=== PATIENT | female | born 1950 | race Caucasian/White ===

== ENCOUNTER 2025-07-12 22:14 | Emergency (ER) | payer MEDICARE, OTHER, SELFPAY ==
[2025-07-12] VITALS (14 sets, daily range): BP systolic 109–124; BP diastolic 51–69; PULSE 70–78; RESP 11–26; TEMP 37; O2SAT 89–98
[2025-07-12 22:57] LABS: Hematocrit 31.1 % (37.0-47.0); Hemoglobin 9.5 g/dL (12.0-15.0); Immature Granulocyte Percent A 0.7 % (0-0.5); Lymphocytes Absolute Auto 0.87 K/mm3 (0.9-3.2); Mean Corpuscular HGB Conc 30.5 g/dl (32-36); Mean Corpuscular Hemoglobin 30.4 pg (26-34); Mean Corpuscular Volume 99.4 fl (80-100); Nucleated Red Blood Cells Absolute Auto 0.000 K/mm3 (0.0-0.012); Nucleated Red Blood Cells Perc 0.0 % (0.0-0.2); Platelet Count Result 235 k/mm3 (150-375); Red Blood Count 3.13 M/mm3 (4.2-5.4); White Blood Count 4.5 K/mm3 (4.5-10.0)
[2025-07-12 23:09] LABS: Alanine Aminotransferase 13 U/L (6-35); Albumin Level 2.9 g/dL (3.5-5.1); Alkaline Phosphatase 117 U/L (38-126); Anion Gap 3 mmol/L (4-12); Aspartate Amino Transferase 22 U/L (14-36); Bilirubin,Total 0.3 mg/dL (0.2-1.3); Blood Urea Nitrogen 12 mg/dL (7-17); Calcium 7.7 mg/dL (8.4-10.2); Carbon Dioxide 34 mmol/L (22-30); Chloride 101 mmol/L (98-107); Estimated CRCL calculation 73 ml/min; Estimated Glomerular Filt Rate > 60; Glucose 105 mg/dL (65-110); Potassium 4.1 mmol/L (3.4-5.0); Sodium 138 mmol/L (137-145); Total Protein 5.3 g/dL (6.3-8.2)
[2025-07-12 23:10] LABS: INR 1.1; Prothrombin Time 14.0 Seconds (11.1-14.7)
[2025-07-12 23:11] LABS: Partial Thromboplastin Time 35.1 Seconds (22.3-36.8)
--- NOTE | 2025-07-12 23:25 | ED.RECABL ---
HPI - Recheck/Abnormal Lab/Rx General Chief Complaint: Recheck/Abnormal Lab/Rx Stated Complaint: Abnormal labs Time Seen by Provider: 07/12/25 22:31 History of Present Illness HPI narrative: Patient is a 75-year-old female who presents to the ER with concerns of low calcium. She reports she has a history low calcium and has an oral calcium regimen at home. Patient reports that regimen has been changed and she has been living in the [facility] and she believes this is what causing her current low calcium. She reports she felt lightheaded at lunch, but laid down afterwards and felt better. Patient recently had back surgery on June 13, 2025. She reports her follow-up appointment is scheduled for July 26, 2025. 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 She denies any recent fevers, increased pain at her incision site, new onset numbness/tingling in her extremities or muscle cramps. Related Data Allergies Allergy/AdvReac Type Severity Reaction Status Date / Time adhesive tape Allergy Mild Rash Verified 07/12/25 22:29 belladonna alkaloids Allergy Mild Unknown Verified 07/12/25 22:29 cefprozil Allergy Mild Unknown Verified 07/12/25 22:29 clindamycin Allergy Mild Unknown Verified 07/12/25 22:29 clobetasol Allergy Mild Unknown Verified 07/12/25 22:29 diltiazem Allergy Mild Unknown Verified 07/12/25 22:29 doxycycline Allergy Mild Unknown Verified 07/12/25 22:29 ergotamine (From Bellergal-S) Allergy Mild Rash Verified 07/12/25 22:29 erythromycin base Allergy Mild Unknown Verified 07/12/25 22:29 fosfomycin Allergy Mild Unknown Verified 07/12/25 22:29 hydralazine Allergy Mild Unknown Verified 07/12/25 22:29 levofloxacin Allergy Mild Unknown Verified 07/12/25 22:29 nitrofurantoin Allergy Mild Unknown Verified 07/12/25 22:29 phenobarbital (From Allergy Mild Rash Verified 07/12/25 22:29 Bellergal-S) ceftriaxone (From Rocephin) Allergy Unknown Verified 07/12/25 22:29 Sulfa (Sulfonamide Allergy Unknown Verified 07/12/25 22:29 Antibiotics) ticagrelor Allergy Unknown Verified 07/12/25 22:29 Review of Systems Review of Systems: All systems reviewed & are unremarkable except as noted in HPI and below Exam Narrative: GENERAL: Well appearing, obese, non-toxic, in no acute distress. HEAD: Normocephalic, atraumatic. NECK: Supple. No adenopathy, no masses. RESPIRATORY: Airway patent, respirations nonlabored. Clear to auscultation bilaterally, no rales, rhonchi, wheezing. 3L NC CARDIOVASCULAR: Regular rate, + murmur. Peripheral pulses 2+ and equal bilaterally. ABDOMINAL: Soft, nontender, nondistended, no hepatosplenomegaly. Normoactive BS. MUSCULOSKELETAL: Moves all extremities. Strength/ROM intact without gross deformities. SKIN: Warm, dry, normal color. No rashes. NEURO: A&O X3. Speech clear. Cranial nerves II-XII intact. No ataxic movements. PSYCHIATRIC: Appropriate mood and affect. Normal interaction. Course Vital Signs Vital signs: Vital Signs Temperature 37.0 C 07/12/25 22:08 Pulse Rate 78 07/12/25 22:08 Respiratory Rate 12 07/12/25 22:08 Blood Pressure 116/69 07/12/25 22:08 Pulse Oximetry 90 07/12/25 22:08 Oxygen Delivery Room Air 07/12/25 22:08 Temperature 37.0 C 07/12/25 22:08 Pulse Rate 72 07/13/25 00:02 Respiratory Rate 12 07/13/25 00:02 Blood Pressure 129/55 L 07/13/25 00:02 Pulse Oximetry 98 07/13/25 00:02 Oxygen Delivery Room Air 07/12/25 22:08 MDM - Recheck/Abnormal Lab/Rx MDM Narrative Medical decision making narrative: Patient is a 75-year-old female who presents to the ER with concerns of low calcium. She reports she has a history low calcium and has an oral calcium regimen at home. Patient reports that regimen has been changed and she has been living in the [facility] and she believes this is what causing her current low calcium. She reports she felt lightheaded at lunch, but laid down afterwards and felt better. Patient recently had back surgery on June 13, 2025. She reports her follow-up appointment is scheduled for July 26, 2025. 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 She denies any recent fevers, increased pain at her incision site, new onset numbness/tingling in her extremities or muscle cramps. Labs Ordered: CBC, CMP, lactic acid, magnesium, ionized calcium Imaging Ordered: none necessary Medications Ordered: calcium gluconate IV Results: patient's CBC indicates a hemoglobin of 9.5, RBCs of 3.13, hematocrit of 31.1%. Her coags indicated no acute abnormality. Patient's chemistry indicates a carbon dioxide of 34, anion gap of 3, creatinine 0.61. Her lactic acid is 0.6. Patient's calcium is 7.7, total protein 35.3, albumin 2.9. Diagnosis: Hypocalcemia Patient Education/Shared MDM: Results of lab work shared with patient. She continues to deny symptoms associated with hypocalcemia. Patient strongly advised to follow-up with her PCP and surgeon as soon as possible. She will not be discharged home with any new prescriptions. Strict return precautions provided. Patient verbalized understanding and is in agreement with plan. Vital signs stable at time of discharge. All questions answered. 0100- Pt is requesting her regular regime of pain medication. Per her medical chart, she receives Percocet 15mg at the [facility], along with her Cyclobenzaprine. Differential Diagnosis Differential diagnosis: Likely other ( hypocalcemia, hypomagnesium, postoperative infection, hypokalemia) Lab Data Attestation: I reviewed the patient's lab results. 07/12/25 22:50 07/12/25 22:50 Labs: Lab Results 07/12/25 07/13/25 Range/Units 22:50 00:04 WBC 4.5 (4.5-10.0) K/mm3 RBC 3.13 L (4.2-5.4) M/mm3 Hgb 9.5 L (12.0-15.0) g/dL Hct 31.1 L (37.0-47.0) % MCV 99.4 (80-100) fl MCH 30.4 (26-34) pg MCHC 30.5 L (32-36) g/dl RDW 17.0 H (11.5-14.5) % Plt Count 235 (150-375) k/mm3 MPV 9.6 (7.4-10.4) fl Immature Gran % (Auto) 0.7 H (0-0.5) % Neut % (Auto) 62.5 (45.5-73.1) % Lymph % (Auto) 19.4 (18.3-44.2) % Sutter % (Auto) 11.4 H (2.6-8.5) % Eos % (Auto) 5.1 H (0-4.4) % Baso % (Auto) 0.9 (0.2-1.2) % Lymph # (Auto) 0.87 L (0.9-3.2) K/mm3 Sutter # (Auto) 0.5 (0.1-0.6) K/mm3 Eos # (Auto) 0.2 (0-0.3) K/mm3 Baso # (Auto) 0.0 (0.0-0.1) K/mm3 Abs Immat Gran (auto) 0.03 (0.00-0.031) K/mm3 Absolute Neuts (auto) 2.8 (1.3-6.7) K/mm3 Absolute Nucleated RBC 0.000 (0.0-0.012) K/mm3 Nucleated RBC % 0.0 (0.0-0.2) % PT 14.0 (11.1-14.7) Seconds INR 1.1 APTT 35.1 (22.3-36.8) Seconds Sodium 138 (137-145) mmol/L Potassium 4.1 (3.4-5.0) mmol/L Chloride 101 (98-107) mmol/L Carbon Dioxide 34 H (22-30) mmol/L Anion Gap 3 L (4-12) mmol/L BUN 12 (7-17) mg/dL Creatinine 0.61 L (0.7-1.0) mg/dL Estim Creat Clear Calc 73 ml/min Estimated GFR > 60 (59 - ) Glucose 105 (65-110) mg/dL Lactic Acid 0.6 L (0.7-2.0) mmol/L Calcium 7.7 L (8.4-10.2) mg/dL Ionized Calcium Pending Magnesium 2.1 (1.6-2.3) mg/dL Total Bilirubin 0.3 (0.2-1.3) mg/dL AST 22 (14-36) U/L ALT 13 (6-35) U/L Alkaline Phosphatase 117 (38-126) U/L Total Protein 5.3 L (6.3-8.2) g/dL Albumin 2.9 L (3.5-5.1) g/dL Discharge Plan Discharge Clinical Impression: Hypocalcemia Patient Disposition: NH Detention/Asst Living Condition: Stable Instructions: Antibiotic Form Additional Instructions: Please return to the ER with any worsening symptoms. Follow-up with primary care provider as soon as possible. please follow-up with your surgeon as planned. Take all medications as prescribed, including regularly scheduled medications. Continue to take your oral Calcium supplements. Patient Language: Urdu Follow-up/Referrals: Kalpesh,Alvina Spangler NP [Primary Care Provider, [facility]] Stand Alone Forms: Assisted Discharge Time of Disposition: 00:12
[2025-07-12 23:37] LABS: Magnesium 2.1 mg/dL (1.6-2.3)
[2025-07-13] VITALS (9 sets, daily range): BP systolic 118–129; BP diastolic 55–62; PULSE 71–74; RESP 10–13; O2SAT 95–98
[2025-07-13] MEDS: CALCIUM GLUCONATE 1,000 MG/10 ML VIAL 1000 MG IV PUSH (00:07)
[2025-07-13] MEDS: oxyCODONE/ACETAMINOPHEN (*CRX) 5-325 MG TABLET 1 TABLET PO (00:58)
[2025-07-13] MEDS: oxyCODONE/ACETAMINOPHEN (*CRX) 10-325 MG TABLET 1 TAB PO (00:58)
[2025-07-13] MEDS: CYCLOBENZAPRINE HCL 5 MG TABLET PO (00:58)
[2025-07-14 16:08] LABS: Calcium, Ionized 4.3 mg/dL (4.5-5.6)
== END 2025-07-13 01:24 ==
PROVIDERS: Emergency Provider Registered Nurse; PCP Nurse Practitioner
DX: E83.51 Hypocalcemia (principal); E89.0 Postprocedural hypothyroidism; Z86.73 Personal history of transient ischemic attack (TIA), and cerebral infarction without residual deficits; Z90.49 Acquired absence of other specified parts of digestive tract
CPT/HCPCS: 36415; 80053; 82330; 83605; 83735; 85025; 85610; 85730; 96374; 99284; A9270; J0612

== ENCOUNTER 2025-07-16 10:17 | Inpatient (IN) | payer MEDICARE, SELFPAY ==
[2025-07-16] VITALS (38 sets, daily range): BP systolic 121–167; BP diastolic 55–87; PULSE 72–96; RESP 11–22; TEMP 36.4–36.8; O2SAT 91–100; BMI 40.6
--- NOTE | ~2025-07-16 | CT_ITS ---
EXAMINATION: CTA chest PE abdomen pel, 07/16/2025 13:50 LENS SHAPER GRINDER HISTORY: Shortness of breath, elevated D-dimer COMPARISON: No comparisons available. TECHNIQUE: CTA scan with 3D Reconstructions of the chest, CT of the abdomen and pelvis was performed with contrast Isovue 300, 92cc injected IV. One or more of the following dose reduction techniques were used: automated exposure control, adjustment of the mA and/or kV according to patient size, use of iterative reconstruction technique. Unless otherwise stated, incidental findings do not require dedicated follow up imaging FINDINGS: CT chest: No significant coronary calcification is present ([id number]) LUNGS: No tracheomalacia. No bronchiectasis. Moderate pulmonary venous congestion. Minimal emphysematous changes. No significant pulmonary fibrotic changes or honeycombing. Contrast bolus is adequate, there is no pulmonary embolism identified. Trace simple appearing pleural effusions. HEART AND PERICARDIUM: Within normal limits. AORTA: Normal caliber aorta. MEDIASTINUM: Unremarkable. THYROID: The thyroid is unremarkable. CT abdomen: LIVER: Mild hepatic steatosis. The portal vein is patent. There is no intrahepatic biliary duct dilatation. SPLEEN: Unremarkable, no splenomegaly. KIDNEYS: Right Kidney: Right kidney there are simple appearing renal cysts the largest mid pole 2 x 2 cm, moderate hydronephrosis without hydroureter, no renal calculi identified. Left Kidney: The left kidney is not identified with ill-defined density noted in the left renal bed. ADRENAL GLANDS: Subcentimeter bilateral adrenal nodules. PANCREAS: GALLBLADDER/BILIARY: Gallbladder not identified. STOMACH AND ESOPHAGUS: The stomach is decompressed. BOWEL/MESENTERY: The rectum is dilated measuring 8 cm with pericolonic stranding consistent with proctitis with moderate fecal content throughout the large bowel. Mild diverticulosis. No acute diverticulitis. Appendix not identified. Mesentery normal. No thickened or dilated loops of small bowel. Nonspecific minimal presacral fluid noted. RETROPERITONEUM: Unremarkable AORTA/VASCULATURE: Normal caliber aorta. FREE FLUID OR FREE AIR: Minimal free fluid.. CT pelvis: SOLID ORGANS/REPRODUCTIVE: Unremarkable. BLADDER: Bladder decompressed, Mahmood catheter in the bladder. LYMPHADENOPATHY: No lymphadenopathy. OSSEOUS STRUCTURES: Postsurgical changes noted in the pelvis and the lumbar spine. No sclerotic or lytic lesions appreciated. There are no acute rib fractures identified. OVERLYING SOFT TISSUES: Left pacemaker. Stranding within the soft tissues overlying the chest may represent underlying cellulitis. IMPRESSION: 1. Negative for pulmonary embolism. Mild CHF. 2. Probable fecal impaction with proctitis 3. 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 4. Postsurgical changes in the spine, there is concern for discitis or osteomyelitis contrast-enhanced MRI is recommended Reviewed, dictated and finalized at location P. SHAPER GRINDER IMPRESSION: 1. Negative for pulmonary embolism. Mild CHF. 2. Probable fecal impaction with proctitis 3. 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 4. Postsurgical changes in the spine, there is concern for discitis or osteomye litis contrast-enhanced MRI is recommended
--- NOTE | ~2025-07-16 | XR_ITS ---
Examination: XR chest 1V portable Clinical History: cp AND PREVIOUS PICC LINE Comparison: None Technique: Portable AP Findings: Right neck central line with catheter tip mid SVC. Left pacemaker. Heart size normal. Lungs clear. Except mild scattered atelectasis and/or scarring. No acute bony abnormality. Dominguez rods. IMPRESSION: 1. No acute cardiopulmonary findings given portable technique. Reviewed, dictated and finalized at location R. ATTACHER
--- NOTE | 2025-07-16 10:22 | ECG_ITS ---
Test Date: 2025-07-16 10:26:22 Measurements Intervals [place] Rate: 90 P: 58 OR: 112 QRS: -42 QRSD: 113 T: 100 QT: 355 QTc: 435 Interpretive Statements SINUS RHYTHM WITH SHORT OR INTERVAL MARKED LEFT AXIS DEVIATION [QRS AXIS < -30] MODERATE INTRAVENTRICULAR CONDUCTION DELAY [110+ ms QRS DURATION] NONSPECIFIC ST & T-WAVE ABNORMALITY No previous ECG available for comparison Electronically Signed On 07-16-2025 13:21:35 FORESTRY BIOLOGY SPECIALIST by Bob Clemente M.D.
--- NOTE | 2025-07-16 10:38 | ED_ITS ---
HPI - Chest Pain General Chief Complaint: Chest Pain Stated Complaint: cp Time Seen by Provider: 07/16/25 10:24 Source: patient and EMS Mode of arrival: EMS History of Present Illness HPI narrative: 75 years old white female [facility] with left chest intermittent aching pain noticed this morning 1 hour prior to arrival to the emergency room 03/23, on arrival to the ED for out of 10. Patient denies any fever, chills, nausea, vomiting. Patient complaining of constipation for a while. Patient is status post spine surgery at [facility] June 13 few days later started on antibiotic because of spine infection does not know the name of it, did not receive her morning antibiotic today because of shift change. The patient used to be on aspirin which recommended to not to take it for 6 weeks after the surgery. History of coronary stent, CVA, diabetes Related Data Allergies Allergy/AdvReac Type Severity Reaction Status Date / Time adhesive tape Allergy Mild Rash Verified 07/16/25 18:43 belladonna alkaloids Allergy Mild Unknown Verified 07/16/25 18:43 cefprozil Allergy Mild Unknown Verified 07/16/25 18:43 clindamycin Allergy Mild Unknown Verified 07/16/25 18:43 clobetasol Allergy Mild Unknown Verified 07/16/25 18:43 diltiazem Allergy Mild Unknown Verified 07/16/25 18:43 doxycycline Allergy Mild Unknown Verified 07/16/25 18:43 ergotamine (From Bellergal-S) Allergy Mild Rash Verified 07/16/25 18:43 erythromycin base Allergy Mild Unknown Verified 07/16/25 18:43 fosfomycin Allergy Mild Unknown Verified 07/16/25 18:43 hydralazine Allergy Mild Unknown Verified 07/16/25 18:43 levofloxacin Allergy Mild Unknown Verified 07/16/25 18:43 nitrofurantoin Allergy Mild Unknown Verified 07/16/25 18:43 phenobarbital (From Allergy Mild Rash Verified 07/16/25 18:43 Bellergal-S) Sulfa (Sulfonamide Allergy Unknown Verified 07/16/25 18:43 Antibiotics) ticagrelor Allergy Unknown Verified 07/16/25 18:43 Review of Systems 2 Review of Systems: All systems reviewed & are unremarkable except as noted in HPI and below PMFSH Social History Social History Smoking packs per day: 1 Smoking cigarettes per day: 20.0 Years smoked: 14 Smoking pack-years: 14.00 Smoking status: Former smoker Tobacco type: cigarettes Alcohol intake: never Substance use: never Lack of Transportation: YES Lack of Food: Never True Current Housing: I Have Housing Concerned About Future Housing: YES Difficulty Paying Gas/Electric Bills: YES Difficulty Paying for Meds: No Currently Unemployed: No Education: Associate Degree Difficulty w/ Childcare or Family Care: No Spiritual care concerns: No Exam 2 Narrative: General appearance: Well-developed, well-nourished Skin: Normal color Head: Normocephalic, nontraumatic Eyes: Clear conjunctiva ENT: Oropharynx normal, ears normal, nose normal Neck: Supple, nontender Chest and respiratory: Airway patent, no respiratory distress, no accessory muscle use mild diffuse tenderness left chest and left upper back, no bruises, no swelling or rash Heart: Regular rate/rhythm Abdomen: Soft, diffuse abdominal tenderness, no organomegaly, quiet bowel sounds Vascular: Normal peripheral pulses, normal capillary refill. Musculoskeletal: Normal range of motion, nontender back Neurologic: Alert and oriented ?3, [employer] is normal as tested, no gross motor deficit Course Consultations Consultation #1: DR TUCKER/THE NEUROSURGEON ON-CALL AT [facility] AFTER LOOKING AT THE CT SCAN OF THE CHEST AND ABDOMEN TODAY, COMPARED TO THE LAST CT SCAN WAS DONE AT HIS FACILITY 2 WEEKS AGO. HE BELIEVES THAT THE FINDINGS EXACTLY THE SAME BEFORE AND NOTHING ACUTE OR DIFFERENT ABOUT IT. HIS TELLING ME THAT PATIENT CURRENTLY TREATED WITH ROCEPHIN 2 G IV DAILY FOR CHRONIC OSTEOMYELITIS. AND CHEST PAIN AT THIS TIME HAS NOTHING TO DO WITH SURGERY. IS TELLING ME THAT PATIENT IS SCHEDULED TO SEE HER INFECTIOUS DISEASE PHYSICIAN ON THE OF THIS MONTH ALSO SCHEDULED TO SEE HER SPINE SURGEON ON THE OF THIS MONTH. Date: 07/16/25 Time: 16:06 Vital Signs Vital signs: Vital Signs Temperature 36.8 C 07/16/25 10:22 Pulse Rate 93 07/16/25 10:22 Respiratory Rate 14 07/16/25 10:22 Blood Pressure 130/69 07/16/25 10:22 Pulse Oximetry 94 07/16/25 10:22 Oxygen Delivery Room Air 07/16/25 10:22 Temperature 36.8 C 07/16/25 10:22 Pulse Rate 82 07/16/25 15:00 Respiratory Rate 12 07/16/25 15:00 Blood Pressure 167/70 H 07/16/25 15:00 Pulse Oximetry 95 07/16/25 15:00 Oxygen Delivery Room Air 07/16/25 10:29 MDM - Chest Pain MDM Narrative Medical decision making narrative: PATIENT CAME TO THE ED WITH LEFT CHEST PAIN AND CONSTIPATION VITAL SIGNS ARE STABLE PHYSICAL EXAMINATION SHOWING MILD TENDERNESS LEFT CHEST AND LEFT UPPER BACK DIFFERENTIAL DIAGNOSIS INCLUDE CORONARY ARTERY DISEASE, PNEUMONIA, PNEUMOTHORAX, PLEURISY, PULMONARY EMBOLISM, SECONDARY TO RECENT SPINE SURGERY BLOOD WORKUP TODAY INCLUDES CBC, CMP, TROPONIN SHOWED HEMOGLOBIN OF 10.0, D- DIMER 2.94 OTHERWISE WITHIN NORMAL LIMIT CHEST X-RAY SHOWED NO ACUTE ABNORMALITY CT CHEST ABDOMEN AND PELVIS TO RULE OUT PE SHOWED NO PE, CONCERN FOR OSTEOMYELITIS, DISKITIS WHICH WAS PROVEN TO BE CHRONIC FINDINGS ACCORDING TO THE NEUROSURGEON AT [facility]. ADMIT TO HOSPITALIST DIAGNOSIS CHEST PAIN, CONSTIPATION Differential Diagnosis Differential diagnosis: Likely other ( ABOVE) Medical Records Data Attestation: I reviewed the patient's medical records. Lab Data Attestation: I reviewed the patient's lab results. 07/16/25 11:49 07/16/25 11:49 Labs: Lab Results 07/16/25 07/16/25 Range/Units 11:49 14:31 WBC 8.1 (4.5-10.0) K/mm3 RBC 3.33 L (4.2-5.4) M/mm3 Hgb 10.0 L (12.0-15.0) g/dL Hct 33.1 L (37.0-47.0) % MCV 99.4 (80-100) fl MCH 30.0 (26-34) pg MCHC 30.2 L (32-36) g/dl RDW 16.6 H (11.5-14.5) % Plt Count 234 (150-375) k/mm3 MPV 9.6 (7.4-10.4) fl Immature Gran % (Auto) 0.4 (0-0.5) % Neut % (Auto) 80.9 H (45.5-73.1) % Lymph % (Auto) 8.9 L (18.3-44.2) % [place]nn % (Auto) 7.5 (2.6-8.5) % Eos % (Auto) 1.9 (0-4.4) % Baso % (Auto) 0.4 (0.2-1.2) % Lymph # (Auto) 0.72 L (0.9-3.2) K/mm3 [place]nn # (Auto) 0.6 (0.1-0.6) K/mm3 Eos # (Auto) 0.2 (0-0.3) K/mm3 Baso # (Auto) 0.0 (0.0-0.1) K/mm3 Abs Immat Gran (auto) 0.03 (0.00-0.031) K/mm3 Absolute Neuts (auto) 6.6 (1.3-6.7) K/mm3 Absolute Nucleated RBC 0.000 (0.0-0.012) K/mm3 Nucleated RBC % 0.0 (0.0-0.2) % PT 14.4 (11.1-14.7) Seconds INR 1.1 APTT 30.5 (22.3-36.8) Seconds D-Dimer 2.94 H (<0.48) ug/mL Sodium 137 (137-145) mmol/L Potassium 4.0 (3.4-5.0) mmol/L Chloride 102 (98-107) mmol/L Carbon Dioxide 33 H (22-30) mmol/L Anion Gap 2 L (4-12) mmol/L BUN 12 (7-17) mg/dL Creatinine 0.43 L (0.7-1.0) mg/dL Estim Creat Clear Calc 96 ml/min Estimated GFR > 60 (59 - ) Glucose 122 H (65-110) mg/dL Calcium 8.1 L (8.4-10.2) mg/dL Total Bilirubin 0.3 (0.2-1.3) mg/dL AST 25 (14-36) U/L ALT 15 (6-35) U/L Alkaline Phosphatase 114 (38-126) U/L Troponin I < 0.012 < 0.012 (0.000-0.034) ng/mL Total Protein 5.6 L (6.3-8.2) g/dL Albumin 3.1 L (3.5-5.1) g/dL Lipase 28 (23-300) U/L ABG Data ABG results: 07/16/25 12:31 VBG pH 7.449 H* VBG pCO2 42.9 VBG pO2 43.1 VBG HCO3 29.1 O2 Delivery Device Room air O2 Liters/Min 0.0 FiO2 37 Imaging Data Radiologist's impression: Impressions Chest X-Ray 07/16/25 11:34 IMPRESSION: 1. No acute cardiopulmonary findings given portable technique. Chest/Abdomen/Pelvis CTA 07/16/25 14:12 IMPRESSION: 1. Negative for pulmonary embolism. Mild CHF. 2. Probable fecal impaction with proctitis 3. 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 4. Postsurgical changes in the spine, there is concern for discitis or osteomyelitis contrast-enhanced MRI is recommended ECG Data EKG #1: Attestation: I personally reviewed and interpreted this ECG as follows: ECG completion date: 07/16/25 Interpretation: NORMAL SINUS RHYTHM WITH SHORT [place] INTERVAL AT 90 BEATS PER MINUTE, LEFT AXIS DEVIATION, MODERATE INTERVENTRICULAR CONDUCTION DELAY, NONSPECIFIC ST T-WAVE ABNORMALITY NO PREVIOUS EKG AVAILABLE FOR COMPARISON Critical Care Time Critical Care Time Critical Care Time: Yes Total Critical Care Time: 30 Discharge Plan Discharge Clinical Impression: Chest pain, Constipation Patient Disposition: Still a Patient Condition: Stable Additional Instructions: ADMIT TO HOSPITALIST Patient Language: Congolese Follow-up/Referrals: Kalpesh,Alvina Spangler NP [Primary Care Provider, [facility]]
[2025-07-16] MEDS: ASPIRIN 81 MG CHEWABLE TABLET 324 MG PO (10:44)
--- NOTE | 2025-07-16 10:50 | PC.NURSE ---
Pt states she only wants her PICC used for labwork
--- NOTE | 2025-07-16 11:16 | PCRCNOTE ---
patient refused abg
[2025-07-16 11:55] LABS: Hematocrit 33.1 % (37.0-47.0); Hemoglobin 10.0 g/dL (12.0-15.0); Immature Granulocyte Percent A 0.4 % (0-0.5); Lymphocytes Absolute Auto 0.72 K/mm3 (0.9-3.2); Mean Corpuscular HGB Conc 30.2 g/dl (32-36); Mean Corpuscular Hemoglobin 30.0 pg (26-34); Mean Corpuscular Volume 99.4 fl (80-100); Nucleated Red Blood Cells Absolute Auto 0.000 K/mm3 (0.0-0.012); Nucleated Red Blood Cells Perc 0.0 % (0.0-0.2); Platelet Count Result 234 k/mm3 (150-375); Red Blood Count 3.33 M/mm3 (4.2-5.4); White Blood Count 8.1 K/mm3 (4.5-10.0)
[2025-07-16 12:04] LABS: Alanine Aminotransferase 15 U/L (6-35); Albumin Level 3.1 g/dL (3.5-5.1); Alkaline Phosphatase 114 U/L (38-126); Anion Gap 2 mmol/L (4-12); Aspartate Amino Transferase 25 U/L (14-36); Bilirubin,Total 0.3 mg/dL (0.2-1.3); Blood Urea Nitrogen 12 mg/dL (7-17); Calcium 8.1 mg/dL (8.4-10.2); Carbon Dioxide 33 mmol/L (22-30); Chloride 102 mmol/L (98-107); Estimated CRCL calculation 96 ml/min; Estimated Glomerular Filt Rate > 60; Glucose 122 mg/dL (65-110); Lipase 28 U/L (23-300); Potassium 4.0 mmol/L (3.4-5.0); Sodium 137 mmol/L (137-145); Total Protein 5.6 g/dL (6.3-8.2)
[2025-07-16 12:09] LABS: INR 1.1; Partial Thromboplastin Time 30.5 Seconds (22.3-36.8); Prothrombin Time 14.4 Seconds (11.1-14.7)
[2025-07-16 12:18] LABS: Troponin I < 0.012 ng/mL (0.000-0.034)
[2025-07-16 13:05] LABS: PCO2 VBG 42.9 mmHg (42.0-48.0); PO2 VBG 43.1 mmHg (35.0-45.0); pH VBG 7.449 (7.300-7.400)
[2025-07-16 13:06] LABS: HCO3 VBG 29.1 mEq/l (24.0-30.0)
[2025-07-16 13:08] LABS: Fractional Inspired Oxygen 37 %
[2025-07-16 13:09] LABS: Liters per Minute 0.0 LPM
--- NOTE | 2025-07-16 14:30 | ECG_ITS ---
Test Date: 2025-07-16 14:33:31 Measurements Intervals [place] Rate: 76 P: 58 WV: 138 QRS: -40 QRSD: 114 T: 73 QT: 391 QTc: 440 Interpretive Statements SINUS RHYTHM LEFT AXIS DEVIATION [QRS AXIS < -30] PATTERN CONSISTENT WITH PULMONARY DISEASE MODERATE INTRAVENTRICULAR CONDUCTION DELAY [110+ ms QRS DURATION] NONSPECIFIC ST & T-WAVE ABNORMALITY Compared to ECG 07/16/2025 10:26:22 Short [place] interval no longer present T-wave abnormality still present Electronically Signed On 07-16-2025 14:35:15 FLOOR LAYER HELPER by Lee Ann Maurer M.D.
[2025-07-16 15:01] LABS: Troponin I < 0.012 ng/mL (0.000-0.034)
[2025-07-16] MEDS: cefTRIAXone 2 GM in SODIUM CHLORIDE 0.9% IV 100 ML 200 ML IVPB (15:17)
--- NOTE | 2025-07-16 17:31 | PM.IMHP ---
H&P: HPI History of Present Illness Date/Time: 07/16/25 17:31 Chief Complaint: Chest pain Narrative: 75-year-old female with a past medical history of IA, partially paralyzed diaphragm, Ochtgp-Xvsqbl-Dqshuhfzfn syndrome, osteomyelitis spine, prolapsed rectum, prolapse uterus, prolapsed rectum presents to the ED from [facility] on 07/16/2025 with complaints of chest pain. She describes the chest pain is intermittent aching that she noticed this morning about 1 hour prior to arrival to the emergency department. She rates the pain on arrival as 4/10. Patient denies fevers, chills, nausea, vomiting. Patient further complaining of constipation for a while. Patient had spine surgery at [facility] on June 13 and was started on long-term antibiotics (2 g Rocephin) a few days later due to osteomyelitis of the spine. Patient takes Plavix and aspirin but was recommended to hold it for 6 weeks postop. Patient has 2 KEELEY drains remaining from her surgery. Patient also has an indwelling Mahmood due to a prolapsed bladder which she is following urology for. Patient denies fevers, chills, nausea, vomiting. Chest pain had resolved by the time patient has ED. Initial vital signs 130/69, HR 93, 14 respirations, afebrile and 94% on room air Labs significant for chronic anemia, D-dimer 2.94, carbon dioxide 33, anion gap 2, creatinine 0.43, glucose 1-2, calcium 8.1. Troponins flat VBG 7.449 pH Chest x-ray with no acute cardiopulmonary findings Chest abdomen pelvis CTA negative for PE. 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 ED physician did speak with neurosurgeon on-call at [facility]. Neurosurgeon believes the findings are the same as CT scan 2 weeks before at [facility]. Neurosurgeon further informed him that patient is scheduled to see her infectious disease physician on the and her spine surgeon on the . Review of Systems Review of Systems: All systems reviewed & are unremarkable except as noted in HPI and below PMFSH Social History Social History Smoking packs per day: 1 Smoking cigarettes per day: 20.0 Years smoked: 14 Smoking pack-years: 14.00 Smoking status: Former smoker Tobacco type: cigarettes Alcohol intake: never Substance use: never Lack of Transportation: YES Lack of Food: Never True Current Housing: I Have Housing Concerned About Future Housing: YES Difficulty Paying Gas/Electric Bills: YES Difficulty Paying for Meds: No Currently Unemployed: No Education: Associate Degree Difficulty w/ Childcare or Family Care: No Spiritual care concerns: No Meds Home Medications and Allergies Home Medications ?Medication ?Instructions ?Recorded ?Confirmed ?Type acetaminophen 500 mg capsule 500 mg PO Q4-6H PRN chronic pain 07/16/25 07/16/25 History amlodipine 5 mg tablet 5 mg PO DAILY 07/16/25 07/16/25 History aspirin 81 mg capsule 81 mg PO DAILY 07/16/25 07/16/25 History calcitriol 0.25 mcg capsule 0.75 mcg PO DAILY 07/16/25 07/16/25 History calcium 600 mg (as See Rx Instructions PO DAILY 07/16/25 07/16/25 History carbonate)-vitamin D3 10 mcg (400 unit) tablet (Calcium with Vitamin D) clopidogrel 75 mg tablet 75 mg PO DAILY 07/16/25 07/16/25 History enoxaparin 40 mg/0.4 mL 40 mg subcut DAILY 07/16/25 07/16/25 History subcutaneous syringe escitalopram oxalate 10 mg tablet 10 mg PO DAILY 07/16/25 07/16/25 History gabapentin 300 mg capsule 300 mg PO TID 07/16/25 07/16/25 History heparin (porcine) 10,000 unit/mL 10,000 unit subcut Q12H 07/16/25 07/16/25 History injection solution lactulose 10 gram/15 mL oral 10 g PO DAILY PRN constipation 07/16/25 07/16/25 History solution levothyroxine 137 mcg capsule 137 mcg PO DAILY 07/16/25 07/16/25 History lidocaine 5 % topical patch 2 patch topical DAILY PRN pain 07/16/25 07/16/25 History methocarbamol 750 mg tablet 1,000 mg PO QID 07/16/25 07/16/25 History naloxegol 25 mg tablet (Movantik) 25 mg PO DAILY PRN constipation 07/16/25 07/16/25 History omeprazole 20 mg capsule,delayed 20 mg PO DAILY 07/16/25 07/16/25 History release ondansetron 4 mg disintegrating 4 mg PO PRN PRN nausea and vomiting 07/16/25 07/16/25 History tablet oxycodone-acetaminophen 10 mg-325 1 tablet PO PRN PRN pain 07/16/25 07/16/25 History mg tablet oxycodone-acetaminophen 5 mg-325 1 tablet PO PRN PRN pain 07/16/25 07/16/25 History mg tablet rosuvastatin 10 mg tablet 10 mg PO EVERY OTHER DAY 07/16/25 07/16/25 History senna-docusate sodium tablet 2 tablet PO BID 07/16/25 07/16/25 History simethicone 80 mg chewable tablet 80 mg PO DAILY PRN heartburn 07/16/25 07/16/25 History (Gas Relief (simethicone)) Allergies Allergy/AdvReac Type Severity Reaction Status Date / Time adhesive tape Allergy Mild Rash Verified 07/16/25 18:43 belladonna alkaloids Allergy Mild Unknown Verified 07/16/25 18:43 cefprozil Allergy Mild Unknown Verified 07/16/25 18:43 clindamycin Allergy Mild Unknown Verified 07/16/25 18:43 clobetasol Allergy Mild Unknown Verified 07/16/25 18:43 diltiazem Allergy Mild Unknown Verified 07/16/25 18:43 doxycycline Allergy Mild Unknown Verified 07/16/25 18:43 ergotamine (From Bellergal-S) Allergy Mild Rash Verified 07/16/25 18:43 erythromycin base Allergy Mild Unknown Verified 07/16/25 18:43 fosfomycin Allergy Mild Unknown Verified 07/16/25 18:43 hydralazine Allergy Mild Unknown Verified 07/16/25 18:43 levofloxacin Allergy Mild Unknown Verified 07/16/25 18:43 nitrofurantoin Allergy Mild Unknown Verified 07/16/25 18:43 phenobarbital (From Allergy Mild Rash Verified 07/16/25 18:43 Bellergal-S) Sulfa (Sulfonamide Allergy Unknown Verified 07/16/25 18:43 Antibiotics) ticagrelor Allergy Unknown Verified 07/16/25 18:43 Vital Signs Vital Signs - 24 hr 07/16/25 10:22 07/16/25 10:29 07/16/25 10:31 Temperature 98.2 F Pulse Rate 93 93 Respiratory Rate 14 Blood Pressure 130/69 Pulse Oximetry 94 94 Oxygen Delivery Room Air Room Air 07/16/25 10:47 07/16/25 11:00 07/16/25 11:01 Temperature Pulse Rate 90 82 86 Respiratory Rate 14 14 16 Blood Pressure 124/61 Pulse Oximetry 95 95 95 Oxygen Delivery 07/16/25 11:02 07/16/25 11:15 07/16/25 11:30 Temperature Pulse Rate 89 86 79 Respiratory Rate 13 11 L 15 Blood Pressure Pulse Oximetry 94 96 94 Oxygen Delivery 07/16/25 11:45 07/16/25 11:46 07/16/25 12:00 Temperature Pulse Rate 75 78 76 Respiratory Rate 14 15 15 Blood Pressure 121/87 Pulse Oximetry 95 95 94 Oxygen Delivery 07/16/25 12:15 07/16/25 12:30 07/16/25 12:31 Temperature Pulse Rate 72 76 75 Respiratory Rate 12 14 14 Blood Pressure 142/60 H Pulse Oximetry 94 95 94 Oxygen Delivery 07/16/25 12:45 07/16/25 13:00 07/16/25 13:15 Temperature Pulse Rate 79 75 78 Respiratory Rate 18 17 14 Blood Pressure Pulse Oximetry 94 95 93 Oxygen Delivery 07/16/25 13:16 07/16/25 13:30 07/16/25 14:03 Temperature Pulse Rate 79 74 80 Respiratory Rate 12 12 16 Blood Pressure 129/62 Pulse Oximetry 92 91 94 Oxygen Delivery 07/16/25 14:15 07/16/25 14:30 07/16/25 14:31 Temperature Pulse Rate 79 80 77 Respiratory Rate 16 16 14 Blood Pressure 159/78 H Pulse Oximetry 94 95 95 Oxygen Delivery 07/16/25 14:45 07/16/25 15:00 07/16/25 15:36 Temperature Pulse Rate 85 82 85 Respiratory Rate 14 12 13 Blood Pressure 167/70 H Pulse Oximetry 100 95 94 Oxygen Delivery 07/16/25 15:45 07/16/25 16:00 07/16/25 16:01 Temperature Pulse Rate 83 82 82 Respiratory Rate 15 14 13 Blood Pressure 142/72 H Pulse Oximetry 94 92 94 Oxygen Delivery 07/16/25 16:15 07/16/25 16:30 07/16/25 16:45 Temperature Pulse Rate 81 87 96 Respiratory Rate 13 11 L 19 Blood Pressure Pulse Oximetry 94 97 98 Oxygen Delivery 07/16/25 16:46 07/16/25 16:47 07/16/25 17:00 Temperature Pulse Rate 90 91 93 Respiratory Rate 22 H 11 L 12 Blood Pressure 159/76 H 159/76 H Pulse Oximetry 98 96 98 Oxygen Delivery Exam Narrative: GENERAL: non-toxic appearing, in no acute distress. HEAD: Normocephalic, atraumatic. EYES: PERRLA. Conjunctivae clear. NOSE: Normal no drainage. THROAT: Pharynx clear, no exudate. NECK: Trachea midline. No adenopathy, no masses. RESPIRATORY: Airway patent, respirations nonlabored. CTA. Mild tenderness to left chest and left upper back. No obvious injuries or rash. CARDIOVASCULAR: Regular rate and rhythm. Murmur heard BREASTS: Defer GASTROINTESTINAL: Abdomen is soft and nontender. No organomegaly. Bowel sounds hypoactive in all quadrants. GENITOURINARY: Defer MUSCULOSKELETAL: Moves all extremities. No gross deformities. No calf tenderness. SKIN: Warm, dry, normal color. NEURO: A&O X4. Speech clear PSYCHIATRIC: Anxious H&P: Results Labs Labs: Short CBC 07/16/25 Range/Units 11:49 WBC 8.1 (4.5-10.0) K/mm3 Hgb 10.0 L (12.0-15.0) g/dL Hct 33.1 L (37.0-47.0) % Plt Count 234 (150-375) k/mm3 BMP 07/16/25 11:49 Sodium 137 Potassium 4.0 Chloride 102 Carbon Dioxide 33 H BUN 12 Creatinine 0.43 L Glucose 122 H Calcium 8.1 L Cardiac Enzymes 07/16/25 07/16/25 Range/Units 11:49 14:31 Troponin I < 0.012 < 0.012 (0.000-0.034) ng/mL Liver Function 07/16/25 Range/Units 11:49 Total Bilirubin 0.3 (0.2-1.3) mg/dL AST 25 (14-36) U/L ALT 15 (6-35) U/L Alkaline Phosphatase 114 (38-126) U/L Albumin 3.1 L (3.5-5.1) g/dL Assessment and Plan Assessment and plan (1) Chest pain: Code(s): R07.9 - Chest pain, unspecified Status: Acute Assessment and Plan: Describes the chest pain is intermittent aching that she noticed this morning about 1 hour prior to arrival to the emergency department. She rates the pain on arrival as 4/10. No shortness of breath pain. Troponins negative. Initial EKG sinus rhythm with short IN interval, left axis deviation, moderate intraventricular conduction delay. D-dimer elevated but CTA chest abdomen pelvis negative for PE. Unlikely this chest pain is cardiac related. - EKG, repeat sinus rhythm, left axis deviation, pattern consistent with pulmonary disease. - CXR: No acute cardiopulmonary finding - Troponin: Negative x3 - ASA - lipid panel ordered - echo ordered - telemetry monitoring (2) Constipation: Code(s): K59.00 - Constipation, unspecified Status: Acute Assessment and Plan: The patient states this has been going on for ?some time.? Staff at the facility have been trying multiple different medications to assist patient. She was recently disimpacted. CT scan probable fecal impaction with proctitis. Likely multifactorial from narcotic use, decreased mobility, rectal prolapse -tap water enema -MiraLax daily -docusate 2 tabs p.o. b.i.d. -GI consult for further recs and possible intervention (3) Chronic osteomyelitis: Code(s): M86.60 - Other chronic osteomyelitis, unspecified site Status: Chronic Assessment and Plan: Spine surgery at [facility] on June 13 and was started on long-term antibiotics (2 g Rocephin) a few days later due to osteomyelitis of the spine. Chest and pelvis CTA postsurgical changes in the spine with concern for diskitis or osteomyelitis. The ED physician called the on-call neurosurgeon at [facility]. Neurosurgeon believes the findings are the same as CT scan 2 weeks before at [facility]. Neurosurgeon further informed him that patient is scheduled to see her infectious disease physician on the and her spine surgeon on the . -continue IV Rocephin (4) Prolapsed bladder: Status: Chronic Assessment and Plan: Following urology outpatient. -continue chronic Mahmood (5) CAD (coronary artery disease): Qualifiers: Coronary Disease-Associated Artery/Lesion type: ambler artery [place] vs. transplanted heart: ambler heart Associated angina: without angina Qualified Code(s): I25.10 - Atherosclerotic heart disease of ambler coronary artery without angina pectoris Code(s): I25.10 - Atherosclerotic heart disease of ambler coronary artery without angina pectoris Status: Acute Assessment and Plan: Patient had 2 MIs in 2022. s/p coronary stent placement. -continue Plavix and aspirin when cleared from neurosurgeon Plan Diet: Heart healthy GI prophylaxis: Pantoprazole DVT prophylaxis: Lovenox lines/drains: PIV, KEELEY drain x2, Mahmood Fluids: NA Code status: Full Quality VTE Prophylaxis VTE prophylaxis: pharmacologic ordered Hospitalist [facility] Advance Care Plan I have confirmed that the patient's Advanced Care Plan is present, code status is documented, or surrogate decision maker is listed in patient medical record.: Yes Medication Reconciliation I have utilized all available resources to obtain, update and review the patients current medications (includes all prescriptions, OTC, herbals, cannabis, and nutritional supplements).: Yes
--- NOTE | 2025-07-16 18:12 | ADMGEN ---
This patient, Ama Ring, was admitted to IMU Room 214-01. Patient/family oriented to hospital policies and general routines including ID bracelet, bed and alarms, visiting hours, pain management, procedures, bathroom and other care routines, personal items, smoking policy, room service/diet, and visiting hours. Information on how to activate the Rapid Response Team has been discussed. Patient/Family are encouraged to report perceived risks to care and to ask questions if they do not understand what they are told or what they should do.
[2025-07-16] MEDS: oxyCODONE/ACETAMINOPHEN (*CRX) 10-325 MG TABLET 1 TAB PO (22:14)
[2025-07-16] MEDS: ONDANSETRON INJ 4 MG/2 ML VIAL IV PUSH (22:24)
--- NOTE | 2025-07-16 22:50 | PC.NURSE ---
This patient, Ama Ring, was received from [[id number]] on 07/16/25 at 2120. Patient/family oriented to unit policies and routines
[2025-07-17] VITALS (8 sets, daily range): BP systolic 118–141; BP diastolic 61–69; PULSE 75–89; RESP 16; TEMP 36.4–36.8; O2SAT 95
--- NOTE | 2025-07-17 | ECHO_ITS ---
Patient Info Name: Ama Ring Age: 75 years : 1950 Gender: Female Ht: 60 in Wt: 208 lbs BSA: 2.05 m2 HR: 88 bpm BP: 141 / 69 mmHg Heart Rhythm: Sinus Rhythm Technical Quality: Good Exam Date: 07/17/2025 11:33 AM Patient Status: I Admit Date: 07/17/2025 Exam Type: CA echo doppler color flow Complete two-dimensional, color flow and Doppler transthoracic echocardiogram is performed. Staff Referring Physician: Piter Arnold MD Ultrasonic Hand Solderer: Leticia Esqueda Attending Provider: Hardeep Rivero Summary 1. Complete two-dimensional, color flow and Doppler transthoracic echocardiogram is performed. 2. Left ventricular systolic function is normal, estimated at 55-60. 3. The left ventricular diastolic function is grade I diastolic dysfunction. 4. Linear artifact in right ventricle suggestive of catheter(s), pacemaker lead(s), or ICD lead(s). 5. There is moderate to severe aortic valve stenosis with a peak velocity of 355 cm/s, mean gradient of 30 mmHg, and aortic valve area of 1.0 cm2. 6. There is moderate aortic valve calcification. 7. There is mild mitral valve regurgitation. 8. There is mild tricuspid valve regurgitation. 9. No pulmonary hypertension, estimated pulmonary arterial systolic pressure is 32 mmHg. 10. There is mild pulmonic regurgitation. Left Ventricle Left ventricular chamber dimension is normal. Left ventricular systolic function is normal, estimated at 55-60. There is no increased left ventricular wall thickness. Left ventricular septal wall motion is normal. The left ventricular diastolic function is grade I diastolic dysfunction. Right Ventricle Right ventricular chamber dimension is normal. Right ventricular systolic function is normal. Linear artifact in right ventricle suggestive of catheter(s), pacemaker lead(s), or ICD lead(s). Left Atria Left atrial chamber dimension is normal. Right Atria Right atrial chamber dimension is normal. Aortic Valve The aortic valve is trileaflet. There is no aortic valve sclerosis. There is moderate to severe aortic valve stenosis with a peak velocity of 355 cm/s, mean gradient of 30 mmHg, and aortic valve area of 1.0 cm2. There is no aortic valve regurgitation. There is moderate aortic valve calcification. Pulmonic Valve The pulmonic valve is normal. There is no pulmonic valve stenosis. There is mild pulmonic regurgitation. Mitral Valve The mitral valve has normal leaflets. There is no mitral valve stenosis. There is mild mitral valve regurgitation. There is mild mitral valve calcification. Tricuspid Valve The tricuspid valve leaflets are normal. There is no significant tricuspid valve stenosis. There is mild tricuspid valve regurgitation. No pulmonary hypertension, estimated pulmonary arterial systolic pressure is 32 mmHg. Pericardium/Pleural The pericardium appears normal. There is no pericardial effusion. Inferior Vena Cava Not well visualized inferior vena cava. Aorta The aortic root size at the sinus of Valsalva is normal. The prox ascending aorta size is normal. Left Ventricular Outflow Tract Name Value Normal LVOT 2D LVOT Diameter 2.0 cm LVOT Doppler LVOT Peak Velocity 111 cm/s LVOT Peak Gradient 5 mmHg LVOT Mean Gradient 2 mmHg LVOT VTI 23 cm LVOT VTI/AV VTI Ratio 0.3 LVOT Stroke Volume 71 ml LVOT CO 5.4 l/min LVOT CI 2.7 l/min/m2 Pulmonic Valve Name Value Normal RVOT Doppler RVOT Peak Velocity 95 cm/s RVOT Peak Gradient 4 mmHg PV Doppler PV Peak Velocity 262 cm/s PV Peak Gradient 27 mmHg Mitral Valve Name Value Normal MV Diastolic Function MV E Peak Velocity 97 cm/s MV A Peak Velocity 135 cm/s MV E/A 0.7 MV Decel Time (PW) 255 ms MV Annular TDI MV E/e' (Septal) 15.0 MV E/e' (Lateral) 13.2 MV E/e' (Average) 14.1 Tricuspid Valve Name Value Normal TV Regurgitation Doppler TR Peak Velocity 237 cm/s TR Peak Gradient 19 mmHg Estimated PAP/RSVP RA Pressure 10 mmHg <=5 PA Systolic Pressure 32 mmHg <36 RV Systolic Pressure 32 mmHg <36 TV Annular TDI TV Lateral Kiana s' Velocity 12.8 cm/s >=9.5 Aorta Name Value Normal Ascending Aorta Ao Root Diameter (MM) 2.9 cm Ao Root Diam Index (MM) 1.4 cm/m2 Aortic Valve Name Value Normal AV Doppler AV Peak Velocity 355 cm/s AV Peak Gradient 50 mmHg AV Mean Gradient 30 mmHg AV VTI 69 cm AV Area (Cont Eq VTI) 1.0 cm2 >=3.0 AV Area (Cont Eq Mario) 1.0 cm2 AV DI (Mario) 0.31 AV Regurgitation 2D LVOT Area 3.1 cm2 Ventricles Name Value Normal LV Dimensions 2D/MM IVS Diastolic Thickness (2D) 1.0 cm 0.6-1.0 LVID Diastole (2D) 4.5 cm 3.8-5.2 LVIW Diastolic Thickness (2D) 1.0 cm 0.6-0.9 LVID Systole (2D) 3.2 cm 2.2-3.5 LVOT Diameter 2.0 cm LV Mass (2D Cubed) 149.42 g 67.00-162.00 LV Mass Index (2D Cubed) 73 g/m2 43-95 Relative Wall Thickness (2D) 0.45 <=0.42 LV Fractional Shortening/Ejection Fraction 2D/MM LV Fractional Shortening (2D) 29 % 27-45 LV EF (2D Teichholz) 56 % LV Diastolic Volume (4C MOD) 52 ml LV EF (4C MOD) 42 % LV Diastolic Volume (2C MOD) 50 ml LV EF (2C MOD) 36 % LV Diastolic Volume (BP MOD) 55 ml 46-106 LV Diastolic Volume Index (BP MOD) 27 ml/m2 29-61 LV Systolic Volume (BP MOD) 32 ml 14-42 LV Systolic Volume Index (BP MOD) 16 ml/m2 8-24 LV EF (BP MOD) 41 % 54-74 LV Diastolic Length (4C) 8.2 cm LV Systolic Length (4C) 5.9 cm LV Stroke Volume (4C MOD) 22 ml Atria Name Value Normal LA Dimensions LA Dimension (MM) 5.3 cm 2.7-3.8 LA Volume (4C A-L) 105 ml LA Volume (BP A-L) 106 ml RA Dimensions RA Area (4C) 17.7 cm2 <=18.0 Report Signatures
[2025-07-17 01:27] LABS: Troponin I < 0.012 ng/mL (0.000-0.034)
[2025-07-17] MEDS: oxyCODONE/ACETAMINOPHEN (*CRX) 10-325 MG TABLET 1 TAB PO ×3 (02:52→17:02)
[2025-07-17] MEDS: LEVOTHYROXINE SODIUM 112 MCG TABLET PO (05:55)
[2025-07-17] MEDS: LEVOTHYROXINE SODIUM 25 MCG TABLET PO (05:55)
[2025-07-17 06:36] LABS: Cholesterol 129 mg/dL (0-200); HDL Direct 54 mg/dL; Triglycerides 97 mg/dL (<150)
[2025-07-17 06:44] LABS: NT Pro B Type Natriuretic Pept 659 pg/mL (19.9-100)
--- NOTE | 2025-07-17 08:01 | P.CONGI_ITS ---
Assessment and Plan Assessment and plan (1) Constipation: Qualifiers: Constipation type: other constipation type Qualified Code(s): K59.09 - Other constipation Code(s): K59.00 - Constipation, unspecified Status: Acute (2) Proctitis: Code(s): K62.89 - Other specified diseases of anus and rectum Status: Acute (3) Rectal prolapse: Code(s): K62.3 - Rectal prolapse Status: Acute (4) GERD (gastroesophageal reflux disease): Qualifiers: Esophagitis presence: esophagitis presence not specified Qualified Code(s): K21.9 - Gastro-esophageal reflux disease without esophagitis Code(s): K21.9 - Gastro-esophageal reflux disease without esophagitis Status: Acute (5) Nausea: Code(s): R11.0 - Nausea Status: Acute (6) Appetite loss: Code(s): R63.0 - Anorexia Status: Acute Plan 1. Chronic constipation/proctitis/rectal prolapse: CTA showed possible fecal impaction with proctitis. Patient came into ER yesterday from [facility] with complaints of chest pain. Decreased rectal tone on exam. Mild rectal prolapse on initial exam. Patient also admitted to uterine prolapse Manual disimpaction performed to but I was only able to remove a small amount of brown, soft but formed stool. Patient was having discomfort with procedure. No hematochezia or melena noted. Since admission patient received one tap water enema with minimal response. Admits to chronic constipation, rectal prolapse and uterine prolapse. She has tried lactulose, Linzess (unknown dose), stool softeners, enema, suppositories, senna and Movantik without consistent relief, patient states that she is still requiring manual disimpaction on her current bowel regimen. She felt that Movantik worked well at first but she was only taking it as monotherapy. DDX: obstipation vs pelvic floor dysfunction versus medication induced versus motility disorder vs multifactorial. * proctitis noted on imaging, likely stercoral colitis secondary to fecal impaction * Soap suds enema to further soften retained stool then Mineral oil enema 6 hours after soap suds enema * Miralax 17 grams Q 2-3 hours until patient is emptied out * Continue Movantik * Patient will need to continue an aggressive bowel regimen once cleaned out to address constipation caused my multiple causes including rectal prolapse, associated pelvic floor dysfunction, opioid use and decreased physical activity since recent spine surgery. Movantik, stool softener daily and Miralax 1-2 times daily to keep stools very loose and easier for patient to pass without straining * Will adjust above regimen with increased dosing frequency if patient does not respond until cleaned out 2. GERD/nausea/decreased appetite: Per patient last EGD > 10 years ago. Prior to admission the patient was on omeprazole 20 mg daily and was still having breakthrough reflux. Patient states that previous lab testing showed she can not take a higher PPI dose but she is currently on pantoprazole 40 mg daily and is tolerating this dose. Admits to intermittent nausea without vomiting, nausea improves but does not resolve with PRN Zofran. Admits to decreased appetite since surgery but denies any unexplained weight loss. * continue PPI * continue supportive care with antiemetics and pain management * T/C outpatient EGD if symptoms persist Thank you very much for allowing me to share in the care of this very nice patient. This report may have been done utilizing a voice recognition system. Attempts have been made to correct errors. However, there may be uncorrected grammatical, spelling, and recognition errors present. GI Consult Note Consult date/time: 07/17/25 08:01 Reason for consult: Constipation and proctitis HPI: Ama Ring is a 75 year old female with PMSH of rectal and uterine prolapse, Hx of [place], partially paralyzed diaphragm, CCX, thyroidectomy, stroke and [place] syndrome. She presented to the ER yesterday from [facility] with complaints of chest pain. GI has been consulted for constipation and proctitis. Patient has follow up with [facility] infectious disease on the and spine surgeon on the . Patient states that she was seen at [facility] ER last week for her constipation and was treated but states that she did not feel as if she completely emptied her bowels during that visit. Hx of chronic constipation for many years etiology likely multifactorial given that she is on daily high dose pain medications and has known rectal and uterine prolapse. She has previously tried Linzess of unknown dose, Movantik, lactulose, stool softeners, suppositories and enemas without consistent improvement and would still require frequent manual disimpactions. She states that she felt the Movatik was helping at first but she was taking it as a monotherapy. She admits to generalized abdominal discomfort and bloating secondary to constipation. She states that she had a small incomplete BM yesterday. Patient received a tap water enema this admission with no response. Admits to breakthrough reflux on omeprazole 20 mg daily but was previously told she can not take a higher dose. Admits to decreased appetite and early satiety but states she was able to eat something this morning without difficulty. Patient has frequent nausea without vomiting which has improved but not resolved with PRN Zofran. denies odynophagia, dysphagia, regurgitation, weight loss, diarrhea, hematochezia or melena. Patient was previously on Plavix and aspirin 325 mg daily which has been on hold since her surgery but she is scheduled to restart them next week (which is her 6 week post op). Former smoker but currently denies any alcohol, tobacco or marijuana use. Family Hx negative for known GI cancers or IBD. ENDOSCOPY HISTORY: EGD: > 10 years ago COLONOSCOPY: Per patient last colonoscopy around 7 years ago done while living in [place] was normal LABS AND STOOL STUDIES: Labs 07/17/2025: Sodium 136, potassium 3.9, BUN 9, creatinine 0.43, GFR >60, calcium 7.8 Total bilirubin 0.3, AST 21, ALT 13, Alkaline Phos 118, albumin 3.3 BNP 659 Labs 07/16/2025: Sodium 137, potassium 4.0, BUN 12, creatinine 0.43, GFR >60, calcium 8.1 WBC 8, Hgb 1, Hct 33, MCV 99, platelets 234, INR 1.1 Total bilirubin 0.3, AST 25, ALT 15, Alkaline Phos 114, albumin 3.1 Lipase 28 Troponins negative x 3 IMAGING: CTA chest/abd/pelvis w/contrast : LIVER: Mild hepatic steatosis. The portal vein is patent. There is no intrahepatic biliary duct dilatation. SPLEEN: Unremarkable, no splenomegaly. PANCREAS: GALLBLADDER/BILIARY: Gallbladder not identified. STOMACH AND ESOPHAGUS: The stomach is decompressed. BOWEL/MESENTERY: The rectum is dilated measuring 8 cm with pericolonic stranding consistent with proctitis with moderate fecal content throughout the large bowel. Mild diverticulosis. No acute diverticulitis. Appendix not identified. Mesentery normal. No thickened or dilated loops of small bowel. Nonspecific minimal presacral fluid noted. IMPRESSION: 1. Negative for pulmonary embolism. Mild CHF. 2. Probable fecal impaction with proctitis 3. 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 4. Postsurgical changes in the spine, there is concern for discitis or osteomyelitis contrast-enhanced MRI is recommended Review of Systems 2 Constitutional: Constitutional: Reports as per HPI ENT: Reports as per HPI Cardiovascular: Cardiovascular: Reports as per HPI, Denies chest pain, Denies palpitations and Denies dyspnea Respiratory: Respiratory: Denies cough and Denies dyspnea Gastrointestinal: Gastrointestinal: Reports as per HPI Musculoskeletal: Musculoskeletal: Reports as per HPI and Reports back pain (from recent surgery ) Integumentary/Breasts: Skin/Breast: Reports as per HPI Neurologic: Reports confusion Comments: patient admits to difficulty choosing the right words at times due to prior stroke Psychiatric: Psychiatric: Reports as per HPI Endocrine: Endocrine: Reports no additional endocrine complaints Hematologic/Lymphatic: Hematologic/Lymphatic: Reports no additional hematologic/lymphatic complaints [facility] Social History Social History Smoking packs per day: 1 Smoking cigarettes per day: 20.0 Years smoked: 14 Smoking pack-years: 14.00 Smoking status: Former smoker Tobacco type: cigarettes Alcohol intake: never Substance use: never Lack of Transportation: YES Lack of Food: Never True Current Housing: I Have Housing Concerned About Future Housing: YES Difficulty Paying Gas/Electric Bills: YES Difficulty Paying for Meds: No Currently Unemployed: No Education: Associate Degree Difficulty w/ Childcare or Family Care: No Spiritual care concerns: No Meds Home Medications and Allergies Home Medications ?Medication ?Instructions ?Recorded ?Confirmed ?Type acetaminophen 500 mg capsule 500 mg PO Q4-6H PRN chron ic pain 07/16/25 07/16/25 History amlodipine 5 mg tablet 5 mg PO DAILY 07/16/2507/16 History aspirin 81 mg capsule 81 mg PO DAILY 07/16/2511/08 History calcitriol 0.25 mcg capsule 0.75 mcg PO DAILY 07/16/25 07/16/25 History calcium 600 mg (as See Rx Instructions PO DAILY 07/16/25 07/16/25 History carbonate)-vitamin D3 10 mcg (400 unit) tablet (Calcium with Vitamin D) clopidogrel 75 mg tablet 75 mg PO DAILY 07/16/2511/08 History enoxaparin 40 mg/0.4 mL 40 mg subcut DAILY 07/16/25 07/16/25 History subcutaneous syringe escitalopram oxalate 10 mg tablet 10 mg PO DAILY 07/1607/16/25 History gabapentin 300 mg capsule 300 mg PO TID 07/16/2507/16 History heparin (porcine) 10,000 unit/mL 10,000 unit subcut Q1 2H 07/16/25 07/16/25 History injection solution lactulose 10 gram/15 mL oral 10 g PO DAILY PRN constip ation 07/16/25 07/16/25 History solution levothyroxine 137 mcg capsule 137 mcg PO DAILY 5 07/16/25 History lidocaine 5 % topical patch 2 patch topical DAILY PRN pain 07/16/25 07/16/25 History methocarbamol 750 mg tablet 1,000 mg PO QID 07/16/25 1 09/15/24 History naloxegol 25 mg tablet (Movantik) 25 mg PO DAILY PRN c onstipation 07/16/25 07/16/25 History omeprazole 20 mg capsule,delayed 20 mg PO DAILY 07/16/25 History release ondansetron 4 mg disintegrating 4 mg PO PRN PRN nausea and vomiting 07/16/25 07/16/25 History tablet oxycodone-acetaminophen 10 mg-325 1 tablet PO PRN PRN pain 07/16/25 07/16/25 History mg tablet oxycodone-acetaminophen 5 mg-325 1 tablet PO PRN PRN p ain 07/16/25 07/16/25 History mg tablet rosuvastatin 10 mg tablet 10 mg PO EVERY OTHER DAY 11/0807/16/25 History senna-docusate sodium tablet 2 tablet PO BID 07/16/25 07/16/25 History simethicone 80 mg chewable tablet 80 mg PO DAILY PRN h eartburn 07/16/25 07/16/25 History (Gas Relief (simethicone)) Allergies Allergy/AdvReac Type Severity Reaction Status Date / Time adhesive tape Allergy Mild Rash Verified 07/16/25 18:43 belladonna alkaloids Allergy Mild Unknown Verified 07/16/25 18:43 cefprozil Allergy Mild Unknown Verified 07/16/25 18:43 clindamycin Allergy Mild Unknown Verified 07/16/25 18:43 clobetasol Allergy Mild Unknown Verified 07/16/25 18:43 diltiazem Allergy Mild Unknown Verified 07/16/25 18:43 doxycycline Allergy Mild Unknown Verified 07/16/25 18:43 ergotamine (From Bellergal-S) Allergy Mild Rash Verified 07/16/25 18:43 erythromycin base Allergy Mild Unknown Verified 07/16/25 18:43 fosfomycin Allergy Mild Unknown Verified 07/16/25 18:43 hydralazine Allergy Mild Unknown Verified 07/16/25 18:43 levofloxacin Allergy Mild Unknown Verified 07/16/25 18:43 nitrofurantoin Allergy Mild Unknown Verified 07/16/25 18:43 phenobarbital (From Allergy Mild Rash Verified 07/16/25 18:43 Bellergal-S) Sulfa (Sulfonamide Allergy Unknown Verified 07/16/25 18:43 Antibiotics) ticagrelor Allergy Unknown Verified 07/16/25 18:43 Vital Signs Vital Signs - 24 hr 07/16/25 10:22 07/16/25 10:29 07/16/25 10:31 Temperature 98.2 F Pulse Rate 93 93 Respiratory Rate 14 Blood Pressure 130/69 Pulse Oximetry 94 94 Oxygen Delivery Room Air Room Air 07/16/25 10:47 07/16/25 11:00 07/16/25 11:01 Temperature Pulse Rate 90 82 86 Respiratory Rate 14 14 16 Blood Pressure 124/61 Pulse Oximetry 95 95 95 Oxygen Delivery 07/16/25 11:02 07/16/25 11:15 07/16/25 11:30 Temperature Pulse Rate 89 86 79 Respiratory Rate 13 11 L 15 Blood Pressure Pulse Oximetry 94 96 94 Oxygen Delivery 07/16/25 11:45 07/16/25 11:46 07/16/25 12:00 Temperature Pulse Rate 75 78 76 Respiratory Rate 14 15 15 Blood Pressure 121/87 Pulse Oximetry 95 95 94 Oxygen Delivery 07/16/25 12:15 07/16/25 12:30 07/16/25 12:31 Temperature Pulse Rate 72 76 75 Respiratory Rate 12 14 14 Blood Pressure 142/60 H Pulse Oximetry 94 95 94 Oxygen Delivery 07/16/25 12:45 07/16/25 13:00 07/16/25 13:15 Temperature Pulse Rate 79 75 78 Respiratory Rate 18 17 14 Blood Pressure Pulse Oximetry 94 95 93 Oxygen Delivery 07/16/25 13:16 07/16/25 13:30 07/16/25 14:03 Temperature Pulse Rate 79 74 80 Respiratory Rate 12 12 16 Blood Pressure 129/62 Pulse Oximetry 92 91 94 Oxygen Delivery 07/16/25 14:15 07/16/25 14:30 07/16/25 14:31 Temperature Pulse Rate 79 80 77 Respiratory Rate 16 16 14 Blood Pressure 159/78 H Pulse Oximetry 94 95 95 Oxygen Delivery 07/16/25 14:45 07/16/25 15:00 07/16/25 15:36 Temperature Pulse Rate 85 82 85 Respiratory Rate 14 12 13 Blood Pressure 167/70 H Pulse Oximetry 100 95 94 Oxygen Delivery 07/16/25 15:45 07/16/25 16:00 07/16/25 16:01 Temperature Pulse Rate 83 82 82 Respiratory Rate 15 14 13 Blood Pressure 142/72 H Pulse Oximetry 94 92 94 Oxygen Delivery 07/16/25 16:15 07/16/25 16:30 07/16/25 16:45 Temperature Pulse Rate 81 87 96 Respiratory Rate 13 11 L 19 Blood Pressure Pulse Oximetry 94 97 98 Oxygen Delivery 07/16/25 16:46 07/16/25 16:47 07/16/25 17:00 Temperature Pulse Rate 90 91 93 Respiratory Rate 22 H 11 L 12 Blood Pressure 159/76 H 159/76 H Pulse Oximetry 98 96 98 Oxygen Delivery 07/16/25 17:58 07/16/25 18:31 07/16/25 20:24 Temperature 97.8 F 97.6 F Pulse Rate 85 92 Respiratory Rate 20 21 H Blood Pressure 145/72 H 132/55 L Pulse Oximetry 98 95 Oxygen Delivery Room Air 07/17/25 00:00 07/17/25 04:00 07/17/25 04:30 Temperature 98.2 F Pulse Rate 83 79 88 Respiratory Rate 16 Blood Pressure 141/69 H Pulse Oximetry 95 Oxygen Delivery Exam 2 Const: General: cooperative, healthy appearing, comfortable, no acute distress and well developed Orientation/consciousness: oriented to person, oriented to place, oriented to time and patient oriented x3 HENMT: Head: normal to inspection, normocephalic and atraumatic Mouth: Yes Normal oral and palatal mucosa present and Yes moist mucous membranes Eyes: General: appearance normal, both eyes and all related structures C onjunctivae: conjunctivae normal Sclera: sclerae normal Pupils: Equal, round and reactive pupils present Neck: Neck: normal visual inspection Chest: Chest palpation & inspection: normal inspection of the chest Resp: Effort & Inspection: normal respiratory effort and able to speak in complete sentences Auscultation: clear to auscultation bilaterally Cardio: Jugular venous distension: no JVD Rate: regular rate Rhythm: r egular rhythm Heart sounds: S1 normal heart sound present and S2 normal heart sound present GI: Inspection: distended GI Palp: Yes Soft to palpation, No Tenderness to palpation present (GI), No Guarding due to palpation present (GI) and Yes No hepatosplenomegaly present Auscultation: normal bowel sounds Rectal Exam: sphincter tone not normal, Rectal prolapse and fecal impaction (soft stool removed to depth possible with digital removal.) Skin: General skin exam: normal color and no rashes or lesions noted Neuro: General: oriented to person, oriented to place, oriented to time and patient oriented x3 Cranial nerves: Yes Equal, round and reactive pupils present Speech: normal speech Extrem: General: normal to inspection and no clubbing, cyanosis or edema Psych: Appearance: grossly normal and well kempt Affect: normal affect Results Labs 07/17/25 10:33 07/17/25 05:58 Labs: Short CBC 07/16/25 Range/Units 11:49 WBC 8.1 (4.5-10.0) K/mm3 Hgb 10.0 L (12.0-15.0) g/dL Hct 33.1 L (37.0-47.0) % Plt Count 234 (150-375) k/mm3 BMP 07/16/25 11:49 Sodium 137 Potassium 4.0 Chloride 102 Carbon Dioxide 33 H BUN 12 Creatinine 0.43 L Glucose 122 H Calcium 8.1 L Cardiac Enzymes 07/16/25 07/16/25 07/16/25 Range/Units 11:49 14:31 23:10 Troponin I < 0.012 < 0.012 < 0.012 (0.000-0.034) ng/mL Liver Function 07/16/25 Range/Units 11:49 Total Bilirubin 0.3 (0.2-1.3) mg/dL AST 25 (14-36) U/L ALT 15 (6-35) U/L Alkaline Phosphatase 114 (38-126) U/L Albumin 3.1 L (3.5-5.1) g/dL
[2025-07-17 08:16] LABS: Alanine Aminotransferase 13 U/L (6-35); Albumin Level 3.3 g/dL (3.5-5.1); Alkaline Phosphatase 118 U/L (38-126); Anion Gap 3 mmol/L (4-12); Aspartate Amino Transferase 21 U/L (14-36); Bilirubin,Total 0.3 mg/dL (0.2-1.3); Blood Urea Nitrogen 9 mg/dL (7-17); Calcium 7.8 mg/dL (8.4-10.2); Carbon Dioxide 30 mmol/L (22-30); Chloride 103 mmol/L (98-107); Estimated CRCL calculation 93 ml/min; Estimated Glomerular Filt Rate > 60; Glucose 98 mg/dL (65-110); Potassium 3.9 mmol/L (3.4-5.0); Sodium 136 mmol/L (137-145); Total Protein 6.2 g/dL (6.3-8.2)
--- NOTE | 2025-07-17 08:37 | PM.IMPN ---
Progress Note: A&P Assessment and Plan (1) Chest pain: Code(s): R07.9 - Chest pain, unspecified Status: Acute Assessment and Plan: Describes the chest pain is intermittent aching that she noticed this morning about 1 hour prior to arrival to the emergency department. She rates the pain on arrival as 4/10. No shortness of breath pain. Troponin negative. Initial EKG sinus rhythm with short OR interval, left axis deviation, moderate intraventricular conduction delay. D-dimer elevated but CTA chest abdomen pelvis negative for PE. Unlikely this chest pain is cardiac related. EKG, repeat sinus rhythm, left axis deviation, pattern consistent with pulmonary disease. CXR and CTA: No acute cardiopulmonary finding and negative for PE Obtain an Echocardiogram Continue rosuvastatin 10 mg daily, obtain lipid panel Continue aspirin Tele monitor Monitor vital signs, I&Os, chest pain, shortness of breath and patient is a fall risk Monitor PTT, serial troponins, Serum electrolytes, and cbc Keep serum potassium >4 and keep magnesium >2 No longer endorsing chest pain or palpitations. (2) Constipation: Qualifiers: Constipation type: other constipation type Qualified Code(s): K59.09 - Other constipation Code(s): K59.00 - Constipation, unspecified Status: Acute Assessment and Plan: The patient states that this is chronic. Followed by GI and has recently been disimpacted. Constipation likely multifactorial from rectal prolapse, narcotic use, and decreased mobility Chest abdomen pelvis cta: fecal impaction with proctitis proctitis likely related to inflammation 2/2 impaction S/p water enema Continue MiraLax, senokot, and movantik GI consult for further recs and possible intervention attempted manual disimpaction on 07/17 by GI soap suds enema to further soften retained stool then Mineral oil enema 6 hours after soap suds enema (3) Chronic osteomyelitis: Code(s): M86.60 - Other chronic osteomyelitis, unspecified site Status: Chronic Assessment and Plan: Patient had spine surgery at [facility] on June 13 and was started on long-term antibiotics (2 g Rocephin) a few days later due to osteomyelitis of the spine. Patient takes Plavix and aspirin but was recommended to hold it for 6 weeks postop. Patient has 2 KEELEY drains remaining from her surgery. 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 (5) Atrial fibrillation: Code(s): I48.91 - Unspecified atrial fibrillation Status: Acute Assessment and Plan: Chronic, s/p pacemaker and ablation Followed by Cardiology Dr. Brannon (6) CAD (coronary artery disease): Code(s): I25.10 - Atherosclerotic heart disease of [place] coronary artery without angina pectoris Status: Acute Assessment and Plan: s/p stent placement Continue asa and plavix Time Spent With Patient Time with patient: 25 - 35 minutes Subjective Date/time seen: 07/17/25 08:37 Interval history: 75-year-old female with a past medical history of AL, partially paralyzed diaphragm, Sjltov-Lacucr-Ctxtjjtvio syndrome, osteomyelitis spine, afib s/p ppm and ablation, cad s/p stent, prolapsed rectum, prolapse uterus presents to the hospital from [facility] on 07/16/2025 with complaints of chest pain. Patient is pleasant lying comfortably in bed. She denies any chest pain or palpitations. She continues to endorse abdominal pain that is generalized. She denies any nausea/vomiting and is tolerating a diet well. Continues to pass flatus. Review of Systems Review of Systems: All systems reviewed & are unremarkable except as noted in HPI and below Exam Narrative: AF HR 89 RR 16 SpO2 95 BP 118/61 General: female in no acute respiratory distress who is nontoxic appearing, lying semi recumbent in bed. HEENT: Normocephalic. Atraumatic. Extraocular movement intact. Sclera clear and anicteric. No facial asymmetry. Right IJ. Chest: Lungs are clear to auscultation bilaterally. CV: Heart was regular rate and rhythm. Murmur. Abd: Abdomen was soft. Generalized tenderness without guarding. Nondistended. Positive bowel sounds. Ext: No clubbing, cyanosis, or edema. DP pulses bilaterally. Neuro: Patient is alert. Speech is clear. Skin: 2 KEELEY drains. Objective Data Vital Signs Vital Signs: Vital Signs - 24 hr 07/16/25 10:22 07/16/25 10:29 07/16/25 10:31 Temperature 98.2 F Pulse Rate 93 93 Respiratory Rate 14 Blood Pressure 130/69 Pulse Oximetry 94 94 Oxygen Delivery Room Air Room Air 07/16/25 10:47 07/16/25 11:00 07/16/25 11:01 Temperature Pulse Rate 90 82 86 Respiratory Rate 14 14 16 Blood Pressure 124/61 Pulse Oximetry 95 95 95 Oxygen Delivery 07/16/25 11:02 07/16/25 11:15 07/16/25 11:30 Temperature Pulse Rate 89 86 79 Respiratory Rate 13 11 L 15 Blood Pressure Pulse Oximetry 94 96 94 Oxygen Delivery 07/16/25 11:45 07/16/25 11:46 07/16/25 12:00 Temperature Pulse Rate 75 78 76 Respiratory Rate 14 15 15 Blood Pressure 121/87 Pulse Oximetry 95 95 94 Oxygen Delivery 07/16/25 12:15 07/16/25 12:30 07/16/25 12:31 Temperature Pulse Rate 72 76 75 Respiratory Rate 12 14 14 Blood Pressure 142/60 H Pulse Oximetry 94 95 94 Oxygen Delivery 07/16/25 12:45 07/16/25 13:00 07/16/25 13:15 Temperature Pulse Rate 79 75 78 Respiratory Rate 18 17 14 Blood Pressure Pulse Oximetry 94 95 93 Oxygen Delivery 07/16/25 13:16 07/16/25 13:30 07/16/25 14:03 Temperature Pulse Rate 79 74 80 Respiratory Rate 12 12 16 Blood Pressure 129/62 Pulse Oximetry 92 91 94 Oxygen Delivery 07/16/25 14:15 07/16/25 14:30 07/16/25 14:31 Temperature Pulse Rate 79 80 77 Respiratory Rate 16 16 14 Blood Pressure 159/78 H Pulse Oximetry 94 95 95 Oxygen Delivery 07/16/25 14:45 07/16/25 15:00 07/16/25 15:36 Temperature Pulse Rate 85 82 85 Respiratory Rate 14 12 13 Blood Pressure 167/70 H Pulse Oximetry 100 95 94 Oxygen Delivery 07/16/25 15:45 07/16/25 16:00 07/16/25 16:01 Temperature Pulse Rate 83 82 82 Respiratory Rate 15 14 13 Blood Pressure 142/72 H Pulse Oximetry 94 92 94 Oxygen Delivery 07/16/25 16:15 07/16/25 16:30 07/16/25 16:45 Temperature Pulse Rate 81 87 96 Respiratory Rate 13 11 L 19 Blood Pressure Pulse Oximetry 94 97 98 Oxygen Delivery 07/16/25 16:46 07/16/25 16:47 07/16/25 17:00 Temperature Pulse Rate 90 91 93 Respiratory Rate 22 H 11 L 12 Blood Pressure 159/76 H 159/76 H Pulse Oximetry 98 96 98 Oxygen Delivery 07/16/25 17:58 07/16/25 18:31 07/16/25 20:24 Temperature 97.8 F 97.6 F Pulse Rate 85 92 Respiratory Rate 20 21 H Blood Pressure 145/72 H 132/55 L Pulse Oximetry 98 95 Oxygen Delivery Room Air 07/17/25 00:00 07/17/25 04:00 07/17/25 04:30 Temperature 98.2 F Pulse Rate 83 79 88 Respiratory Rate 16 Blood Pressure 141/69 H Pulse Oximetry 95 Oxygen Delivery Intake/Output Intake/Output: Intake & Output 07/14/25 07/15/25 07/16/25 07/17/25 23:59 23:59 22:59 23:59 Intake Total 100 300 Output Total 1800 865 Balance -9378 -477 Meds/Results Medications: Active Medications Generic Name Dose Route Start Last Admin Trade Name Freq PRN Reason Stop Dose Admin Acetaminophen 650 mg 07/16/25 16:19 Acetaminophen 325 Mg Tablet PO Q4H PRN Mild Pain (1-3) or Fever Al Hydrox/Mg Hydrox/Simethicone 30 ml 07/16/25 17:53 Mag Hydrox/Al Hydrox/Simeth 30 Ml Udc PO Q6H PRN Indigestion Amlodipine Besylate 5 mg 07/17/25 09:00 Amlodipine Besylate 5 Mg Tablet PO DAILY [facility] Calcitriol 0.25 mcg 07/17/25 09:00 Calcitriol 0.25 Mcg Capsule PO DAILY [facility] Enoxaparin Sodium 40 mg 07/17/25 09:00 Enoxaparin 40 Mg/0.4 Ml Syringe SUB-Q DAILY [facility] Escitalopram Oxalate 10 mg 07/17/25 09:00 Escitalopram Oxalate 10 Mg Tablet PO DAILY [facility] Gabapentin 300 mg 07/17/25 09:00 Gabapentin 300 Mg Capsule PO BID [facility] Ceftriaxone Sodium 2 gm/ 100 mls @ 200 mls/hr 07/17/25 15:00 Sodium Chloride IVPB Q24H [facility] Levothyroxine Sodium 25 mcg 07/17/25 06:30 07/17/25 05:55 Levothyroxine Sodium 25 Mcg Tablet PO 25 mcg DAILY@0630 MICHELLE Administration Levothyroxine Sodium 112 mcg 07/17/25 06:30 07/17/25 05:55 Levothyroxine Sodium 112 Mcg Tablet PO 112 mcg DAILY@0630 MICHELLE Administration Methocarbamol 1,000 mg 07/16/25 21:00 07/16/25 22:14 Methocarbamol 500 Mg Tablet PO 1,000 mg QID MICHELLE Administration Miscellaneous Information 0 each 07/16/25 00:01 Movantik Nonform Can Pt Bring From Home? XX 08/15/25 00:00 CLARIFY [facility] Morphine Sulfate 4 mg 07/16/25 16:19 Morphine Sulfate (*Crx) 4 Mg/Ml Inj IV PUSH Q2H PRN Pain Rated 7-10 IF NPO Non-Formulary Medication 25 mg 07/17/25 09:00 Naloxegol [Movantik] PO 08/16/25 08:59 DAILY [facility] Ondansetron HCl 4 mg 07/16/25 16:19 07/16/25 22:24 Ondansetron Inj 4 Mg/2 Ml Vial IV PUSH 4 mg Q4H PRN Administration Nausea Oxycodone/Acetaminophen 1 tab 07/16/25 20:46 07/17/25 02:52 Oxycodone/Acetaminophen (*Crx) 10-325 Mg Tablet PO 1 tab Q4H PRN Administration Pain Rated 7-10 Pantoprazole Sodium 40 mg 07/17/25 09:00 Pantoprazole 40 Mg Tablet PO QAM [facility] Perflutren Lipid Microsphere 0 ml 07/17/25 01:07 Perflutren Lipid Microspheres 1.5 Ml Vial Diluted To 10 Ml Total Volume IV PUSH 07/20/25 01:07 ONCE PRN adequate visualization Protocol Polyethylene Glycol 17 gm 07/17/25 09:00 Polyethylene Glycol 3350 17 Gm Powd.Pack PO QAM [facility] Rosuvastatin Calcium 10 mg 07/17/25 09:00 Rosuvastatin 10 Mg Tablet PO DAILY [facility] Senna/Docusate Sodium 2 tab 07/17/25 09:00 Senna/Docusate Sodium Tablet PO BID [facility] Sodium Chloride 10 ml 07/17/25 14:00 Central Line Flush IV PUSH Q8HR [facility] Radiology Results: ITS Impressions Chest X-Ray 07/16/25 11:34 IMPRESSION: 1. No acute cardiopulmonary findings given portable technique. Chest/Abdomen/Pelvis CTA 07/16/25 14:12 IMPRESSION: 1. Negative for pulmonary embolism. Mild CHF. 2. Probable fecal impaction with proctitis 3. 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 4. Postsurgical changes in the spine, there is concern for discitis or osteomyelitis contrast-enhanced MRI is recommended Labs Labs: Laboratory Results - last 24 hr 07/16/25 07/16/25 07/16/25 11:49 12:31 14:31 WBC 8.1 RBC 3.33 L Hgb 10.0 L Hct 33.1 L MCV 99.4 MCH 30.0 MCHC 30.2 L RDW 16.6 H Plt Count 234 MPV 9.6 Immature Gran % (Auto) 0.4 Neut % (Auto) 80.9 H Lymph % (Auto) 8.9 L [place] % (Auto) 7.5 Eos % (Auto) 1.9 Baso % (Auto) 0.4 Lymph # (Auto) 0.72 L [place] # (Auto) 0.6 Eos # (Auto) 0.2 Baso # (Auto) 0.0 Abs Immat Gran (auto) 0.03 Absolute Neuts (auto) 6.6 Absolute Nucleated RBC 0.000 Nucleated RBC % 0.0 PT 14.4 INR 1.1 APTT 30.5 D-Dimer 2.94 H VBG pH 7.449 H* VBG pCO2 42.9 VBG pO2 43.1 VBG HCO3 29.1 O2 Delivery Device Room air O2 Liters/Min 0.0 FiO2 37 Sodium 137 Potassium 4.0 Chloride 102 Carbon Dioxide 33 H Anion Gap 2 L BUN 12 Creatinine 0.43 L Estim Creat Clear Calc 96 Estimated GFR > 60 Glucose 122 H POC Capillary Glucose Calcium 8.1 L Total Bilirubin 0.3 AST 25 ALT 15 Alkaline Phosphatase 114 Troponin I < 0.012 < 0.012 NT-Pro-B Natriuret Pep Total Protein 5.6 L Albumin 3.1 L Triglycerides Cholesterol LDL Cholesterol Direct HDL Direct Lipase 28 07/16/25 07/16/25 07/17/25 22:18 23:10 05:58 WBC RBC Hgb Hct MCV MCH MCHC RDW Plt Count MPV Immature Gran % (Auto) Neut % (Auto) Lymph % (Auto) [place] % (Auto) Eos % (Auto) Baso % (Auto) Lymph # (Auto) [place] # (Auto) Eos # (Auto) Baso # (Auto) Abs Immat Gran (auto) Absolute Neuts (auto) Absolute Nucleated RBC Nucleated RBC % PT INR APTT D-Dimer VBG pH VBG pCO2 VBG pO2 VBG HCO3 O2 Delivery Device O2 Liters/Min FiO2 Sodium 136 L Potassium 3.9 Chloride 103 Carbon Dioxide 30 Anion Gap 3 L BUN 9 Creatinine 0.43 L Estim Creat Clear Calc 93 Estimated GFR > 60 Glucose 98 POC Capillary Glucose 104 Calcium 7.8 L Total Bilirubin 0.3 AST 21 ALT 13 Alkaline Phosphatase 118 Troponin I < 0.012 NT-Pro-B Natriuret Pep 659 H Total Protein 6.2 L Albumin 3.3 L Triglycerides 97 Cholesterol 129 LDL Cholesterol Direct 50 HDL Direct 54 Lipase 07/17/25 07:30 WBC RBC Hgb Hct MCV MCH MCHC RDW Plt Count MPV Immature Gran % (Auto) Neut % (Auto) Lymph % (Auto) [place] % (Auto) Eos % (Auto) Baso % (Auto) Lymph # (Auto) [place] # (Auto) Eos # (Auto) Baso # (Auto) Abs Immat Gran (auto) Absolute Neuts (auto) Absolute Nucleated RBC Nucleated RBC % PT INR APTT D-Dimer VBG pH VBG pCO2 VBG pO2 VBG HCO3 O2 Delivery Device O2 Liters/Min FiO2 Sodium Potassium Chloride Carbon Dioxide Anion Gap BUN Creatinine Estim Creat Clear Calc Estimated GFR Glucose POC Capillary Glucose 102 Calcium Total Bilirubin AST ALT Alkaline Phosphatase Troponin I NT-Pro-B Natriuret Pep Total Protein Albumin Triglycerides Cholesterol LDL Cholesterol Direct HDL Direct Lipase Quality VTE Prophylaxis VTE prophylaxis: pharmacologic ordered
[2025-07-17] MEDS: ONDANSETRON INJ 4 MG/2 ML VIAL IV PUSH (08:39)
[2025-07-17] MEDS: ENOXAPARIN 40 MG/0.4 ML SYRINGE SUB-Q (08:40)
[2025-07-17] MEDS: GABAPENTIN 300 MG CAPSULE PO ×2 (08:40→17:01)
[2025-07-17] MEDS: PANTOPRAZOLE 40 MG TABLET PO (08:40)
[2025-07-17] MEDS: SENNA/DOCUSATE SODIUM TABLET 2 TAB PO ×2 (08:40→17:01)
[2025-07-17] MEDS: ROSUVASTATIN 10 MG TABLET PO (08:40)
[2025-07-17] MEDS: ESCITALOPRAM OXALATE 10 MG TABLET PO (08:40)
[2025-07-17 10:43] LABS: Hematocrit 33.0 % (37.0-47.0); Hemoglobin 10.1 g/dL (12.0-15.0); Immature Granulocyte Percent A 0.5 % (0-0.5); Lymphocytes Absolute Auto 0.79 K/mm3 (0.9-3.2); Mean Corpuscular HGB Conc 30.6 g/dl (32-36); Mean Corpuscular Hemoglobin 30.1 pg (26-34); Mean Corpuscular Volume 98.2 fl (80-100); Nucleated Red Blood Cells Absolute Auto 0.000 K/mm3 (0.0-0.012); Nucleated Red Blood Cells Perc 0.0 % (0.0-0.2); Platelet Count Result 225 k/mm3 (150-375); Red Blood Count 3.36 M/mm3 (4.2-5.4); White Blood Count 7.4 K/mm3 (4.5-10.0)
[2025-07-17] MEDS: CENTRAL LINE FLUSH 10 ML IV PUSH ×2 (13:29→22:52)
[2025-07-17] MEDS: cefTRIAXone 2 GM in SODIUM CHLORIDE 0.9% IV 100 ML 200 ML IVPB (16:54)
[2025-07-17] MEDS: MAG HYDROX/AL HYDROX/SIMETH 30 ML UDC PO (17:01)
[2025-07-18] VITALS (10 sets, daily range): BP systolic 113–143; BP diastolic 58–70; PULSE 74–94; RESP 18–20; TEMP 36.1–36.8; O2SAT 92–98
[2025-07-18] MEDS: oxyCODONE/ACETAMINOPHEN (*CRX) 10-325 MG TABLET 1 TAB PO ×2 (00:59→17:58)
[2025-07-18] MEDS: LEVOTHYROXINE SODIUM 112 MCG TABLET PO (06:14)
[2025-07-18] MEDS: CENTRAL LINE FLUSH 10 ML IV PUSH ×3 (06:14→20:41)
[2025-07-18] MEDS: LEVOTHYROXINE SODIUM 25 MCG TABLET PO (06:14)
[2025-07-18 07:01] LABS: Hematocrit 34.1 % (37.0-47.0); Hemoglobin 10.4 g/dL (12.0-15.0); Immature Granulocyte Percent A 0.5 % (0-0.5); Lymphocytes Absolute Auto 1.12 K/mm3 (0.9-3.2); Mean Corpuscular HGB Conc 30.5 g/dl (32-36); Mean Corpuscular Hemoglobin 30.2 pg (26-34); Mean Corpuscular Volume 99.1 fl (80-100); Nucleated Red Blood Cells Absolute Auto 0.000 K/mm3 (0.0-0.012); Nucleated Red Blood Cells Perc 0.0 % (0.0-0.2); Platelet Count Result 229 k/mm3 (150-375); Red Blood Count 3.44 M/mm3 (4.2-5.4); White Blood Count 5.9 K/mm3 (4.5-10.0)
[2025-07-18 07:16] LABS: Alanine Aminotransferase 12 U/L (6-35); Albumin Level 3.2 g/dL (3.5-5.1); Alkaline Phosphatase 110 U/L (38-126); Anion Gap 2 mmol/L (4-12); Aspartate Amino Transferase 23 U/L (14-36); Bilirubin,Total 0.3 mg/dL (0.2-1.3); Blood Urea Nitrogen 13 mg/dL (7-17); Calcium 8.1 mg/dL (8.4-10.2); Carbon Dioxide 32 mmol/L (22-30); Chloride 102 mmol/L (98-107); Estimated CRCL calculation 86 ml/min; Estimated Glomerular Filt Rate > 60; Glucose 90 mg/dL (65-110); Potassium 4.3 mmol/L (3.4-5.0); Sodium 136 mmol/L (137-145); Total Protein 5.8 g/dL (6.3-8.2)
--- NOTE | 2025-07-18 07:59 | P.PNIM_ITS ---
Progress Note: A&P Assessment and Plan (1) Chest pain: Code(s): R07.9 - Chest pain, unspecified Status: Acute Assessment and Plan: Describes the chest pain is intermittent aching that she noticed this morning a bout 1 hour prior to arrival to the emergency department. She rates the pain on arrival as 4/10. No shortness of breath pain. Troponin negative. Initial EKG sinus rhythm with short OR interval, left axis deviation, moderate intraventricular conduction delay. D-dimer elevated but CTA chest abdomen pelvis negative for PE. Unlikely this chest pain is cardiac related. EKG, repeat sinus rhythm, left axis deviation, pattern consistent with pulmonary disease. 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 (2) Constipation: Qualifiers: Constipation type: other constipation type Qualified Code(s): K59.09 - Other constipation Code(s): K59.00 - Constipation, unspecified Status: Acute Assessment and Plan: The patient states that this is chronic. Followed by GI and has recently been disimpacted. Constipation likely multifactorial from rectal prolapse, narcotic use, recent spinal surgery, and decreased mobility Chest abdomen pelvis cta: fecal impaction with proctitis proctitis likely related to inflammation 2/2 impaction S/p water enema, soap suds, enema and mineral oil enema Continue MiraLax, senokot, and movantik Attempted manual disimpaction on 07/17 by GI GI consult for further recs and possible intervention Continues to endorse abdominal pain with associated nausea but no vomiting. Tolerating diet and passing flatus. Patient now having bowel movements. Will continue to monitor. (3) Chronic osteomyelitis: Code(s): M86.60 - Other chronic osteomyelitis, unspecified site Status: Chronic Assessment and Plan: Patient had spine surgery at [facility] [place] on June 13 and was started on long- term antibiotics (2 g Rocephin) a few days later due to osteomyelitis of the spine. Patient takes Plavix and aspirin but was recommended to hold it for 6 weeks postop. Patient has 2 KEELEY drains remaining from her surgery. 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 Request of records from [facility] sent (4) Prolapsed bladder: Status: Chronic Assessment and Plan: Patient also has an indwelling Mahmood due to a prolapsed bladder which she is following urology for. (5) Atrial fibrillation: Code(s): I48.91 - Unspecified atrial fibrillation Status: Acute Assessment and Plan: Chronic, s/p pacemaker and ablation Followed by Cardiology Dr. Brannon (6) CAD (coronary artery disease): Qualifiers: Associated angina: without angina Coronary Disease-Associated Artery/Lesion type: [place] artery [place] vs. transplanted heart: [place] heart Qualified Code(s): I25.10 - Atherosclerotic heart disease of [place] coronary artery without angina pectoris Code(s): I25.10 - Atherosclerotic heart disease of [place] coronary artery without angina pectoris Status: Acute Assessment and Plan: s/p stent placement Continue asa and plavix Time Spent With Patient Time with patient: 25 - 35 minutes Subjective Date/time seen: 07/18/25 07:59 Interval history: 75-year-old female with a past medical history of SC, partially paralyzed diaphragm, Cxwyfl-Hpfccn-Tulttehqis syndrome, osteomyelitis spine, afib s/p ppm and ablation, cad s/p stent, prolapsed rectum, prolapse uterus presents to the hospital from [facility] on 07/16/2025 with complaints of chest pain. Patient is pleasant lying comfortably in bed. She continues to endorse abdominal pain with associated nausea but no vomiting. Tolerating diet and passing flatus. She becomes tearful during assessment stating she is tired of being in the hospital and has no one to talk to. Discussed having the instructor watch assembly see the patient and she is agreeable. RN called instructor watch assembly who plans to see patient today. She has no other complaints denying chest pain, palpitations, shortness of breath. Review of Systems Review of Systems: All systems reviewed & are unremarkable except as noted in HPI and below Exam Narrative: AF HR 78 RR 18 SpO2 93 BP 143/70 General: female in no acute respiratory distress who is nontoxic appearing, lying semi recumbent in bed. HEENT: Normocephalic. Atraumatic. Extraocular movement intact. Sclera clear and anicteric. No facial asymmetry. Right IJ. Chest: Lungs are clear to auscultation bilaterally. CV: Heart was regular rate and rhythm. Murmur. Abd: Abdomen was soft. Generalized tenderness without guarding. Nondistended. Positive bowel sounds. Ext: No clubbing, cyanosis, or edema. DP pulses bilaterally. Neuro: Patient is alert. Speech is clear. Skin: 2 KEELEY drains, minimal drainage. Well healing incision to the spine with no signs of infection. Objective Data Vital Signs Vital Signs: Vital Signs - 24 hr 07/17/25 08:00 07/17/25 08:00 07/17/25 12:00 Temperature Pulse Rate 89 77 Respiratory Rate Blood Pressure Pulse Oximetry Oxygen Delivery Room Air 07/17/25 14:11 07/17/25 16:00 07/17/25 20:00 Temperature 97.5 F L Pulse Rate 89 88 Respiratory Rate 16 Blood Pressure 118/61 Pulse Oximetry 95 Oxygen Delivery Room Air 07/17/25 20:00 07/18/25 00:00 07/18/25 00:00 Temperature 98.2 F Pulse Rate 75 74 78 Respiratory Rate 18 Blood Pressure 132/58 L Pulse Oximetry 92 Oxygen Delivery 07/18/25 04:00 07/18/25 06:06 Temperature 97.8 F Pulse Rate 82 78 Respiratory Rate 18 Blood Pressure 143/70 H Pulse Oximetry 93 Oxygen Delivery Intake/Output Intake/Output: Intake & Output 07/15/25 07/16/25 07/17/25 07/18/25 23:59 22:59 23:59 23:59 Intake Total 100 1020 Output Total 1800 1975 1100 Balance -3781 -593 -8393 Meds/Results Medications: Active Medications Generic Name Dose Route Start Last Admin Trade Name Freq PRN Reason Stop Dose Admin Acetaminophen 650 mg 07/16/25 16:19 Acetaminophen 325 Mg Tablet PO Q4H PRN Mild Pain (1-3) or Fever Al Hydrox/Mg Hydrox/Simethicone 30 ml 07/16/25 17:53 07/17/25 17:01 Mag Hydrox/Al Hydrox/Simeth 30 Ml Udc PO 30 ml Q6H PRN Administration Indigestion Amlodipine Besylate 5 mg 07/17/25 09:00 07/17/25 08:40 Amlodipine Besylate 5 Mg Tablet PO 5 mg DAILY MICHELLE Administration Calcitriol 0.25 mcg 07/17/25 09:00 07/17/25 08:40 Calcitriol 0.25 Mcg Capsule PO 0.25 mcg DAILY MICHELLE Administration Enoxaparin Sodium 40 mg 07/17/25 09:00 07/17/25 08:40 Enoxaparin 40 Mg/0.4 Ml Syringe SUB-Q 40 mg DAILY MICHELLE Administration Escitalopram Oxalate 10 mg 07/17/25 09:00 07/17/25 08:40 Escitalopram Oxalate 10 Mg Tablet PO 10 mg DAILY MICHELLE Administration Gabapentin 300 mg 07/17/25 09:00 07/17/25 17:01 Gabapentin 300 Mg Capsule PO 300 mg BID MICHELLE Administration Ceftriaxone Sodium 2 gm/ 100 mls @ 200 mls/hr 07/17/25 15:00 07/17/25 16:54 Sodium Chloride IVPB 200 mls/hr Q24H MICHELLE Administration Levothyroxine Sodium 25 mcg 07/17/25 06:30 07/18/25 06:14 Levothyroxine Sodium 25 Mcg Tablet PO 25 mcg DAILY@0630 MICHELLE Administration Levothyroxine Sodium 112 mcg 07/17/25 06:30 07/18/25 06:14 Levothyroxine Sodium 112 Mcg Tablet PO 112 mcg DAILY@0630 MICHELLE Administration Linaclotide 290 mcg 07/18/25 07:40 Linaclotide 145 Mcg Capsule PO DAILY@0630 [facility] Methocarbamol 1,000 mg 07/16/25 21:00 07/17/25 22:16 Methocarbamol 500 Mg Tablet PO 1,000 mg QID MICHELLE Administration Morphine Sulfate 4 mg 07/16/25 16:19 Morphine Sulfate (*Crx) 4 Mg/Ml Inj IV PUSH Q2H PRN Pain Rated 7-10 IF NPO Ondansetron HCl 4 mg 07/16/25 16:19 07/17/25 08:39 Ondansetron Inj 4 Mg/2 Ml Vial IV PUSH 4 mg Q4H PRN Administration Nausea Oxycodone/Acetaminophen 1 tab 07/16/25 20:46 07/18/25 00:59 Oxycodone/Acetaminophen (*Crx) 10-325 Mg Tablet PO 1 tab Q4H PRN Administration Pain Rated 7-10 Pantoprazole Sodium 40 mg 07/17/25 09:00 07/17/25 08:40 Pantoprazole 40 Mg Tablet PO 40 mg QAM MICHELLE Administration Perflutren Lipid Microsphere 0 ml 07/17/25 01:07 Perflutren Lipid Microspheres 1.5 Ml Vial Diluted To 10 Ml Total Volume IV PUSH 07/20/25 01:07 ONCE PRN adequate visualization Protocol Polyethylene Glycol 17 gm 07/18/25 09:00 Polyethylene Glycol 3350 17 Gm Powd.Pack PO Q4HR MICHELLE Rosuvastatin Calcium 10 mg 07/17/25 09:00 07/17/25 08:40 Rosuvastatin 10 Mg Tablet PO 10 mg DAILY MICHELLE Administration Senna/Docusate Sodium 2 tab 07/17/25 09:00 07/17/25 17:01 Senna/Docusate Sodium Tablet PO 2 tab BID MICHELLE Administration Sodium Chloride 10 ml 07/17/25 14:00 07/18/25 06:14 Central Line Flush IV PUSH 10 ml Q8HR MICHELLE Administration Radiology Results: ITS Impressions Chest X-Ray 07/16/25 11:34 IMPRESSION: 1. No acute cardiopulmonary findings given portable technique. Chest/Abdomen/Pelvis CTA 07/16/25 14:12 IMPRESSION: 1. Negative for pulmonary embolism. Mild CHF. 2. Probable fecal impaction with proctitis 3. 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 4. Postsurgical changes in the spine, there is concern for discitis or osteomyelitis contrast-enhanced MRI is recommended Labs Labs: Laboratory Results - last 24 hr 07/17/25 07/17/25 07/18/25 05:58 10:33 06:12 WBC 7.4 5.9 RBC 3.36 L 3.44 L Hgb 10.1 L 10.4 L Hct 33.0 L 34.1 L MCV 98.2 99.1 MCH 30.1 30.2 MCHC 30.6 L 30.5 L RDW 16.7 H 16.7 H Plt Count 225 229 MPV 9.5 9.8 Immature Gran % (Auto) 0.5 0.5 Neut % (Auto) 80.4 H 65.6 Lymph % (Auto) 10.7 L 18.9 [place] % (Auto) 6.0 10.6 H Eos % (Auto) 2.0 3.7 Baso % (Auto) 0.4 0.7 Lymph # (Auto) 0.79 L 1.12 [place] # (Auto) 0.4 0.6 Eos # (Auto) 0.2 0.2 Baso # (Auto) 0.0 0.0 Abs Immat Gran (auto) 0.04 H 0.03 Absolute Neuts (auto) 5.9 3.9 Absolute Nucleated RBC 0.000 0.000 Nucleated RBC % 0.0 0.0 Sodium 136 L 136 L Potassium 3.9 4.3 Chloride 103 102 Carbon Dioxide 30 32 H Anion Gap 3 L 2 L BUN 9 13 Creatinine 0.43 L 0.48 L Estim Creat Clear Calc 93 86 Estimated GFR > 60 > 60 Glucose 98 90 Calcium 7.8 L 8.1 L Total Bilirubin 0.3 0.3 AST 21 23 ALT 13 12 Alkaline Phosphatase 118 110 Total Protein 6.2 L 5.8 L Albumin 3.3 L 3.2 L Quality VTE Prophylaxis VTE prophylaxis: pharmacologic ordered
[2025-07-18] MEDS: LINACLOTIDE 145 MCG CAPSULE 290 MCG PO (08:17)
[2025-07-18] MEDS: ONDANSETRON INJ 4 MG/2 ML VIAL IV PUSH (08:22)
[2025-07-18] MEDS: ROSUVASTATIN 10 MG TABLET PO (09:11)
[2025-07-18] MEDS: SENNA/DOCUSATE SODIUM TABLET 2 TAB PO ×2 (09:11→17:11)
[2025-07-18] MEDS: ESCITALOPRAM OXALATE 10 MG TABLET PO (09:11)
[2025-07-18] MEDS: PANTOPRAZOLE 40 MG TABLET PO (09:11)
[2025-07-18] MEDS: ENOXAPARIN 40 MG/0.4 ML SYRINGE SUB-Q (09:12)
[2025-07-18] MEDS: GABAPENTIN 300 MG CAPSULE PO ×2 (09:12→17:11)
[2025-07-18] MEDS: cefTRIAXone 2 GM in SODIUM CHLORIDE 0.9% IV 100 ML 200 ML IVPB (14:43)
--- NOTE | 2025-07-18 15:18 | P.PNGI_ITS ---
Progress Note: A&P Assessment and Plan (1) Constipation: Qualifiers: Constipation type: other constipation type Qualified Code(s): K59.09 - Other constipation Code(s): K59.00 - Constipation, unspecified Status: Acute Assessment and Plan: The patient continues to experience multifactorial constipation despite aggressive management, including multiple medications, enemas, and increasing MiraLax to every 6 hours. While the rectal vault stool is not hard, the patient lacks the abdominal and pelvic strength necessary to effectively expel it. Today, the patient will initiate physical therapy focusing on mobility. . To further address the issue, the regimen is being intensified: MiraLax frequency will increase to every 4 hours, and Linzess 290 mcg will be added every morning, while enemas continue as needed. We will reassess the patient's bowel response after these changes are implemented. Subjective Date/time seen: 07/18/25 15:18 Interval history: the patient did not achieve bowel movements, however she is markedly depressed, hypoactive and does not feel the desire to defecate. Objective Data Vital Signs Vital Signs: Vital Signs - 24 hr 07/17/25 16:00 07/17/25 20:00 07/17/25 20:00 Temperature Pulse Rate 88 75 Respiratory Rate Blood Pressure Pulse Oximetry Oxygen Delivery Room Air 07/18/25 00:00 07/18/25 00:00 07/18/25 04:00 Temperature 98.2 F Pulse Rate 74 78 82 Respiratory Rate 18 Blood Pressure 132/58 L Pulse Oximetry 92 Oxygen Delivery 07/18/25 06:06 07/18/25 08:22 Temperature 97.8 F Pulse Rate 78 Respiratory Rate 18 Blood Pressure 143/70 H Pulse Oximetry 93 Oxygen Delivery Room Air Intake/Output Intake/Output: Intake & Output 07/15/25 07/16/25 07/17/25 07/18/25 23:59 22:59 23:59 23:59 Intake Total 100 1120 710 Output Total 1800 1975 1100 Balance -1700 -855 -390 Meds/Results Medications: Active Medications Generic Name Dose Route Start Last Admin Trade Name Freq PRN Reason Stop Dose Admin Acetaminophen 650 mg 07/16/25 16:19 Acetaminophen 325 Mg Tablet PO Q4H PRN Mild Pain (1-3) or Fever Al Hydrox/Mg Hydrox/Simethicone 30 ml 07/16/25 17:53 07/17/25 17:01 Mag Hydrox/Al Hydrox/Simeth 30 Ml Udc PO 30 ml Q6H PRN Administration Indigestion Amlodipine Besylate 5 mg 07/17/25 09:00 07/18/25 09:12 Amlodipine Besylate 5 Mg Tablet PO 5 mg DAILY MICHELLE Administration Calcitriol 0.25 mcg 07/17/25 09:00 07/18/25 09:11 Calcitriol 0.25 Mcg Capsule PO 0.25 mcg DAILY MICHELLE Administration Enoxaparin Sodium 40 mg 07/17/25 09:00 07/18/25 09:12 Enoxaparin 40 Mg/0.4 Ml Syringe SUB-Q 40 mg DAILY MICHELLE Administration Escitalopram Oxalate 10 mg 07/17/25 09:00 07/18/25 09:11 Escitalopram Oxalate 10 Mg Tablet PO 10 mg DAILY MICHELLE Administration Gabapentin 300 mg 07/17/25 09:00 07/18/25 09:12 Gabapentin 300 Mg Capsule PO 300 mg BID MICHELLE Administration Ceftriaxone Sodium 2 gm/ 100 mls @ 200 mls/hr 07/17/25 15:00 07/18/25 14:43 Sodium Chloride IVPB 200 mls/hr Q24H MICHELLE Administration Levothyroxine Sodium 25 mcg 07/17/25 06:30 07/18/25 06:14 Levothyroxine Sodium 25 Mcg Tablet PO 25 mcg DAILY@0630 MICHELLE Administration Levothyroxine Sodium 112 mcg 07/17/25 06:30 07/18/25 06:14 Levothyroxine Sodium 112 Mcg Tablet PO 112 mcg DAILY@0630 MICHELLE Administration Linaclotide 290 mcg 07/18/25 07:40 07/18/25 08:17 Linaclotide 145 Mcg Capsule PO 290 mcg DAILY@0630 MICHELLE Administration Methocarbamol 1,000 mg 07/16/25 21:00 07/18/25 12:27 Methocarbamol 500 Mg Tablet PO 1,000 mg QID MICHELLE Administration Morphine Sulfate 4 mg 07/16/25 16:19 Morphine Sulfate (*Crx) 4 Mg/Ml Inj IV PUSH Q2H PRN Pain Rated 7-10 IF NPO Ondansetron HCl 4 mg 07/16/25 16:19 07/18/25 08:22 Ondansetron Inj 4 Mg/2 Ml Vial IV PUSH 4 mg Q4H PRN Administration Nausea Oxycodone/Acetaminophen 1 tab 07/16/25 20:46 07/18/25 00:59 Oxycodone/Acetaminophen (*Crx) 10-325 Mg Tablet PO 1 tab Q4H PRN Administration Pain Rated 7-10 Pantoprazole Sodium 40 mg 07/17/25 09:00 07/18/25 09:11 Pantoprazole 40 Mg Tablet PO 40 mg QAM MICHELLE Administration Perflutren Lipid Microsphere 0 ml 07/17/25 01:07 Perflutren Lipid Microspheres 1.5 Ml Vial Diluted To 10 Ml Total Volume IV PUSH 07/20/25 01:07 ONCE PRN adequate visualization Protocol Polyethylene Glycol 17 gm 07/18/25 09:00 07/18/25 12:27 Polyethylene Glycol 3350 17 Gm Powd.Pack PO 17 gm Q4HR MICHELLE Administration Rosuvastatin Calcium 10 mg 07/17/25 09:00 07/18/25 09:11 Rosuvastatin 10 Mg Tablet PO 10 mg DAILY MICHELLE Administration Senna/Docusate Sodium 2 tab 07/17/25 09:00 07/18/25 09:11 Senna/Docusate Sodium Tablet PO 2 tab BID MICHELLE Administration Sodium Chloride 10 ml 07/17/25 14:00 07/18/25 14:43 Central Line Flush IV PUSH 10 ml Q8HR MICHELLE Administration Radiology Results: ITS Impressions Chest X-Ray 07/16/25 11:34 IMPRESSION: 1. No acute cardiopulmonary findings given portable technique. Chest/Abdomen/Pelvis CTA 07/16/25 14:12 IMPRESSION: 1. Negative for pulmonary embolism. Mild CHF. 2. Probable fecal impaction with proctitis 3. 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 4. Postsurgical changes in the spine, there is concern for discitis or osteomyelitis contrast-enhanced MRI is recommended Labs Labs: Laboratory Results - last 24 hr 07/18/25 06:12 WBC 5.9 RBC 3.44 L Hgb 10.4 L Hct 34.1 L MCV 99.1 MCH 30.2 MCHC 30.5 L RDW 16.7 H Plt Count 229 MPV 9.8 Immature Gran % (Auto) 0.5 Neut % (Auto) 65.6 Lymph % (Auto) 18.9 [place] % (Auto) 10.6 H Eos % (Auto) 3.7 Baso % (Auto) 0.7 Lymph # (Auto) 1.12 [place] # (Auto) 0.6 Eos # (Auto) 0.2 Baso # (Auto) 0.0 Abs Immat Gran (auto) 0.03 Absolute Neuts (auto) 3.9 Absolute Nucleated RBC 0.000 Nucleated RBC % 0.0 Sodium 136 L Potassium 4.3 Chloride 102 Carbon Dioxide 32 H Anion Gap 2 L BUN 13 Creatinine 0.48 L Estim Creat Clear Calc 86 Estimated GFR > 60 Glucose 90 Calcium 8.1 L Total Bilirubin 0.3 AST 23 ALT 12 Alkaline Phosphatase 110 Total Protein 5.8 L Albumin 3.2 L
[2025-07-19] VITALS (9 sets, daily range): BP systolic 113–137; BP diastolic 58–72; PULSE 76–89; RESP 16–20; TEMP 36.1–36.3; O2SAT 97–100
[2025-07-19] MEDS: LEVOTHYROXINE SODIUM 25 MCG TABLET PO (05:44)
[2025-07-19] MEDS: LINACLOTIDE 145 MCG CAPSULE 290 MCG PO (05:44)
[2025-07-19] MEDS: CENTRAL LINE FLUSH 10 ML IV PUSH ×3 (05:44→20:32)
[2025-07-19] MEDS: LEVOTHYROXINE SODIUM 112 MCG TABLET PO (05:44)
[2025-07-19] MEDS: oxyCODONE/ACETAMINOPHEN (*CRX) 10-325 MG TABLET 1 TAB PO ×3 (05:49→20:32)
[2025-07-19 06:06] LABS: Alanine Aminotransferase 12 U/L (6-35); Albumin Level 3.5 g/dL (3.5-5.1); Alkaline Phosphatase 114 U/L (38-126); Anion Gap 3 mmol/L (4-12); Aspartate Amino Transferase 21 U/L (14-36); Bilirubin,Total 0.3 mg/dL (0.2-1.3); Blood Urea Nitrogen 14 mg/dL (7-17); Calcium 8.2 mg/dL (8.4-10.2); Carbon Dioxide 31 mmol/L (22-30); Chloride 105 mmol/L (98-107); Estimated CRCL calculation 85 ml/min; Estimated Glomerular Filt Rate > 60; Glucose 102 mg/dL (65-110); Potassium 4.4 mmol/L (3.4-5.0); Sodium 139 mmol/L (137-145); Total Protein 6.0 g/dL (6.3-8.2)
[2025-07-19] MEDS: ONDANSETRON INJ 4 MG/2 ML VIAL IV PUSH ×2 (06:21→13:15)
[2025-07-19 07:15] LABS: Hematocrit 34.2 % (37.0-47.0); Hemoglobin 10.2 g/dL (12.0-15.0); Mean Corpuscular HGB Conc 29.8 g/dl (32-36); Mean Corpuscular Hemoglobin 29.6 pg (26-34); Mean Corpuscular Volume 99.1 fl (80-100); Platelet Count Result 218 k/mm3 (150-375); Red Blood Count 3.45 M/mm3 (4.2-5.4); White Blood Count 7.3 K/mm3 (4.5-10.0)
[2025-07-19] MEDS: ROSUVASTATIN 10 MG TABLET PO (08:56)
[2025-07-19] MEDS: GABAPENTIN 300 MG CAPSULE PO ×2 (08:57→17:10)
[2025-07-19] MEDS: ENOXAPARIN 40 MG/0.4 ML SYRINGE SUB-Q (08:57)
[2025-07-19] MEDS: PANTOPRAZOLE 40 MG TABLET PO (08:57)
[2025-07-19] MEDS: ESCITALOPRAM OXALATE 10 MG TABLET PO (08:57)
--- NOTE | 2025-07-19 14:50 | PCOTNOTE ---
Pt reports not feeling well and requests for OT to come back tomorrow for evaluation.
[2025-07-19] MEDS: cefTRIAXone 2 GM in SODIUM CHLORIDE 0.9% IV 100 ML 200 ML IVPB (15:44)
--- NOTE | 2025-07-19 16:41 | P.PNGI_ITS ---
Progress Note: A&P Assessment and Plan (1) Constipation: Qualifiers: Constipation type: other constipation type Qualified Code(s): K59.09 - Other constipation Code(s): K59.00 - Constipation, unspecified Status: Acute Assessment and Plan: The patient was able to achieve several bowel movements yesterday, many of them diarrheal. Due to her multiple neurological problems the patient is unable to feel a normal sensation of evacuation, however she needs to be sitting in the commode to 3 times a day. Will continue prescribing Linzess 290 mcg once a day, and decrease the frequency of administration of MiraLax to twice a day. No need for enemas. The patient is not fecally impacted, all she needs is a combination of Linzess qD and MiraLax, maybe once or twice a day once she is back to her final destination home for institution. Subjective Date/time seen: 07/19/25 16:41 Objective Data Vital Signs Vital Signs: Vital Signs - 24 hr 07/18/25 20:00 07/18/25 20:00 07/18/25 20:12 Temperature Pulse Rate 74 85 Respiratory Rate 20 Blood Pressure Pulse Oximetry 98 98 Oxygen Delivery Room Air Room Air 07/18/25 21:18 07/19/25 00:00 07/19/25 04:00 Temperature 97 F L Pulse Rate 74 78 78 Respiratory Rate 20 Blood Pressure 113/68 Pulse Oximetry 98 Oxygen Delivery 07/19/25 06:07 07/19/25 08:05 07/19/25 12:06 Temperature 97.3 F L Pulse Rate 85 76 78 Respiratory Rate 20 Blood Pressure 137/72 Pulse Oximetry 97 Oxygen Delivery 07/19/25 13:04 07/19/25 13:21 07/19/25 16:05 Temperature Pulse Rate 89 Respiratory Rate Blood Pressure Pulse Oximetry Oxygen Delivery Room Air Room Air Intake/Output Intake/Output: Intake & Output 07/16/25 07/17/25 07/18/25 07/19/25 22:59 23:59 23:59 23:59 Intake Total 100 1120 2553 358 Output Total 1800 1975 1773 1400 Balance -2033 -559 810 -3379 Meds/Results Medications: Active Medications Generic Name Dose Route Start Last Admin Trade Name Freq PRN Reason Stop Dose Admin Acetaminophen 650 mg 07/16/25 16:19 Acetaminophen 325 Mg Tablet PO Q4H PRN Mild Pain (1-3) or Fever Al Hydrox/Mg Hydrox/Simethicone 30 ml 07/16/25 17:53 07/17/25 17:01 Mag Hydrox/Al Hydrox/Simeth 30 Ml Udc PO 30 ml Q6H PRN Administration Indigestion Amlodipine Besylate 5 mg 07/17/25 09:00 07/19/25 08:56 Amlodipine Besylate 5 Mg Tablet PO 5 mg DAILY MICHELLE Administration Calcitriol 0.75 mcg 07/20/25 09:00 Calcitriol 0.25 Mcg Capsule PO DAILY [facility] Enoxaparin Sodium 40 mg 07/17/25 09:00 07/19/25 08:57 Enoxaparin 40 Mg/0.4 Ml Syringe SUB-Q 40 mg DAILY MICHELLE Administration Escitalopram Oxalate 10 mg 07/17/25 09:00 07/19/25 08:57 Escitalopram Oxalate 10 Mg Tablet PO 10 mg DAILY MICHELLE Administration Gabapentin 300 mg 07/17/25 09:00 07/19/25 08:57 Gabapentin 300 Mg Capsule PO 300 mg BID MICHELLE Administration Ceftriaxone Sodium 2 gm/ 100 mls @ 200 mls/hr 07/17/25 15:00 07/19/25 15:44 Sodium Chloride IVPB 200 mls/hr Q24H MICHELLE Administration Levothyroxine Sodium 25 mcg 07/17/25 06:30 07/19/25 05:44 Levothyroxine Sodium 25 Mcg Tablet PO 25 mcg DAILY@0630 MICHELLE Administration Levothyroxine Sodium 112 mcg 07/17/25 06:30 07/19/25 05:44 Levothyroxine Sodium 112 Mcg Tablet PO 112 mcg DAILY@0630 MICHELLE Administration Linaclotide 290 mcg 07/18/25 07:40 07/19/25 05:44 Linaclotide 145 Mcg Capsule PO 290 mcg DAILY@0630 MICHELLE Administration Methocarbamol 1,000 mg 07/16/25 21:00 07/19/25 13:15 Methocarbamol 500 Mg Tablet PO 1,000 mg QID MICHELLE Administration Morphine Sulfate 4 mg 07/16/25 16:19 Morphine Sulfate (*Crx) 4 Mg/Ml Inj IV PUSH Q2H PRN Pain Rated 7-10 IF NPO Ondansetron HCl 4 mg 07/16/25 16:19 07/19/25 13:15 Ondansetron Inj 4 Mg/2 Ml Vial IV PUSH 4 mg Q4H PRN Administration Nausea Oxycodone/Acetaminophen 1 tab 07/16/25 20:46 07/19/25 13:14 Oxycodone/Acetaminophen (*Crx) 10-325 Mg Tablet PO 1 tab Q4H PRN Administration Pain Rated 7-10 Pantoprazole Sodium 40 mg 07/17/25 09:00 07/19/25 08:57 Pantoprazole 40 Mg Tablet PO 40 mg QAM MICHELLE Administration Perflutren Lipid Microsphere 0 ml 07/17/25 01:07 Perflutren Lipid Microspheres 1.5 Ml Vial Diluted To 10 Ml Total Volume IV PUSH 07/20/25 01:07 ONCE PRN adequate visualization Protocol Polyethylene Glycol 17 gm 07/19/25 14:00 07/19/25 13:15 Polyethylene Glycol 3350 17 Gm Powd.Pack PO 17 gm Q8HR MICHELLE Administration Rosuvastatin Calcium 10 mg 07/17/25 09:00 07/19/25 08:56 Rosuvastatin 10 Mg Tablet PO 10 mg DAILY MICHELLE Administration Senna/Docusate Sodium 2 tab 07/17/25 09:00 07/19/25 08:56 Senna/Docusate Sodium Tablet PO Not Given BID MICHELLE Sodium Chloride 10 ml 07/17/25 14:00 07/19/25 13:15 Central Line Flush IV PUSH 10 ml Q8HR MICHELLE Administration Radiology Results: ITS Impressions Chest X-Ray 07/16/25 11:34 IMPRESSION: 1. No acute cardiopulmonary findings given portable technique. Chest/Abdomen/Pelvis CTA 07/16/25 14:12 IMPRESSION: 1. Negative for pulmonary embolism. Mild CHF. 2. Probable fecal impaction with proctitis 3. 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 4. Postsurgical changes in the spine, there is concern for discitis or osteomyelitis contrast-enhanced MRI is recommended Labs Labs: Laboratory Results - last 24 hr 07/19/25 07/19/25 05:36 05:37 WBC 7.3 RBC 3.45 L Hgb 10.2 L Hct 34.2 L MCV 99.1 MCH 29.6 MCHC 29.8 L RDW 16.5 H Plt Count 218 MPV 9.6 Sodium 139 Potassium 4.4 Chloride 105 Carbon Dioxide 31 H Anion Gap 3 L BUN 14 Creatinine 0.49 L Estim Creat Clear Calc 85 Estimated GFR > 60 Glucose 102 Calcium 8.2 L Total Bilirubin 0.3 AST 21 ALT 12 Alkaline Phosphatase 114 Total Protein 6.0 L Albumin 3.5
[2025-07-19] MEDS: SENNA/DOCUSATE SODIUM TABLET 2 TAB PO (17:10)
--- NOTE | 2025-07-19 17:48 | PM.IMPN ---
Progress Note: A&P Assessment and Plan (1) Chest pain: Code(s): R07.9 - Chest pain, unspecified Status: Acute Assessment and Plan: Describes the chest pain is intermittent aching that she noticed this morning about 1 hour prior to arrival to the emergency department. She rates the pain on arrival as 4/10. No shortness of breath pain. Troponin negative. Initial EKG sinus rhythm with short OK interval, left axis deviation, moderate intraventricular conduction delay. D-dimer elevated but CTA chest abdomen pelvis negative for PE. Unlikely this chest pain is cardiac related. EKG, repeat sinus rhythm, left axis deviation, pattern consistent with pulmonary disease. 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 (2) Constipation: Qualifiers: Constipation type: other constipation type Qualified Code(s): K59.09 - Other constipation Code(s): K59.00 - Constipation, unspecified Status: Acute Assessment and Plan: The patient states that this is chronic. Followed by GI and has recently been disimpacted. Constipation likely multifactorial from rectal prolapse, narcotic use, recent spinal surgery, and decreased mobility Chest abdomen pelvis cta: fecal impaction with proctitis proctitis likely related to inflammation 2/2 impaction S/p water enema, soap suds, enema and mineral oil enema Continue MiraLax, senokot Attempted manual disimpaction on 07/17 by GI Continue to appreciate GI recommendations (3) Chronic osteomyelitis: Code(s): M86.60 - Other chronic osteomyelitis, unspecified site Status: Chronic Assessment and Plan: Patient had spine surgery at [place] on June 13 and was started on long-term antibiotics (2 g Rocephin) a few days later due to osteomyelitis of the spine. Patient takes Plavix and aspirin but was recommended to hold it for 6 weeks postop. Patient has 2 KEELEY drains remaining from her surgery. CT chest/abdomen/pelvis showed probable right sided UPJ obstruction and postsurgical changes in the spine with concern of discitis or osteomyelitis ED provider spoke with neurosurgeon at [facility] who states these are chronic findings Patient states she has an appointment with the surgeon on 07/26 Continue IV rocephin as previously prescribed Patient states she has an appointment with ID on 07/19 Attempted to call patients facility to obtain an end date if any for the rocephin, voicemail left with RN. Request of records from [facility] (4) Prolapsed bladder: Status: Chronic Assessment and Plan: Patient also has an indwelling Mahmood due to a prolapsed bladder which she is following urology for. (5) Atrial fibrillation: Code(s): I48.91 - Unspecified atrial fibrillation Status: Acute Assessment and Plan: Chronic, s/p pacemaker and ablation Followed by Cardiology Dr. Brannon (6) CAD (coronary artery disease): Qualifiers: Coronary Disease-Associated Artery/Lesion type: [place] artery [place] vs. transplanted heart: [place] heart Associated angina: without angina Qualified Code(s): I25.10 - Atherosclerotic heart disease of [place] coronary artery without angina pectoris Code(s): I25.10 - Atherosclerotic heart disease of [place] coronary artery without angina pectoris Status: Acute Assessment and Plan: s/p stent placement Continue asa and plavix Time Spent With Patient Time with patient: 25 - 35 minutes Subjective Date/time seen: 07/19/25 17:48 Interval history: Patient is having multiple liquid bowel movements. Feels crampy in her abdomen. Review of Systems Review of Systems: All systems reviewed & are unremarkable except as noted in HPI and below (Subjective) Exam Const: General: comfortable and no acute distress Other: A&O x3 HENMT: Mouth: Yes moist mucous membranes Eyes: Pupils: Equal, round and reactive pupils present Resp: Effort & Inspection: normal respiratory effort Auscultation: clear to auscultation bilaterally Cardio: Rate: regular rate Rhythm: regular rhythm Heart sounds: no gallops GI: Inspection: non-distended GI Palp: Yes Soft to palpation, No Tenderness to palpation present (GI) and No Guarding due to palpation present (GI) Auscultation: normal bowel sounds Neuro: Motor exam (neuro): 5/5 motor strength present throughout Extrem: General: no edema Objective Data Vital Signs Vital Signs: Vital Signs - 24 hr 07/18/25 20:00 07/18/25 20:00 07/18/25 20:12 Temperature Pulse Rate 74 85 Respiratory Rate 20 Blood Pressure Pulse Oximetry 98 98 Oxygen Delivery Room Air Room Air 07/18/25 21:18 07/19/25 00:00 07/19/25 04:00 Temperature 97 F L Pulse Rate 74 78 78 Respiratory Rate 20 Blood Pressure 113/68 Pulse Oximetry 98 Oxygen Delivery 07/19/25 06:07 07/19/25 08:05 07/19/25 12:06 Temperature 97.3 F L Pulse Rate 85 76 78 Respiratory Rate 20 Blood Pressure 137/72 Pulse Oximetry 97 Oxygen Delivery 07/19/25 13:04 07/19/25 13:21 07/19/25 16:05 Temperature Pulse Rate 89 Respiratory Rate Blood Pressure Pulse Oximetry Oxygen Delivery Room Air Room Air Intake/Output Intake/Output: Intake & Output 07/16/25 07/17/25 07/18/25 07/19/25 22:59 23:59 23:59 23:59 Intake Total 100 1120 2553 758 Output Total 1800 3006 8960 5605 Balance -1700 -855 780 1619 Meds/Results Medications: Active Medications Generic Name Dose Route Start Last Admin Trade Name Freq PRN Reason Stop Dose Admin Acetaminophen 650 mg 07/16/25 16:19 Acetaminophen 325 Mg Tablet PO Q4H PRN Mild Pain (1-3) or Fever Al Hydrox/Mg Hydrox/Simethicone 30 ml 07/16/25 17:53 07/17/25 17:01 Mag Hydrox/Al Hydrox/Simeth 30 Ml Udc PO 30 ml Q6H PRN Administration Indigestion Amlodipine Besylate 5 mg 07/17/25 09:00 07/19/25 08:56 Amlodipine Besylate 5 Mg Tablet PO 5 mg DAILY MICHELLE Administration Calcitriol 0.75 mcg 07/20/25 09:00 Calcitriol 0.25 Mcg Capsule PO DAILY MICHELLE Enoxaparin Sodium 40 mg 07/17/25 09:00 07/19/25 08:57 Enoxaparin 40 Mg/0.4 Ml Syringe SUB-Q 40 mg DAILY MICHELLE Administration Escitalopram Oxalate 10 mg 07/17/25 09:00 07/19/25 08:57 Escitalopram Oxalate 10 Mg Tablet PO 10 mg DAILY MICHELLE Administration Gabapentin 300 mg 07/17/25 09:00 07/19/25 17:10 Gabapentin 300 Mg Capsule PO 300 mg BID MICHELLE Administration Ceftriaxone Sodium 2 gm/ 100 mls @ 200 mls/hr 07/17/25 15:00 07/19/25 15:44 Sodium Chloride IVPB 200 mls/hr Q24H MICHELLE Administration Levothyroxine Sodium 25 mcg 07/17/25 06:30 07/19/25 05:44 Levothyroxine Sodium 25 Mcg Tablet PO 25 mcg DAILY@0630 MICHELLE Administration Levothyroxine Sodium 112 mcg 07/17/25 06:30 07/19/25 05:44 Levothyroxine Sodium 112 Mcg Tablet PO 112 mcg DAILY@0630 MICHELLE Administration Linaclotide 290 mcg 07/18/25 07:40 07/19/25 05:44 Linaclotide 145 Mcg Capsule PO 290 mcg DAILY@0630 MICHELLE Administration Methocarbamol 1,000 mg 07/16/25 21:00 07/19/25 17:10 Methocarbamol 500 Mg Tablet PO 1,000 mg QID MICHELLE Administration Morphine Sulfate 4 mg 07/16/25 16:19 Morphine Sulfate (*Crx) 4 Mg/Ml Inj IV PUSH Q2H PRN Pain Rated 7-10 IF NPO Ondansetron HCl 4 mg 07/16/25 16:19 07/19/25 13:15 Ondansetron Inj 4 Mg/2 Ml Vial IV PUSH 4 mg Q4H PRN Administration Nausea Oxycodone/Acetaminophen 1 tab 07/16/25 20:46 07/19/25 13:14 Oxycodone/Acetaminophen (*Crx) 10-325 Mg Tablet PO 1 tab Q4H PRN Administration Pain Rated 7-10 Pantoprazole Sodium 40 mg 07/17/25 09:00 07/19/25 08:57 Pantoprazole 40 Mg Tablet PO 40 mg QAM MICHELLE Administration Perflutren Lipid Microsphere 0 ml 07/17/25 01:07 Perflutren Lipid Microspheres 1.5 Ml Vial Diluted To 10 Ml Total Volume IV PUSH 07/20/25 01:07 ONCE PRN adequate visualization Protocol Polyethylene Glycol 17 gm 07/19/25 14:00 07/19/25 13:15 Polyethylene Glycol 3350 17 Gm Powd.Pack PO 17 gm Q8HR MICHELLE Administration Rosuvastatin Calcium 10 mg 07/17/25 09:00 07/19/25 08:56 Rosuvastatin 10 Mg Tablet PO 10 mg DAILY MICHELLE Administration Senna/Docusate Sodium 2 tab 07/17/25 09:00 07/19/25 17:10 Senna/Docusate Sodium Tablet PO 2 tab BID MICHELLE Administration Sodium Chloride 10 ml 07/17/25 14:00 07/19/25 13:15 Central Line Flush IV PUSH 10 ml Q8HR MICHELLE Administration Radiology Results: ITS Impressions Chest X-Ray 07/16/25 11:34 IMPRESSION: 1. No acute cardiopulmonary findings given portable technique. Chest/Abdomen/Pelvis CTA 07/16/25 14:12 IMPRESSION: 1. Negative for pulmonary embolism. Mild CHF. 2. Probable fecal impaction with proctitis 3. 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 4. Postsurgical changes in the spine, there is concern for discitis or osteomyelitis contrast-enhanced MRI is recommended Labs Labs: Laboratory Results - last 24 hr 07/19/25 07/19/25 05:36 05:37 WBC 7.3 RBC 3.45 L Hgb 10.2 L Hct 34.2 L MCV 99.1 MCH 29.6 MCHC 29.8 L RDW 16.5 H Plt Count 218 MPV 9.6 Sodium 139 Potassium 4.4 Chloride 105 Carbon Dioxide 31 H Anion Gap 3 L BUN 14 Creatinine 0.49 L Estim Creat Clear Calc 85 Estimated GFR > 60 Glucose 102 Calcium 8.2 L Total Bilirubin 0.3 AST 21 ALT 12 Alkaline Phosphatase 114 Total Protein 6.0 L Albumin 3.5
[2025-07-20] MEDS: MAG HYDROX/AL HYDROX/SIMETH 30 ML UDC PO (01:51)
[2025-07-20] MEDS: LINACLOTIDE 145 MCG CAPSULE 290 MCG PO (05:31)
[2025-07-20] MEDS: LEVOTHYROXINE SODIUM 112 MCG TABLET PO (05:31)
[2025-07-20] MEDS: LEVOTHYROXINE SODIUM 25 MCG TABLET PO (05:31)
[2025-07-20] MEDS: ONDANSETRON INJ 4 MG/2 ML VIAL IV PUSH (05:36)
[2025-07-20 05:45] LABS: Hematocrit 32.5 % (37.0-47.0); Hemoglobin 9.7 g/dL (12.0-15.0); Mean Corpuscular HGB Conc 29.8 g/dl (32-36); Mean Corpuscular Hemoglobin 29.6 pg (26-34); Mean Corpuscular Volume 99.1 fl (80-100); Platelet Count Result 202 k/mm3 (150-375); Red Blood Count 3.28 M/mm3 (4.2-5.4); White Blood Count 6.7 K/mm3 (4.5-10.0)
[2025-07-20] MEDS: ENOXAPARIN 40 MG/0.4 ML SYRINGE SUB-Q (09:22)
[2025-07-20] MEDS: CENTRAL LINE FLUSH 10 ML IV PUSH ×2 (09:25→14:42)
[2025-07-20] MEDS: PANTOPRAZOLE 40 MG TABLET PO (10:46)
[2025-07-20] MEDS: ASPIRIN 81 MG CHEWABLE TABLET PO (10:46)
[2025-07-20] MEDS: ESCITALOPRAM OXALATE 10 MG TABLET PO (10:46)
[2025-07-20] MEDS: GABAPENTIN 300 MG CAPSULE PO (10:46)
[2025-07-20] MEDS: ROSUVASTATIN 10 MG TABLET PO (10:47)
[2025-07-20] MEDS: oxyCODONE/ACETAMINOPHEN (*CRX) 10-325 MG TABLET 1 TAB PO (13:04)
[2025-07-20 14:00] VITALS: BP 134/77; PULSE 77; RESP 16; TEMP 36.4; O2SAT 96
[2025-07-20] MEDS: cefTRIAXone 2 GM in SODIUM CHLORIDE 0.9% IV 100 ML 200 ML IVPB (14:42)
--- NOTE | 2025-07-25 17:06 | PM.DS ---
DS: Admitting Diagnosis Discharge Date 07/20/25 Admitting Diagnosis Chest pain DS: Discharge Diagnosis Discharge Diagnosis (1) Chest pain: Code(s): R07.9 - Chest pain, unspecified Status: Acute DS: Summary Hospital Course Hospital Course: 75-year-old female with history of MS, partially paralyzed diaphragm,Rybotz-Yrippf-Ouzblmsjou syndrome, osteomyelitis spine, prolapsed rectum, prolapse uterus, prolapsed rectum presents to the ED from [facility] on 07[facility]2025 with complaints of chest pain. Troponin negative, EKG without acute ST changes. CTA chest abdomen pelvis negative for PE. Her pain resolved. Constipation: Gastroenterology was consulted. Constipation likely multifactorial from rectal prolapse, narcotic use, recent spinal surgery, decreased mobility. Receive water enema, soapsuds, mineral oil enema, MiraLax, Senokot, attempted manual disimpaction by GI on 07/17. She did begin to have bowel movements and was feeling better. She was discharged in stable condition on 07/20/2025. Ceftriaxone continued for chronic osteomyelitis of the spine. Had surgery on June 13, 2025 at [place]. She has follow-up with surgeon on 07/26, with ID as well. Time Spent with Patient Time attestation: Total time spent providing and/or coordinating discharge services: Time spent: Greater than 30 minutes Exam Const: General: comfortable and no acute distress Other: A&O x3 HENMT: Mouth: Yes moist mucous membranes Eyes: Pupils: Equal, round and reactive pupils present Resp: Effort & Inspection: normal respiratory effort Auscultation: clear to auscultation bilaterally Cardio: Rate: regular rate Rhythm: regular rhythm Heart sounds: no gallops GI: Inspection: non-distended GI Palp: Yes Soft to palpation, No Tenderness to palpation present (GI) and No Guarding due to palpation present (GI) Auscultation: normal bowel sounds Neuro: Motor exam (neuro): 5/5 motor strength present throughout Extrem: General: no edema Discharge Plan Discharge Attending physician on discharge: Nicolle Abdi Consulting providers: Jeanette Baltazar; Bob Clemente; Melanie Vásquez; Tanner Epstein; Lee Ann Maurer; Yamileth Reyes; Negro Alfaro; Milton Felix Discharging Clinician: Nicolle Abdi Patient Disposition: SNF Activity: may shower Diet: as tolerated Discharge Instructions: Continue ceftriaxone daily with end date as recommended by Tyrese. 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 Patient Instructions: Polyethylene Glycol 3350 (By mouth), Depression (DC), Suicide Prevention (DC) Patient Language: Italian Stand Alone Forms: General Discharge Information Follow-up/Referrals: Kalpesh,Alvina Spangler FISH TRAPPER [Primary Care Provider, [facility]] Referral Note: Follow-up within 7 days. Discharge Medications: New ceftriaxone 2 gram recon soln 2 g IV DAILY alum-mag hydroxide-simeth [Mag-Al Plus] 200-200-20 mg/5 mL Suspension 30 ml PO Q6H PRN (Reason: Indigestion) Qty: 3000 0RF polyethylene glycol 3350 [Miralax] 17 gram Powder In Packet 17 g PO Q8HR PRN (Reason: constipation) Qty: 30 0RF pantoprazole 40 mg Tablet,Delayed Release (Dr/Ec) 40 mg PO QAM Qty: 30 0RF Continued amlodipine 5 mg tablet 5 mg PO DAILY calcitriol 0.25 mcg capsule 0.75 mcg PO DAILY acetaminophen 500 mg capsule 500 mg PO Q4-6H PRN (Reason: chronic pain) escitalopram oxalate 10 mg tablet 10 mg PO DAILY enoxaparin 40 mg/0.4 mL syringe 40 mg subcut DAILY gabapentin 300 mg capsule 300 mg PO TID lactulose 10 gram/15 mL solution 10 g PO DAILY PRN (Reason: constipation) rosuvastatin 10 mg tablet 10 mg PO EVERY OTHER DAY ondansetron 4 mg tablet,disintegrating 4 mg PO PRN PRN (Reason: nausea and vomiting) senna-docusate sodium Tablet 2 tablet PO BID lidocaine 5 % adhesive patch,medicated 2 patch topical DAILY PRN (Reason: pain) Rx Instructions: leave on most painful area for up to 12 hrs levothyroxine 137 mcg capsule 137 mcg PO DAILY methocarbamol 750 mg tablet 1,000 mg PO QID oxycodone 15 mg tablet 15 mg PO Q4H Held aspirin 81 mg capsule 81 mg PO DAILY Hold Instructions: Resume when okay with Tyrese spine surgery clopidogrel 75 mg tablet 75 mg PO DAILY Hold Instructions: Resume when okay with Xiong spine surgery calcium carbonate-vitamin D3 [Calcium with Vitamin D] 600 mg-10 mcg (400 unit) tablet See Rx Instructions PO DAILY Hold Instructions: Review with shelter clinician Rx Instructions: orally daily X 1 tab. orally QHS X 3 tabs heparin (porcine) 10,000 unit/mL solution 10,000 unit subcut Q12H Hold Instructions: Review with shelter clinician and Xiong Discontinued omeprazole 20 mg capsule,delayed release(DR/EC) 20 mg PO DAILY simethicone [Gas Relief (simethicone)] 80 mg tablet,chewable 80 mg PO DAILY PRN (Reason: heartburn) Movantik 25 mg tablet 25 mg PO DAILY PRN (Reason: constipation) Rx Instructions: must be taken on empty stomach; no food 1 hr after or 2-3 hrs before dose Date of admission: 07/17/25 15:40 Primary Care Provider: Kalpesh,Alvina Spangler Admitting Provider: Hardeep Rivero Attending physician on admission: Nicolle Abdi Condition: Stable Hospitalist MIPS Heart Failure (Exclusion) Patient has history of Heart Transplant or Left Ventricular Assistive Device?: No IF YES, STOP HERE Heart Failure (Qualifier) Patient has current or prior documentation of LVEF less than or equal to 40%, or mod/servere depressed LVSF?: No IF NO, STOP HERE
== END 2025-07-20 16:27 | DRG 313 ==
LOC: ANHED 16:13 → ANHIMU 17:06 → ANH3MED 21:36
PROVIDERS: Nurse Practitioner Adult Health; Student in an Organized Health Care Education/Training Program; Admitting Provider Internal Medicine; Emergency Provider Emergency Medicine; PCP Nurse Practitioner; Visit Provider General Practice
DX: R07.9 Chest pain, unspecified (principal); Q60.0 Renal agenesis, unilateral; N13.0 Hydronephrosis with ureteropelvic junction obstruction; M46.25 Osteomyelitis of vertebra, thoracolumbar region; I51.89 Other ill-defined heart diseases; T40.605A Adverse effect of unspecified narcotics, initial encounter; K59.09 Other constipation; K62.3 Rectal prolapse; N81.4 Uterovaginal prolapse, unspecified; K62.89 Other specified diseases of anus and rectum; D64.89 Other specified anemias; I48.91 Unspecified atrial fibrillation; J98.6 Disorders of diaphragm; I25.10 Atherosclerotic heart disease of native coronary artery without angina pectoris; K21.9 Gastro-esophageal reflux disease without esophagitis; F32.A Depression, unspecified; I25.2 Old myocardial infarction; Z95.5 Presence of coronary angioplasty implant and graft; Z79.02 Long term (current) use of antithrombotics/antiplatelets; Z96.0 Presence of urogenital implants; Z95.0 Presence of cardiac pacemaker; Z86.73 Personal history of transient ischemic attack (TIA), and cerebral infarction without residual deficits; Z97.8 Presence of other specified devices; Z79.2 Long term (current) use of antibiotics; Z79.891 Long term (current) use of opiate analgesic; Z79.82 Long term (current) use of aspirin; Z87.891 Personal history of nicotine dependence; Q51.818 Other congenital malformations of uterus; Z98.890 Other specified postprocedural states
CPT/HCPCS: 36415; 71045; 71275; 74177; 80053; 80061; 82803; 82948; 83690; 83880; 84484; 85025; 85027; 85380; 85610; 85730; 93005; 93306; 96365; 96375; 96376; 97110; 97116; 97161; 97166; 97530; 99285; A9270; G0378; G0379; J0696; J1650; J2405; Q9967

== ENCOUNTER 2025-07-27 08:07 | Emergency (ER) | payer MEDICARE, SELFPAY ==
--- OUTSIDE RECORDS SUMMARY | 2025-07-26 10:30 | XMS_ITS | Encounter Summary ---
Author Organization [facility] Healthcare Address [address] [place] [address] Care Team Providers Care Senior Php Web Developer Name Role Phone Drea Rodríguez MD Unavailable [phone] Mely Martinez DPT Unavailable [phone] Park Morel MD Unavailable Alvina Posey NP Primary Care Provider [phone] Shaquille Feliciano DO Unavailable [phone] Encounter Details Date Type Department Care Team (Latest Contact Info) Description 07/26/2025 10:30 AM TOOL CRIB SUPERVISOR - 07/26/2025 11:59 PM [facility] Hospital Encounter [facility] Radiology [address] [place] [address] Cervical disc disorder with myelopathy of mid-cervical region Discharge Disposition: Discharge to home or self care Social History Tobacco Use Types Packs/Day Years Used Date Smoking Tobacco: Former Cigarettes 1 14 1 968 - 1981 Passive Smoke Exposure: Past Smokeless Tobacco: Never Alcohol Use Standard Drinks/Week Comments Not Currently 0 (1 standard drink = 0.6 oz pur e alcohol) Social Connection and Isolation Panel Answer Date Recorded In a typical week, how many times do you talk on the phone with family, friends, or neighbors? More than three times a week 01/03/2025 How often do you get togethe r with friends or relatives? More than three times a week 01/03/2025 How often do you attend chur ch or temple services? Never 01/03/2025 Do you belong to any clubs o r organizations such as advent groups, unions, fraternal or athletic groups, or school groups? No 01/03/2025 How often do you attend meet ings of the clubs or organizations you belong to? Never 01/03/2025 Are you , , di vorced, , never , or living with a partner? 01/03/2025 Overall Financial Resource Strain (CARDIA) Answe r Date Recorded How hard is it for you to pa y for the very basics like food, housing, medical care, and heating? Not hard at all 01/03/2025 PHQ-2 Answer Date Recorded PHQ-2 Total Score 1 06/15/2025 PRAPARE - Transportation Answer Date Re corded In the past 12 months, has l ack of transportation kept you from medical appointments or from getting medications? No 12/14 In the past 12 months, has l ack of transportation kept you from meetings, work, or from getting things needed for daily living? No 01/03/2025 Housing Stability Vital Sign Answer Bala e Recorded In the last 12 months, was t here a time when you were not able to pay the mortgage or rent on time? No 11/30/2023 In the last 12 months, how many places have you lived? 1 11/30/2023 In the last 12 months, was t here a time when you did not have a steady place to sleep or slept in a jail (including now)? No 11/30/2023 PHQ-9 Answer Date Recorded PHQ-9 Total Score 9 06/15/2025 Housing Stability Vital Sign Answer Bala e Recorded In the last 12 months, was t here a time when you were not able to pay the mortgage or rent on time? No 01/03/2025 In the past 12 months, how m any times have you moved where you were living? 1 01/03/2025 At any time in the past [address] [facility], were you homeless or living in a jail (including now)? No 01/03/2025 Social Connection and Isolation Panel Answer Date Recorded In a typical week, how many times do you talk on the phone with family, friends, or neighbors? More than three times a week 06/15/2025 How often do you get togethe r with friends or relatives? More than three times a week 06/15/2025 How often do you attend chur ch or temple services? Never 06/15/2025 Do you belong to any clubs o r organizations such as advent groups, unions, fraternal or athletic groups, or school groups? Yes 06/15/2025 How often do you attend meet ings of the clubs or organizations you belong to? More than 4 times per year 06/15/2025 Are you , , di vorced, , never , or living with a partner? 06/15/2025 AUDIT-C Answer Date Recorded Q1: How often do you have a drink containing alcohol? Never 05/25/2025 Q2: How many drinks containi ng alcohol do you have on a typical day when you are drinking? Patient does not drink Q3: How often do you have si x or more drinks on one occasion? Never 05/25/2025 Overall Financial Resource Strain (CARDIA) Answe r Date Recorded How hard is it for you to pa y for the very basics like food, housing, medical care, and heating? Not hard at all 06/15/2025 Hunger Vital Sign Answer Date Recorded Within the past 12 months, y ou worried that your food would run out before you got the money to buy more. Never true 06/15/20 25 Within the past 12 months, t he food you bought just didn't last and you didn't have money to get more. Never true 06/15/2025 PRAPARE - Transportation Answer Date Re corded In the past 12 months, has l ack of transportation kept you from medical appointments or from getting medications? No 10/2024 In the past 12 months, has l ack of transportation kept you from meetings, work, or from getting things needed for daily living? No 06/15/2025 Housing Stability Vital Sign Answer Bala e Recorded In the last 12 months, was t here a time when you were not able to pay the mortgage or rent on time? No 06/15/2025 In the past 12 months, how m any times have you moved where you were living? 1 06/15/2025 At any time in the past [address] [facility], were you homeless or living in a jail (including now)? No 06/15/2025 [facility] Utilities Answer Date Recorded In the past 12 months has th e [employer], [employer], [employer], or water [employer] threatened to shut off services in your home? No 06/15/2025 Personal Safety Answer Date Recorded Have you ever been in or are you currently in a harmful physical or emotional relationship or is someone making you feel afraid or unsafe? Denies 07/09/2025 Comments No Sex and Gender Information Value Date Recorded Sex Assigned at Not on file Legal Sex Female 8:06 PM TOOL CRIB SUPERVISOR Gender Identity Not on file Sexual Orientation Not on file documented as of this encounter Medications at Time of Discharge acetaminophen 500 mg capsule Take 2 capsules (1,000 mg total) by mouth every 6 (six) hours 06/29/2025 aluminum-magnesiu m hydroxide-simethi cone (MAALOX) suspension 200-200-20 mg/5 mL Take 30 mL by mouth 4 (four) times a day as needed for indigestion or heartburn 300 mL 09/13/2024 amLODIPine (NORVASC) 5 mg tablet Take 1 tablet (5 mg total) by mouth every morning 90 tablet 1 03/14/2025 aspirin 81 mg enteric coated tablet Take 1 tablet (81 mg total) by mouth every morning calcitRIOL (ROCALTROL) 0.25 mcg capsule TAKE 3 CAPSULES (0.75 MCG TOTAL) BY MOUTH EVERY MORNING 270 capsule 1 2025 calcium carbonate-vit D3-min 600 mg calcium- 400 unit tablet Take 600 mg by mouth 2 (two) times a day 1 in am and 3 at hs clopidogreL (PLAVIX) 75 mg tablet Take 1 tablet (75 mg total) by mouth nightly 05/20/2023 enoxaparin (LOVENOX) 40 mg/0.4 mL syringe Inject 0.4 mL (40 mg total) under the skin daily 07/07/2025 escitalopram (LEXAPRO) 10 mg tabletIndications :Moderate episode of recurrent major depressive disorder (HCC) Take 1 tablet (10 mg total) by mouth daily 90 tablet 1 03/01/2025 gabapentin (NEURONTIN) 300 mg capsule Take 1 capsule (300 mg total) by mouth 3 (three) times a day 06/29/2025 5 lactulose solution 10 gram/15mL Take 15 mL (10 g total) by mouth 2 (two) times a day as needed (constipaion) 07/07/2025 levothyroxine (SYNTHROID) 125 mcg tablet Take 1 tablet (125 mcg total) by mouth 6 (six) times a week Omit on Sundays 90 tablet 1 03/14/2025 lidocaine (LIDODERM) 5 % Place 2 patches on the skin daily for 12 hours Remove & discard patch(es) within 12 hours or as directed by 06/29/2025 5 linaCLOtide (LINZESS) 290 mcg capsuleIndication s:functional constipation Take 1 capsule (290 mcg total) by mouth daily before breakfast 06/30/2025 5 methocarbamoL (ROBAXIN) 500 mg tabletIndications :Muscle Spasm Take 2 tablets (1,000 mg total) by mouth 4 (four) times a day 06/29/2025 5 Movantik 25 mg tablet Take 1 tablet (25 mg total) by mouth every morning 03/01/2021 omeprazole (PriLOSEC) 20 mg capsule Take 1 capsule (20 mg total) by mouth daily before breakfast 90 capsule 1 03/01/2025 ondansetron (Zofran) 4 mg tablet Take 1 tablet (4 mg total) by mouth every 6 (six) hours as needed for nausea or vomiting 07/26/2024 oxyCODONE (ROXICODONE) 15 mg immediate release tabletIndications :Pain Take 1 tablet (15 mg total) by mouth every 4 (four) hours 30 tablet 07/07/2025 oxygen Administer 3 L/min into each nostril nightly at 180,000 mL/hr polyethylene glycol (MIRALAX) 17 gram/dose bulk powderIndications :constipation Take 17 g by mouth daily 06/29/2025 5 rosuvastatin (CRESTOR) 10 mg tablet Take 1 tablet (10 mg total) by mouth every other day Every other day at night 10/10/2023 senna (SENOKOT) 8.6 mg tabletIndications :constipation Take 1 tablet by mouth 2 (two) times a day as needed for constipation 06/29/2025 simethicone (MYLICON) 80 mg chewable tablet Take 1 tablet (80 mg total) by mouth 4 (four) times a day as needed for flatulence 30 tablet 09/13/2024 sodium chloride 0.9% flush syringe Administer 10-20 mL into catheter as needed for line care 06/29/2025 5 documented as of this encounter Discharge Disposition Disposition Code Departure Means Destination Discharge to home or self care documented in this encounter Plan of Treatment Not on file documented as of this encounter Procedures Procedure Name Priority Date/Time Associated Diagnosis Comments XR SCOLIOSIS AP LAT Schedule Routine, Read Routine (OP Routine) 07/26/2025 11:48 AM TOOL CRIB SUPERVISOR Cervical disc disorder with myelopathy of mid-cervical region documented in this encounter Results * XR Scoliosis Ap and Lateral (07/26/2025 11:48 AM TOOL CRIB SUPERVISOR) Anatomical Region Laterality Modality Spine N/A Computed Radiogr aphy 07/26/2025 1:11 PM TOOL CRIB SUPERVISOR Impressions 07/26/2025 1:11 PM TOOL CRIB SUPERVISOR 1. Unchanged revision posterior instrumented spinal fusion from T3 through the pelvis, combined anterior from L3-L5 Electronically signed by: Amaury Recinos MD Narrative 07/26/2025 1:11 PM TOOL CRIB SUPERVISOR EXAMINATION: XR SCOLIOSIS AP AND LATERAL HISTORY: s/p fusion COMPARISON: 06/23/2025 FINDINGS: Unchanged revision posterior instrumented fusion from T3 through the pelvis with pedicle subtraction osteotomy at T11 and L4, combined anterior from L3-L5. Hardware is intact. A left-sided pacemaker device is present. A right internal jugular [place] catheter is noted. A peritoneal dialysis catheter is noted. Mildly exaggerated thoracic kyphosis. Procedure Note Amaury Recinos MD - 07/26/2025 EXAMINATION: XR SCOLIOSIS AP AND LATERAL HISTORY: s/p fusion COMPARISON: 06/23/2025 FINDINGS: Unchanged revision posterior instrumented fusion from T3 through the pelvis with pedicle subtraction osteotomy at T11 and L4, combined anterior from L3-L5. Hardware is intact. A left-sided pacemaker device is present. A right internal jugular [place] catheter is noted. A peritoneal dialysis catheter is noted. Mildly exaggerated thoracic kyphosis. IMPRESSION: 1. Unchanged revision posterior instrumented spinal fusion from T3 through the pelvis, combined anterior from L3-L5 Electronically signed by: Amaury Recinos MD José Miranda MD IMG XR PROCEDURES Final Result documented in this encounter Visit Diagnoses Diagnosis Cervical disc disorder with myelopathy of mid-cervical region documented in this encounter Care Teams Senior Php Web Developer Relationship Specialty Start Date End Date Alvina Posey NP [address] [facility] [address] [place] [address] PCP - General Family Medicine 01/25/25 Drea Rodríguez MD [address] [place] [address] [facility] [address] [facility] [address] [place] [address] Referring Physician Neurology 05/06/21 Mely Martinez DPT [address] [place] [address] Physical Therapist Physical Therapy 08/10/23 Park Morel MD [address] [place] [address] Cardiology 11/30/23 Shaquille Feliciano DO [address] [facility] [address] [place] [address] Referring Physician Internal Medicine 02/17/25 documented as of this encounter
--- OUTSIDE RECORDS SUMMARY | 2025-07-26 11:00 | XMS_ITS | Encounter Summary ---
Author Organization 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 Medicine Neurosurgery [address] [facility] [address] [place] [address] José Miranda MD [address] [place] [address] Cervical disc disorder with myelopathy of mid-cervical region (Primary Dx) Social History Tobacco Use Types Packs/Day Years Used Date Smoking Tobacco: Former Cigarettes 1 14 [id number] Passive Smoke Exposure: Past Smokeless Tobacco: Never [...] often do you attend chur ch or taoism services? Never 01/03/2025 Do you belong to any clubs o r organizations such as anabaptism groups, unions, fraternal or athletic groups, or [...] place to sleep or slept in a halfway (including now)? No 11/30/2023 PHQ-9 Answer Date [...] any time in the past 12 m [facility], were you homeless or living in a halfway (including now)? No 01/03/2025 Social Connection and Isolation Panel Answer Date Recorded In a typical week, how many times do you talk on the phone with family, friends, or neighbors? More than three times a week 06/15/2025 How often do you get togethe r with friends or relatives? More than three times a week 06/15/2025 How often do you attend chur ch or taoism services? Never 06/15/2025 Do you belong to any clubs o r organizations such as anabaptism groups, unions, fraternal or athletic groups, or [...] any time in the past 12 m [place], were you homeless or living in a halfway (including now)? No 06/15/2025 [facility] Utilities Answer Date Recorded In the past 12 months has th e electric, gas, oil, or water company threatened to shut off services in your home? No 06/15/2025 Personal Safety Answer Date Recorded Have you ever been in or are you currently in a harmful physical or emotional relationship or is someone making you feel afraid or unsafe? 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 History of Present Illness Ama Ring is a 75 year old female who presents for follow-up after T4 to pelvis fusion surgery. She is six weeks post-operative from a T4 to pelvis fusion with pedicle subtraction osteotomies at L4 and T10. She experiences severe back pain, described as muscle pain, which is persistent and impacts her ability to stand and walk. She reports that she is currently in a long-term facility un dergoing rehabilitation, and is able to walk 170 feet with assistance using a walker and with someone behind her. Post-surgery, she has been hospitalized multiple times. She was admitted to the emergency room three times in one week due to low calcium levels and severe constipation. Her calcium levels dropped because she was not receiving her normal doses of calcium. The constipation was severe enough to require a week- long hospital stay to resolve. She has a chronic pelvic floor issue and currently has a urinary catheter in place; she reports urinating constantly and that the catheter helps. She has not experienced any infections related to thecatheter. She is not currently scheduled to see a urologist but has a urologist in [place]. She also has a PICC line in place for ongoing antibiotic treatment, with an upcoming appointment with infectious disease specialists pending. She had to cancel a previous appointment due to hospitalization. Physical Exam MUSCULOSKELETAL: Severe back pain during standing but able to stand and move all
--- NOTE | ~2025-07-27 | CT_ITS ---
EXAMINATION: CTA chest PE protocol DATE: 07/27/2025 10:56 INDICATION: Rule out PE TECHNIQUE: Computed tomography angiography (CTA) of the chest was performed with 100 mL Omnipaque-350 intravenous contrast timed to evaluate the pulmonary arteries. Coronal maximum intensity projection 3D-reconstructions were created by the technologist. The dose-length product was 891.17 mGy-cm. COMPARISON: July 162024 FINDINGS: No pulmonary emboli seen. The main pulmonary artery is mildly enlarged measuring 3.8 cm. No thoracic aortic aneurysm or dissection. Scattered fibrotic and atelectatic appearing changes but the lungs are otherwise clear and unchanged in appearance compared to the July 16 exam. No effusion consolidation or pneumothorax. Central and large airways are patent. No bulky lymphadenopathy or masses. Heart size normal with no significant pericardial effusion. Bones and upper abdomen appear grossly stable including multilevel fusion hardware throughout the thoracic spine. IMPRESSION: 1. No pulmonary emboli. 2. Several chronic appearing findings with no gross acute interval change compared to July 16 exam. Reviewed, dictated and finalized at location A. HASING AGENT IMPRESSION: 1. No pulmonary emboli. 2. Several chronic appearing findings with no gross acute interval change yesi red to July 16 exam.
--- NOTE | ~2025-07-27 | XR_ITS ---
EXAMINATION: XR chest 1V portable COMPARISON: No comparisons available. HISTORY: CP RADIATES TO BACK W/RECENT SURG W/BEND LIFT RESTRICTIONS FINDINGS: Mild pulmonary venous congestion. No pneumothorax. Minimal cardiomegaly. Mediastinal and hilar contours are within normal limits. Postsurgical changes in the spine. Miscellaneous: Left pacemaker. Right central line in the SVC. Impression: Mild CHF Reviewed, dictated and finalized at location P. MAN Impression: Mild CHF
[2025-07-27 08:06] VITALS: BP 121/69; PULSE 90; RESP 12; O2SAT 85
--- NOTE | 2025-07-27 08:17 | ECG_ITS ---
Test Date: 2025-07-27 08:15:17 Measurements Intervals [place] Rate: 86 P: 44 MS: 139 QRS: -30 QRSD: 117 T: 79 QT: 378 QTc: 454 Interpretive Statements SINUS RHYTHM WITH OCCASIONAL VENTRICULAR PREMATURE COMPLEXES NONSPECIFIC T-WAVE ABNORMALITIES Compared to ECG 07/16/2025 14:33:31 Ventricular premature complex(es) now present Electronically Signed On 07-27-2025 12:30:09 WHEEL PRESS OPERATOR by Zack Frank M.D.
[2025-07-27 08:18] VITALS: O2SAT 98
--- NOTE | 2025-07-27 08:19 | PC.NURSE ---
patient spo2 85% on room air with conversation. place on NC. patient states that she uses 3L NC at home. patient placed on 3L NC and spo2 increased to 98%
[2025-07-27 08:20] VITALS: O2SAT 98
[2025-07-27 08:21] VITALS: BP 120/57; PULSE 102; RESP 18; TEMP 36.6; O2SAT 98
--- NOTE | 2025-07-27 08:49 | PC.NURSE ---
patient has PICC line, and difficult stick. discussed with bioinformatics engineer. waiting xray for okay to use
[2025-07-27 10:04] LABS: Hematocrit 32.0 % (37.0-47.0); Hemoglobin 9.6 g/dL (12.0-15.0); Immature Granulocyte Percent A 0.3 % (0-0.5); Lymphocytes Absolute Auto 0.66 K/mm3 (0.9-3.2); Mean Corpuscular HGB Conc 30.0 g/dl (32-36); Mean Corpuscular Hemoglobin 29.7 pg (26-34); Mean Corpuscular Volume 99.1 fl (80-100); Nucleated Red Blood Cells Absolute Auto 0.000 K/mm3 (0.0-0.012); Nucleated Red Blood Cells Perc 0.0 % (0.0-0.2); Platelet Count Result 202 k/mm3 (150-375); Red Blood Count 3.23 M/mm3 (4.2-5.4); White Blood Count 5.8 K/mm3 (4.5-10.0)
[2025-07-27 10:15] LABS: INR 1.1; Partial Thromboplastin Time 28.9 Seconds (22.3-36.8); Prothrombin Time 13.9 Seconds (11.1-14.7)
[2025-07-27 10:16] LABS: Alanine Aminotransferase 24 U/L (6-35); Albumin Level 3.2 g/dL (3.5-5.1); Alkaline Phosphatase 133 U/L (38-126); Anion Gap 1 mmol/L (4-12); Aspartate Amino Transferase 23 U/L (14-36); Bilirubin,Total 0.3 mg/dL (0.2-1.3); Blood Urea Nitrogen 11 mg/dL (7-17); Calcium 8.0 mg/dL (8.4-10.2); Carbon Dioxide 34 mmol/L (22-30); Chloride 102 mmol/L (98-107); Estimated CRCL calculation 85 ml/min; Estimated Glomerular Filt Rate > 60; Glucose 104 mg/dL (65-110); Lipase 20 U/L (23-300); Potassium 4.1 mmol/L (3.4-5.0); Sodium 137 mmol/L (137-145); Total Protein 5.7 g/dL (6.3-8.2)
[2025-07-27 10:27] LABS: Troponin I < 0.012 ng/mL (0.000-0.034)
--- OUTSIDE RECORDS SUMMARY | 2025-07-27 11:04 | XMS_ITS | Encounter Summary ---
Author Organization [facility] Address [address] [facility] [address] Phone Care Team Providers Care Communication Skills Instructor Name Role Phone Drea Rodríguez MD Unavailable [phone] Mariza Juarez MD Primary Care Provider [phone] Mely Martinez DPT Unavailable [phone] Park Morel MD Unavailable [phone] Rishi Ford MD Primary Care Provider + Mariana Gallo RN Unavailable [phone] Alvina Posey NP Primary Care Provider [phone] Shaquille Feliciano DO Unavailable [phone] Encounter Details Date Type Department Care Team (Late st Contact Info) Description 10/02/2021 Orders Only [facility] Scanning, Provider Social History Tobacco Use Types Packs/Day Years Used Date Smoking Tobacco: Former Smokeless Tobacco: Never Comments Unknown Sex and Gender Information Value Date Recorded Sex Assigned at Not on file Legal Sex Female 8:06 PM CEPHALOMETRIC TECHNICIAN Gender Identity Not on file Sexual Orientation Not on file documented as of this encounter Plan of Treatment Not on file documented as of this encounter Procedures Procedure Name Priority Date/Time Associated Diagnosis Comments SCAN - RADIOLOGY/IMAGING 10/02/2021 documented in this encounter Results * SCAN - RADIOLOGY/IMAGING (10/02/2021) Anatomical Region Laterality Modality Other us Provider Scanning Final Result documented in this encounter Visit Diagnoses Not on filedocumented in this encounter Additional Health Concerns Infection Onset Date Last Indicated Resolved Time COVID: Suspected 05/28/2023 05/28/2023 05/28/2023 11:43 AM CDT COVID: Suspected 05/31/2023 05/31/2023 05/31/2023 7:35 PM CDT MDR gram neg/ESBL Comment:03-14-2024 pt. Had a repeat UA which was clean- removed MDRO flag 07/28/2023 07/28/2023 04/21/2024 3:03 PM C DT MDR gram neg/ESBL Comment:Added from external infection. Source: [facility]. 04/22/2024 06/15/2025 2:39 P M CDT COVID: Suspected 09/05/2024 09/05/2024 09/05/2024 11:56 PM CEPHALOMETRIC TECHNICIAN Norovirus suspected 09/06/2024 09/07/2024 09/08/20 9:05 AM CEPHALOMETRIC TECHNICIAN C. difficile suspected 09/06/2024 09/07/202409/07 3:34 PM CEPHALOMETRIC TECHNICIAN C. difficile 09/07/2024 09/07/2024 12/26/2024 10:1 3 AM CDT Norovirus 09/07/2024 09/07/2024 09/21/2024 3:08 AM CEPHALOMETRIC TECHNICIAN COVID: Suspected 10/19/2024 10/19/2024 10/19/2024 2:19 PM CEPHALOMETRIC TECHNICIAN Influenza, adult 10/19/2024 10/19/2024 10/26/2024 3:07 AM CEPHALOMETRIC TECHNICIAN documented as of this encounter Care Teams Communication Skills Instructor Relationship Specialty Start Date End Date Mariza Juarez MD [address] [facility] [address] [facility] [address] [facility] [address] [address] PCP - General Internal Medicine 05/06/21 06/19/24 Rishi Ford MD [address] [place] [address] PCP - General Internal Medicine 06/20/24 01/24/25 Alvina Posey, CUFF SETTER LOCKSTITCH [address] [place] [address] [address] [place], [place] [id number] PCP - General Family Medicine 01/25/25 Drea Rodríguez MD [address] [facility] [address] [facility] [address] [facility] [address] [address] Referring Physician Neurology 05/06/21 Mely Martinez DPT [address] [facility] [facility] [address] [place], [place] [id number] Physical Therapist Physical Therapy 08/10/23 Park Morel MD [address] [facility] [address] [place] [address] Cardiology 11/30/23 Mariana Gallo, RN [address] [facility] [address] [place] [address] SHOP Outpatient Fireman Helper 01/03/25 01/31/25 Shaquille Feliciano DO [address] [facility] [address] [place] [address] Referring Physician Internal Medicine 02/17/25 documented as of this encounter
--- OUTSIDE RECORDS SUMMARY | 2025-07-27 11:04 | XMS_ITS | Clinical Summary ---
Author Organization [facility] Address [address] [facility] [place] [address] Phone Care Team Providers Care Custody Assistant Name Role Phone Rishi Ford MD Primary Care Provider [phone] Allergies Active Allergy Reactions Criticality Noted Date Comments Cefprozil Other (See Comments) 04/01/2012 Back pain Erythromycin Nausea and Vomiting Low 04/01/2012 Levofloxacin Hives High 04/01/2012 Penicillins Itching Low 04/01/2012 Medications gabapentin (NEURONTIN) 300 mg Oral capsule Take 900 mg by mouth daily at bedtime. Active Levothyroxine 137 mcg Oral Cap Take 125 mcg by mouth. Active calcitRIOL (ROCALTROL) 0.25 mcg Oral capsule Take 0.25 mcg by mouth daily. Active zolpidem (AMBIEN) 10 mg Oral tablet Take 10 mg by mouth nightly as needed. Active omeprazole (PRILOSEC) 40 mg Oral CpDR Take 20 mg by mouth daily. Active bisoprolol-hydr ochlorothiazide (ZIAC) 5-6.25 mg Oral tablet Take 1 Tab by mouth daily. Active fexofenadine (ZEYAD) 180 mg Oral tablet Take 180 mg by mouth daily. Active albuterol (VENTOLIN HFA) 90 mcg/Actuation Inhalation HFAA Take 1 Puff by inhalation one time only. Active aspirin (FRANDY) 81 mg Oral Tab Take by mouth. Active CALCIUM CARBONATE (CALCIUM 500 ORAL) Take by mouth. Activ e 0mega-3 fatty acids-vitamin E (FISH OIL) 1,000 mg Oral Cap Take 1,000 mg by mouth. Active oxyCODONE-aceta minophen (PERCOCET) 5-325 mg Oral tablet Take 1 Tab by mouth every 4 hours as needed. Active azelastine (ASTELIN) 137 mcg Both Nostril SprA Administer 2 Sprays in each nostril daily. 30 mL 11 3 Active naloxegoL (Movantik) 25 mg Tablet Take 25 mg by mouth 1 time daily as needed. Active amLODIPine (NORVASC) 5 mg tablet Take 5 mg by mouth daily. Active Active Problems Problem Noted Date Diagnosed Date Obstructive sleep apnea (adult) (pediatric) 03/16 Extrinsic asthma, unspecified 05/25/2012 Family History Medical History Relation Name Comments Lung Cancer Paternal Grandmother Lung Cancer Paternal Uncle Asthma Sister 1 Asthma Sister 2 Relation Name Status Comments Paternal Grandmother Paternal Uncle Sister 1 Sister 2 Social History Tobacco Use Types Packs/Day Years Used Date Smoking Tobacco: Former Cigarettes 1 12 0 09/14/1967 - 09/14/1979 Smokeless Tobacco: Never Alcohol Use Standard Drinks/Week Comments Not Currently 0 (1 standard drink = 0.6 oz pur e alcohol) Comments No Sex and Gender Information Value Date Recorded Sex Assigned at Not on file Legal Sex Female 5:35 AM DELIVERY MAN Gender Identity Not on file Sexual Orientation Not on file Last Filed Vital Signs Vital Sign Reading Time Taken Comments Blood Pressure 137/66 04/17/2021 2:30 PM CDT Pulse 64 04/17/2021 2:30 PM CDT Temperature 36.6 C (97.9 F) 04/17/2021 11:06 AM CDT Respiratory Rate 18 04/17/2021 2:10 PM CDT Oxygen Saturation 96% 04/17/2021 2:30 PM CDT Inhaled Oxygen Concentration - - Weight 89.4 kg (197 lb) 04/17/2021 11:06 AM CDT Height 160 cm (5' 3) 04/17/2021 11:06 AM CDT Body Mass Index 34.9 04/17/2021 11:06 AM CDT Plan of Treatment Health Maintenance Due Date Last Done Comments PNEUMOCOCCAL VACCINE 50+ YEA RS (1 of 2 - PCV) 1968 ZOSTER VACCINE (1 of 2) 1999 DTAP/TDAP/TD VACCINES (2 - Tdap) 01/03/2022 04/22/20 12 RSV VACCINE (60+ or ) (1 - 1-dose 75+ series) 2024 INFLUENZA VACCINE (#1) 2025 1, 07/10/2019, 06/20/2017, Additional history exists OSTEOPOROSIS SCREENING 02/17/2027 2, 02/17/2022, 07/22/2019 Insurance MEDICARE PART A AND B [facility] Care Teams Custody Assistant Relationship Specialty Start Date End Date Rishi Ford MD [address] [place] [phone] PCP - General 09/04/15
--- OUTSIDE RECORDS SUMMARY | 2025-07-27 11:04 | XMS_ITS | Encounter Summary ---
Author Organization [facility] Address [address] [place] [address] Phone Care Team Providers Care Marketing Outreach Coordinator Name Role Phone Drea Rodríguez MD Unavailable [phone] Mely Martinez DPT Unavailable [phone] Park Morel MD Unavailable [phone] Alvina Posey NICKEL PLANT OPERATOR Primary Care Provider [phone] Shaquille Feliciano DO Unavailable [phone] Encounter Details Date Type Department Care Team (Late st Contact Info) Description 07/05/2025 Telephone [facility] Medicine Infectious Diseases [address] [place] [phone] Niesha Yusuf RMA Social History Tobacco Use Types Packs/Day Years [...] often do you attend chur ch or bahai services? Never 01/03/2025 Do you belong to any clubs o r organizations such as jain groups, unions, fraternal or athletic groups, or [...] place to sleep or slept in a residential (including now)? No 11/30/2023 PHQ-9 Answer Date [...] any time in the [facility], were you homeless or living in a residential (including now)? No 01/03/2025 Social Connection and Isolation Panel Answer Date Recorded In a typical week, how many times do you talk on the phone with family, friends, or neighbors? More than three times a week 06/15/2025 How often do you get togethe r with friends or relatives? More than three times a week 06/15/2025 How often do you attend chur ch or bahai services? Never 06/15/2025 Do you belong to any clubs o r organizations such as jain groups, unions, fraternal or athletic groups, or [...] any time in the past 12 m [facility], were you homeless or living in a residential (including now)? No 06/15/2025 [facility] Utilities Answer Date Recorded In the past 12 months has [employer], gas, oil, or water company threatened to [...] on file Legal Sex Female 8:06 PM CATALYTIC CONVERTER OPERATOR Gender Identity Not on file Sexual Orientation Not on file documented as of this encounter Functional Status documented as of this encounter Miscellaneous Notes * Telephone Encounter - Niesha Yusuf RMA - 07/05/2025 4:16 PM CDT Ama is currently in a rehab facility and she would like to reschedule her appt. Please call [phone] documented in this encounter Plan of Treatment Not on file documented as of this encounter Visit Diagnoses Not on filedocumented in this encounter Care Teams Marketing Outreach Coordinator Relationship Specialty Start Date End Date Alvina Posey NP [address] [place] [address] PCP - General Family Medicine 01/25/25 Drea Rodríguez MD [address] [place] [address] [address] [place] [address] Referring Physician Neurology 05/06/21 Mely Matrinez DPT [address] [place] [address] Physical Therapist Physical Therapy 08/10/23 Park Morel MD [address] [place] [address] [address] [place] [address] Cardiology 11/30/23 Shaquille Feliciano DO [address] [facility] [address] [place] [address] Referring Physician Internal Medicine 02/17/25 documented as of this encounter
--- OUTSIDE RECORDS SUMMARY | 2025-07-27 11:04 | XMS_ITS | Encounter Summary ---
Author Organization [facility] Address [address] [facility] [place] [address] Phone Care Team Providers Care Bobtail Driver Name Role Phone No, Physician Primary Care Provider [phone] Drea Rodríguez MD Unavailable [phone] Mariza Juarez MD Primary Care Provider [phone] Mely Martinez DPT Unavailable [phone] Park Morel MD Unavailable [phone] Rishi Ford MD Primary Care Provider + Mariana Gallo RN Unavailable [phone] Alvina Posey NP Primary Care Provider Shaquille Feliciano DO Unavailable [phone] Encounter Details Date Type Department Care Team (Late st Contact Info) Description 01/25/2018 Orders Only [facility] Provider, MD Diana [address] [place] [id number] Social History Tobacco Use Types Packs/Day Years Used Date Smoking Tobacco: Former Comments Unknown Sex and Gender Information Value Date Recorded Sex Assigned at Not on file Legal Sex Female 8:06 PM KINESEOLOGIST Gender Identity Not on file Sexual Orientation Not on file documented as of this encounter Functional Status documented as of this encounter Plan of Treatment Not on file documented as of this encounter Procedures Procedure Name Priority Date/Time Associated Diagnosis Comments CARDIOLOGY REPORT 01/25/2018 documented in this encounter Results * CARDIOLOGY REPORT (01/25/2018) Anatomical Region Laterality Modality Other Narrative 01/25/2018 Ordered by an unspecified provider. us Historical Provider CV CARDIAC SERVICES [facility] TOVAR Final Result documented in this encounter Visit [...] gram neg/ESBL Comment:Added from external infection. Source: [facility]. 04/22/2024 06/15/2025 2:39 P M CDT COVID: Suspected 09/05/2024 09/05/2024 09/05/2024 11:56 PM KINESEOLOGIST Norovirus suspected 09/06/2024 09/07/2024 09/08/20 9:05 AM KINESEOLOGIST C. difficile suspected 09/06/2024 09/07/202409/07 3:34 PM KINESEOLOGIST C. difficile 09/07/2024 09/07/2024 12/26/2024 10:1 3 AM CDT Norovirus 09/07/2024 09/07/2024 09/21/2024 3:08 AM KINESEOLOGIST COVID: Suspected 10/19/2024 10/19/2024 10/19/2024 2:19 PM KINESEOLOGIST Influenza, adult 10/19/2024 10/19/2024 10/26/2024 3:07 AM KINESEOLOGIST documented as of this encounter Care Teams Bobtail Driver Relationship Specialty Start Date End Date No, Physician PCP - General 01/15/18 02/08/18 Mariza Juarez MD [address] [place] [address] [address] [facility] [address] [facility] [place] [address] PCP - General Internal Medicine 05/06/21 06/19/24 Rishi Ford MD [address] [place] [address] PCP - General Internal Medicine 06/20/24 01/24/25 Alvina Posey, SENIOR CLINICAL STUDY MANAGER [address] [place] [address] PCP - General Family Medicine 01/25/25 Drea Rodríguez MD [address] [place] [address] [address] [facility] [address] [address] Referring Physician Neurology 05/06/21 Mely Martinez DPT [address] [facility] [address] [place] [address] Physical Therapist Physical Therapy 08/10/23 Park Morel MD [address] [place] [address] [address] [place] [address] Cardiology 11/30/23 Mariana Gallo, RN [address] [facility] [address] [place] [address] SHOP Outpatient City Editor 01/03/25 01/31/25 Shaquille Feliciano DO [address] [address] Referring Physician Internal Medicine 02/17/25 documented as of this encounter
--- OUTSIDE RECORDS SUMMARY | 2025-07-27 11:04 | XMS_ITS | Encounter Summary ---
Author Organization [facility] Address [address] [place] [address] Phone Care Team Providers Care Strategic Consultant Name Role Phone Drea Rodríguez MD Unavailable [phone] Mariza Juarez MD Primary Care Provider [phone] Mely Martinez DPT Unavailable [phone] Park Morel MD Unavailable [phone] Rishi Ford MD Primary Care Provider + Mariana Gallo RN Unavailable [phone] Alvina Posey NP Primary Care Provider [phone] Shaquille Feliciano DO Unavailable [phone] Encounter Details Date Type Department Care Team (Late st Contact Info) Description 10/03/2022 Orders Only [facility] Scanning, Provider Social History Tobacco Use Types Packs/Day Years Used Date Smoking Tobacco: Former Smokeless Tobacco: Never Alcohol Use Standard Drinks/Week Comments Not Currently 0 (1 standard drink = 0.6 oz pur e alcohol) AUDIT-C Answer Date Recorded Q1: How often do you have a drink containing alcohol? Never 04/29/2022 Q2: How many drinks containi ng alcohol do you have on a typical day when you are drinking? Patient does not drink Q3: How often do you have si x or more drinks on one occasion? Never 04/29/2022 Comments No Sex and Gender Information Value Date Recorded Sex Assigned at Not on file Legal Sex Female 8:06 PM APNS Gender Identity Not on file Sexual Orientation Not on file documented as of this encounter Plan of Treatment Not on file documented as of this encounter Procedures Procedure Name Priority Date/Time Associated Diagnosis Comments CARDIOLOGY DOCUMENT SCAN 10/03/2022 documented in this encounter Results * CARDIOLOGY DOCUMENT SCAN (10/03/2022) Anatomical Region Laterality Modality Other us Provider Scanning CV CARDIAC SERVICES PROCEDURES Final Result documented in this encounter [...] gram neg/ESBL Comment:Added from external infection. Source: [facility]. 04/22/2024 06/15/2025 2:39 P M CDT COVID: Suspected 09/05/2024 09/05/2024 09/05/2024 11:56 PM APNS Norovirus suspected 09/06/2024 09/07/2024 09/08/20 9:05 AM APNS C. difficile suspected 09/06/2024 09/07/202409/07 3:34 PM APNS C. difficile 09/07/2024 09/07/2024 12/26/2024 10:1 3 AM CDT Norovirus 09/07/2024 09/07/2024 09/21/2024 3:08 AM APNS COVID: Suspected 10/19/2024 10/19/2024 10/19/2024 2:19 PM APNS Influenza, adult 10/19/2024 10/19/2024 10/26/2024 3:07 AM APNS documented as of this encounter Care Teams Strategic Consultant Relationship Specialty Start Date End Date Mariza Juarez MD [address] [place] [address] [address] Norton [facility] [address] [facility] [address] [place] [address] PCP - General Internal Medicine 05/06/21 06/19/24 Rishi Ford MD [address] [place] [address] PCP - General Internal Medicine 06/20/24 01/24/25 Alvina Posey, TERMINAL GAUGER [address] [place] [address] PCP - General Family Medicine 01/25/25 Drea Rodríguez MD [address] [place] [address] [address] [facility] [address] [facility] [address] [place] [address] Referring Physician Neurology 05/06/21 Mely Martinez DPT [address] [place] [address] Physical Therapist Physical Therapy 08/10/23 Park Morel MD [address] [place] [address] [address] [place] [address] Cardiology 11/30/23 Mariana Gallo, RN [address] [facility] [address] [place] [address] SHOP Outpatient Freelance Recruiter 01/03/25 01/31/25 Shaquille Feliciano DO 3 [facility] [address] [place] [address] Referring Physician Internal Medicine 02/17/25 documented as of this encounter
--- OUTSIDE RECORDS SUMMARY | 2025-07-27 11:04 | XMS_ITS | Encounter Summary ---
Author Organization [facility] Healthcare Address [address] [place] [address] Care Team Providers Care Business Area Director Name Role Phone Drea Rodríguez MD Unavailable Mely Martinez DPT Unavailable Park Morel MD Unavailable Alvina Posey NP Primary Care Provider [phone] Shaquille Feliciano DO Unavailable Encounter Details Date Type Department Care Team ([facility] st Contact Info) Description 05/26/2025 Results Follow-Up [facility] Primary Care [address] [address] Alvina Posey, PRESS OPERATOR ASSISTANT [address] [place] [id number] Screening Mammogram Bilateral W Robb Social History Tobacco Use Types Packs/Day Years [...] often do you attend chur ch or denominational services? Never 01/03/2025 Do you belong to any clubs o r organizations such as mu-ism groups, unions, fraternal or athletic groups, or [...] any time in the past 12 m [facility], were you homeless or living in [...] often do you attend chur ch or denominational services? Never 06/15/2025 Do you belong to any clubs o r organizations such as mu-ism groups, unions, fraternal or athletic groups, or [...] any time in the past 12 m [facility], were you homeless or living in a residential (including now)? No 06/15/2025 [facility] Utilities Answer Date Recorded In the past 12 months has e [employer], gas, oil, or water [employer] threatened to shut off services in your home? No 06/15/2025 Personal Safety Answer Date Recorded Have you ever been in or are you currently in a harmful physical or emotional relationship or is someone making you feel afraid or unsafe? 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 Question Answer Date of Assessment Author Have you ever felt the need to Cut down on your drinking? 0 06/12/2025 5:24 PM CRISTINAT Steve Krueger RN Have people ever Annoyed yo u by criticizing your drinking? 0 06/12/2025 5:24 PM CRISTINAT Katia Krueger RN Have you ever felt bad or Guilty about your drinking? 0 06/12/2025 5:24 PM CRISTINAT Jimmy Krueger RN Have you ever had a drink first thing in the morning to steady your nerves or get rid of a hangover? Eye primary care coordinator? 0 06/12/2025 5:24 PM Steve Hazel RN CAGE SCORE: 2 or Greater = Positive 0 06/12/2025 5:24 PM CDT Katia Krueger RN * Difference in Last Two Rodger Scores Answer Date of Assessment Author 1 06/29/2025 8:09 PM CRISTINAT Suzie Dhaliwal RN * Question Answer Date of Assessment Author BP Location Right arm 06/29/2025 11:01 PM CDT Suzie Robbins RN BP Method Automatic 06/29/2025 11:01 PM CDT Suzie Robbins RN * Renner Fall Risk Question Answer Date of Assessment Author History of Falling 0 06/29/2025 8:09 PM CDT Suzie Dhaliwal RN Secondary Diagnosis 15 06/29/2025 8:09 PM CD T Suzie Dhaliwal RN Ambulatory Aids 15 06/29/2025 8:09 PM CDT Suzie Crocker RN Intravenous Therapy/Heparin/Saline Lock 20 06/29/2025 8:09 PM CDT Suzie Dhaliwal RN Gait/Transferring 10 06/29/2025 8:09 PM CDT Suzie Dhaliwal RN Mental Status 0 06/29/2025 8:09 PM CDT Suzie Robbins RN Renner Fall Risk Score (Score >= 45 places fall precaution order) 60 06/29/2025 8:09 PM CDT Deep Dhaliwal RN Prior Fall Event (Autopopulated from EMR) None found 06/29/2025 8:09 PM CDT Tita Dhaliwal RN * Rodger Scale Question Answer Date of Assessment Author Sensory Perceptions 4 06/29/2025 8:09 PM Suzie Rutherford RN Moisture 3 06/29/2025 8:09 PM CDT Suzie Massey RN Activity 3 06/29/2025 8:09 PM CRISTINAT Suzie Massey RN Mobility 2 06/29/2025 8:09 PM CRISTINAT Suzie Massey RN Nutrition 3 06/29/2025 8:09 PM CDT Suzie Massey RN Friction and Shear 2 06/29/2025 8:09 PM CDT Suzie Dhaliwal RN Rodger Scale Score 17 06/29/2025 8:09 PM CDT Suzie Dhaliwal RN * Question Answer Date of Assessment Author Arterial Line MAP (mmHg) 94 06/16/2025 2:00 PM CRISTINAT Marya Morales RN Arterial Line BP 112/83 06/16/2025 3:00 PM CDT Marya Mcdonald RN * Fall Risk Interventions Question Answer Date of Assessment Author All Low Fall Interventions Applied Yes 06/29/2025 8:09 PM CDT Suzie Dhaliwal RN All Low Fall Interventions EXCEPT: Encourage to call for assistance;Needed objects within reach;Call light in reach 06/15/2025 8:00 PM CDT Nash Gomez RN All Moderate Fall Interventions Applied Yes 06/29/2025 8:09 PM CRISTINAT Suzie Dhaliwal RN All Moderate Fall Risk Interventions EXCEPT: Gait belt at bedside;Remain with patient while toileting 06/16/2025 8:00 AM CRISTINAT Marya Morales RN All High Fall Risk Interventions Applied Yes 06/29/2025 8:09 PM CRISTINAT Suzie Dhaliwal RN All High Risk Interventions EXCEPT: Chair alarm 06/16/2025 8:00 AM CRISTINAT Marya Morales RN Additional Interventions Applied Bed/chair alarm 06/25/2025 7:12 PM CDT Anuel Ugalde RN Reason For Exception(s) patient unable t o use 06/15/2025 8:00 PM CDT Nash Gomez RN Reason For Exception(s) stephen; total lift 2024 8:00 AM CRISTINAT Marya Morales RN Reason For Exception(s) chair not in use at this time 06/16/2025 8:00 AM CRISTINAT Marya Morales RN * B.M.A.T. - Bedside Mobility Assessment Tool for Nurses Question Answer Date of Assessment Author Is patient able to participate in the BMAT? Yes 06/29/2025 8:09 PM CRISTINAT Suzie Dhaliwal RN Reason patient is unable to participate in BMAT Bed rest orders 06/16/2025 9:32 PM CDT Luis Enrique Hernandez RN BMAT Level Level 3 - Yellow 06/29/2025 8:09 PM CDT Suzie Dhaliwal, ANA Level 1 Equipment Use total lift with sling and/or repositioning sheet 06/18/2025 5:00 PM CRISTINAT Alli Reyes RN Level 2 Equipment Use total lift for patient unable to weight-bear on at least one leg 06/24/2025 10:01 PM CDT Anuel Ugalde RN Level 3 Equipment Use assistive device such as cane/walker 06/29/2025 8:09 PM CDT Suzie Dhaliwal, ANA * Question Answer Date of Assessment Author 1. Has the patient self-reported, presented with clinical signs of, or have a documented history of any of the following within the past 30 days? No 06/12/2025 5:24 PM CDT Katia Krueger RN * Question Answer Date of Assessment Author Is the patient being treated today because it is known or suspected that they prepared, started, or tried to end their life? No 07/09/2025 9:35 AM CRISTINAT Lee Lewis RN * Question Answer Date of Assessment Author 1. In the past month, have you wished you were or that you could go to sleep and not wake up? No 07/09/2025 9:35 AM Lee Noe RN 2. In the past month, have you actually had any thoughts of killing yourself? No 07/09/2025 9:35 AM Lee Noe, ANA 6. Have you ever done anything, started to do anything, or prepared to do anything to end your life? No 07/09/2025 9:35 AM CRISTINAT Bindu Lewis RN * Suicide Risk Level Answer Date of Assessment Author No risk level 07/09/2025 9:35 AM Randa Noe, ANA * Self-Injurious Risk Level Answer Date of Assessment Author No risk level 06/12/2025 5:24 PM CDT Jeremy Krueger RN * Pressure Injury Prevention Question Answer Date of Assessment Author Pressure Ulcer Prevention Interventions Keep skin clean and dry (Sensory Perception/Moisture);E stablish turning schedule (Sensory Perception/Activity/Mo bility);Use pillows/wedge for positioning (Activity/Mobility);Us e draw sheet when pulling patient up in bed (Friction & Shear) 06/29/2025 8:09 PM CRISTINAT Suzie Dhaliwal RN 2 Nurse Skin Assessment ANA Jain 06/18/20 5:00 PM CRISTINAT Alli Reyes RN Special Mattress Low air loss and alternating pressure relief 06/29/2025 8:09 PM CRISTINAT Suzie Dhaliwal RN * Transdermal Patch Admission Assessment Question Answer Date of Assessment Author Transdermal Patch Assessment on Admission Not Present 06/12/2025 5:24 PM Katia Hazel RN * Fall Risk Assessment Tool - MEDFRAT Question Answer Date of Assessment Author Prior Fall Event (Autopopulated from EMR) None found 07/09/2025 9:40 AM Randa Noe RN Pt needs supervision/assistance with ambulation? (makes patient High risk) No 07/09/2025 9:40 AM Randa Noe RN History of falling in last 3 months, including since admission 3 07/09/2025 9:40 AM Randa Noe RN Confusion or disorientation 0 07/09/2025 9:40 AM Randa Noe RN Intoxicated or sedated 0 9:40 AM Randa Noe RN Impaired gait 1 07/09/2025 9:40 AM Randa Noe RN Mobility assist device used 1 07/09/2025 9:40 AM Randa Noe RN Altered elimination 1 07/09/2025 9 :40 AM Randa Noe RN Fall risk score: (1-2 low risk), (3-4 moderate risk), (5 or more high risk) 6 07/09/2025 9:40 AM CDT Randa Lewis RN Interventions - GENERAL USE as needed patient/family education;call light in reach;bed low/locked 07/09/2025 9:40 AM CDT Randa Lewis, ANA * Question Answer Date of Assessment Author MAP (mmHg) 105 07/09/2025 3:00 PM CDT Randa Mosquera, ANA * Integumentary Question Answer Date of Assessment Author Skin Color Appropriate for ethnicity 06/29/2025 8:09 PM CDT Suzie Dhaliwal RN Skin Condition/Temp Warm;Dry 06/29/2025 8 :09 PM CRISTINAT Suzie Dhaliwal RN Skin Integrity Surgical incision 06/29/2025 8:0 9 PM CRISTINAT Suzie Dhaliwal RN Skin Turgor Non-tenting 06/29/2025 8:09 PM CRISTINAT Suzie Dhaliwal RN Integumentary Additional Assessments Yes-Rodger 06/29/2025 8:09 PM CRISTINAT Suzie Dhaliwal RN Integumentary (WDL) X 06/29/2025 8 :09 PM CRISTINAT Suzie Dhaliwal RN Skin Location back 06/29/2025 8:09 PM CRISTINAT Suzie Dhaliwal RN * Rodger Scale Question Answer Date of Assessment Author Rodger Scale Used Rodger 06/13/2025 7:30 AM CRISTINAT Tara Meraz RN * Question Answer Date of Assessment Author BP Location Right arm 06/29/2025 11:01 PM CRISTINAT Suzie Robbins RN BP Method Automatic 06/29/2025 11:01 PM CRISTINAT Suzie Robbins RN * Question Answer Date of Assessment Author Edema No pitting 06/29/2025 8:09 PM CRISTINAT Suzie Massey RN RUE Edema No pitting 06/29/2025 8:09 PM CDT Suzie Massey RN RLE Edema No pitting 06/29/2025 8:09 PM CDT Suzie Massey RN LUE Edema No pitting 06/29/2025 8:09 PM CRISTINAT Suzie Massey RN LLE Edema No pitting 06/29/2025 8:09 PM CRISTINAT Suzie Massey RN Edema Generalized 06/29/2025 8:09 PM CDT Suzie Massey RN * Question Answer Date of Assessment Author Affect Anxious/Worried;Sad 06/26/2025 8:00 PM CD T Niles Waterman RN Mood Anxious/Worried 06/29/2025 8:29 AM CDT Tomas Curiel RN * Question Answer Date of Assessment Author Percent Meal Eaten (%) 25 06/29/2025 1:35 PM CDT Tomas Head RN Feeding Level of Assistance Needs set up 06/16/2025 4:00 PM CDT Marya Morales RN Appetite Fair 06/16/2025 4:00 PM CDT Marya Linares RN Percent Snack Eaten (%) 100 06/28/2025 5:00 P M CRISTINAT Tomas Head RN Diet Supplement Name/Percent Consumed % 240 06/29/2025 1:35 PM CDT Tomas Head RN * Fall Risk Interventions Question Answer Date of Assessment Author All Low Fall Interventions Applied Yes 06/29/2025 8:09 PM CDT Suzie Dhaliwal RN All Low Fall Interventions EXCEPT: Encourage to call for assistance;Needed objects within reach;Call light in reach 06/15/2025 8:00 PM CDT Nash Gomez RN All Moderate Fall Interventions Applied Yes 06/29/2025 8:09 PM CDT Suzie Dhaliwal RN All Moderate Fall Risk Interventions EXCEPT: Gait belt at bedside;Remain with patient while toileting 06/16/2025 8:00 AM CDT Marya Morales RN All High Fall Risk Interventions Applied Yes 06/29/2025 8:09 PM CDT Suzie Dhaliwal RN All High Risk Interventions EXCEPT: Chair alarm 06/16/2025 8:00 AM CDT Marya Morales RN Additional Interventions Applied Bed/chair alarm 06/25/2025 7:12 PM CDT Anuel Ugalde RN Reason For Exception(s) patient unable t o use 06/15/2025 8:00 PM CDT Nash Gomez RN Reason For Exception(s) stephen; total lift 2024 8:00 AM CDT Marya Morales RN Reason For Exception(s) chair not in use at this time 06/16/2025 8:00 AM CDT Marya Morales RN * ADL Screening Question Answer Date of Assessment Author Patient's Vision Adequate to Safely Complete Daily Activities Yes 06/12/2025 5:24 PM CRISTINAT Katia Krueger RN Patient's Judgement Adequate to Safely Complete Daily Activities Yes 06/12/2025 5:24 PM CDT Madonna Krueger RN Patient's Memory Adequate to Safely Complete Daily Activities Yes 06/12/2025 5:24 PM CRISTINAT Katia Krueger RN Patient Able to Express Needs/Desires Yes 06/12/2025 5:24 PM CRISTINAT Katia Krueger RN Dressing Independent 06/12/2025 5:24 PM CRISTINAT Katia Krueger RN Grooming Independent 06/12/2025 5:24 PM CRISTINAT Katia Krueger RN Feeding Independent 06/12/2025 5:24 PM CRISTINAT Katia Krueger RN Bathing Independent 06/12/2025 5:24 PM CRISTINAT Katia Krueger RN Toileting Independent 06/12/2025 5:24 PM CRISTINAT Katia Krueger RN In/Out Bed Independent 06/12/2025 5:24 PM CRISTINAT Katia Krueger RN Walks in Home Independent 06/12/2025 5:24 PM CRISTINAT Katia Krueger RN Weakness of Legs Both 06/12/2025 5:24 PM CRISTINAT Katia Méndez RN Weakness of Arms/Hands Left 06/12/2025 5:24 PM Katia Hazel RN Hearing - Right Ear Functional 06/12/2025 5:24 PM Katia Magaña RN Hearing - Left Ear Hard of hearing 06/12/2025 5:24 PM Katia Hazel RN Dominant hand? Right 06/12/2025 5:24 PM Katia Narayanan RN Decline in ADLs in last 2 weeks? Yes (Comment) 06/12/2025 5:24 PM Katia Hazel RN * Therapy Consults Question Answer Date of Assessment Author PT Evaluation Needed 1 06/12/2025 5:24 PM C Katia Morris RN OT Evaluation Needed 1 06/12/2025 5:24 PM Katia Horner RN VICE PRESIDENT INDUSTRIAL RELATIONS Evaluation Needed 2 06/12/2025 5:24 PM Katia Hazel RN * Assistive Devices Question Answer Date of Assessment Author Assistive Devices/DME Walker;Manual wheelchair;Oxygen 06/12/2025 5:24 PM Katia Hazel RN * Speech/Swallow Screening Question Answer Date of Assessment Author Currently, does patient have difficulty swallowing; coughing/choking while swallowing, or feels like food is sticking No 06/12/2025 5:24 PM Katia Hazel RN In the past two weeks has the patient had changes in speaking or ability to comprehend conversation No 06/12/2025 5:24 PM Katia Hazel RN Currently, does patient require thickened liquids or dysphagia diet No 06/12/2025 5:24 PM Katia Hazel RN Patient is in need of VICE PRESIDENT INDUSTRIAL RELATIONS Order: No VICE PRESIDENT INDUSTRIAL RELATIONS order needed from this assessment 06/12/2025 5:24 PM Katia Hazel RN * Question Answer Date of Assessment Author Bed In Lowest Position Yes 06/30/2025 6:30 AM Suzie Corea, ANA Bed Wheels Locked Yes 06/30/2025 6:30 AM CDT Suzie Dhaliwal RN * Hygiene Question Answer Date of Assessment Author Hygiene Back rub;Skin cleanser 12:32 PM CDT Marla Head Oral Care Mouth rinsed 06/16/2025 2:30 PM CDT Marya Morales RN Hygiene Level of Assistance Moderate assist 06/26/2025 5:28 AM CDT Suzie Dhaliwal RN Toileting: Assistance with Use of bedpan/urinal setup 06/29/2025 12:32 PM CDT Marla Head Nasal Decolonization Mupirocin (Bactroba n)- each nare 06/12/2025 10:53 PM CDT Prema Burgos RN Toileting: Level of assistance Maximal 06/25/2025 9:45 AM CDT Brandy Sherman RN Reason not bathed/showered Bath not due on this shift 06/24/2025 1:00 PM CDT Paula Murdock Perineal Care Navel to Knees CHG;Stephen Care 06/29/2025 8:09 PM CDT Suzie Dhaliwal RN Linens Draw sheet changed 06/29/2025 12 :11 PM CDT Tomas Head RN Bath Bathed/showered with chlorhexidine (CHG) 06/29/2025 12:32 PM CDT Marla Head documented as of this encounter Mental Status * Question Answer Entry Date Author Level of Consciousness Alert;Awake 9:57 AM CRISTINAT Randa Lewis, ANA Orientation Oriented X4 (person, place, time, situation) 07/09/2025 9:57 AM CDT Randa Lewis, ANA * Question Answer Entry Date Author Neuro (WDL) X 06/30/2025 4:26 AM CRISTINAT Suzie Massey RN Other Neuro Symptoms Fatigue 06/30/2025 4:26 AM Suzie Painting, ANA * Short Blessed Test Question Answer Entry Date Author What year is it now? 0 06/17/2025 10:07 AM CDT Drake Christensen What month is it now? 0 06/17/2025 10:07 AM CDT Drake Christensen Without looking at the clock, tell me what time it is 0 06/17/2025 10:07 AM CDT Drake Christensen Count aloud backwards from 20-1 0 06/17/2025 10:07 AM CDT Drake Christensen Say the months of the year backwards in reverse order 0 06/17/2025 10:07 AM CDT Drake Christensen Repeat the name and address I asked you to remember 2 06/17/2025 10:07 AM CDT Drake Christensen Repeat this name and address after me Dylon Powers [address] [place] [address] 06/17/2025 10:07 AM CDT Drake Christensen Short Blessed Total Score 2 2024 10:07 AM CDT Drake Christensen Short Blessed Comments WFL 10:07 AM CDT Drake Christensen * Question Answer Entry Date Author Feature 3: Altered Level of Consciousness Negative 06/12/2025 8:00 PM CDT Prema Burgos RN Feature 1: Acute Onset or Fluctuating Course Negative 06/12/2025 8:00 PM CDT Prema Burgos RN Feature 2: Inattention Negative 06/12/2025 8:00 PM CRISTINAT Prema Burgos RN Feature 4: Disorganized Thinking Negative 06/12/2025 8:00 PM CDT Prema Burgos RN Overall CAM-ICU Negative 06/12/2025 8:00 PM CDT Prema Schilling RN documented in this encounter Miscellaneous Notes * Result Encounter Note - Alvina Posey NP - 05/26/2025 12:14 PM CDT Your mammogram is normal. Repeat screening in one year. documented in this encounter Plan of Treatment Not on file documented as of this encounter Visit Diagnoses Not on filedocumented in this encounter Additional Health Concerns Infection Onset Date Last Indicated Resolved Time MDR gram neg/ESBL Comment:Added from external infection. Source: [facility]. 04/22/2024 06/15/2025 2:39 P M CDT documented as of this encounter Care Teams Business Area Director Relationship Specialty Start Date End Date Alvina Posey NP [address] [facility] [address] [place] [address] PCP - General Family Medicine 01/25/25 Drea Rodríguez MD [address] [facility] [address] [facility] [address] [place] [address] Referring Physician Neurology 05/06/21 Mely Martinez DPT [address] [facility] [address] [place] [address] Physical Therapist Physical Therapy 08/10/23 Park Morel MD [address] [place] [address] Cardiology 11/30/23 Shaquille Feliciano DO [address] [facility] [address] [place] [address] Referring Physician Internal Medicine 02/17/25 documented as of this encounter
--- OUTSIDE RECORDS SUMMARY | 2025-07-27 11:04 | XMS_ITS | Encounter Summary ---
Author Organization [facility] Address [address] [place] [address] Phone Care Team Providers Care Food Technologist Name Role Phone Drea Rodríguez MD Unavailable [phone] Mariza Juarez MD Primary Care Provider [phone] Mely Martinez DPT Unavailable [phone] Park Morel MD Unavailable [phone] Rishi Ford MD Primary Care Provider + Mariana Gallo RN Unavailable [phone] Alvina Posey NP Primary Care Provider [phone] Shaquille Feliciano DO Unavailable [phone] Encounter Details Date Type Department Care Team (Late st Contact Info) Description 01/01/2022 Orders Only [facility] Scanning, Provider Social History Tobacco Use Types Packs/Day Years Used Date Smoking Tobacco: Former Smokeless Tobacco: Never Comments Unknown Sex and Gender Information Value Date Recorded Sex Assigned at Not on file 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 Source: [facility]. 04/22/2024 06/15/2025 2:39 P M CDT COVID: Suspected 09/05/2024 09/05/2024 09/05/2024 11:56 PM RICE CLEANING MACHINE TENDER Norovirus suspected 09/06/2024 09/07/2024 09/08/20 9:05 AM RICE CLEANING MACHINE TENDER C. difficile suspected 09/06/2024 09/07/202409/07 3:34 PM RICE CLEANING MACHINE TENDER C. difficile 09/07/2024 09/07/2024 12/26/2024 10:1 3 AM CDT Norovirus 09/07/2024 09/07/2024 09/21/2024 3:08 AM RICE CLEANING MACHINE TENDER COVID: Suspected 10/19/2024 10/19/2024 10/19/2024 2:19 PM RICE CLEANING MACHINE TENDER Influenza, adult 10/19/2024 10/19/2024 10/26/2024 3:07 AM RICE CLEANING MACHINE TENDER documented as of this encounter Care Teams Food Technologist Relationship Specialty Start Date End Date Mariza Juarez MD [address] [facility] [facility] [address] [address] OSWALDO Norton [facility] [address] [facility] [address], [place] [address] PCP - General Internal Medicine 05/06/21 06/19/24 Rishi Ford MD [address] [place] [address] PCP - General Internal Medicine 06/20/24 01/24/25 Alvina Posey, MILLED RUBBER TENDER [address] [place] [address] [address] [place], [place] [id number] PCP - General Family Medicine 01/25/25 Drea Rodríguez MD [address] [facility] [address] OSW[place]DO Norton [facility] [address] [facility] [address], [place] [address] Referring Physician Neurology 05/06/21 Mely Martinez DPT [address] [facility] [address] [place], [place] [id number] Physical Therapist Physical Therapy 08/10/23 Park Morel MD [address] [facility] [address] [place] [address] Cardiology 11/30/23 Mariana Gallo, RN [address] [facility] [address] [place] [address] SHOP Outpatient Ux Developer Designer 01/03/25 01/31/25 Shaquille Feliciano DO [address] [facility] [address] [place] [address] Referring Physician Internal Medicine 02/17/25 documented as of this encounter
--- OUTSIDE RECORDS SUMMARY | 2025-07-27 11:04 | XMS_ITS | Encounter Summary ---
Author Organization [facility] Address [address] [place] [address] Phone Care Team Providers Care Assistant Statistician Name Role Phone Drea Rodríguez MD Unavailable [phone] Mariza Juarez MD Primary Care Provider [phone] Mely Martinez DPT Unavailable [phone] Park Morel MD Unavailable [phone] Rishi Ford MD Primary Care Provider + Mariana Gallo RN Unavailable [phone] Alvina Posey NP Primary Care Provider [phone] Shaquille Feliciano DO Unavailable [phone] Encounter Details Date Type Department Care Team (Late st Contact Info) Description 08/07/2023 Orders Only [facility] Scanning, Provider [...] neighbors? More than three times a week 05/29/2023 How often do you get togethe r with friends or relatives? Three times a week 05/29/2023 How often do you attend chur ch or latter day services? Never 05/29/2023 Do you belong to any clubs o r organizations such as yazdanism groups, unions, fraternal or athletic groups, or school groups? No 05/29/2023 How often do you attend meet ings of the clubs or organizations you belong to? Never 05/29/2023 Are you , , di vorced, , never , or living with a partner? 05/29/2023 AUDIT-C Answer Date Recorded Q1: How often do you have a drink containing alcohol? Never 07/22/2023 Q2: How many drinks containi ng alcohol do you have on a typical day when you are drinking? Patient does not drink Q3: How often do you have si x or more drinks on one occasion? Never 07/22/2023 Overall Financial Resource Strain (CARDIA) Answe r Date Recorded How hard is it for you to pa y for the very basics like food, housing, medical care, and heating? Not very hard 05/29/2023 PRAPARE - Transportation Answer Date Re corded In the past 12 months, has l ack of transportation kept you from medical appointments or from getting medications? No 05/15 In the past 12 months, has l ack of transportation kept you from meetings, work, or from getting things needed for daily living? No 05/29/2023 Personal Safety Answer Date Recorded Have you ever been in or are you currently in a harmful physical or emotional relationship or is someone making you feel afraid or unsafe? Denies 05/28/2023 Comments No Sex and Gender Information Value Date Recorded Sex Assigned at Not on file Legal Sex Female 8:06 PM EDUCATIONAL TECHNOLOGY COORDINATOR Gender Identity Not on file Sexual Orientation Not on file documented as of this encounter Plan of Treatment Not on file documented as of this encounter Procedures Procedure Name Priority Date/Time Associated Diagnosis Comments SCAN - RADIOLOGY/IMAGING 08/07/2023 documented in this encounter Results * SCAN - RADIOLOGY/IMAGING (08/07/2023) Anatomical Region Laterality Modality Other us Provider Scanning Final Result documented in this encounter Visit Diagnoses Not on filedocumented in this encounter Additional Health Concerns Infection Onset Date Last Indicated Resolved Time MDR gram neg/ESBL Comment:03-14-2024 pt. Had a repeat UA which was clean- removed MDRO flag 07/28/2023 07/28/2023 04/21/2024 3:03 PM C DT MDR gram neg/ESBL Comment:Added from external infection. Source: [facility]. 04/22/2024 06/15/2025 2:39 P M CDT COVID: Suspected 09/05/2024 09/05/2024 09/05/2024 11:56 PM EDUCATIONAL TECHNOLOGY COORDINATOR Norovirus suspected 09/06/2024 09/07/2024 09/08/20 9:05 AM EDUCATIONAL TECHNOLOGY COORDINATOR C. difficile suspected 09/06/2024 09/07/202409/07 3:34 PM EDUCATIONAL TECHNOLOGY COORDINATOR C. difficile 09/07/2024 09/07/2024 12/26/2024 10:1 3 AM CDT Norovirus 09/07/2024 09/07/2024 09/21/2024 3:08 AM EDUCATIONAL TECHNOLOGY COORDINATOR COVID: Suspected 10/19/2024 10/19/2024 10/19/2024 2:19 PM EDUCATIONAL TECHNOLOGY COORDINATOR Influenza, adult 10/19/2024 10/19/2024 10/26/2024 3:07 AM EDUCATIONAL TECHNOLOGY COORDINATOR documented as of this encounter Care Teams Assistant Statistician Relationship Specialty Start Date End Date Mariza Juarez MD [address] [place] [address] PCP - General Internal Medicine 05/06/21 06/19/24 Rishi Ford MD [address] [place] [id number] PCP - General Internal Medicine 06/20/24 01/24/25 Alvina Posey, SEPTIC TANK SERVICER [address] [facility] [address] [place] [address] PCP - General Family Medicine 01/25/25 Drea Rodríguez MD [address] [facility] [address] [facility] [address] [place] [address] Referring Physician Neurology 05/06/21 Mely Martinez DPT [address] [facility] [address] [place] [address] Physical Therapist Physical Therapy 08/10/23 Park Morel MD [address] [place] [address] Cardiology 11/30/23 Mariana Gallo, RN [address] [facility] [address] [place] [address] SHOP Outpatient Nib Inspector 01/03/25 01/31/25 Shaquille Feliciano DO [address] [facility] [address] [place] [address] Referring Physician Internal Medicine 02/17/25 documented as of this encounter
--- OUTSIDE RECORDS SUMMARY | 2025-07-27 11:04 | XMS_ITS | Encounter Summary ---
Author Organization [facility] Address [address] [place] [address] Phone Care Team Providers Care Crab Steamer Name Role Phone Drea Rodríguez MD Unavailable [phone] Mariza Juarez MD Primary Care Provider [phone] Mely Martinez DPT Unavailable [phone] Park Morel MD Unavailable [phone] Rishi Ford MD Primary Care Provider + Mariana Gallo RN Unavailable [phone] Alvina Posey NP Primary Care Provider [phone] Shaquille Feliciano DO Unavailable [phone] Encounter Details Date Type Department Care Team (Late st Contact Info) Description 10/14/2018 Orders Only [facility] Scanning, Provider Social History Tobacco Use Types Packs/Day Years Used Date Smoking Tobacco: Former Smokeless Tobacco: Never Comments Unknown Sex and Gender Information Value Date Recorded Sex Assigned at Not on file Legal Sex Female 8:06 PM PRODUCT OPERATIONS ASSOCIATE Gender Identity Not on file Sexual Orientation Not on file documented as of this encounter Plan of Treatment Not on file documented as of this encounter Procedures Procedure Name Priority Date/Time Associated Diagnosis Comments GI - RESULT 10/14/2018 documented in this encounter Results * GI - RESULT (10/14/2018) Anatomical Region Laterality Modality Other us Provider [...] gram neg/ESBL Comment:Added from external infection. Source: [facility]. 04/22/2024 06/15/2025 2:39 P M CDT COVID: Suspected 09/05/2024 09/05/2024 09/05/2024 11:56 PM PRODUCT OPERATIONS ASSOCIATE Norovirus suspected 09/06/2024 09/07/2024 09/08/20 9:05 AM PRODUCT OPERATIONS ASSOCIATE C. difficile suspected 09/06/2024 09/07/202409/07 3:34 PM PRODUCT OPERATIONS ASSOCIATE C. difficile 09/07/2024 09/07/2024 12/26/2024 10:1 3 AM CDT Norovirus 09/07/2024 09/07/2024 09/21/2024 3:08 AM PRODUCT OPERATIONS ASSOCIATE COVID: Suspected 10/19/2024 10/19/2024 10/19/2024 2:19 PM PRODUCT OPERATIONS ASSOCIATE Influenza, adult 10/19/2024 10/19/2024 10/26/2024 3:07 AM PRODUCT OPERATIONS ASSOCIATE documented as of this encounter Care Teams Crab Steamer Relationship Specialty Start Date End Date Mariza Juarez MD [address] [facility] [address] [place] [address] PCP - General Internal Medicine 05/06/21 06/19/24 Rishi Ford MD [address] [place] [address] PCP - General Internal Medicine 06/20/24 01/24/25 Alvina Posey, NASCAR DRIVER [address] [place] [address] [address] [place] [address] PCP - General Family Medicine 01/25/25 Drea Rodríguez MD [address] [facility] [address] [facility] [address] [place] [address] Referring Physician Neurology 05/06/21 Mely Martinez DPT [address] [place], [place] [id number] Physical Therapist Physical Therapy 08/10/23 Park Morel MD [address] [place] [address] Cardiology 11/30/23 Mariana Gallo, RN [address] [facility] [address] [place] [address] SHOP Outpatient Academic Support Coordinator 01/03/25 01/31/25 Shaquille Feliciano DO [address] [facility] [address] [place] [address] Referring Physician Internal Medicine 02/17/25 documented as of this encounter
--- OUTSIDE RECORDS SUMMARY | 2025-07-27 11:06 | XMS_ITS | Clinical Summary ---
Author Organization [facility] Address [facility] [place] [address] Care Team Providers Care Supervisor Cell Room Name Role Phone Drea Rodríguez MD Unavailable [phone] Mely Martinez DPT Unavailable [phone] Park Morel MD Unavailable Alvina Posey NP Primary Care Provider [phone] Shaquille Feliciano DO Unavailable [phone] Allergies Active Allergy Reactions Criticality Noted Date Comments Adhesive Other (See comments),Rash Medium Reaction: Belladonna Hives High 07/22/2019 Bellergal-S Rash Medium Cefprozil Other (See comments) Low 07/12/2012 Reaction: Other Severe back pain , more like intestinal pain Reaction: Muscle Spasm, Clindamycin Diarrhea Low 12/17/2022 Clobetasol Unknown Medium 11/06/2014 Open bleeding blisters w/i 3 days. Diltiazem Palpitations Medium 07/01/2018 Doxycycline Diarrhea Low 03/14/2024 Erythromycin Nausea only,Nausea And Vomiting 07/12/2012 Causes headaches Reaction: Nausea, Erythromycin Base Vomiting Low Fosfomycin Diarrhea High 07/30/2023 Severe diarrhea Hydralazine Headache,Other (See comments) Low 01/25/2018 Reaction: Hydrochlorothiazide Other (See comments) Low 02/12/2018 Reaction: Other Other Levofloxacin Hives High 07/12/2012 hives Skin testing negative in allergy clinic on 10/30/23. Patient will need to take anti-histamines with levofloxacin in the future. Nitrofurantoin Nausea & Vomiting,Nausea only Low 04/29/2022 Ceftriaxone Rash Medium 07/22/2023 Skin testing negative in allergy clinic on 10/30/23. Delayed maculopapular exanthem. Can take in future with anti-histamines. Sulfamethoxazole-Trimetho prim Rash Medium 01/25/2018 Ticagrelor Shortness of breath High 03/14/2024 Unclassified Drug Unknown 07/15/2012 Not sure what tape bothers her. Medications Movantik 25 mg tablet Take 1 tablet (25 mg total) by mouth every morning 021 Active calcium carbonate-vit D3-min 600 mg calcium- 400 unit tablet Take 600 mg by mouth 2 (two) times a day 1 in am and 3 at hs Active oxygen Administer 3 L/min into each nostril nightly at 180,000 mL/hr Active clopidogreL (PLAVIX) 75 mg tablet Take 1 tablet (75 mg total) by mouth nightly 023 Active aspirin 81 mg enteric coated tablet Take 1 tablet (81 mg total) by mouth every morning Active rosuvastatin (CRESTOR) 10 mg tablet Take 1 tablet (10 mg total) by mouth every other day Every other day at night 024 Active aluminum-magnes ium hydroxide-simet hicone (MAALOX) suspension 200-200-20 mg/5 mL Take 30 mL by mouth 4 (four) times a day as needed for indigestion or heartburn 300 mL 024 Active simethicone (MYLICON) 80 mg chewable tablet Take 1 tablet (80 mg total) by mouth 4 (four) times a day as needed for flatulence 30 tablet 024 Active ondansetron (Zofran) 4 mg tablet Take 1 tablet (4 mg total) by mouth every 6 (six) hours as needed for nausea or vomiting Active escitalopram (LEXAPRO) 10 mg tabletIndicatio ns:Moderate episode of recurrent major depressive disorder (HCC) Take 1 tablet (10 mg total) by mouth daily 90 tablet 1 Active omeprazole (PriLOSEC) 20 mg capsule Take 1 capsule (20 mg total) by mouth daily before breakfast 90 capsule Active amLODIPine (NORVASC) 5 mg tablet Take 1 tablet (5 mg total) by mouth every morning 90 tablet Active levothyroxine (SYNTHROID) 125 mcg tablet Take 1 tablet (125 mcg total) by mouth 6 (six) times a week Omit on Sundays 90 tablet Active calcitRIOL (ROCALTROL) 0.25 mcg capsule TAKE 3 CAPSULES (0.75 MCG TOTAL) BY MOUTH EVERY MORNING 270 capsule Active methocarbamoL (ROBAXIN) 500 mg tabletIndicatio ns:Muscle Spasm Take 2 tablets (1,000 mg total) by mouth 4 (four) times a day 2024 Active polyethylene glycol (MIRALAX) 17 gram/dose bulk powderIndicatio ns:constipation Take 17 g by mouth daily 2024 Active acetaminophen 500 mg capsule Take 2 capsules (1,000 mg total) by mouth every 6 (six) hours 2024 Active Additional Information Patient taking differently:1,000 mg oralEvery 8 hours scheduled, Reported on 07/07/2025 gabapentin (NEURONTIN) 300 mg capsule Take 1 capsule (300 mg total) by mouth 3 (three) times a day 2024 Active lidocaine (LIDODERM) 5 % Place 2 patches on the skin daily for 12 hours Remove & discard patch(es) within 12 hours or as directed by 2024 Active linaCLOtide (LINZESS) 290 mcg capsuleIndicati ons:functional constipation Take 1 capsule (290 mcg total) by mouth daily before breakfast 2024 Active senna (SENOKOT) 8.6 mg tabletIndicatio ns:constipation Take 1 tablet by mouth 2 (two) times a day as needed for constipation 2024 Active Additional Information Patient not taking.Reported on 07/07/2025 sodium chloride 0.9% flush syringe Administer 10-20 mL into catheter as needed for line care 2024 Active lactulose solution 10 gram/15mL Take 15 mL (10 g total) by mouth 2 (two) times a day as needed (constipaion) Active enoxaparin (LOVENOX) 40 mg/0.4 mL syringe Inject 0.4 mL (40 mg total) under the skin daily Active oxyCODONE (ROXICODONE) 15 mg immediate release tabletIndicatio ns:Pain Take 1 tablet (15 mg total) by mouth every 4 (four) hours 30 tablet Active docusate sodium (COLACE) 100 mg capsuleIndicati ons:constipatio n,Stool Softener Take 1 capsule (100 mg total) by mouth 2 (two) times a day 2024 Discontinued(S top Taking at Discharge) polyethylene glycol (MIRALAX) 17 gram packetIndicatio ns:constipation Take 1 packet (17 g total) by mouth daily as needed for constipation 2024 Discontinued(S top Taking at Discharge) oxyCODONE-aceta minophen (PERCOCET) 10-325 mg per tabletIndicatio ns:Pain Take 1 tablet by mouth as needed for pain 2024 Discontinued(S top Taking at Discharge) cyclobenzaprine (FLEXERIL) 5 mg tabletIndicatio ns:Muscle Spasm Take 1 tablet (5 mg total) by mouth 3 (three) times a day as needed for muscle spasms 90 tablet 2 2024 Discontinued(S top Taking at Discharge) methocarbamoL (ROBAXIN) 750 mg tabletIndicatio ns:Muscle Spasm Take 1 tablet (750 mg total) by mouth as needed for muscle spasms 2024 Discontinued(S top Taking at Discharge) mupirocin (BACTROBAN) 2 % ointmentIndicat ions:Methicilli n-Resistant S. Aureus Nasal Colonization Apply to each nostril 2 (two) times a day Apply a pea size amount into each nostril twice a day for 5 days prior to surgery. 22 g 2024 Discontinued(S top Taking at Discharge) riluzole (RILUTEK) 50 mg tabletIndicatio ns:amyotrophic lateral sclerosis Take 1 tablet (50 mg total) by mouth every 12 (twelve) hours for 5 days START 5 DAYS PRIOR TO SURGERY FOR NERVE PRESERVATION 10 tablet 2024 Discontinued(S top Taking at Discharge) oxyCODONE (ROXICODONE) 15 mg immediate release tabletIndicatio ns:Pain Take 1 tablet (15 mg total) by mouth every 3 (three) hours as needed for pain 42 tablet 2024 Discontinued(R eorder) docusate sodium (COLACE) 100 mg capsuleIndicati ons:constipatio n,Stool Softener Take 1 capsule (100 mg total) by mouth 2 (two) times a day as needed for constipation 2024 Discontinued cefTRIAXone (ROCEPHIN) syringeIndicati ons:central nervous system infection Infuse 20 mL (2,000 mg total) IV daily for 5 minutes for 25 days at 240 mL/hr 0 2024 oxyCODONE (ROXICODONE) 15 mg immediate release tabletIndicatio ns:Pain Take 1 tablet (15 mg total) by mouth every 3 (three) hours as needed for pain 90 tablet 2024 Discontinued(R eorder) oxyCODONE (ROXICODONE) 15 mg immediate release tabletIndicatio ns:Pain Take 1 tablet (15 mg total) by mouth every 4 (four) hours 60 tablet 2024 Discontinued(R eorder) Active Problems Problem Noted Date Diagnosed Date Thrombocytopenia 06/17/2025 Assessment & Plan (06/29/2025 12:20 PM CDT): Resolved --Routine CBC's monitored throughout Hospitalization --Transfused 2 units PLT on 06/13 and 2 units PLT again on 06/14, transfused 1 unit of PLT's on 06/15 --PLT goal >100 Urinary retention 06/17/2025 Assessment & Plan (07/07/2025 9:00 AM CDT): Stage 4 prolapse with mahmood in place. Will need fu with Urology when health improved from infection/surgery. Follows with Dr. Pearce. Assessment & Plan (07/06/2025 11:43 AM CDT): Urology reports they will not see her until she has healed more. Will need to schedule as she progresses with rehab course or OP. Assessment & Plan (07/03/2025 7:23 PM CDT): Mahmood in place. Has stage 4 prolapse. Will need fu with Urology. Will keep mahmood in & not attempt voiding trial. Assessment & Plan (06/17/2025 3:48 PM CDT): --hx of solitary kidney s/p left nephrectomy, longstanding pelvic organ prolapse c/b urinary retention, urinary incontinence, and UTIs --Established with Urogynecology for this issue (Dr. Pearce). She was seen by Urology in 12/2024 for void trial, catheter replaced at patient's request. Planned for subsequent --Urogynecology consulted for Mahmood catheter placement 06/12- found to have stage IV prolapse on exam --Patient has longstanding urinary retention, will likely have elevated bladder scans if mahmood is removed-Urology recommend discharge with mahmood catheter in place, follow-up with established provider (Dr. Pearce) for chronic urinary retention and prolapse Infection and inflammatory r eaction due to internal fixation device of spine, initial encounter 06/14/2025 Assessment & Plan (07/08/2025 10:24 AM CDT): She continues receiving ceftriaxone 2 g IV every 24 hours, we will continue her physical and occupational therapy, gabapentin 300 mg p.o. t.i.d., and oxycodone 15 mg every 4 hours Assessment & Plan (07/03/2025 7:19 PM CDT): Continue Ceftriaxone daily until 07/25. ID/NSY fu as planned. Assessment & Plan (06/30/2025 3:09 PM CDT): The nurses will continue to monitor her surgical drains, wound care we will follow. We will continue ceftriaxone 2 g IV daily times 25 days with pharmacology consult. We will continue oxycodone 15 mg every 3 hours prn pain. We will continue gabapentin 300 mg p.o. t.i.d.. Assessment & Plan (06/19/2025 12:40 PM CDT): Ama Brooks is 75 year old woman with PMH of CVA, CAD s/p PCI 2022, atrial fibrillation s/p ablation 2017, moderate aortic stenosis, SSS s/p Medtronic pacemaker, Left paralyzed diaphragm, baseline 3L home O2, OMAR, hypothyroidism, CKD, renal agenesis of Left kidney, pelvic organ prolapse c/b urinary retention, Chiari malformation type I, multiple spinal surgeries who was directly admitted by neurosurgery 06/12/2025 for revision of prior posterior spinal fusion and extension. Admitted 06/12 for pain and symptom management; Mahmood catheter placed for urinary retention.Taken to OR 06/13/2025 for stage 1 T3-pelvis posterior spinal fusion, L4 and T11 pedicle subtraction osteotomy, and complex closure with plastic surgery. All instrumentation from T10 to S1 was removed; however, the iliac bolts were firmly embedded and retained. Intraoperatively noted purulence around the T12 and S1 screws. OR cultures were taken which are positive for Proteus mirabilis. 06/13 wound upper back (T12): no growth 06/13 wound sacral: rare Proteus mirabilis 06/14 blood cx: NGTD Recommending treating Proteus mirabilis spine infection with retained hardware with 2 weeks (06/13/25-06/27/25) of ceftriaxone 2gm IV q12hr to be followed with 4 weeks (06/28/25-07/25/25) of ceftriaxone 2gm IV q24hr. She will then need suppression given retained hardware (could consider Augmentin or Amoxicillin for suppression). Treating initially with ceftriaxone at q12hr dosing give concern for CSF leak intraoperatively. Recommendations: - Discontinue vancomycin and metronidazole (done) - Continue ceftriaxone 2gm IV q12hr for 14 day duration (06/13/25-06/27/25), then change ceftriaxone to q24hr dosing for an additional 4 weeks (EOT 07/25/25). - Okay by ID to place PICC line for oil heaterman IV antibiotics - Monitor CBC w/ diff and CMP's - ID is formally signing off but will continue to monitor patient peripherally while inpatient. Please see sign off note from 06/19/25 for complete recommendations. 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 Please reach out with any questions or concerns. Assessment & Plan (06/27/2025 9:49 AM CDT): --Noted 2 pockets of purulent drainage found in OR 06/13, post op C/F/V --ID consulted, their final recommendations are listed below Infected hardware retained and requiring chronic suppression after antibiotic course (Y/N): Yes- iliac bolts retained Antimicrobial(s) (Please RENALLY ADJUST DOSES if indicated): Ceftriaxone 2 grams IV every 12 hours for 2 week duration (06/13/25-06/27/25), to be followed with Ceftriaxone 2 grams IV every 24 hours for 4 week duration (06/1525-07/25/25). Start date: 06/13/25 Firm Stop (Y/N): No Safety Labs & Frequency: Weekly CBC w/ diff and CMP; ESR/CRP at week 3 and 6 Will follow up with Dr. Silva --empiric cetirizine 10mg nightly given history of rash with ceftriaxone --PICC line unable to be placed, CVC placed by IR on 06/20/25 - Monitor CBC w/ diff and CMP's Assessment & Plan (06/16/2025 4:27 PM CDT): Ama Brooks is 75 year old woman with PMH of CVA, CAD s/p PCI 2022, atrial fibrillation s/p ablation 2017, moderate aortic stenosis, SSS s/p Medtronic pacemaker, Left paralyzed diaphragm, baseline 3L home O2, OMAR, hypothyroidism, CKD, renal agenesis of Left kidney, pelvic organ prolapse c/b urinary retention, Chiari malformation type I, multiple spinal surgeries who was directly admitted by neurosurgery 06/12/2025 for revision of prior posterior spinal fusion and extension. Admitted 06/12 for pain and symptom management; Mahmood catheter placed for urinary retention.Taken to OR 06/13/2025 for stage 1 T3-pelvis posterior spinal fusion, L4 and T11 pedicle subtraction osteotomy, and complex closure with plastic surgery. All instrumentation from T10 to S1 was removed; however, the iliac bolts were firmly embedded and retained. Intraoperatively noted purulence around the T12 and S1 screws. 06/13 wound upper back (T12): no growth 06/13 wound sacral: rare Proteus mirabilis (susceptibilities pending) 06/14 blood cx: pending Recommendations - Continue IV vancomycin 2g Q24 hours - check a trough before the 3rd dose - Discontinue IV cefepime, switch to IV ceftriaxone 2g Q12 hours (MINING ENGINEER dosing due to concern for CSF leak) - consider starting empiric cetirizine 10mg nightly given history of rash with ceftriaxone - Continue empiric PO metronidazole 500mg BID - Further recs pending culture results - plan on 2 weeks of MINING ENGINEER dosing before transition to 4 weeks regular dosing to complete treatment of spinal hardware infection, will need PO suppression afterwards due to retained spinal hardware - Monitor at least twice weekly CMP and CBC with diff while on vancomycin and ceftriaxone Assessment & Plan (06/14/2025 9:33 AM CDT): Ama Brooks is 75 year old woman with PMH of CVA, CAD s/p PCI 2022, atrial fibrillation s/p ablation 2017, moderate aortic stenosis, SSS s/p Medtronic pacemaker, Left paralyzed diaphragm, baseline 3L home O2, OMAR, hypothyroidism, CKD, renal agenesis of Left kidney, pelvic organ prolapse c/b urinary retention, Chiari malformation type I, multiple spinal surgeries who was directly admitted by neurosurgery 06/12/2025 for revision of prior posterior spinal fusion and extension. Admitted 06/12 for pain and symptom management; Mahmood catheter placed for urinary retention.Taken to OR 06/13/2025 for stage 1 T3-pelvis posterior spinal fusion, L4 and T11 pedicle subtraction osteotomy, and complex closure with plastic surgery. Per neurosurgery brief op note, noted CSF leak which was repaired and a small pocket of pus around the T12 screws and S1 screw. 06/13 wound upper back (T12): no PMNS, NGTD 06/13 wound sacral: few PMNs, NGTD 06/14 blood cx: pending Recommendations - Continue IV vancomycin 15mg/kg Q24 hours - check a trough before the 3rd dose - Continue IV cefepime 2g Q12 hours (high dose, dosed for CrCl 30-60) and metronidazole 500mg BID - Clarify with neurosurgery presence of CSF leak mentioned in brief op note and whether the infected screws were removed - Further recs pending culture results - Monitor at least twice weekly CMP and CBC with diff while on vancomycin and cefepime Medicare annual wellness visit, subsequent 03/01 Assessment & Plan (03/01/2025 6:54 PM CDT): CBC, CMP, lipid panel, TSH UTD Mammogram ordered. DEXA last completed: 12/2024 Colonoscopy last completed: 09/2018 Vaccinations: COVID, Shingrix, Prevnar, Pneumovax, Flu, and RSV vaccines UTD. Repeat wellness exam in one year. Postural kyphosis of thoracic region 02/03/2025 Assessment & Plan (06/16/2025 4:27 PM CDT): Ama Brooks is 75 year old woman with PMH of CVA, CAD s/p PCI 2022, atrial fibrillation s/p ablation 2017, moderate aortic stenosis, SSS s/p Medtronic pacemaker, Left paralyzed diaphragm, baseline 3L home O2, OMAR, hypothyroidism, CKD, renal agenesis of Left kidney, pelvic organ prolapse c/b urinary retention, Chiari malformation type I, multiple spinal surgeries who was directly admitted by neurosurgery 06/12/2025 for revision of prior posterior spinal fusion and extension. Admitted 06/12 for pain and symptom management; Mahmood catheter placed for urinary retention.Taken to OR 06/13/2025 for stage 1 T3-pelvis posterior spinal fusion, L4 and T11 pedicle subtraction osteotomy, and complex closure with plastic surgery. All instrumentation from T10 to S1 was removed; however, the iliac bolts were firmly embedded and retained. Intraoperatively noted purulence around the T12 and S1 screws. 06/13 wound upper back (T12): no growth 06/13 wound sacral: rare Proteus mirabilis (susceptibilities pending) 06/14 blood cx: pending Recommendations - Continue IV vancomycin 2g Q24 hours - check a trough before the 3rd dose - Discontinue IV cefepime, switch to IV ceftriaxone 2g Q12 hours (MINING ENGINEER dosing due to concern for CSF leak) - consider starting empiric cetirizine 10mg nightly given history of rash with ceftriaxone - Continue empiric PO metronidazole 500mg BID - Further recs pending culture results - plan on 2 weeks of MINING ENGINEER dosing before transition to 4 weeks regular dosing to complete treatment of spinal hardware infection, will need PO suppression afterwards due to retained spinal hardware - Monitor at least twice weekly CMP and CBC with diff while on vancomycin and ceftriaxone Assessment & Plan (06/14/2025 9:33 AM CDT): Ama Brooks is 75 year old woman with PMH of CVA, CAD s/p PCI 2022, atrial fibrillation s/p ablation 2017, moderate aortic stenosis, SSS s/p Medtronic pacemaker, Left paralyzed diaphragm, baseline 3L home O2, OMAR, hypothyroidism, CKD, renal agenesis of Left kidney, pelvic organ prolapse c/b urinary retention, Chiari malformation type I, multiple spinal surgeries who was directly admitted by neurosurgery 06/12/2025 for revision of prior posterior spinal fusion and extension. Admitted 06/12 for pain and symptom management; Mahmood catheter placed for urinary retention.Taken to OR 06/13/2025 for stage 1 T3-pelvis posterior spinal fusion, L4 and T11 pedicle subtraction osteotomy, and complex closure with plastic surgery. Per neurosurgery brief op note, noted CSF leak which was repaired and a small pocket of pus around the T12 screws and S1 screw. 06/13 wound upper back (T12): no PMNS, NGTD 06/13 wound sacral: few PMNs, NGTD 06/14 blood cx: pending Recommendations - Continue IV vancomycin 15mg/kg Q24 hours - check a trough before the 3rd dose - Continue IV cefepime 2g Q12 hours (high dose, dosed for CrCl 30-60) and metronidazole 500mg BID - Clarify with neurosurgery presence of CSF leak mentioned in brief op note and whether the infected screws were removed - Further recs pending culture results - Monitor at least twice weekly CMP and CBC with diff while on vancomycin and cefepime Assessment & Plan (06/27/2025 10:01 AM CDT): Progressive weakness. Severe kyphosis and spinal deformity with compression fractures at T9, T6, and T4. --s/p stage 1: T3-Pelvis PSF, L4 and T11 PSO on 06/13, patient declined stage 2 --Closed by PRS, covered with Prevena-removed 06/20 by PRS --Drains x4: Bile bag x2 (NSGY), KEELEY x2 (PRS) --Xrays completed on 06/23 -- therapy recommends dispo to inpatient rehabilitation --Follow-up with Dr. Miranda outpatient Morbid (severe) obesity due to excess calories 0 01/23/2025 Pacemaker 12/21/2024 Coronary artery disease invo lving [place] coronary artery of [place] heart without angina pectoris 12/21/2024 Overview (12/21/2024): NSTEMI and stent in 2022 Assessment & Plan (06/30/2025 3:10 PM CDT): History of stenting in 2022. Continue aspirin 81 mg daily, rosuvastatin 10 mg q.o.d. Assessment & Plan (06/26/2025 4:17 PM CDT): --Home regimen of plavix-held pre and post-operatively -- continue home amlodipine Assessment & Plan (03/01/2025 6:48 PM CDT): Chronic, patient following with cardiology. Currently taking Plavix 75 mg, aspirin 81 mg, and Crestor 10 mg daily. Patient underwent stent placement in 2022. Assessment & Plan (01/25/2025 2:53 PM CDT): Chronic, patient following with cardiology. Currently taking Plavix 75 mg, aspirin 81 mg, and Crestor 10 mg daily. Patient underwent stent placement in 2022. Assessment & Plan (12/29/2024 2:49 PM CDT): --stent placed on 2022 --on plavix at home--held at this time pending plan --continue home 81mg Aspirin --BP control --cardiology c/s for pre-op risk assessment --NM MPI 12/28; wnl --TTE 12/29; EF 64%, aortic valve stenosis CVA (cerebrovascular accident) 12/14/2024 Moderate aortic stenosis 12/14/2024 Assessment & Plan (03/01/2025 7:00 PM CDT): Chronic, patient following with cardiology. Pure hypercholesterolemia 06/06/2024 Assessment & Plan (03/01/2025 6:59 PM CDT): Chronic, controlled with rosuvastatin 10 mg daily. Follow up in 6 months. Lab Results Component Value Date CHOL 120 09/06/2024 CHOL 155 05/13/2022 CHOL 156 02/15/2018 Lab Results Component Value Date HDL 64 09/06/2024 HDL 51 05/13/2022 HDL 52 02/15/2018 Lab Results Component Value Date LDLCALC 44 09/06/2024 LDLCALC 86 05/13/2022 LDLCALC 88 02/15/2018 Lab Results Component Value Date TRIG 53 09/06/2024 TRIG 89 05/13/2022 TRIG 80 02/15/2018 Assessment & Plan (09/28/2024 11:23 AM HEEL SORTER): Stable on rosuvastatin Assessment & Plan (06/06/2024 12:19 PM CDT): Stable on rosuvastatin History of CVA (cerebrovascu lar accident) without residual deficits 06/06/2024 Assessment & Plan (09/28/2024 11:23 AM HEEL SORTER): Stable on aspirin, clopidogrel, and rosuvastatin Assessment & Plan (06/06/2024 12:20 PM CDT): Stable on aspirin, clopidogrel, and rosuvastatin Moderate episode of recurrent major depressive d isorder 04/29/2022 Assessment & Plan (06/30/2025 3:14 PM CDT): Continue escitalopram 10 mg daily Assessment & Plan (03/01/2025 6:54 PM CDT): Chronic, controlled with Lexapro 10 mg daily. Follow up in 6 months. Assessment & Plan (09/29/2024 11:40 AM HEEL SORTER): Stable on escitalopram Arnold-Chiari malformation, type I 04/29/2022 Assessment & Plan (09/28/2024 11:23 AM HEEL SORTER): Stable. Assessment & Plan (06/06/2024 12:17 PM CDT): Stable. Diaphragmatic paralysis 04/29/2022 Assessment & Plan (01/25/2025 1:02 PM CDT): Chronic, following with pulmonology. Using oxygen 3 liters per nasal cannula at night. Female cystocele 04/29/2022 Assessment & Plan (03/01/2025 6:48 PM CDT): Chronic, worsening. Patient following with Uro/INCOME AUDITOR. Patient has used a pessary but with unsuccessful placement. Assessment & Plan (01/25/2025 2:54 PM CDT): Chronic, worsening. Patient following with Uro/INCOME AUDITOR. Patient has used a pessary but with unsuccessful placement. Heart murmur 04/29/2022 Assessment & Plan (03/01/2025 6:49 PM CDT): Chronic, stable. Patient following with cardiology. Assessment & Plan (01/25/2025 2:56 PM CDT): Chronic, stable. Patient following with cardiology. Lung nodule 04/29/2022 Spinal cord compression due to degenerative disorder of spinal column 04/29/2022 Assessment & Plan (07/07/2025 9:01 AM CDT): S/p decompression & fusion. Lovenox for DVT prop. PT/OT. Pain controlled with oxycodone, tyl, gabapentin. FU as planned: Plastics 07/13, ID 11/. NSY 07/26. Is on IV abx via R IJ Alayna until 07/25. Drains to be dc 07/08. Assessment & Plan (07/06/2025 11:57 AM CDT): FU as planned: Plastics 07/13, ID 11. NSY 07/26. Is on IV abx via [facility] until 07/25. She is wanting referral to [facility] & would make a great candidate but patient would like not require stay until abx complete & would need to have someone help at home or could reassess for transfer next week if that is not an option. Patient will fu with her friend & I will pass this along to SS. Continue oxycodone 15mg q4h markus for pain with gabapentin 300mg tid, + tyl 1000mg tid. Lovenox for DVT prop. Drains to be dc 07/08. Assessment & Plan (07/03/2025 7:21 PM CDT): S/p decompression & fusion. Lovenox for DVT prop. PT/OT. Pain controlled with oxycodone, tyl, gabapentin. NSY fu as planned. Assessment & Plan (06/30/2025 3:15 PM CDT): While inpatient completed spinal fusion T3-S1. Consult physical and occupational therapy. Her goal is to safely return to the community with functionality. Assessment & Plan (01/25/2025 2:50 PM CDT): Chronic, patient following with neurosurgeon, patient is to undergo spinal surgery later next month. Urinary incontinence 04/29/2022 Assessment & Plan (06/30/2025 3:14 PM CDT): Currently has an indwelling Mahmood catheter. She reports that the catheter was placed by Urology and she wants to wait for Urology to remove it. I have explained the risk of chronic indwelling Mahmood catheter for urinary infection and she endorses understanding. Assessment & Plan (03/01/2025 6:57 PM CDT): Chronic, uncontrolled due to bladder prolapse. Patient following with uro/medical transcriptionist. Patient received Botox in the past, but it caused bladder rentention and oral medications were ineffective. Patient currently wearing depends daily. Assessment & Plan (01/25/2025 2:49 PM CDT): Chronic, patient following with urology. Spoke with Niles Powers CHEMICAL ETCH OPERATOR with [facility] urology during patient;s appointment. Niles recommends patient to keep Mahmood Cath in place, but since the patient is insistent the cath is leaking and painful the Mahmood can be removed in our office. Prior to removal, explained to patient risk of urinary retention returning, informed her our office and her urologist office will not be able to reinsert cath today, she will have to go to the ER for any urinary retention, patient verbalized understanding. Mahmood removed with no complications. Constipation 01/14/2022 Assessment & Plan (07/06/2025 12:08 PM CDT): Patient is having soft BM but having increased abd pain & feels constipated. She reports she has had this problem during her hospitalization. Staff to attempt to get her up on the toliet to see if this helps with BM. Currently taking Movantik 25mg daily, + Linzess 290mcg daily, Miralax daily, Senna Plus 2 tabs at bedtime. Will give enema & add PRN Lactulose. Hold Miralax. Continue to monitor closely. Assessment & Plan (06/29/2025 12:19 PM CDT): Resolved --Aggressive bowel regimen of pericolace, miralax and bisacodyl suppositories 06/16 movantik 25mg daily --Milk of magnesia for constipation given on 06/17 --GI consulted --06/20 still no BM. Passing flatus. Feels full. Nausea x1. Added lactulose x2 doses after unremarkable KUB --06/24 simethicone added --06/26 held miralax due to multiple BMs. Last BM 06/29 Assessment & Plan (03/01/2025 12:44 PM CDT): Chronic, patient following GI. Currently taking Movantik 25 mg daily, Cloace BID, and Senna daily. Lichen sclerosus 01/14/2022 Weakness 01/14/2022 Assessment & Plan (06/30/2025 3:15 PM CDT): I endorse admission to correction care. The patient is at risk of injury, illness and a requirement for a higher level of care without this service. The patient needs assistance from the nurses and care team for all activities of daily living including dressing, hygeine of person and toilet, safe transfer and mobility, dietary needs, medication administration, and grooming. The patient will need physical and occupational therapy to progress to a safer level of care. Assessment & Plan (09/28/2024 11:21 AM HEEL SORTER): Will order home PT and OT. Chronic pain disorder 02/15/2018 Assessment & Plan (01/25/2025 2:51 PM CDT): Patient following with pain management. Currently taking Percocet 5/325 mg TID PRN. Assessment & Plan (02/16/2018 3:50 PM CDT): Non pharm tx Sick sinus syndrome 02/13/2018 Assessment & Plan (12/29/2024 2:48 PM CDT): --history of paroxymal afib with conversion pauses --s/p DC-PPM 02/12/2018, CXR w/o concern for improper lead placement --on plavix at home--held at this time pending plan --continue home 81mg Aspirin --EP c/s for MRI compatibility for PPM Assessment & Plan (09/28/2024 11:22 AM HEEL SORTER): Stable with pacemaker Assessment & Plan (06/06/2024 12:17 PM CDT): Stable with pacemaker Assessment & Plan (02/14/2018 3:04 PM CDT): Approp PPM function tele Partial thickness rotator cuff tear 08/21/2016 Herniated lumbar intervertebral disc 03/29/2014 Assessment & Plan (09/28/2024 11:23 AM HEEL SORTER): Pain is controlled with Percocet. Patient currently has an active prescription for opioid medication. I reviewed patient's use of this medication, risk for Opioid Use Disorder, and potential benefit of other non-opioid pain therapies. Discussed with patient that opiates use can lead to dependency and and abuse. Discussed side effects of nausea, constipation, dizziness, drowsiness, sedation, respiratory depression and . Offered a prescription for Narcan. Assessment & Plan (06/07/2024 1:44 PM CDT): Pain is controlled with Percocet. Patient currently has an active prescription for opioid medication. I reviewed patient's use of this medication, risk for Opioid Use Disorder, and potential benefit of other non-opioid pain therapies. Discussed with patient that opiates use can lead to dependency and and abuse. Discussed side effects of nausea, constipation, dizziness, drowsiness, sedation, respiratory depression and . Offered a prescription for Narcan. Cervicalgia 11/16/2012 Assessment & Plan (03/01/2025 6:59 PM CDT): Chronic, worsening. Patient following with neurosurgery and pain management. Currently taking Percocet 5/325 mg TID PRN, Flexeril 5 mg TID PRN, and Tylenol 650 mg TID PRN. Assessment & Plan (09/28/2024 11:23 AM HEEL SORTER): Stable on Percocet and pregabalin Assessment & Plan (06/06/2024 12:19 PM CDT): Stable on Percocet and pregabalin Gastroesophageal reflux disease 06/28/2012 Assessment & Plan (06/30/2025 3:11 PM CDT): Chronic, currently stable. Continue omeprazole 20 mg daily. Assessment & Plan (03/01/2025 6:49 PM CDT): Chronic, controlled with omeprazole 20 mg daily. Patient following with GI. Assessment & Plan (01/25/2025 2:57 PM CDT): Chronic, controlled with omeprazole 20 mg daily. Patient to follow up next month for wellness exam. Lumbago 04/23/2012 Assessment & Plan (03/01/2025 7:00 PM CDT): Chronic, worsening. Patient following with neurosurgery and pain management. Currently taking Percocet 5/325 mg TID PRN, Flexeril 5 mg TID PRN, and Tylenol 650 mg TID PRN. Hypertension 02/02/2009 Assessment & Plan (06/30/2025 3:09 PM CDT): This is chronic, currently stable. We will continue to monitor serial vital signs for trending. We will continue amlodipine 5 mg daily Assessment & Plan (03/01/2025 6:51 PM CDT): Chronic, controlled. Patient following with cardiology. Patient currently taking amlodipine 5 mg daily. Assessment & Plan (01/25/2025 2:58 PM CDT): Chronic, controlled. Patient following with cardiology. Patient currently taking amlodipine 5 mg daily. Assessment & Plan (12/26/2024 12:58 PM CDT): --continue home norvasc Assessment & Plan (09/28/2024 11:22 AM HEEL SORTER): Stable on amlodipine Assessment & Plan (06/06/2024 12:18 PM CDT): Stable on amlodipine and bisoprolol Assessment & Plan (02/14/2018 3:05 PM CDT): Hypertension is unchanged. Acquired hypothyroidism 02/02/2009 Assessment & Plan (06/30/2025 3:11 PM CDT): Chronic, stable. Continue levothyroxine 125 mcg 6 days per week. Assessment & Plan (03/01/2025 6:47 PM CDT): Chronic, controlled with levothyroxine 125 mcg daily. Patient to follow up in 6 months. Assessment & Plan (01/25/2025 2:59 PM CDT): Chronic, controlled with levothyroxine 125 mcg daily. Patient to follow up in one month for wellness exam. Assessment & Plan (09/28/2024 11:24 AM HEEL SORTER): Stable on levothyroxine Assessment & Plan (06/06/2024 12:18 PM CDT): Stable on levothyroxine Idiopathic hypoparathyroidism 02/02/2009 Assessment & Plan (03/01/2025 6:51 PM CDT): Chronic, stable. Patient currently taking calcitriol 0.75 mcg daily and daily calcium supplement. Assessment & Plan (01/25/2025 2:59 PM CDT): Chronic, stable. Patient currently taking calcitriol 0.75 mcg daily and daily calcium supplement. Assessment & Plan (09/28/2024 11:24 AM HEEL SORTER): Stable on Rocaltrol and calcium Assessment & Plan (06/07/2024 2:04 PM CDT): Stable on Rocaltrol and calcium Fibromyalgia 02/02/2009 Assessment & Plan (03/01/2025 6:49 PM CDT): Chronic, patient following with pain management. Assessment & Plan (01/25/2025 2:55 PM CDT): Chronic, patient following with pain management. Assessment & Plan (09/28/2024 11:23 AM HEEL SORTER): Stable on pregabalin Assessment & Plan (06/06/2024 12:19 PM CDT): Stable on pregabalin Irritable bowel syndrome 02/02/2009 Assessment & Plan (06/30/2025 3:12 PM CDT): After a difficult course of constipation she is now having soft stools. He denies diarrhea or constipation presently. Because of decreased sensation he can not recognize her stooling. He is using depends. She has asked that I contact her GI to invite his input and I have sent a message through secure chat. She was also seen by GI during inpatient care. We will continue as directed linaclotide 290 mcg daily, Movantik 25 mg daily MiraLax 17 g daily, senna 8.6 mg b.i.d. PRN, simethicone 80 mg q.i.d. PRN Resolved Problems Problem Noted Date Diagnosed Date Resolved Date Edema of both lower extremities 06/30/2025 07/07/2025 Assessment & Plan (06/30/2025 3:20 PM CDT): Echo conclusion Dec 29: CONCLUSIONS: 1. Normal left ventricular size based on volume index. Normal LV wall thickness. Normal left ventricular systolic function. The Ejection Fraction (Carvalho's) is measured at 64 %. Grade I diastolic dysfunction (normal LA pressure). The average global longitudinal strain is normal. 2. Right ventricular dilatation. Normal right ventricular systolic function. 3. Moderately dilated left atrium. 4. RA/RV wires seen. 5. Mild mitral valve regurgitation. 6. Moderately thickened aortic valve leaflets. Moderately restricted aortic cusps. Mild aortic valve regurgitation. At least moderate aortic valve stenosis per limited Doppler studies. 7. Mild to mod tricuspid regurgitation. The Estimated RVSP is : 35-40 mmHg. 8. Small pericardial effusion. 9. Normal aortic root size at sinuses of Valsalva. Normal aortic root size when indexed. The ascending aorta is normal in size when indexe Lasix 40mg/day x 3 days ordered. Follow up lab Mond Right leg pain 06/22/2025 07/03/2025 Assessment & Plan (06/29/2025 12:19 PM CDT): Improving --New RLE pain reported on 06/22, --BLE dopplers negative for DVT --Lidocaine patches ordered 06/22 Acute blood loss anemia 06/17/202506/15 Assessment & Plan (07/06/2025 11:42 AM CDT): H&H stable. Monitoring as needed. Assessment & Plan (07/03/2025 7:22 PM CDT): Labs ordered for . Assessment & Plan (06/30/2025 3:14 PM CDT): A follow up CBC is ordered. Assessment & Plan (06/29/2025 12:23 PM CDT): --Routine CBC's monitored throughout Hospitalization 06/13: 13 units PRBC, 10 units FFP, 1 unit Platelets, 3 units Cyro 10/1: 1 unit PRBC, 2 units Platelets 10/2: 3 units PRBC, 2 units Platelets 10/3: 1 unit PRBC, 1 unit Platelets --Hgb goal >8 -- EBL 7500mL on 06/13 + drains in place -- no active signs of acute postoperative bleeding 06/29 Hgb 10.1 Acute post-operative pain 06/13/2025 Assessment & Plan (06/29/2025 12:22 PM CDT): --Home regimen of methocarbamol, percocet --Pt weaned off of IV pain medications --Managed inpatient with oral regimen of scheduled tylenol, Gabapentin, methocarbamol, Lidocaine Patch, and PRN oxycodone Frequent falls 03/23/2025 07/03/2025 Sacroiliac pain 12/26/2024 07/03/2025 Assessment & Plan (12/29/2024 2:49 PM CDT): --admitted 12/26 for SI pain, left spinal kwame fracture noted on imaging (s/pT10-P PSF @ OSH) --no immediate surgical interventions at this time, medical optimization; will need to hold plavix/asa 1 week prior and 2 weeks after surgery --pain management performed left SI joint injection 12/30 --cardiology consult for cardiac risk assessment --DEXA scan completed --MRI vs CT Myelogram Inability to walk 12/20/2024 01/25/2025 SOB (shortness of breath) 12/14/2024 Assessment & Plan (03/01/2025 6:56 PM CDT): Chronic, patient following with pulmonology. Currently using oxygen 3 liters per nasal canula at night. Influenza A 10/19/2024 01/25/2025 Assessment & Plan (10/19/2024 2:19 PM HEEL SORTER): Will start Tamiflu 75 mg twice a day for 5 days C. difficile colitis 09/28/2024 025 Overview (09/28/2024): Ama is a 74-year-old female with hypertension hypothyroidism, fibromyalgia, history of CVA, and hypercholesterolemia who was admitted to the hospital of 09/05/[address] scan of the abdomen and pelvis were negative for any acute abdominal or pelvic process. She had severe atrophy of left kidney, multilevel degeneration and change in the spine with postsurgical changes of the lower thoracic spine. She tested positive for C diff and norovirus. She was started on IV fluids and antiemetics. She was also started on fidaxomicin which she tolerated well. Insurance did not approve this so she was switched to oral vancomycin. She developed multiple side effects with the vancomycin. She was restarted on the oral fidaxomicin. She was discharged on fidaxomicin for 16 additional doses. Assessment & Plan (09/28/2024 11:21 AM HEEL SORTER): Improved after treatment fidaxomicin. Dehydration 09/07/2024 09/28/2024 Acute infectious diarrhea 09/06/2024 Nausea vomiting and diarrhea 09/06/2024 09/28/2024 Acute pain of left knee 06/27/202401/12 Primary insomnia 06/07/2024 06/07/2024 Chest pain 11/30/2023 01/25/2025 Precordial pain 11/28/2023 03/01/2025 Infiltrate noted on imaging study 05/29/2023 09/28/2024 Pneumonia of both lower lobe s due to infectious organism 05/28/2023 09/28/2024 Cervical spinal cord compression 06/29/2022 06/07/2024 Radicular pain of thoracic region 05/15/2022 07/03/2025 Assessment & Plan (03/01/2025 6:59 PM CDT): Chronic, worsening. Patient following with neurosurgery and pain management. Currently taking Percocet 5/325 mg TID PRN, Flexeril 5 mg TID PRN, and Tylenol 650 mg TID PRN. Chronic back pain, unspecifi ed back location, unspecified back pain laterality 05/12/2022 025 Assessment & Plan (03/01/2025 6:58 PM CDT): Chronic, worsening. Patient following with neurosurgery and pain management. Currently taking Percocet 5/325 mg TID PRN, Flexeril 5 mg TID PRN, and Tylenol 650 mg TID PRN. Assessment & Plan (01/25/2025 3:00 PM CDT): Chronic, worsening. Patient following with neurosurgery and pain management. Currently taking Percocet 5/325 mg TID PRN, Flexeril 5 mg TID PRN, and Tylenol 650 mg TID PRN. 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 Multiple allergies. Will try Augmentin 875 mg twice a day for 7 days. Given history of ESBL would send for urine culture. Would start Florastor twice day Recurrent UTI 11/12/2021 09/28/2024 Nasal mass 05/30/2021 03/01/2025 Atrial fibrillation 02/14/2018 06/07/20 Assessment & Plan (02/14/2018 3:06 PM CDT): Apixiban Tikosyn Telemetry Pain in right hip 12/03/2016 03/01/2025 Pain in left shoulder 08/03/20162024 Pain of foot 12/07/2012 03/01/2025 Herniation of intervertebral disc of cervical region 11/16/2012 07/03/2025 Pulmonary hypertension 02/02/200906/07 Encounters Date Type Department Care Team Description 07/26/2025 11:00 AM HEEL SORTER Office Visit [facility] Medicine Neurosurgery [address] [place] [address] Medical Office Building [address] [place] [address] José Miranda MD Cervical disc disorder with myelopathy of mid-cervical region (Primary Dx) 07/26/2025 10:30 AM HEEL SORTER - 07/26/2025 11:59 PM HEEL SORTER Hospital Encounter [facility] [address] [place] [address] [address] [place] [address] Cervical disc disorder with myelopathy of mid-cervical region Discharge Disposition: Discharge to home or self care 07/25/2025 Telephone [facility] [address] [place] [phone] Elia Castillo, [facility] 07/17/2025 Telephone [facility] Medicine Infectious Diseases [address] [place] [phone] Niesha Yusuf RMA 07/13/2025 Telephone [facility] [address] [place] [phone] Alize Heller, [facility] 07/12/2025 [facility] [address] [place] [phone] Crescencio Arteaga Jr., RN 07/12/2025 Telephone [facility] Medicine Infectious Diseases [address] [place] [phone] Khushi Dan CMA 07/10/2025 Orders Only [facility] Neurosurgery [address] [facility] 6th [place] [address] [place] [phone] José Miranda MD Cervical disc disorder with myelopathy of mid-cervical region (Primary Dx) 07/09/2025 9:38 AM CDT - 07/09/2025 3:59 PM CDT Emergency [facility] Emergency Department [address] [place] [address] Constipation, unspecified constipation type (Primary Dx) Discharge Disposition: Discharge to home or self care 07/07/[address] [facility] Medical [facility] Post Acute Care [address] [facility] [address] [place] [address] Natalya Estrella [place] 07/07/2025 Orders Only [facility] Medicine Neurosurgery [address] [facility] Medical Office Building 4 [address] [place] [address] José Miranda MD Cervical disc disorder with myelopathy of mid-cervical region (Primary Dx) 07/07/2025 Telephone [facility] [address] [place] [phone] Elia Castillo [facility] 07/07/2025 NH/SNF Visit [facility] Medical [facility] Post Acute Care [address] [phone] Maeve Dixon NP Spinal cord compression due to degenerative disorder of spinal column (Primary Dx); Infection and inflammatory reaction due to internal fixation device of spine, initial encounter; Weakness; Urinary retention; Female cystocele 07/06/2025 NH/SNF Visit [facility] Medical Group Post Acute Care [address] [phone] Maeve Dixon NP Drug-induced constipation (Primary Dx); Spinal cord compression due to degenerative disorder of spinal column; Acute blood loss anemia; Urinary retention; Female cystocele 07/06/[address] [facility] Medical [address] [phone] Maeve Dixon NP 07/05/2025 NH/SNF Visit [facility] Medical Group Post Acute Care [address] [phone] Winston Morrison MD Infection and inflammatory reaction due to internal fixation device of spine, initial encounter (Primary Dx) 07/05/2025 Telephone [facility] Infectious Diseases [address] [place] [phone] Niesha Yusuf RMA 07/05/2025 Telephone [facility] [address] [place] [address] Timbrook, Elia, RPh 07/05/2025 Orders Only [facility] [address] [place] [address] Timbrook, Elia, RPh Infection and inflammatory reaction due to internal fixation device of spine, initial encounter (Primary Dx) 07/04/[address] [facility] Medical Group Post Acute Care of [address] [address] Winston Morrison MD 07/03/2025 NH/SNF Visit [facility] Medical Group Post Acute Care of [address] [phone] Maeve Dixon NP Infection and inflammatory reaction due to internal fixation device of spine, initial encounter (Primary Dx); Spinal cord compression due to degenerative disorder of spinal column; Weakness; Acute blood loss anemia; Urinary retention; Female cystocele 07/02/[address] [facility] Medical Group Post Acute Care of [address] [phone] Maeve Dixon, MIR 06/30/2025 Telephone [facility] [address] [place] [address] Timbrook, Elia, RPh 06/30/2025 NH/SNF Visit [facility] Medical Group Post Acute Care of [address] [phone] Winston Morrison MD Infection and inflammatory reaction due to internal fixation device of spine, initial encounter (Primary Dx); Primary hypertension; Pacemaker; Coronary artery disease involving ass[place]ibo[place] and [place] coronary artery of ass[place] and [place] heart without angina pectoris; Moderate aortic stenosis; Acquired hypothyroidism; Idiopathic hypoparathyroidism; Gastroesophageal reflux disease, unspecified whether esophagitis present; Irritable bowel syndrome, unspecified type; Urinary incontinence, unspecified type; Acute blood loss anemia; Moderate episode of recurrent major depressive disorder (HCC); Spinal cord compression due to degenerative disorder of spinal column; Weakness; Edema of both lower extremities 06/30/[address] [facility] Medical Group Post Acute [address] [phone] Andra Castillo PA 06/29/2025 Orders Only [facility] Medicine Neurosurgery [address] [facility] 6th [place] [address] [place] [address] José Miranda MD S/P spinal fusion (Primary Dx) 06/22/2025 9:45 AM CDT Ancillary Procedure [facility] Medicine Vascular Lab IP [address] [facility] [address] [place] [address] 06/15/2025 7:30 AM CDT Anesthesia Event [facility] [address] [place] [address] Saumya Miles NP 06/14/2025 Documentation [facility] Medicine Scheduling [address] [place] [address] Elizabeth Avalos IP to OP 06/13/2025 7:30 AM CDT - 06/13/2025 8:05 PM CDT Surgery [facility] 1 [place] [phone] José Miranda MD FUSION SPINAL - POSTERIOR LUMBAR/THORACIC WITH INSTRUMENTATION Stage1: T3-pelvis posterior spinal fusion, L4 and T11 pedicle subtraction osteotomy 06/13/2025 7:30 AM CDT Anesthesia Event [facility] [address] [place] [phone] Inna Russ DO Fizette, Marsha Ann, ANA 06/12/2025 5:03 PM CDT - 06/30/2025 9:24 AM CDT Hospital Encounter [facility] [address] [place] [address] José Miranda MD Postural kyphosis of thoracic region (Primary Dx); Spinal cord compression due to degenerative disorder of spinal column; Infection and inflammatory reaction due to internal fixation device of spine, initial encounter; Acute post-operative pain [G89.18] Discharge Disposition: Discharge to SNF 06/12/2025 9:49 AM CDT - 06/12/2025 11:59 PM CDT Hospital Encounter [facility] [address] [place] [address] Postural kyphosis of thoracic region Discharge Disposition: Discharge to home or self care 06/06/2025 Telephone [facility] [address] [place] [address] Zach Le RN 06/02/2025 11:45 AM CDT Pre-Admission Testing [facility] for Preoperative Assessment and [facility] ([facility]) [address] [place] [id number] Preoperative testing (Primary Dx) 06/01/2025 Orders Only [facility] Medicine Neurosurgery [address] [facility] Office Building [address] [place] [phone] José Miranda MD 05/26/[address] [facility] [address] [place] [address] 3rd [place] [address] Nataliya Lamb MD 05/26/2025 Results Follow-Up [facility] Medical Group Primary Care [address] [place] [address] [address] [place] [place] [address] Alvina Posey NP Screening Mammogram Bilateral W Rob[place] 05/25/2025 11:00 AM CDT Pre-Admission Testing [facility] for Preoperative Assessment [facility] [address] [place] [address] Preoperative testing (Primary Dx); Postural kyphosis of thoracic region; Elevated clotting time; Vitamin D deficiency 05/23/2025 4:00 PM CDT - 05/23/2025 11:59 PM CDT Hospital Encounter [facility] Medical Office Bldg 1 [facility] [address] [facility] [address] [place] [address] Screening mammogram for breast cancer Discharge Disposition: Discharge to home or self care 04/26/2025 1:15 PM CDT Office Visit [facility] Medicine Neurosurgery [address] [facility] Medical Office Building [address] [place] [address] Rangel Carvalho PA Cervical disc disorder with myelopathy of mid-cervical region (Primary Dx) from Last 3 Months Immunizations Immunization Administration Dates Next Due COVID-19 MRNA (MODERNA) .5 M L (50 MCG) VACCINE (12 YEARS AND UP) 06/22/2023 DT 01/04/2012 Influenza, Quadrivalent, Hig h Dose, Preservative Free, Intrr 06/22/2023,06/16/2022,05/13/2021 Influenza, Quadrivalent, Spl it, Intramuscular 06/14/2016 Influenza, Trivalent, Adjuva nted, Intramuscular 06/09/2024 Influenza, Trivalent, High D ose, Split, Preservative Free, Intramuscular 06/20/2017 Influenza, Trivalent, Preser vative Free, Intramuscular 07/10/2019 Influenza, Unspecified 06/07/2024(Deferr ed: Patient decision),08/06/2020 Moderna SARS-CoV-2 Monovalen t Vaccination (12+ YRS) 12/26/2021 Moderna Sars-cov-2 Bivalent Vaccine 50 Mcg/0.5 mL (12+ YRS)-Blue/Duncan 06/16/2022 Pneumococcal Conjugate Pcv20 11/25/2022 RSV Vaccine, Pref, Recombina nt, Subunit, Adjuvanted, PF, IM (Arexvy) 09/23/2023 RSV, Bivalent, Protein Subun it Rsvpref, Diluent (Abrysvo) 09/23/2023 ZOSTER Recombinant 10/09/2023,06/22/2023 Surgical History Surgery Date Site/Laterality Comments CARDIAC PACEMAKER PLACEMENT SPINE SURGERY CATARACT EXTRACTION PANNICULECTOMY TOE SURGERY SINUS SURGERY BREAST BIOPSY Bilateral THYROIDECTOMY, PARTIAL ADENOIDECTOMY APPENDECTOMY DILATION AND CURETTAGE OF UTERUS OVARIAN CYST REMOVAL WISDOM TOOTH EXTRACTION CENTRAL LINE PLACEMENT > 5 YEARS 05/21/2022 N/A DILATION AND CURETTAGE OF UTERUS multiple from [id number] REDUCTION MAMMAPLASTY 09/14/1988 - 09/13/1989 FOOT SURGERY 09/14/2011 - 09/13/2012 Left mortons neuroma CARDIAC PACEMAKER PLACEMENT 02/12/2018 CARDIAC CATHETERIZATION 05/06/2018 CHOLECYSTECTOMY 09/14/1971 - 09/13/1972 OVARIAN CYSTECTOMY 09/14/1969 - 09/13/1970 Right OTHER SURGICAL HISTORY 09/14/1967 - 09/13/1968 uterine prolapse; double uterus, uterus suspension CENTRAL LINE PLACEMENT > 5 YEARS 06/12/2025 N/A CENTRAL LINE PLACEMENT > 5 YEARS 06/20/2025 N/A Medical History Medical History Date Comments Allergic rhinitis Anxiety Heart disease Cataracts, bilateral Hypertension Seizures (HCC) GERD (gastroesophageal reflux disease) Thyroid disease Abnormal ECG Anemia Cervical disc disease Cervical stenosis (uterine cervix) Depression Dermatitis Gastric reflux History of transfusion Hyperthyroidism Hypothyroidism Chronic kidney disease Liver disease Disc disorder of lumbar region Lumbar stenosis Osteoarthritis Sinusitis TIA (transient ischemic attack) Double uterus, hemivagina, and renal agenesis sy ndrome Arrhythmia Asthma Heart murmur Stroke (HCC) Chronic pain disorder HL (hearing loss) Obesity Scoliosis Lung disease Family History Medical History Relation Name Comments Cancer Brother Family history of malignant neoplasm - (Added by TW Conv) Coronary artery disease Father Fami ly history of coronary artery disease - (Added by TW Conv) Hypertension Father Family history of hypertension - (Added by TW Conv) Hypertension Mother Family history of hypertension - (Added by TW Conv) Breast cancer Paternal Grandmother Anesthesia problems Neg Hx Relation Name Status Comments Brother Father Mother Paternal Grandmother Social History Tobacco Use Types Packs/Day Years Used Date Smoking Tobacco: Former Cigarettes 1 14 1 968 - 1981 Passive Smoke Exposure: Past Smokeless Tobacco: Never Tobacco Cessation:Counseling Given: Not Answered Alcohol Use Standard Drinks/Week Comments Not Currently [...] often do you attend chur ch or mosque services? Never 01/03/2025 Do you belong to any clubs o r organizations such as rastafari groups, unions, fraternal or athletic groups, or [...] place to sleep or slept in a longterm (including now)? No 11/30/2023 PHQ-9 Answer Date [...] any time in the past 12 m [facility], were you homeless or living in a longterm (including now)? No 01/03/2025 Social Connection and Isolation Panel Answer Date Recorded In a typical week, how many times do you talk on the phone with family, friends, or neighbors? More than three times a week 06/15/2025 How often do you get togethe r with friends or relatives? More than three times a week 06/15/2025 How often do you attend chur ch or mosque services? Never 06/15/2025 Do you belong to any clubs o r organizations such as rastafari groups, unions, fraternal or athletic groups, or [...] any time in the past 12 m [facility], were you homeless or living in a longterm (including now)? 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 Gender Identity Not on file Sexual Orientation Not on file Obstetrics History Para Term AB IAB SAB Ectopic Multiple Livin g Live Births 0 0 0 0 0 0 0 0 0 0 0 Last Filed Vital Signs Vital Sign Reading Time Taken Comments Blood Pressure 141/90 07/09/2025 3:00 PM CDT Pulse 81 07/09/2025 3:00 PM CDT Temperature 36.8 C (98.3 F) 07/09/2025 9:36 AM CDT Respiratory Rate 18 07/09/2025 2:00 PM CDT Oxygen Saturation 98% 07/09/2025 2:00 PM CDT Inhaled Oxygen Concentration - - Weight 104.9 kg (231 lb 4.2 oz) 07/09/2025 9:36 AM CDT Height 152.4 cm (5') 06/14/2025 3:27 AM CDT Body Mass Index 45.17 06/14/2025 3:27 AM CDT Plan of Treatment Health Maintenance Due Date Last Done Comments Hepatitis C Screening 1950 Hepatitis B Screening 1968 DTaP/Tdap/Td Vaccine (2 - Tdap) 01/03/2022 2 Covid-19 Vaccine (2024-2 6 season) 2025 06/09/2024, 06/22/2023, 06/16/2022, Additional history exists Depression Screening 03/01/2026 03/01/2025, 02/03/2025, 02/03/2025, Additional history exists Well Visit 65+ 03/01/2026 03/01/2025 Fall Risk Assessment 06/29/2026 06/29/2025, 03/01/2025, 09/29/2024, Additional history exists Osteoporosis Screening-Bone Density Scan 12/28/2026 12/28/2024, 02/17/2022, 01/24/2020, Additional history exists Colon Cancer Screening-CT Colonography Discontinued 10/14/2018 Colon Cancer Screening-Colonoscopy Discontinued 10/14/2018 Colon Cancer Screening-DNA Stool Discontinued 10/14/19 19 Colon Cancer Screening-FIT Discontinued 10/14/2018 Colon Cancer Screening-FOBT Discontinued 10/14/2018 Colon Cancer Screening-Sigmoidoscopy Discontinued 10/14/2018 Colorectal Cancer Screening Discontinued Pneumococcal vaccine 65+ Completed 11/25/2022, 09/2016 Zoster Vaccine Completed 10/09/2023, 06/22/2023 Influenza Vaccine Completed 05/22/2025, , 06/22/2023, Additional history exists Breast Cancer Screening-Mammogram Discontinued 025 Medical Devices Implanted Type Area Prototype Technician Device Identifier Shelf Expiration Date Model / Serial / Lot Right Atrial Lead: Medtronic 4076-45-02/12/2018 Implanted: 018 (Quantity not on file) Lead Heart Medtronic Cardiac Rhythm [facility] 4076-45 / / Right Ventricular Lead: Medtronic 4076-52-02/12/2018 Implanted: 018 (Quantity not on file) Lead Heart Medtronic Cardiac Rhythm [facility] 4076-52 / / Medtronic Pacemaker Sarah S Dr Maria [id number]/1/2018 Implanted: 018 (Quantity not on file) Pacemaker Chest Wall Medtronic Cardiac Rhythm [facility] [id number] / / Allosource Graft Bone Filler Cancellous Frzn Neutromedics 1-7lwr31cp Crushed [id number] - [id number] Implanted:Qty: 1 on 06/13/2025 by José Miranda MD at [facility] N/A: Spine Lumbar Allosource 03/01/2030 [id number] / / [id number] Allosource Crushed Fresh Frozen Cancellous 1-4mm Graft 15ml Bone [id number] - [id number] Implanted:Qty: 1 on 06/13/2025 by José Miranda MD at [facility] N/A: Spine Lumbar Allosource 09/28/2029 [id number] / / [id number] Musculoskeletal Transplant Graft Bone Fiber Cortical Kore Fiber 10cc Moldable [id number] - [id number] - [id number] Implanted:Qty: 1 on 06/13/2025 by José Miranda MD at [facility] N/A: Spine Lumbar Musculoskeletal Transplant [id number] 12/15/2027 [id number] / [id number] / [place] Spine Graft Bone Filler Gel Bio Dbm 10cc [id number] - [id number] Implanted:Qty: 1 on 06/13/2025 by José Miranda MD at [facility] N/A: Spine Lumbar [employer] Spine [id number] 09/26/2027 [id number] / / [id number] [place] Spine Graft Bone Filler Gel Bio Dbm 10cc [id number] - [id number] Implanted:Qty: 1 on 06/13/2025 by José Miranda MD at [facility] N/A: Spine Lumbar [place] Spine [id number] 09/26/2027 [id number] / / [id number] New Age [employer] Graft Bone Magnetos 10cc 1-2mm Granules In Moldable Putty 703-038-Us - [id number] Implanted:Qty: 1 on 06/13/2025 by José Miranda MD at [facility] N/A: Spine Lumbar [employer] [id number] 10/15/2029 703-038-U S / / [id number] [employer] Graft Bone Magnetos 10cc 1-2mm Granules In Moldable Putty 703-038-Us - [id number] Implanted:Qty: 1 on 06/13/2025 by José Miranda MD at [facility] N/A: Spine Lumbar [employer] [id number] 10/15/2029 703-038-U S / / [id number] [employer] Graft Bone Filler Prefilled Inj 12cc Putty [id number] - [id number] - [id number] Implanted:Qty: 1 on 06/13/2025 by José Miranda MD at [facility] N/A: Spine Lumbar Medtronic Inc [id number] 01/12/2027 [id number] / [id number] / Medtronic Inc Graft Bone Filler Prefilled Inj 12cc Putty [id number] - [id number] - [id number] Implanted:Qty: 1 on 06/13/2025 by José Miranda MD at [facility] N/A: Spine Lumbar Medtronic Inc [id number] 01/25/2027 [id number] / [id number] / Medtronic Inc Graft Bone Filler Prefilled Inj 12cc Putty D09361 - [id number] - [id number] Implanted:Qty: 1 on 06/13/2025 by José Miranda MD at [facility] N/A: Spine Lumbar Medtronic Inc [id number] 01/12/2027 [id number] / [id number] / Medtronic Inc Graft Bone Filler Prefilled Inj 12cc Putty E73048 - [id number] - [id number] Implanted:Qty: 1 on 06/13/2025 by José Miranda MD at [facility] N/A: Spine Lumbar Medtronic Inc [id number] 01/12/2027 Z50589 / [id number] / Medtronic Inc Kit Graft Bone Sponge Xlg Infuse 8cc Granules [id number] - [id number] Implanted:Qty: 1 on 06/13/2025 by José Miranda MD at [facility] N/A: Spine Lumbar Medtronic Inc [id number] 03/13/2027 [id number] / / [id number] Medtronic Inc Kit Graft Bone Sponge Xlg Infuse 8cc Granules 1303700 - [id number] Implanted:Qty: 1 on 06/13/2025 by José Miranda MD at [facility] N/A: Spine Lumbar Medtronic Inc [id number] 03/13/2027 [id number] / / [id number] K Smaio K Kwame Spinal Thoracolumbar Patient Specific Kheiron 6.0mm Titanium [id number] - [id number] Implanted:Qty: 4 on 06/13/2025 by José Miranda MD at [facility] SMAIO [id number] / / Smaio Screw Spinal Pedicle Post Solid Kheiron 5.5x35mm [id number] - [id number] Implanted:Qty: 4 on 06/13/2025 by José Miranda MD at [facility] N/A: Thoraci c-Sacra l Spine SMAIO [id number] / / Smaio Screw Spinal Pedicle Post Solid Kheiron 5.5x40mm [id number] - [id number] Implanted:Qty: 4 on 06/13/2025 by José Miranda MD at [facility] N/A: Thoraci c-Sacra l Spine SMAIO [id number] / / Smaio Screw Spinal Pedicle Post Solid Kheiron 5.5x45mm [id number] - [id number] Implanted:Qty: 6 on 06/13/2025 by José Miranda MD at [facility] N/A: Thoraci c-Sacra l Spine SMAIO [id number] / / Smaio Screw Spinal Pedicle Post Solid Kheiron 6.5x40mm [id number] - [id number] Implanted:Qty: 2 on 06/13/2025 by José Miranda MD at [facility] N/A: Thoraci c-Sacra l Spine SMAIO [id number] / / Smaio Screw Spinal Pedicle Post Solid Kheiron 6.5x40mm [id number] - [id number] Implanted:Qty: 2 on 06/13/2025 by José Miranda MD at [facility] N/A: Thoraci c-Sacra l Spine SMAIO [id number] / / Smaio Screw Spinal Pedicle Post Solid Kheiron 7.5x40mm [id number] - [id number] Implanted:Qty: 2 on 06/13/2025 by José Miranda MD at [facility] N/A: Thoraci c-Sacra l Spine SMAIO [id number] / / Smaio Screw Spinal Pedicle Post Solid Kheiron 7.5x50mm [id number] - [id number] Implanted:Qty: 2 on 06/13/2025 by José Miranda MD at [facility] N/A: Thoraci c-Sacra l Spine SMAIO [id number] / / Smaio Screw Spinal Pedicle Post Solid Kheiron 7.5x55mm [id number] - [id number] Implanted:Qty: 2 on 06/13/2025 by José Miranda MD at [facility] N/A: Thoraci c-Sacra l Spine SMAIO [id number] / / Smaio Screw Pedicle 8.5 L50mm [id number] - [id number] Implanted:Qty: 2 on 06/13/2025 by José Miranda MD at [facility] N/A: Thoraci c-Sacra l Spine SMAIO [id number] / / Smaio Nut Spinal Kheiron [id number] - [id number] Implanted:Qty: 24 on 06/13/2025 by José Miranda MD at [facility] N/A: Thoraci c-Sacra l Spine SMAIO [id number] / / Smaio Connector Spinal Derotation Offset Open Large Kheiron 7.5x70mm [id number] - [id number] Implanted:Qty: 1 on 06/13/2025 by José Miranda MD at [facility] N/A: Thoraci c-Sacra l Spine SMAIO [id number] / / Smaio Connector Spinal Post Kheiron 6.0mm [id number] - [id number] Implanted:Qty: 23 on 06/13/2025 by José Miranda MD at [facility] N/A: Thoraci c-Sacra l Spine SMAIO [id number] / / Smaio K Kwame Spinal Thoracolumbar Patient Specific Kheiron 6.0mm Titanium [id number] - [id number] Implanted:Qty: 4 on 06/13/2025 by José Miranda MD at [facility] N/A: Thoraci c-Sacra l Spine SMAIO [id number] / / Depuy Synthes Spine Screw Set Spine 1 Inner [id number] - [id number] Implanted:Qty: 2 on 06/13/2025 by José Miranda MD at [facility] N/A: Thoraci c-Sacra l Spine Depuy Synthes Spine [id number] / / Alphatec Spine Inc Crosslink Spinal 30mm Invictus Nonstrl 76099-055 - [id number] Implanted:Qty: 2 on 06/13/2025 by José Miranda MD at [facility] N/A: Thoraci c-Sacra l Spine ALPHATEC SPINE INC 45716-160 / / Alphatec Spine Inc Crosslink Spinal 5-6.50z55jh [place] Nonstrl 90466-46 - [id number] Implanted:Qty: 4 on 06/13/2025 by José Miranda MD at [facility] N/A: Thoraci c-Sacra l Spine ALPHATEC SPINE INC 01672-38 / / Abyrx Graft Bone Filler Hemasorb 3.5gm Putty Omar-351 - [id number] Implanted:Qty: 1 on 06/13/2025 by José Miranda MD at [facility] N/A: Spine Lumbar Abyrx [id number] 05/14/2027 OMAR-351 / / Alphatec Spine Inc Screw Bone 6.5x45mm Invictus Spine Gulshan Cancell Polyaxial 14399-509-535 - [id number] Implanted:Qty: 2 on 06/13/2025 by José Miranda MD at [facility] N/A: Thoraci c-Sacra l Spine ALPHATEC SPINE INC 02716-184 -045 / / Alphatec Spine Inc Screw Bone 7.5x45mm Invictus Spine Gulshan Cancell Polyaxial 25075-942-764 - [id number] Implanted:Qty: 2 on 06/13/2025 by José Miranda MD at [facility] N/A: Thoraci c-Sacra l Spine ALPHATEC SPINE INC 54925-305 -045 / / Alphatec Spine Inc Kwame Spinal 5.5x75mm [place] Chrome Nonstrl 04914-76-329 - [id number] Implanted:Qty: 2 on 06/13/2025 by José Miranda MD at [facility] N/A: Thoraci c-Sacra l Spine ALPHATEC SPINE INC 96584-57- 075 / / Alphatec Spine Inc Kwame Spinal 5.5x50mm Invictus [place] Chrome Nonstrl 55036-40-231 - [id number] Implanted:Qty: 2 on 06/13/2025 by José Miranda MD at [facility] N/A: Thoraci c-Sacra l Spine ALPHATEC SPINE INC 57874-39- 050 / / Implantech Sheeting Silastic Non Reinforced Alliedsil 0.48l4b5lg Silicone - [id number] Implanted:Qty: 1 on 06/13/2025 by José Miranda MD at [facility] N/A: Spine Lumbar Implantech [id number] 11/21/2029-40 / / [id number] Abyrx Graft Bone Filler Hemasorb 3.5gm Putty Omar-351 - [id number] Implanted:Qty: 1 on 06/13/2025 by José Miranda MD at [facility] N/A: Spine Lumbar Abyrx [id number] 05/14/2027 OMAR-351 / / Medtronic Inc Kit Graft Bone Sponge Xlg Infuse 8cc Granules [id number] - [id number] Implanted:Qty: 1 on 06/13/2025 by José Miranda MD at [facility] N/A: Spine Lumbar Medtronic Inc [id number] 03/13/2027 [id number] / / [id number] Allosource Graft Bone Canc 90ml Crushed Chip Frozen [id number] - [id number] - [id number] Implanted:Qty: 1 on 06/13/2025 by José Miranda MD at [facility] N/A: Spine Lumbar Allosource 05/12/2030 [id number] / [id number] / [id number] Allosource Graft Bone Canc 90ml Crushed Chip Frozen [id number] - [id number] Implanted:Qty: 1 on 06/13/2025 by José Miranda MD at [facility] N/A: Spine Lumbar Allosource 04/15/2030 [id number] / / [id number] Procedures Procedure Name Priority Date/Time Associated Diagnosis Comments XR SCOLIOSIS AP LAT Schedule Routine, Read Routine (OP Routine) 07/26/2025 11:48 AM 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 Cervical disc disorder with myelopathy of mid-cervical region CT ABDOMEN PELVIS W CONTRAST ED 07/09/2025 11:00 AM CDT ECG 12-LEAD STAT 07/09/2025 9:50 AM CDT EGFR STAT 07/09/2025 9:50 AM CDT URINALYSIS, MICROSCOPIC ONLY STAT 07/09/2025 9:50 AM CDT DIFFERENTIAL AUTO STAT 07/09/2025 9:50 AM CDT LIPASE STAT 07/09/2025 9:50 AM CDT COMPREHENSIVE METABOLIC PANEL STAT 07/09/2025 9:50 AM CDT CBC WITH AUTO DIFFERENTIAL STAT 07/09/2025 9:50 AM CDT URINE CULTURE STAT 07/09/2025 9:50 AM CDT URINALYSIS AND REFLEX TO MICROSCOPIC AND CULTURE STAT 07/09/2025 9:50 AM CDT EGFR Routine 07/06/2025 6:59 AM CDT COMPREHENSIVE METABOLIC PANEL Routine 07/06/2025 6:59 AM CDT DIFFERENTIAL AUTO Routine 07/06/2025 6:59 AM CDT CBC WITH AUTO DIFFERENTIAL Routine 07/06/2025 6:59 AM CDT POCT GLUCOSE DEVICE Routine 06/29/2025 7:57 PM CDT POCT GLUCOSE DEVICE Routine 06/29/2025 5:45 PM CDT POCT GLUCOSE DEVICE Routine 06/29/2025 1:49 PM CDT POCT GLUCOSE DEVICE Routine 06/29/2025 7:58 AM CDT POCT GLUCOSE DEVICE Routine 06/28/2025 8:22 PM CDT EGFR Routine 06/28/2025 8:11 PM CDT CBC WITHOUT DIFFERENTIAL Routine 025 8:11 PM CDT BASIC METABOLIC PANEL Routine 06/28/2025 8:11 PM CDT PHOSPHORUS Routine 06/28/2025 8:11 PM CDT POCT GLUCOSE DEVICE Routine 06/28/2025 7:37 PM CDT POCT GLUCOSE DEVICE Routine 06/28/2025 6:28 PM CDT POCT GLUCOSE DEVICE Routine 06/28/2025 1:17 PM CDT POCT GLUCOSE DEVICE Routine 06/28/2025 8:21 AM CDT TROPONIN I HIGH-SENSITIVITY 6-HOUR Timed 06/28/2025 1:10 AM CDT TROPONIN I HIGH-SENSITIVITY 4-HOUR Timed 06/27/2025 11:53 PM CDT EGFR Routine 06/27/2025 9:02 PM CDT TROPONIN I HIGH-SENSITIVITY 2-HOUR Timed 06/27/2025 9:02 PM CDT CBC WITHOUT DIFFERENTIAL Routine 025 9:02 PM CDT BASIC METABOLIC PANEL Routine 06/27/2025 9:02 PM CDT PHOSPHORUS Routine 06/27/2025 9:02 PM CDT POCT GLUCOSE DEVICE Routine 06/27/2025 8:22 PM CDT XR CHEST 1 VIEW ED Urgent/IP Urgent 06/27/2025 6:35 PM CDT EGFR STAT 06/27/2025 5:42 PM CDT TROPONIN I HIGH-SENSITIVITY SERIES (BASELINE, 2HR, 4HR, 6HR) STAT 06/27/2025 5:42 PM CDT CBC WITHOUT DIFFERENTIAL STAT 025 5:42 PM CDT BASIC METABOLIC PANEL STAT 06/27/2025 5:42 PM CDT POCT GLUCOSE DEVICE Routine 06/27/2025 5:34 PM CDT POCT GLUCOSE DEVICE Routine 06/27/2025 11:32 AM CDT POCT GLUCOSE DEVICE Routine 06/27/2025 8:23 AM CDT POCT GLUCOSE DEVICE Routine 06/26/2025 8:10 PM CDT EGFR Routine 06/26/2025 8:07 PM CDT CBC WITHOUT DIFFERENTIAL Routine 025 8:07 PM CDT BASIC METABOLIC PANEL Routine 06/26/2025 8:07 PM CDT PHOSPHORUS Routine 06/26/2025 8:07 PM CDT POCT GLUCOSE DEVICE Routine 06/26/2025 6:04 PM CDT POCT GLUCOSE DEVICE Routine 06/26/2025 11:44 AM CDT POCT GLUCOSE DEVICE Routine 06/26/2025 8:26 AM CDT EGFR Timed 06/25/2025 8:07 PM CDT CBC WITHOUT DIFFERENTIAL Routine 025 8:07 PM CDT PHOSPHORUS Routine 06/25/2025 8:07 PM CDT COMPREHENSIVE METABOLIC PANEL Timed 06/25/2025 8:07 PM CDT POCT GLUCOSE DEVICE Routine 06/25/2025 8:03 PM CDT POCT GLUCOSE DEVICE Routine 06/25/2025 5:17 PM CDT POCT GLUCOSE DEVICE Routine 06/25/2025 12:33 PM CDT POCT GLUCOSE DEVICE Routine 06/25/2025 8:19 AM CDT EGFR Routine 06/24/2025 8:40 PM CDT CBC WITHOUT DIFFERENTIAL Routine 025 8:40 PM CDT BASIC METABOLIC PANEL Routine 06/24/2025 8:40 PM CDT PHOSPHORUS Routine 06/24/2025 8:40 PM CDT POCT GLUCOSE DEVICE Routine 06/24/2025 8:24 PM CDT POCT GLUCOSE DEVICE Routine 06/24/2025 5:38 PM CDT POCT GLUCOSE DEVICE Routine 06/24/2025 12:28 PM CDT POCT GLUCOSE DEVICE Routine 06/24/2025 8:22 AM CDT EGFR Routine 06/23/2025 8:50 PM CDT CBC WITHOUT DIFFERENTIAL Routine 025 8:50 PM CDT BASIC METABOLIC PANEL Routine 06/23/2025 8:50 PM CDT PHOSPHORUS Routine 06/23/2025 8:50 PM CDT POCT GLUCOSE DEVICE Routine 06/23/2025 8:43 PM CDT POCT GLUCOSE DEVICE Routine 06/23/2025 5:00 PM CDT XR SCOLIOSIS AP LAT IP Routine 06/23/2025 3:44 PM CDT POCT GLUCOSE DEVICE Routine 06/23/2025 1:13 PM CDT POCT GLUCOSE DEVICE Routine 06/23/2025 8:33 AM CDT EGFR Routine 06/22/2025 11:49 PM CDT CBC WITHOUT DIFFERENTIAL Routine 025 11:49 PM CDT BASIC METABOLIC PANEL Routine 06/22/2025 11:49 PM CDT PHOSPHORUS Routine 06/22/2025 11:49 PM CDT POCT GLUCOSE DEVICE Routine 06/22/2025 8:32 PM CDT POCT GLUCOSE DEVICE Routine 06/22/2025 5:[address] ABDOMEN PELVIS W CONTRAST ED Urgent/IP Urgent 06/22/2025 1:53 PM CDT POCT GLUCOSE DEVICE Routine 06/22/2025 12:08 PM CDT US VEIN DUPLEX LOWER EXTREMITY BILATERAL COMPLETE ED Urgent/IP Urgent 06/22/2025 11:24 AM CDT POCT GLUCOSE DEVICE Routine 06/22/2025 7:33 AM CDT EGFR Routine 06/21/2025 8:29 PM CDT CBC WITHOUT DIFFERENTIAL Routine 025 8:29 PM CDT BASIC METABOLIC PANEL Routine 06/21/2025 8:29 PM CDT PHOSPHORUS Routine 06/21/2025 8:29 PM CDT POCT GLUCOSE DEVICE Routine 06/21/2025 8:18 PM CDT POCT GLUCOSE DEVICE Routine 06/21/2025 4:57 PM CDT POCT GLUCOSE DEVICE Routine 06/21/2025 11:40 AM CDT POCT GLUCOSE DEVICE Routine 06/21/2025 7:55 AM CDT POCT GLUCOSE DEVICE Routine 06/20/2025 9:21 PM CDT EGFR Routine 06/20/2025 9:16 PM CDT CBC WITHOUT DIFFERENTIAL Routine 025 9:16 PM CDT BASIC METABOLIC PANEL Routine 06/20/2025 9:16 PM CDT PHOSPHORUS Routine 06/20/2025 9:16 PM CDT POCT GLUCOSE DEVICE Routine 06/20/2025 6:13 PM CDT XR ABDOMEN AP 1 VIEW IP Routine 06/20/2025 1:13 PM CDT POCT GLUCOSE DEVICE Routine 06/20/2025 12:17 PM CDT CENTRAL LINE PLACEMENT > 5 YEARS IP Routine 06/20/2025 10:27 AM CDT POCT GLUCOSE DEVICE Routine 06/20/2025 7:50 AM CDT EGFR Routine 06/19/2025 9:16 PM CDT CBC WITHOUT DIFFERENTIAL Routine 025 9:16 PM CDT BASIC METABOLIC PANEL Routine 06/19/2025 9:16 PM CDT PHOSPHORUS Routine 06/19/2025 9:16 PM CDT MAGNESIUM Routine 06/19/2025 9:16 PM CDT POCT GLUCOSE DEVICE Routine 06/19/2025 8:18 PM CDT POCT GLUCOSE DEVICE Routine 06/19/2025 5:24 PM CDT POCT GLUCOSE DEVICE Routine 06/19/2025 11:25 AM CDT POCT GLUCOSE DEVICE Routine 06/19/2025 7:30 AM CDT COMPREHENSIVE METABOLIC PANEL Routine 06/19/2025 12:21 AM CDT VANCOMYCIN LEVEL TROUGH Routine 06/19/20 12:21 AM CDT EGFR Routine 06/19/2025 12:21 AM CDT CBC WITHOUT DIFFERENTIAL Routine 025 12:21 AM CDT PHOSPHORUS Routine 06/19/2025 12:21 AM CDT MAGNESIUM Routine 06/19/2025 12:21 AM CDT POCT GLUCOSE DEVICE Routine 06/18/2025 9:22 PM CDT TROPONIN I HIGH-SENSITIVITY 6-HOUR Timed 06/18/2025 6:34 PM CDT POCT GLUCOSE DEVICE Routine 06/18/2025 6:23 PM CDT TROPONIN I HIGH-SENSITIVITY 4-HOUR Timed 06/18/2025 4:31 PM CDT CALCIUM, IONIZED STAT 06/18/2025 2:51 PM CDT TROPONIN I HIGH-SENSITIVITY 2-HOUR Timed 06/18/2025 2:26 PM CDT XR CHEST 1 VIEW ED Urgent/IP Urgent 06/18/2025 1:30 PM CDT POCT GLUCOSE DEVICE Routine 06/18/2025 1:02 PM CDT EGFR STAT 06/18/2025 12:44 PM CDT APTT Timed 06/18/2025 12:44 PM CDT COMPREHENSIVE METABOLIC PANEL STAT 06/18/2025 12:44 PM CDT CBC WITHOUT DIFFERENTIAL Timed 025 12:44 PM CDT LACTATE Routine 06/18/2025 12:44 PM CDT TROPONIN I HIGH-SENSITIVITY SERIES (BASELINE, 2HR, 4HR, 6HR) STAT 06/18/2025 12:34 PM CDT POCT GLUCOSE DEVICE Routine 06/18/2025 9:30 AM CDT CALCIUM, IONIZED Routine 06/18/2025 6:41 AM CDT EGFR Routine 06/18/2025 12:01 AM CDT CBC WITHOUT DIFFERENTIAL Routine 025 12:01 AM CDT BASIC METABOLIC PANEL Routine 06/18/2025 12:01 AM CDT PHOSPHORUS Routine 06/18/2025 12:01 AM CDT MAGNESIUM Routine 06/18/2025 12:01 AM CDT POCT GLUCOSE DEVICE Routine 06/17/2025 10:42 PM CDT POCT GLUCOSE DEVICE Routine 06/17/2025 5:23 PM CDT POCT GLUCOSE DEVICE Routine 06/17/2025 11:41 AM CDT POCT GLUCOSE DEVICE Routine 06/17/2025 8:16 AM CDT EGFR Routine 06/16/2025 11:10 PM CDT CBC WITHOUT DIFFERENTIAL Routine 025 11:10 PM CDT BASIC METABOLIC PANEL Routine 06/16/2025 11:10 PM CDT PHOSPHORUS Routine 06/16/2025 11:10 PM CDT MAGNESIUM Routine 06/16/2025 11:10 PM CDT POCT GLUCOSE DEVICE Routine 06/16/2025 8:25 PM CDT POCT GLUCOSE DEVICE Routine 06/16/2025 5:26 PM CDT POCT GLUCOSE DEVICE Routine 06/16/2025 4:09 PM CDT POCT GLUCOSE DEVICE Routine 06/16/2025 11:14 AM CDT POCT GLUCOSE DEVICE Routine 06/16/2025 9:50 AM CDT POCT GLUCOSE DEVICE Routine 06/16/2025 9:15 AM CDT POCT GLUCOSE DEVICE Routine 06/16/2025 9:01 AM CDT POCT GLUCOSE DEVICE Routine 06/16/2025 8:38 AM CDT POCT GLUCOSE DEVICE Routine 06/16/2025 7:40 AM CDT CBC WITHOUT DIFFERENTIAL STAT 025 2:46 AM CDT TRANSFUSE PLATELETS Timed 06/16/2025 12:34 AM CDT VANCOMYCIN LEVEL TROUGH Timed 06/16/20 25 12:11 AM CDT TRANSFUSE RED BLOOD CELLS Timed 06/16/2025 12:10 AM CDT PREPARE PLATELETS Timed 06/15/2025 11:11 PM CDT HEPATIC FUNCTION PANEL Routine 8:09 PM CDT EGFR Routine 06/15/2025 8:09 PM CDT BASIC METABOLIC PANEL Routine 06/15/2025 8:09 PM CDT CREATINE KINASE (CK), TOTAL Routine 06/15/2025 8:09 PM CDT PHOSPHORUS Routine 06/15/2025 8:09 PM CDT MAGNESIUM Routine 06/15/2025 8:09 PM CDT CBC WITHOUT DIFFERENTIAL Timed 025 8:09 PM CDT POCT GLUCOSE DEVICE Routine 06/15/2025 8:07 PM CDT TRANSFUSE RED BLOOD CELLS Timed 06/15/2025 5:32 PM CDT PREPARE RBC Timed 06/15/2025 4:16 PM CDT POCT GLUCOSE DEVICE Routine 06/15/2025 4:03 PM CDT POCT GLUCOSE DEVICE Routine 06/15/2025 11:25 AM CDT CBC WITHOUT DIFFERENTIAL Timed 025 11:09 AM CDT ECG 12-LEAD Routine 06/15/2025 8:14 AM CDT TRANSFUSE PLATELETS Timed 06/15/2025 8:11 AM CDT POCT GLUCOSE DEVICE Routine 06/15/2025 8:10 AM CDT TROPONIN I HIGH-SENSITIVITY SERIES (BASELINE, 2HR, 4HR, 6HR) Routine 06/15/2025 8:08 AM CDT PREPARE RBC Timed 06/15/2025 5:00 AM CDT PREPARE PLATELETS Timed 06/15/2025 4:35 AM CDT CBC WITH AUTO DIFFERENTIAL STAT 06/15/2025 4:20 AM CDT DIFFERENTIAL AUTO STAT 06/15/2025 4:20 AM CDT CBC WITHOUT DIFFERENTIAL STAT 025 4:20 AM CDT POCT GLUCOSE DEVICE Routine 06/15/2025 4:19 AM CDT ANTIBODY IDENTIFICATION STAT 06/15/20 3:43 AM CDT TYPE AND SCREEN STAT 06/15/2025 2:29 AM CDT TRANSFUSE PLATELETS Timed 06/15/2025 1:53 AM CDT CALCIUM, IONIZED STAT 06/15/2025 12:37 AM CDT TRANSFUSE RED BLOOD CELLS Timed 06/15/2025 12:18 AM CDT POCT GLUCOSE DEVICE Routine 06/14/2025 11:42 PM CDT APTT STAT 06/14/2025 11:39 PM CDT PROTIME-INR STAT 06/14/2025 11:39 PM CDT TROPONIN I HIGH-SENSITIVITY Timed 06/14/2025 11:39 PM CDT PREPARE PLATELETS Timed 06/14/2025 10:51 PM CDT PREPARE RBC Timed 06/14/2025 10:50 PM CDT EGFR Routine 06/14/2025 8:22 PM CDT BASIC METABOLIC PANEL Routine 06/14/2025 8:22 PM CDT CREATINE KINASE (CK), TOTAL Routine 06/14/2025 8:22 PM CDT CBC WITHOUT DIFFERENTIAL Timed 025 8:22 PM CDT PHOSPHORUS Routine 06/14/2025 8:22 PM CDT MAGNESIUM Routine 06/14/2025 8:22 PM CDT POCT GLUCOSE DEVICE Routine 06/14/2025 8:21 PM CDT ECG 12-LEAD Routine 06/14/2025 6:07 PM CDT TROPONIN I HIGH-SENSITIVITY Timed 06/14/2025 5:46 PM CDT POCT GLUCOSE DEVICE Routine 06/14/2025 3:54 PM CDT TROPONIN I HIGH-SENSITIVITY Timed 06/14/2025 12:52 PM CDT POCT GLUCOSE DEVICE Routine 06/14/2025 12:51 PM CDT ECG 12-LEAD Routine 06/14/2025 12:47 PM CDT POCT GLUCOSE DEVICE Routine 06/14/2025 11:52 AM CDT EXTUBATION Routine 06/14/2025 9:17 AM CDT TROPONIN I HIGH-SENSITIVITY Routine 06/14/2025 8:35 AM CDT POCT GLUCOSE DEVICE Routine 06/14/2025 7:36 AM CDT ECG 12-LEAD Routine 06/14/2025 6:36 AM CDT EGFR Routine 06/14/2025 5:03 AM CDT CREATINE KINASE (CK), TOTAL Routine 06/14/2025 5:03 AM CDT CBC WITHOUT DIFFERENTIAL STAT 025 5:03 AM CDT BASIC METABOLIC PANEL Routine 06/14/2025 5:03 AM CDT TROPONIN I HIGH-SENSITIVITY 6-HOUR Timed 06/14/2025 4:38 AM CDT POCT GLUCOSE DEVICE Routine 06/14/2025 4:31 AM CDT ECG 12-LEAD Routine 06/14/2025 4:20 AM CDT XR ABDOMEN AP 1 VIEW ED Urgent/IP Urgent 06/14/2025 4:06 AM CDT XR ABDOMEN AP 1 VIEW ED Urgent/IP Urgent 06/14/2025 3:09 AM CDT TROPONIN I HIGH-SENSITIVITY 4-HOUR Routine 06/14/2025 2:44 AM CDT TRANSFUSE PLATELETS Timed 06/14/2025 2:35 AM CDT BLOOD CULTURE STAT 06/14/2025 1:52 AM CDT BLOOD CULTURE STAT 06/14/2025 1:52 AM CDT CREATINE KINASE (CK), TOTAL Timed 06/14/2025 1:30 AM CDT LACTATE, WHOLE BLOOD Timed 06/14/2025 1:30 AM CDT URINALYSIS AND REFLEX TO MICROSCOPIC AND CULTURE STAT 06/14/2025 1:30 AM CDT CRITICAL RESULT CALLBACK CARDIO CHEM Timed 06/14/2025 12:38 AM CDT TROPONIN I HIGH-SENSITIVITY 2-HOUR Timed 06/14/2025 12:38 AM CDT POCT GLUCOSE DEVICE Routine 06/14/2025 12:17 AM CDT TRANSFUSE PLATELETS Timed 06/14/2025 12:10 AM CDT PREPARE PLATELETS Timed 06/13/2025 11:45 PM CDT ECG 12-LEAD Routine 06/13/2025 11:14 PM CDT XR CHEST 1 VIEW IP Routine 06/13/2025 11:01 PM CDT OXYHEMOGLOBIN, CENTRAL VENOUS STAT 06/13/2025 10:58 PM CDT TRANSFUSE RED BLOOD CELLS Timed 06/13/2025 10:52 PM CDT EGFR STAT 06/13/2025 10:41 PM CDT PHOSPHORUS STAT 06/13/2025 10:41 PM CDT MAGNESIUM STAT 06/13/2025 10:41 PM CDT COMPREHENSIVE METABOLIC PANEL STAT 06/13/2025 10:41 PM CDT CBC WITHOUT DIFFERENTIAL Routine 025 10:41 PM CDT THROMBOELASTOMETRY PANEL - INTRINSIC STAT 06/13/2025 10:38 PM CDT THROMBOELASTOMETRY PANEL - HEPARIN STAT 06/13/2025 10:38 PM CDT THROMBOELASTOMETRY PANEL - EXTRINSIC STAT 06/13/2025 10:38 PM CDT THROMBOELASTOMETRY PANEL - FIBRINOGEN STAT 06/13/2025 10:38 PM CDT THROMBOELASTOMETRY PANEL STAT 025 10:38 PM CDT BLOOD GAS, ARTERIAL STAT 06/13/2025 10:38 PM CDT CALCIUM, IONIZED STAT 06/13/2025 10:38 PM CDT LACTATE, WHOLE BLOOD STAT 06/13/2025 10:38 PM CDT CREATINE KINASE (CK), TOTAL STAT 06/13/2025 10:38 PM CDT TROPONIN I HIGH-SENSITIVITY SERIES (BASELINE, 2HR, 4HR, 6HR) STAT 06/13/2025 10:38 PM CDT POCT GLUCOSE DEVICE Routine 06/13/2025 10:19 PM CDT PROTIME-INR STAT 06/13/2025 8:46 PM CDT APTT STAT 06/13/2025 8:46 PM CDT POCT PARTIAL THROMBOPLASTIN TIME (PTT) Routine 06/13/2025 8:39 PM CDT POCT PROTHROMBIN TIME Routine 06/13/2025 8:38 PM CDT POC BLOOD GAS AND CHEMISTRIES, ARTERIAL Routine 06/13/2025 8:37 PM CDT TRANSFUSE PLASMA Timed 06/13/2025 7:59 PM CDT TRANSFUSE RED BLOOD CELLS Timed 06/13/2025 7:59 PM CDT POC BLOOD GAS AND CHEMISTRIES, ARTERIAL Routine 06/13/2025 7:56 PM CDT TRANSFUSE PLASMA Timed 06/13/2025 7:24 PM CDT XR SCOLIOSIS AP LAT IP Routine 06/13/2025 7:23 PM CDT POC BLOOD GAS AND CHEMISTRIES, ARTERIAL Routine 06/13/2025 7:08 PM CDT PREPARE RBC STAT 06/13/2025 6:53 PM CDT TRANSFUSE PLASMA Timed 06/13/2025 6:28 PM CDT TRANSFUSE RED BLOOD CELLS Timed 06/13/2025 6:26 PM CDT POC BLOOD GAS AND CHEMISTRIES, ARTERIAL Routine 06/13/2025 5:40 PM CDT POCT PROTHROMBIN TIME Routine 06/13/2025 5:38 PM CDT POCT PARTIAL THROMBOPLASTIN TIME (PTT) Routine 06/13/2025 5:38 PM CDT POCT PLATELET COUNT AND HEMATOCRIT Routine 06/13/2025 5:36 PM CDT TRANSFUSE CRYOPRECIPITATE (POOLED UNITS) Timed 06/13/2025 5:11 PM CDT TRANSFUSE RED BLOOD CELLS Timed 06/13/2025 5:04 PM CDT PREPARE CRYOPRECIPITATE (POOLED UNITS) STAT 06/13/2025 4:45 PM CDT TRANSFUSE RED BLOOD CELLS Timed 06/13/2025 4:35 PM CDT POC BLOOD GAS AND CHEMISTRIES, ARTERIAL Routine 06/13/2025 4:30 PM CDT TRANSFUSE PLASMA Timed 06/13/2025 4:20 PM CDT TRANSFUSE PLATELETS Timed 06/13/2025 3:55 PM CDT TRANSFUSE RED BLOOD CELLS Timed 06/13/2025 3:47 PM CDT POC BLOOD GAS AND CHEMISTRIES, ARTERIAL Routine 06/13/2025 3:12 PM CDT POCT PARTIAL THROMBOPLASTIN TIME (PTT) Routine 06/13/2025 3:11 PM CDT POCT PROTHROMBIN TIME Routine 06/13/2025 3:11 PM CDT POCT PLATELET COUNT AND HEMATOCRIT Routine 06/13/2025 3:08 PM CDT TRANSFUSE PLASMA Timed 06/13/2025 2:47 PM CDT POC BLOOD GAS AND CHEMISTRIES, ARTERIAL Routine 06/13/2025 2:16 PM CDT TRANSFUSE RED BLOOD CELLS Timed 06/13/2025 2:10 PM CDT TRANSFUSE RED BLOOD CELLS Timed 06/13/2025 1:38 PM CDT PREPARE PLASMA STAT 06/13/2025 1:23 PM CDT PREPARE RBC STAT 06/13/2025 1:21 PM CDT TRANSFUSE CRYOPRECIPITATE (POOLED UNITS) Timed 06/13/2025 12:46 PM CDT TRANSFUSE RED BLOOD CELLS Timed 06/13/2025 12:36 PM CDT TRANSFUSE PLASMA Timed 06/13/2025 12:31 PM CDT VT AN PROCEDURE PLACEHOLDER Routine 06/13/2025 12:26 PM CDT VT AN PROCEDURE PLACEHOLDER Routine 06/13/2025 12:24 PM CDT VT AN PROCEDURE PLACEHOLDER Routine 06/13/2025 12:23 PM CDT POC BLOOD GAS AND CHEMISTRIES, ARTERIAL Routine 06/13/2025 12:19 PM CDT POCT PROTHROMBIN TIME Routine 06/13/2025 12:17 PM CDT TRANSFUSE PLASMA Timed 06/13/2025 12:15 PM CDT TRANSFUSE RED BLOOD CELLS Timed 06/13/2025 12:15 PM CDT POCT PARTIAL THROMBOPLASTIN TIME (PTT) Routine 06/13/2025 12:14 PM CDT POCT PLATELET COUNT AND HEMATOCRIT Routine 06/13/2025 12:12 PM CDT TRANSFUSE PLASMA Timed 06/13/2025 11:53 AM CDT VT AN PROCEDURE PLACEHOLDER Routine 06/13/2025 11:36 AM CDT VT AN ELECTIVE ENDOTRACHEAL AIRWAY Routine 06/13/2025 11:36 AM CDT PREPARE RBC STAT 06/13/2025 11:30 AM CDT TRANSFUSE RED BLOOD CELLS Timed 06/13/2025 11:21 AM CDT POC BLOOD GAS AND CHEMISTRIES, ARTERIAL Routine 06/13/2025 10:47 AM CDT PREPARE PLASMA STAT 06/13/2025 10:36 AM CDT TRANSFUSE CRYOPRECIPITATE (POOLED UNITS) Timed 06/13/2025 10:23 AM CDT TRANSFUSE PLASMA Timed 06/13/2025 10:07 AM CDT TRANSFUSE RED BLOOD CELLS Timed 06/13/2025 10:06 AM CDT MYCOBACTERIOLOGY AFB CULTURE Routine 06/13/2025 10:03 AM CDT MYCOLOGY (FUNGAL) CULTURE Routine 06/13/2025 10:03 AM CDT AEROBIC AND ANAEROBIC CULTURE AND GRAM STAIN Routine 06/13/2025 10:03 AM CDT MYCOBACTERIOLOGY AFB CULTURE Routine 06/13/2025 9:50 AM CDT MYCOLOGY (FUNGAL) CULTURE Routine 06/13/2025 9:50 AM CDT AEROBIC AND ANAEROBIC CULTURE AND GRAM STAIN Routine 06/13/2025 9:50 AM CDT TRANSFUSE PLASMA Timed 06/13/2025 9:49 AM CDT TRANSFUSE RED BLOOD CELLS Timed 06/13/2025 9:37 AM CDT TRANSFUSE RED BLOOD CELLS Timed 06/13/2025 9:10 AM CDT POC BLOOD GAS AND CHEMISTRIES, ARTERIAL Routine 06/13/2025 8:16 AM CDT POCT PROTHROMBIN TIME Routine 06/13/2025 8:14 AM CDT POCT PARTIAL THROMBOPLASTIN TIME (PTT) Routine 06/13/2025 8:14 AM CDT POCT PLATELET COUNT AND HEMATOCRIT Routine 06/13/2025 8:13 AM CDT FREE FLAP - PLASTICS 06/13/2025 7:35 AM CDT Postural kyphosis of thoracic region SPINAL CORD MONITORING 7:35 AM CDT Postural kyphosis of thoracic region OSTEOTOMY POSTERIOR SPINAL 06/13/2025 7:35 AM CDT Postural kyphosis of thoracic region FUSION SPINAL - POSTERIOR LUMBAR/THORACIC WITH INSTRUMENTATION 06/13/2025 7:35 AM CDT Postural kyphosis of thoracic region PREPARE PLATELETS STAT 06/13/2025 7:17 AM CDT PREPARE CRYOPRECIPITATE (POOLED UNITS) STAT 06/13/2025 7:17 AM CDT PREPARE PLASMA STAT 06/13/2025 7:15 AM CDT PREPARE RBC STAT 06/13/2025 7:15 AM CDT XR SCOLIOSIS AP LAT ED Urgent/IP Urgent 06/13/2025 1:07 AM CDT URINALYSIS AND REFLEX TO MICROSCOPIC AND CULTURE STAT 06/12/2025 11:24 PM CDT XR CHEST 1 VIEW IP Routine 06/12/2025 8:49 PM CDT ANTIBODY IDENTIFICATION STAT 06/12/20 8:37 PM CDT EGFR STAT 06/12/2025 8:32 PM CDT MAGNESIUM STAT 06/12/2025 8:32 PM CDT PROTIME-INR STAT 06/12/2025 8:32 PM CDT APTT STAT 06/12/2025 8:32 PM CDT CBC WITHOUT DIFFERENTIAL STAT 025 8:32 PM CDT PHOSPHORUS STAT 06/12/2025 8:32 PM CDT COMPREHENSIVE METABOLIC PANEL STAT 06/12/2025 8:32 PM CDT TYPE AND SCREEN STAT 06/12/2025 7:02 PM CDT PREPARE RBC Timed 06/12/2025 6:43 PM CDT CENTRAL LINE PLACEMENT > 5 YEARS Schedule Routine, Read Routine (OP Routine) 06/12/2025 12:37 PM CDT Postural kyphosis of thoracic region PREPARE RBC Timed 06/05/2025 11:13 AM CDT ANTIBODY IDENTIFICATION Timed 06/02/20 25 1:43 PM CDT TYPE AND SCREEN 14 DAY Routine 11:25 AM CDT Preoperative testing ANTIBODY IDENTIFICATION Timed 05/25/20 3:43 PM CDT EGFR Routine 05/25/2025 1:33 PM CDT Postural kyphosis of thoracic region DIFFERENTIAL AUTO Routine 05/25/2025 1:33 PM CDT Postural kyphosis of thoracic region TYPE AND SCREEN 14 DAY Routine 1:33 PM CDT Preoperative testing CPAP APTT ALGORITHM Routine 05/25/2025 1:33 PM CDT Preoperative testing BASIC METABOLIC PANEL Routine 05/25/2025 1:33 PM CDT Postural kyphosis of thoracic region VITAMIN D 25 HYDROXY Routine 05/25/2025 1:33 PM CDT Postural kyphosis of thoracic region Vitamin D deficiency CBC WITH AUTO DIFFERENTIAL Routine 05/25/2025 1:33 PM CDT Postural kyphosis of thoracic region PROTIME-INR Routine 05/25/2025 1:33 PM CDT Postural kyphosis of thoracic region Elevated clotting time URINALYSIS AND REFLEX TO MICROSCOPIC AND CULTURE Routine 05/25/2025 1:33 PM CDT Postural kyphosis of thoracic region ECG 12-LEAD Routine 05/25/2025 11:59 AM CDT Preoperative testing SCREENING MAMMOGRAM BILATERAL W ROBB Schedule Routine, Read Routine (OP Routine) 05/23/2025 4:40 PM CDT Screening mammogram for breast cancer DEXA AXIAL SKELETON BONE DENSITY 1 OR MORE SITES ED Urgent/IP Urgent 12/28/2024 8:54 AM CDT COLONOSCOPY Routine 10/14/2018 12:40 PM HEEL SORTER SPINAL CORD MONITORING Spinal cord compression due to degenerative disorder of spinal column Case Notes [email or web address] via msg add [id number] for CPT code and Floor for po destination/ change to time sensitive - [facility] LAMINOPLASTY CERVICAL - POSTERIOR Spinal cord compression due to degenerative disorder of spinal column Case Notes [email or web address] via msg add [id number] for CPT code and Floor for po destination/ change to time sensitive - [facility] from Last 3 Months or Most Recently Relevant to Health Maintenance Results * XR Scoliosis Ap and Lateral (07/26/2025 11:48 AM HEEL SORTER) Anatomical Region Laterality Modality Spine N/A Computed Radiogr aphy 07/26/2025 1:11 PM HEEL SORTER Impressions 07/26/2025 1:11 PM HEEL SORTER 1. Unchanged revision posterior instrumented spinal fusion from T3 through the pelvis, combined anterior from L3-L5 Electronically signed by: Amaury Recinos MD Narrative 07/26/2025 1:11 PM HEEL SORTER EXAMINATION: XR SCOLIOSIS AP AND LATERAL HISTORY: s/p fusion COMPARISON: 06/23/2025 FINDINGS: Unchanged revision posterior instrumented fusion from T3 through the pelvis with pedicle subtraction osteotomy at T11 and L4, combined anterior from L3-L5. Hardware is intact. A left-sided pacemaker device is present. A right internal jugular [place] catheter is noted. A peritoneal dialysis catheter [...] device is present. A right internal jugular [place] catheter is noted. A peritoneal dialysis catheter is noted. Mildly exaggerated thoracic kyphosis. IMPRESSION: 1. Unchanged revision posterior instrumented spinal fusion from T3 through the pelvis, combined anterior from L3-L5 Electronically signed by: Amaury Recinos MD José Miranda MD IMG XR PROCEDURES Final Result * CT Abdomen Pelvis W Contrast (07/09/2025 11:00 AM CDT) Anatomical Region Laterality Modality Body N/A Computed Tomogra phy 07/09/2025 11:0 7 AM CDT Impressions 07/09/2025 11:07 AM CDT 1. Prominent rectal stool with more moderate stool throughout the colon. No evidence of bowel obstruction. 2. Trace bilateral pleural effusions, decreased in size. Electronically signed by: Javi Baxter M.D. Narrative 07/09/2025 11:07 AM CDT EXAMINATION: Computed tomography of the abdomen and pelvis with intravenous contrast HISTORY: Abdominal pain, acute, nonlocalized TECHNIQUE: Transaxial computed tomographic images of the abdomen and pelvis were obtained with intravenous contrast according to the standard protocol after the administration of 100 mL Opti-Ray 350 intravenous contrast. COMPARISON: CT abdomen and pelvis 06/22/2025 FINDINGS: Trace bilateral effusions are decreased in size from the prior exam. Lower lobe subsegmental atelectasis. Posterior instrumented fusion of the thoracolumbar spine. Posterior decompression from L2 to L5. Postsurgical paraspinal edema. No focal fluid collection. Normal size and contour the liver. No focal lesion. The spleen, pancreas, and adrenals are unremarkable. The gallbladder surgically absent. Unchanged mild biliary ductal dilatation likely due to cholecystectomy reservoir effect. The left kidney is surgically absent. Redemonstrated right renal cortical and parapelvic cysts. No right renal calculi or hydroureteronephrosis. The bladder is decompressed with a Mahmood catheter in place. No adnexal mass. Prominent rectal stool, with more moderate stool throughout the remainder of the colon. No bowel dilatation. Mild presacral edema is not significantly changed. Procedure Note Javi Baxter MD - 07/09/2025 EXAMINATION: Computed tomography of the abdomen and pelvis with intravenous contrast HISTORY: Abdominal pain, acute, nonlocalized TECHNIQUE: Transaxial computed tomographic images of the abdomen and pelvis were obtained with intravenous contrast according to the standard protocol after the administration of 100 mL Opti-Ray 350 intravenous contrast. COMPARISON: CT abdomen and pelvis 06/22/2025 FINDINGS: Trace bilateral effusions are decreased in size from the prior exam. Lower lobe subsegmental atelectasis. Posterior instrumented fusion of the thoracolumbar spine. Posterior decompression from L2 to L5. Postsurgical paraspinal edema. No focal fluid collection. Normal size and contour the liver. No focal lesion. The spleen, pancreas, and adrenals are unremarkable. The gallbladder surgically absent. Unchanged mild biliary ductal dilatation likely due to cholecystectomy reservoir effect. The left kidney is surgically absent. Redemonstrated right renal cortical and parapelvic cysts. No right renal calculi or hydroureteronephrosis. The bladder is decompressed with a Mahmood catheter in place. No adnexal mass. Prominent rectal stool, with more moderate stool throughout the remainder of the colon. No bowel dilatation. Mild presacral edema is not significantly changed. IMPRESSION: 1. Prominent rectal stool with more moderate stool throughout the colon. No evidence of bowel obstruction. 2. Trace bilateral pleural effusions, decreased in size. Electronically signed by: Javi Baxter M.D. Tamara LIM IMG CT PROCEDURES Final Result * ECG 12 lead (07/09/2025 9:50 AM CDT) Pathologist [facility] [place] Ventricular Rate EKG/Min [address] [facility] Atrial Rate 77 BPM [facility] VT-Interval (MSEC) 134 ms [facility] QRS-Interval (MSEC) 106 ms [facility] QT-Interval (MSEC) 384 ms [facility] QTc 434 ms [facility] P [place] 68 degrees [facility] R [place] -33 degrees [facility] T [place] 51 degrees [facility] Diagnosis Normal sinus rhythm Left axis deviation Septal infarct (cited on or before 14-JUN-2025) When compared with ECG of 15-JUN-2025 08:14, No LBBB. Confirmed by SULTAN PEARSON M.D. ([id number]) on 07/09/2025 10:51:16 AM [facility] 07/09/2025 9:50 AM CDT 07/09/2025 10:51 AM CDT us Nikko Renner DO ECG ORDERABLES Final Result [facility] * eGFR (07/09/2025 9:50 AM CDT) Pathologist [facility] [place] eGFR >90 >=60 mL/min/1. 73 m2 Comment: Interpretive Data Reference Interval Normal >/= 90 mL/min/1.73m2 Mildly decreased* 60 - 89 mL/min/1.73m2 Mildly to moderately decreased 45 - 59 mL/min/1.73m2 Moderately to severely decreased 30 - 44 mL/min/1.73m2 Severely decreased 15 - 29 mL/min/1.73m2 Kidney Failure < 15 mL/min/1.73m2 *Relative to young adult level Estimated glomerular filtration rate is determined by the 2020 CKD-EPI equation recommended by the National Kid[employer] (A Unifying Approach to GFR Estimation: Recommendations of the NKF-ASK Task Force on Reassessing the Inclusion of Race in Diagnosing Kidney Disease, JASN 2020). The CKD-EPI equation should not be used for patients with unstable renal function and has not been validated in children and those over 70. Current interpretive data was last reviewed 2021. Testing performed by: [address] [id number] Blood 07/09/2025 9:50 AM CDT 07/09/2025 9:56 AM CDT Nikko Renner DO LAB BLOOD ORDERABLES Final Res ult [facility] [id number] [facility] Department of Laboratories [place], [place] [id number] * (ABNORMAL) Differential, auto (07/09/2025 9:50 AM CDT) Neutrophil abs 4.54 1.50 - 6.50 K/cumm Comment:Testing performed by : [address] [address] Imm gran abs 0.03 0.00 - 0.10 K/cumm YANIQUE Comment:Testing performed by : [address] [address] Lymphocyte abs 0.64(L) 0.80 - 3.30 K/cumm YANIQUE Comment:Testing performed by : [address] [address] Monocyte abs 0.57 0.20 - 0.80 K/cumm YANIQUE Comment:Testing performed by : [address] [address] Eosinophil abs 0.24 0.00 - 0.50 K/cumm YANIQUE Comment:Testing performed by : [address] [address] Basophil abs 0.06 0.00 - 0.10 K/cumm YANIQUE Comment:Testing performed by : [address] [address] Neutrophil pct 74.7 % [facility] [place] Comment: Interpretive Data Percent cell count reference ranges are not reported, since discordance with absolute values may lead to misinterpretation of CBC data. Current Interpretive Data was last revised on 2017. Testing performed by: [address] [address] Imm gran pct 0.5 % [facility] Comment: Interpretive Data Percent cell count reference ranges are not reported, since discordance with absolute values may lead to misinterpretation of CBC data. Current Interpretive Data was last revised on 2017. Testing performed by: [address] [address] Lymphocyte pct 10.5 % [facility] Comment: Interpretive Data Percent cell count reference ranges are not reported, since discordance with absolute values may lead to misinterpretation of CBC data. Current Interpretive Data was last revised on 2017. Testing performed by: [address] [address] Monocyte pct 9.4 % [facility] Comment: Interpretive Data Percent cell count reference ranges are not reported, since discordance with absolute values may lead to misinterpretation of CBC data. Current Interpretive Data was last revised on 2017. Testing performed by: [address] [address] Eosinophil pct 3.9 % [facility] Comment: Interpretive Data Percent cell count reference ranges are not reported, since discordance with absolute values may lead to misinterpretation of CBC data. Current Interpretive Data was last revised on 2017. Testing performed by: [address] [address] Basophil pct 1.0 % [facility] [place] Comment: Interpretive Data Percent cell count reference ranges are not reported, since discordance with absolute values may lead to misinterpretation of CBC data. Current Interpretive Data was last revised on 2017. Testing performed by: [address] [id number] Blood 07/09/2025 9:50 AM CDT 07/09/2025 9:56 AM CDT us Nikko Renner DO LAB BLOOD ORDERABLES Final Res ult YANIQUE [address] [facility] [place] [address] * (ABNORMAL) Urinalysis reflex to microscopic and culture Urine (07/09/2025 9:50 AM CDT) Color, ur Yellow Yellow Comment:Testing performed by : [address] [address] Clarity, ur Clear Clear YANIQUE Comment:Testing performed by : [address] [address] Specific gravity, ur 1.016 1.003 - 1.030 YANIQUE Comment:Testing performed by : [address] [address] pH, urine 6.0 YANIQUE Comment: Interpretive Data U rine pH is affected by diet, medications, systemic acid-base disturbances, and renal tubular function. pH may affect urinary stone formation. For example, urine pH below 6.0 may help reduce the tendency for calcium phosphate stones and pH greater than 6.0 may reduce the tendency for uric acid stone formation. Source: [facility] [employer] Current Interpretive Data was last revised on 2017 Testing performed by: [address] [address] Protein, ur ql Negative Negative YANIQUE Comment:Testing performed by : [address] [address] Glucose, ur ql Negative Negative YANIQUE Comment:Testing performed by : [address] [address] Ketones, ur Negative Negative YANIQUE Comment:Testing performed by : [address] [address] Bilirubin, ur Negative Negative YANIQUE PATEL Comment:Testing performed by : [address] [address] Blood, ur Negative Negative YANIQUE PATEL Comment:Testing performed by : [address] [address] Urobilinogen, ur <2.0 <2.0 mg/dL YANIQUE PATEL Comment:Testing performed by : [address], [place]., [address] Nitrite, ur Negative Negative YANIQUE PATEL Comment:Testing performed by : [address] [address] Leukocyte esterase, ur 4+(A) Negative YANIQUE PATEL Comment:Testing performed by : [address] [address] UA reflex comment Reflex to microscopic UA will be performed. YANIQUE PATEL Comment:Testing performed by : [address] [address] Urine 07/09/2025 9:50 AM CDT 07/09/2025 9:56 AM CDT us Nikko Renner DO LAB MICROBIOLOGY - GENERAL ORD ERABLES Final Result YANIQUE PATEL [address] [facility] Department [place] [address] * (ABNORMAL) CBC with auto differential (07/09/2025 9:50 AM CDT) WBC 6.08 3.80 - 9.90 K/cumm Comment:Testing performed by : [address] [address] Hgb 10.5(L) 11.9 - 15.5 g/dL YANIQUE PATEL Comment:Testing performed by : [address] [address] Hct 34.6(L) 35.6 - 45.5 % YANIQUE PATEL Comment:Testing performed by : [address] [address] Plt 278 150 - 400 K/cumm YANIQUE PATEL Comment:Testing performed by : [address] [place] [address] MPV 9.5 9.1 - 12.3 fL YANIQUE PATEL Comment:Testing performed by : [address] [address] RBC 3.56(L) 3.90 - 5.20 M/cumm YANIQUE PATEL Comment:Testing performed by : [address] [address] MCV 97.2(H) 81.3 - 96.4 fL YANIQUE Comment:Testing performed by : [address] [address] MCH 29.5 27.1 - 33.3 pg YANIQUE PATEL Comment:Testing performed by : [address] [address] MCHC 30.3(L) 32.3 - 35.7 g/dL YANIQUE Comment:Testing performed by : [address] [address] RDW CV 17.0(H) 11.1 - 14.9 % YANIQUE Comment:Testing performed by : [address], [address] RDW SD 60.7(H) 35.7 - 48.1 fL YANIQUE Comment:Testing performed by : [address] [address] NRBC abs 0.00 0.00 - 0.01 K/cumm YANIQUE Comment:Testing performed by : [address], [address] Blood Venous blood specimen / Unknown 07/09/2025 9:50 AM CDT 07/09/2025 9:56 AM CDT us Nikko Renner DO LAB BLOOD ORDERABLES Final Res ult YANIQUE PATEL [address] [facility] Department [place] [address] * (ABNORMAL) Urinalysis, microscopic only (07/09/2025 9:50 AM CDT) WBC, ur 21-50(A) 0 - 5 /HPF Comment:Testing performed by : [facility], [address] [place] [address]., [address] RBC, ur 3-5(A) 0 - 2 /HPF YANIQUE PATEL Comment:Testing performed by : [address], [place]., [address] Mucous, ur Present(A) YANIQUE PATEL Comment:Testing performed by : [address], [place]., [address] Hyaline casts, ur 1-5 0 - 10 /LPF YANIQUE PATEL Comment:Testing performed by : [address] [address] Culture Reflex Comment Reflex to urine culture will be performed. YANIQUE Comment:Testing performed by : [address] [address] Urine 07/09/2025 9:50 AM CDT 07/09/2025 9:56 AM CDT us Nikko Renner DO LAB URINE ORDERABLES Final Res ult YANIQUE [facility] [facility] Department [place] [address] * Urine culture Urine (07/09/2025 9:50 AM CDT) Report Final Report: Less than 100,000 colonies/mL (clinically insignificant growth based on current clinical standards) Comment:Testing performed by : [facility], [address] [facility]., [address] Organism (CLINICALLY INSIGNIFICANT GROWTH YANIQUE Urine 07/09/2025 9:50 AM CDT 07/09/2025 1:25 PM CDT Narrative YANIQUE - 07/10/2025 2:32 PM CDT Urine culture reflexed based upon urinalysis results. Testing performed by [facility] ([phone]) us Nikko Renner DO LAB MICROBIOLOGY - GENERAL ORD ERABLES Final Result Performing Organization Address City/[facility]/ZIP Co de Phone Number [address] Department [place] [address] * Lipase (07/09/2025 9:50 AM CDT) Pathologist [facility] Lipase 13 10 - 99 Units/L Comment:Testing performed by : [address] [address] Blood Venous blood specimen / Unknown 07/09/2025 9:50 AM CDT 07/09/2025 9:56 AM CDT Nikko Renner DO LAB BLOOD ORDERABLES Final Res ult Performing Organization Address [facility] Co de Phone Number [address] [place] [address] * (ABNORMAL) Comprehensive metabolic panel (07/09/2025 9:50 AM CDT) Pathologist [facility] Sodium 141 135 - 145 mmol/L Comment:Testing performed by : [address] [address] Potassium, pl 4.2 3.3 - 4.9 mmol/L YANIQUE Comment:Testing performed by : [address] [address] Chloride 104 97 - 110 mmol/L YANIQUE Comment:Testing performed by : [address] [address] CO2 30 22 - 32 mmol/L YANIQUE Comment:Testing performed by : [address] [address] Anion gap 7 2 - 15 mmol/L YANIQUE Comment:Testing performed by : [address] [address] BUN 11 6 - 25 mg/dL YANIQUE Comment:Testing performed by : [address] [address] Creatinine 0.43(L) 0.60 - 1.10 mg/dL YANIQUE Comment:Testing performed by : [address] [place] [address] Glucose 93 70 - 199 mg/dL YANIQUE Comment: Interpretive Data Fasting glucose >/= 126 mg/dl is diagnostic for diabetes. Fasting is defined as no caloric intake for at least 8 hours. Fasting glucose between 100 mg/dl to 125 mg/dl is diagnostic of prediabetes. In a patient with classic symptoms of hyperglycemia or hyperglycemic crisis, a random glucose >/= 200 mg/dl is diagnostic for diabetes. In the absence of unequivocal hyperglycemia, results should be confirmed by repeat testing. The classification and Diagnosis of Diabetes Diabetes Care 2021; 46: S19-S40. Current interpretive data was last revised 2022. Testing performed by: [address] [address] Calcium 8.2(L) 8.5 - 10.3 mg/dL YNAIQUE Comment:Testing performed by : [address] [address] Bilirubin, total 0.3 0.1 - 1.2 mg/dL YANIQUE Comment:Testing performed by : [address] [address] Protein, pl 5.4(L) 6.5 - 8.5 g/dL YANIQUE Comment:Testing performed by : [address] [address] Albumin 3.2(L) 3.5 - 5.0 g/dL YANIQUE Comment:Testing performed by : [address] [address] Alk phos 133(H) 40 - 130 Units/L YANIQUE Comment:Testing performed by : [address] [address] ALT 15 7 - 45 Units/L YANIQUE Comment:Testing performed by : [address] [address] AST 19 10 - 45 Units/L YANIQUE Comment:Testing performed by : [address] [address] Blood 07/09/2025 9:50 AM CDT 07/09/2025 9:56 AM CDT us Nikko Renner DO LAB BLOOD ORDERABLES Final Res ult Performing Organization Address [facility] Co de Phone Number YANIQUE [address] Department [place] [address] * eGFR (07/06/2025 6:59 AM CDT) eGFR >90 >=60 mL/min/1. 73 m2 YANIQUE Comment: Interpretive Data Reference Interval Normal >/= 90 mL/min/1.73m2 Mildly decreased* 60 - 89 mL/min/1.73m2 Mildly to moderately decreased 45 - 59 mL/min/1.73m2 Moderately to severely decreased 30 - 44 mL/min/1.73m2 Severely decreased 15 - 29 mL/min/1.73m2 Kidney Failure < 15 mL/min/1.73m2 *Relative to young adult level Estimated glomerular filtration rate is determined by the 2020 CKD-EPI equation recommended by the National Kidney Foundation (A Unifying Approach to GFR Estimation: Recommendations of the NKF-ASK Task Force on Reassessing the Inclusion of Race in Diagnosing Kidney Disease, JASN 2020). The CKD-EPI equation should not be used for patients with unstable renal function and has not been validated in children and those over 70. Current interpretive data was last reviewed 2021. [facility], [address] [place] [address]., [address] Blood 07/06/2025 6:59 AM CDT 07/06/2025 7:54 AM CDT us Maeve Dixon CHEMICAL ETCH OPERATOR LAB BLOOD ORDERABLES Final Result Performing Organization Address [facility]/ZIP Co de Phone Number EMILY[address] Department [place] [address] * (ABNORMAL) Differential, auto (07/06/2025 6:59 AM CDT) Neutrophil abs 4.23 1.50 - 6.50 K/cumm YANIQUE Comment:[facility], [address] [place] [address]., [address] Imm gran abs 0.01 0.00 - 0.10 K/cumm CERNER Comment:[facility], [address] [place] [address]., [address] Lymphocyte abs 0.71(L) 0.80 - 3.30 K/cumm CERNER Comment:[facility], [address] [place] [address]., [address] Monocyte abs 0.57 0.20 - 0.80 K/cumm [facility] Comment:[address] [address] Eosinophil abs 0.25 0.00 - 0.50 K/cumm [facility] Comment:[address] [address] Basophil abs 0.05 0.00 - 0.10 K/cumm [facility] Comment:[address] [address] Neutrophil pct 72.6 % CERNER Comment: Interpretive Data Percent cell count reference ranges are not reported, since discordance with absolute values may lead to misinterpretation of CBC data. Current Interpretive Data was last revised on 2017. [address] [address] Imm gran pct 0.2 % [facility] Comment: Interpretive Data Percent cell count reference ranges are not reported, since discordance with absolute values may lead to misinterpretation of CBC data. Current Interpretive Data was last revised on 2017. [address] [address] Lymphocyte pct 12.2 % [facility] [place] Comment: Interpretive Data Percent cell count reference ranges are not reported, since discordance with absolute values may lead to misinterpretation of CBC data. Current Interpretive Data was last revised on 2017. [address] [address] Monocyte pct 9.8 % CERNER Comment: Interpretive Data Percent cell count reference ranges are not reported, since discordance with absolute values may lead to misinterpretation of CBC data. Current Interpretive Data was last revised on 2017. [address] [address] Eosinophil pct 4.3 % CERNER Comment: Interpretive Data Percent cell count reference ranges are not reported, since discordance with absolute values may lead to misinterpretation of CBC data. Current Interpretive Data was last revised on 2017. [facility], [address] [place] [address]., [address] Basophil pct 0.9 % YANIQUE PATEL Comment: Interpretive Data Percent cell count reference ranges are not reported, since discordance with absolute values may lead to misinterpretation of CBC data. Current Interpretive Data was last revised on 2017. [facility], [address] [place] [address]., [address] Blood 07/06/2025 6:59 AM CDT 07/06/2025 7:54 AM CDT us Maeve Dixon CHEMICAL ETCH OPERATOR LAB BLOOD ORDERABLES Final Result YANIQUE [address] Department [place] [address] * (ABNORMAL) CBC with auto differential (07/06/2025 6:59 AM CDT) WBC 5.82 3.80 - 9.90 K/cumm YANIQUE Comment:[address] [address] Hgb 10.0(L) 11.9 - 15.5 g/dL YANIQUE Comment:[address] [address] Hct 32.9(L) 35.6 - 45.5 % YANIQUE Comment:[address] [address] Plt 286 150 - 400 K/cumm YANIQUE Comment:[address] [address] MPV 10.0 9.1 - 12.3 fL YANIQUE Comment:[address] [address] RBC 3.38(L) 3.90 - 5.20 M/cumm YANIQUE Comment:[address] [address] MCV 97.3(H) 81.3 - 96.4 fL YANIQUE Comment:[address] [address] MCH 29.6 27.1 - 33.3 pg YANIQUE PATEL Comment:[address] [address] MCHC 30.4(L) 32.3 - 35.7 g/dL YANIQUE Comment:[address] [address] RDW CV 17.5(H) 11.1 - 14.9 % YANIQUE Comment:[address] [address] RDW SD 62.2(H) 35.7 - 48.1 fL YANIQUE PATEL Comment:[address], [address] NRBC abs 0.00 0.00 - 0.01 K/cumm YANIQUE PATEL Comment:[address] [address] Blood 07/06/2025 6:59 AM CDT 07/06/2025 7:54 AM CDT aMeve Dixon CHEMICAL ETCH OPERATOR LAB BLOOD ORDERABLES Final Result [facility] [address] [facility] [place] [address] * (ABNORMAL) Comprehensive metabolic panel (07/06/2025 6:59 AM CDT) Sodium 141 135 - 145 mmol/L YANIQUE Comment:[address], [address] Potassium, pl 4.0 3.3 - 4.9 mmol/L YANIQUE Comment:[address] [address] Chloride 102 97 - 110 mmol/L YANIQUE Comment:[address], [address] CO2 31 22 - 32 mmol/L YANIQUE Comment:[address], [address] Anion gap 8 2 - 15 mmol/L YANIQUE Comment:[address], [address] BUN 14 6 - 25 mg/dL YANIQUE Comment:[address] [address] Creatinine 0.48(L) 0.60 - 1.10 mg/dL [facility] Comment:[address] [address] Glucose 93 70 - 199 mg/dL [facility] Comment: Interpretive Data Fasting glucose >/= 126 mg/dl is diagnostic for diabetes. Fasting is defined as no caloric intake for at least 8 hours. Fasting glucose between 100 mg/dl to 125 mg/dl is diagnostic of prediabetes. In a patient with classic symptoms of hyperglycemia or hyperglycemic crisis, a random glucose >/= 200 mg/dl is diagnostic for diabetes. In the absence of unequivocal hyperglycemia, results should be confirmed by repeat testing. The classification and Diagnosis of Diabetes Diabetes Care 202; 46: S19-S40. Current interpretive data was last revised 2022. [facility], [address] [place]., [address] Calcium 8.0(L) 8.5 - 10.3 mg/dL [facility] Comment:[address] [address] Bilirubin, total 0.3 0.1 - 1.2 mg/dL [facility] Comment:[address] [address] Protein, pl 5.2(L) 6.5 - 8.5 g/dL [facility] Comment:[address] [address] Albumin 3.0(L) 3.5 - 5.0 g/dL [facility] Comment:[address] [address] Alk phos 129 40 - 130 Units/L [facility] Comment:[address] [address] ALT 12 7 - 45 Units/L [facility] Comment:[address] [address] AST 19 10 - 45 Units/L [facility] Comment:[address] [address] Blood 07/06/2025 6:59 AM CDT 07/06/2025 7:54 AM CDT Maeve Dixon CHEMICAL ETCH OPERATOR LAB BLOOD ORDERABLES Final Result [place] [id number] [facility] Department [place] [address] * POCT glucose (06/29/2025 7:57 PM CDT) Glucose, POC 132 70 - 199 mg/dL Blood 06/29/2025 7:57 PM CDT 06/29/2025 7:57 PM CDT José Miranda MD LAB POCT ORDERABLES - DEVICE Fi nal Result Performing Organization Address City/[facility]/ZIP Co de Phone Number [facility] [place] [address] * POCT glucose (06/29/2025 5:45 PM CDT) Glucose, POC 118 70 - 199 mg/dL Blood 06/29/2025 5:45 PM CDT 06/29/2025 5:45 PM CDT José Miranda MD LAB POCT ORDERABLES - DEVICE Fi nal Result Performing Organization Address [facility] Co de Phone Number [facility] [place] [address] * POCT glucose (06/29/2025 1:49 PM CDT) Glucose, POC 101 70 - 199 mg/dL Blood 06/29/2025 1:49 PM CDT 06/29/2025 1:49 PM CDT José Miranda MD LAB POCT ORDERABLES - DEVICE Fi nal Result Performing Organization Address City/[facility]/ZIP Co de Phone Number [facility] [place] [address] * POCT glucose (06/29/2025 7:58 AM CDT) Glucose, POC 108 70 - 199 mg/dL Blood 06/29/2025 7:58 AM CDT 06/29/2025 7:58 AM CDT José Miranda MD LAB POCT ORDERABLES - DEVICE Fi nal Result Performing Organization Address City/[facility] Co de Phone Number [facility] [place] [address] * POCT glucose (06/28/2025 8:22 PM CDT) Glucose, POC 145 70 - 199 mg/dL Blood 06/28/2025 8:22 PM CDT 06/28/2025 8:22 PM CDT José Miranda MD LAB POCT ORDERABLES - DEVICE Fi nal Result Performing Organization Address [facility] de Phone Number [facility] [place] [address] * eGFR (06/28/2025 8:11 PM CDT) eGFR >90 >=60 mL/min/1. 73 m2 Comment: Interpretive Data Reference Interval Normal >/= 90 mL/min/1.73m2 Mildly decreased* 60 - 89 mL/min/1.73m2 Mildly to moderately decreased 45 - 59 mL/min/1.73m2 Moderately to severely decreased 30 - 44 mL/min/1.73m2 Severely decreased 15 - 29 mL/min/1.73m2 Kidney Failure < 15 mL/min/1.73m2 *Relative to young adult level Estimated glomerular filtration rate is determined by the 2020 CKD-EPI equation recommended by the National Kidney Foundation (A Unifying Approach to GFR Estimation: Recommendations of the NKF-ASK Task Force on Reassessing the Inclusion of Race in Diagnosing Kidney Disease, JASN 2020). The CKD-EPI equation should not be used for patients with unstable renal function and has not been validated in children and those over 70. Current interpretive data was last reviewed 2021. Blood 06/28/2025 8:11 PM CDT 06/28/2025 9:32 PM CDT us José Miranda MD LAB BLOOD ORDERABLES Final Resu lt Performing Organization Address [facility]/ZIP Co de Phone Number [facility] [place] [address] * (ABNORMAL) CBC without differential (06/28/2025 8:11 PM CDT) WBC 9.91(H) 3.80 - 9.90 K/cumm Hgb 10.1(L) 11.9 - 15.5 g/dL [facility] Hct 32.0(L) 35.6 - 45.5 % [facility] Plt 332 150 - 400 K/cumm [facility] MPV 10.3 9.1 - 12.3 fL [facility] RBC 3.36(L) 3.90 - 5.20 M/cumm [facility] MCV 95.2 81.3 - 96.4 fL [facility] MCH 30.1 27.1 - 33.3 pg [facility] MCHC 31.6(L) 32.3 - 35.7 g/dL [facility] RDW CV 17.2(H) 11.1 - 14.9 % [facility] RDW SD 58.4(H) 35.7 - 48.1 fL [facility] NRBC abs 0.00 0.00 - 0.01 K/cumm [facility] Blood 06/28/2025 8:11 PM CDT 06/28/2025 9:31 PM CDT us Maria Victoria Curtis CHEMICAL ETCH OPERATOR LAB BLOOD ORDERABLES Fin al Result Performing Organization Address [facility]/ZIP Co de Phone Number [facility] Department [place] [address] * Phosphorus (06/28/2025 8:11 PM CDT) Phosphorus, pl 4.3 2.3 - 4.5 mg/dL Blood 06/28/2025 8:11 PM CDT 06/28/2025 9:32 PM CDT us Jessi Jack CHEMICAL ETCH OPERATOR LAB BLOOD ORDERABLES Fi nal Result Performing Organization Address [facility] Co de Phone Number [facility] Department [place] [address] * (ABNORMAL) Basic metabolic panel (06/28/2025 8:11 PM CDT) Pathologist [facility] Sodium 140 135 - 145 mmol/L Potassium, pl 4.6 3.3 - 4.9 mmol/L [facility] Chloride 105 97 - 110 mmol/L [facility] CO2 31 22 - 32 mmol/L [facility] Anion gap 4 2 - 15 mmol/L [facility] BUN 19 6 - 25 mg/dL [facility] Creatinine 0.46(L) 0.60 - 1.10 mg/dL [facility] Glucose 143 70 - 199 mg/dL [facility] Comment: Interpretive Data Fasting glucose >/= 126 mg/dl is diagnostic for diabetes. Fasting is defined as no caloric intake for at least 8 hours. Fasting glucose between 100 mg/dl to 125 mg/dl is diagnostic of prediabetes. In a patient with classic symptoms of hyperglycemia or hyperglycemic crisis, a random glucose >/= 200 mg/dl is diagnostic for diabetes. In the absence of unequivocal hyperglycemia, results should be confirmed by repeat testing. The classification and Diagnosis of Diabetes Diabetes Care 202; 46: S19-S40. Current interpretive data was last revised 2022. Calcium 8.3(L) 8.5 - 10.3 mg/dL [facility] Blood 06/28/2025 8:11 PM CDT 06/28/2025 9:32 PM CDT us José Miranda MD LAB BLOOD ORDERABLES Final Resu lt [facility] [place] [address] * POCT glucose (06/28/2025 7:37 PM CDT) Glucose, POC 116 70 - 199 mg/dL Blood 06/28/2025 7:37 PM CDT 06/28/2025 7:37 PM CDT José Miranda MD LAB POCT ORDERABLES - DEVICE Fi nal Result Performing Organization Address [facility] [place] [address] * POCT glucose (06/28/2025 6:28 PM CDT) Glucose, POC 103 70 - 199 mg/dL Blood 06/28/2025 6:28 PM CDT 06/28/2025 6:28 PM CDT José Miranda MD LAB POCT ORDERABLES - DEVICE Fi nal Result Performing Organization Address [facility] Co de Phone Number [facility] [place] [address] * POCT glucose (06/28/2025 1:17 PM CDT) Glucose, POC 110 70 - 199 mg/dL Blood 06/28/2025 1:17 PM CDT 06/28/2025 1:17 PM CDT us José Miranda MD LAB POCT ORDERABLES - DEVICE Fi nal Result Performing Organization Address City/[facility] Co de Phone Number [facility] [place] [address] * POCT glucose (06/28/2025 8:21 AM CDT) [facility] Glucose, POC 82 70 - 199 mg/dL Blood 06/28/2025 8:21 AM CDT 06/28/2025 8:21 AM CDT José Miranda MD LAB POCT ORDERABLES - DEVICE Fi nal Result Performing Organization Address City/[facility]/ZIP Co de Phone Number [facility] Department [place] [address] * Troponin I high-sensitivity 6-hour (06/28/2025 1:10 AM CDT) [facility] Trop I hs 13 <=17 ng/L Comment: Interpretive Data For further hscTnI resources including the diagnostic algorithm and an aid in interpretation, copy and paste this link: [email or web address] Current Interpretive Data last revised 2020. Trop I hs delta See Comment ng/L [facility] Comment:Inappropriate collec tion time to report a delta. Trop I hs pct delta See Comment % [facility] Comment:Inappropriate collec tion time to report a delta. Trop I hs interp See Comment [facility] Comment:Inappropriate collec tion time to report a delta. Blood 06/28/2025 1:10 AM CDT 06/28/2025 1:23 AM CDT Kaila Kirkland NP LAB BLOOD ORDERABLES Fi nal Result [facility] [place] [address] * Troponin I high-sensitivity 4-hour (06/27/2025 11:53 PM CDT) [facility] Trop I hs 9 <=17 ng/L Comment: Interpretive Data For further hscTnI resources including the diagnostic algorithm and an aid in interpretation, copy and paste this link: [email or web address]/[email or web address] Current Interpretive Data last revised 2020. Trop I hs delta See Comment ng/L [facility]ANI[facility] Comment:Inappropriate collec tion time to report a delta. Trop I hs pct delta See Comment % [facility]ANIQUE [facility] Comment:Inappropriate collec tion time to report a delta. Trop I hs interp See Comment [facility] Comment:Inappropriate collec tion time to report a delta. Blood 06/27/2025 11:5 3 PM CDT 06/28/2025 12:07 AM CDT Kaila Kirkland NP LAB BLOOD ORDERABLES Fi nal Result Performing Organization Address [facility] Co de Phone Number [facility] [place] [address] * Troponin I high-sensitivity 2-hour (06/27/2025 9:02 PM CDT) Trop I hs 9 <=17 ng/L Comment: Interpretive Data For further hscTnI resources including the diagnostic algorithm and an aid in interpretation, copy and paste this link: https://bjhlab.testcatalog.org/show/[email or web address] Current Interpretive Data last revised 2020. Trop I hs delta See Comment ng/L [facility] Comment:Inappropriate collec tion time to report a delta. Trop I hs pct delta See Comment % [facility] Comment:Inappropriate collec tion time to report a delta. Trop I hs interp See Comment [facility] Comment:Inappropriate collec tion time to report a delta. Blood 06/27/2025 9:02 PM CDT 06/27/2025 9:32 PM CDT Kaila Kirkland CHEMICAL ETCH OPERATOR LAB BLOOD ORDERABLES Fi nal Result Performing Organization Address City/[facility]/ZIP Co de Phone Number [facility] [place] [employer] [address] * eGFR (06/27/2025 9:02 PM CDT) [facility] eGFR >90 >=60 mL/min/1. 73 m2 Comment: Interpretive Data Reference Interval Normal >/= 90 mL/min/1.73m2 Mildly decreased* 60 - 89 mL/min/1.73m2 Mildly to moderately decreased 45 - 59 mL/min/1.73m2 Moderately to severely decreased 30 - 44 mL/min/1.73m2 Severely decreased 15 - 29 mL/min/1.73m2 Kidney Failure < 15 mL/min/1.73m2 *Relative to young adult level Estimated glomerular filtration rate is determined by the 2020 CKD-EPI equation recommended by the National Kidney Foundation (A Unifying Approach to GFR Estimation: Recommendations of the NKF-ASK Task Force on Reassessing the Inclusion of Race in Diagnosing Kidney Disease, JASN 2020). The CKD-EPI equation should not be used for patients with unstable renal function and has not been validated in children and those over 70. Current interpretive data was last reviewed 2021. Blood 06/27/2025 9:02 PM CDT 06/27/2025 9:32 PM CDT us José Miranda MD LAB BLOOD ORDERABLES Final Resu lt [facility] Department [place] [address] * (ABNORMAL) CBC without differential (06/27/2025 9:02 PM CDT) [facility] WBC 11.83(H) 3.80 - 9.90 K/cumm Hgb 10.4(L) 11.9 - 15.5 g/dL [facility] Hct 33.1(L) 35.6 - 45.5 % [facility] Plt 325 150 - 400 K/cumm [facility] MPV 10.3 9.1 - 12.3 fL [facility] RBC 3.54(L) 3.90 - 5.20 M/cumm [facility] MCV 93.5 81.3 - 96.4 fL [facility] MCH 29.4 27.1 - 33.3 pg [facility] MCHC 31.4(L) 32.3 - 35.7 g/dL [facility] RDW CV 17.2(H) 11.1 - 14.9 % [facility] RDW SD 57.7(H) 35.7 - 48.1 fL [facility] NRBC abs 0.00 0.00 - 0.01 K/cumm [facility] Blood 06/27/2025 9:02 PM CDT 06/27/2025 9:32 PM CDT us Maria Victoria Curtis CHEMICAL ETCH OPERATOR LAB BLOOD ORDERABLES Fin al Result [facility] Department [place] [address] * Phosphorus (06/27/2025 9:02 PM CDT) [facility] Phosphorus, pl 4.0 2.3 - 4.5 mg/dL Blood 06/27/2025 9:02 PM CDT 06/27/2025 9:32 PM CDT us Jessi Jack CHEMICAL ETCH OPERATOR LAB BLOOD ORDERABLES Fi nal Result Performing Organization Address City/[facility]/ZIP Co de Phone Number [facility] Department [place] [address] * (ABNORMAL) Basic metabolic panel (06/27/2025 9:02 PM CDT) [facility] Sodium 140 135 - 145 mmol/L Potassium, pl 4.4 3.3 - 4.9 mmol/L [facility] Chloride 102 97 - 110 mmol/L [facility] CO2 30 22 - 32 mmol/L [facility] Anion gap 8 2 - 15 mmol/L [facility] BUN 22 6 - 25 mg/dL [facility] Creatinine 0.56(L) 0.60 - 1.10 mg/dL [facility] Glucose 102 70 - 199 mg/dL [facility] Comment: Interpretive Data Fasting glucose >/= 126 mg/dl is diagnostic for diabetes. Fasting is defined as no caloric intake for at least 8 hours. Fasting glucose between 100 mg/dl to 125 mg/dl is diagnostic of prediabetes. In a patient with classic symptoms of hyperglycemia or hyperglycemic crisis, a random glucose >/= 200 mg/dl is diagnostic for diabetes. In the absence of unequivocal hyperglycemia, results should be confirmed by repeat testing. The classification and Diagnosis of Diabetes Diabetes Care 2021; 46: S19-S40. Current interpretive data was last revised 2022. Calcium 8.0(L) 8.5 - 10.3 mg/dL [facility] Blood 06/27/2025 9:02 PM CDT 06/27/2025 9:32 PM CDT José Miranda MD LAB BLOOD ORDERABLES Final Resu lt Performing Organization Address City/[facility]/ZIP Co de Phone Number [facility] Department [place] [address] * POCT glucose (06/27/2025 8:22 PM CDT) Glucose, POC 106 70 - 199 mg/dL Blood 06/27/2025 8:22 PM CDT 06/27/2025 8:22 PM CDT José Miranda MD LAB POCT ORDERABLES - DEVICE Fi nal Result Performing Organization Address City/[facility] Co de Phone Number [facility] [place] [place] [address] * XR Chest 1 View (06/27/2025 6:35 PM CDT) Anatomical Region Laterality Modality Body, Chest N/A Computed Radiogr aphy 06/28/2025 10:3 4 AM CDT Impressions 06/28/2025 10:47 AM CDT The current study is compared with the prior radiograph dated 06/18/2025. Thoracic spinal instrumentation is noted again. There is a right internal jugular central venous catheter with the tip overlying the superior cavoatrial junction. Left chest wall pacemaker is present with leads in the expected position. The lung volumes are small with associated patchy atelectasis. No focal pneumonic consolidation. No pleural effusion or pneumothorax. The cardiomediastinal silhouette is unchanged. Dictated by: Jasson Thibodeaux M.D. The radiology attending physician has personally reviewed this study, and had reviewed and/or edited this written report and agrees with it. Electronically signed by: Melvin Beach M.D. Narrative 06/28/2025 10:47 AM CDT EXAMINATION: 1 view chest radiograph Procedure Note Melvin Beach MD - 06/28/2025 EXAMINATION: 1 view chest radiograph IMPRESSION: The current study is compared with the prior radiograph dated 06/18/2025. Thoracic spinal instrumentation is noted again. There is a right internal jugular central venous catheter with the tip overlying the superior cavoatrial junction. Left chest wall pacemaker is present with leads in the expected position. The lung volumes are small with associated patchy atelectasis. No focal pneumonic consolidation. No pleural effusion or pneumothorax. The cardiomediastinal silhouette is unchanged. Dictated by: Jasson Thibodeaux M.D. The radiology attending physician has personally reviewed this study, and had reviewed and/or edited this written report and agrees with it. Electronically signed by: Melvin Beach M.D. Kaila Kirkland CHEMICAL ETCH OPERATOR IMG XR PROCEDURES Final Result * Troponin I high-sensitivity series (baseline, 2hr, 4hr, 6hr) (06/27/2025 5:42 PM CDT) Trop I hs 9 <=17 ng/L Comment: Interpretive Data For further hscTnI resources including the diagnostic algorithm and an aid in interpretation, copy and paste this link: [email or web address].testcatalog.org/show/[email or web address] Current Interpretive Data last revised 2020. Blood 06/27/2025 5:42 PM CDT 06/27/2025 5:53 PM CDT Kaila Kirkland NP LAB BLOOD ORDERABLES Fi nal Result Performing Organization Address [facility] Co de Phone Number [facility] Department [place] [address] * eGFR (06/27/2025 5:42 PM CDT) eGFR >90 >=60 mL/min/1. 73 m2 Comment: Interpretive Data Reference Interval Normal >/= 90 mL/min/1.73m2 Mildly decreased* 60 - 89 mL/min/1.73m2 Mildly to moderately decreased 45 - 59 mL/min/1.73m2 Moderately to severely decreased 30 - 44 mL/min/1.73m2 Severely decreased 15 - 29 mL/min/1.73m2 Kidney Failure < 15 mL/min/1.73m2 *Relative to young adult level Estimated glomerular filtration rate is determined by the 2020 CKD-EPI equation recommended by the National Kidney Foundation (A Unifying Approach to GFR Estimation: Recommendations of the NKF-ASK Task Force on Reassessing the Inclusion of Race in Diagnosing Kidney Disease, JASN 2020). The CKD-EPI equation should not be used for patients with unstable renal function and has not been validated in children and those over 70. Current interpretive data was last reviewed 2021. Blood 06/27/2025 5:42 PM CDT 06/27/2025 5:53 PM CDT Kaila Kirkland NP LAB BLOOD ORDERABLES Fi nal Result Performing Organization Address City/[facility]/ZIP Co de Phone Number [facility] Department [place] [address] * (ABNORMAL) CBC without differential (06/27/2025 5:42 PM CDT) WBC 11.24(H) 3.80 - 9.90 K/cumm Hgb 10.3(L) 11.9 - 15.5 g/dL [facility] Hct 33.1(L) 35.6 - 45.5 % [facility] Plt 325 150 - 400 K/cumm [facility] MPV 10.2 9.1 - 12.3 fL [facility] RBC 3.42(L) 3.90 - 5.20 M/cumm [facility] MCV 96.8(H) 81.3 - 96.4 fL [facility] MCH 30.1 27.1 - 33.3 pg [facility] MCHC 31.1(L) 32.3 - 35.7 g/dL [facility] RDW CV 17.2(H) 11.1 - 14.9 % [facility] RDW SD 59.0(H) 35.7 - 48.1 fL [facility] NRBC abs 0.00 0.00 - 0.01 K/cumm [facility] Blood 06/27/2025 5:42 PM CDT 06/27/2025 5:53 PM CDT Kaila Kirkland CHEMICAL ETCH OPERATOR LAB BLOOD ORDERABLES nal Result [facility] Department [place] [address] * (ABNORMAL) Basic metabolic panel (06/27/2025 5:42 PM CDT) Sodium 140 135 - 145 mmol/L Potassium, pl 4.7 3.3 - 4.9 mmol/L [facility] Chloride 102 97 - 110 mmol/L [facility] CO2 31 22 - 32 mmol/L [facility] Anion gap 7 2 - 15 mmol/L [facility] BUN 21 6 - 25 mg/dL [facility] Creatinine 0.60 0.60 - 1.10 mg/dL [facility] Glucose 113 70 - 199 mg/dL [facility] Comment: Interpretive Data Fasting glucose >/= 126 mg/dl is diagnostic for diabetes. Fasting is defined as no caloric intake for at least 8 hours. Fasting glucose between 100 mg/dl to 125 mg/dl is diagnostic of prediabetes. In a patient with classic symptoms of hyperglycemia or hyperglycemic crisis, a random glucose >/= 200 mg/dl is diagnostic for diabetes. In the absence of unequivocal hyperglycemia, results should be confirmed by repeat testing. The classification and Diagnosis of Diabetes Diabetes Care 2021; 46: S19-S40. Current interpretive data was last revised 2022. Calcium 7.9(L) 8.5 - 10.3 mg/dL [facility] Blood 06/27/2025 5:42 PM CDT 06/27/2025 5:53 PM CDT Kaila Kirkland NP LAB BLOOD ORDERABLES Fi nal Result Performing Organization Address City/[facility]/ZIP Co de Phone Number [facility] [place] [address] * POCT glucose (06/27/2025 5:34 PM CDT) Glucose, POC 115 70 - 199 mg/dL Blood 06/27/2025 5:34 PM CDT 06/27/2025 5:34 PM CDT José Miranda MD LAB POCT ORDERABLES - DEVICE Fi nal Result Performing Organization Address [facility] Co de Phone Number [facility] [place] [place] [address] * POCT glucose (06/27/2025 11:32 AM CDT) Glucose, POC 110 70 - 199 mg/dL Blood 06/27/2025 11:3 2 AM CDT 06/27/2025 11:32 AM CDT José Miranda MD LAB POCT ORDERABLES - DEVICE Fi nal Result Performing Organization Address City/[facility] Co de Phone Number [facility] Department [place] [address] * POCT glucose (06/27/2025 8:23 AM CDT) Glucose, POC 111 70 - 199 mg/dL Blood 06/27/2025 8:23 AM CDT 06/27/2025 8:23 AM CDT José Miranda MD LAB POCT ORDERABLES - DEVICE Fi nal Result Performing Organization Address City/[facility] Co de Phone Number [facility] [place] [place] [address] * POCT glucose (06/26/2025 8:10 PM CDT) Glucose, POC 137 70 - 199 mg/dL Blood 06/26/2025 8:10 PM CDT 06/26/2025 8:10 PM CDT José Miarnda MD LAB POCT ORDERABLES - DEVICE Fi nal Result Performing Organization Address [facility] de Phone Number [facility] [place] [address] * eGFR (06/26/2025 8:07 PM CDT) eGFR >90 >=60 mL/min/1. 73 m2 Comment: Interpretive Data Reference Interval Normal >/= 90 mL/min/1.73m2 Mildly decreased* 60 - 89 mL/min/1.73m2 Mildly to moderately decreased 45 - 59 mL/min/1.73m2 Moderately to severely decreased 30 - 44 mL/min/1.73m2 Severely decreased 15 - 29 mL/min/1.73m2 Kidney Failure < 15 mL/min/1.73m2 *Relative to young adult level Estimated glomerular filtration rate is determined by the 2020 CKD-EPI equation recommended by the National Kidney Foundation (A Unifying Approach to GFR Estimation: Recommendations of the NKF-ASK Task Force on Reassessing the Inclusion of Race in Diagnosing Kidney Disease, JASN 2020). The CKD-EPI equation should not be used for patients with unstable renal function and has not been validated in children and those over 70. Current interpretive data was last reviewed 2021. Blood 06/26/2025 8:07 PM CDT 06/26/2025 9:39 PM CDT us José Miranda MD LAB BLOOD ORDERABLES Final Resu lt Performing Organization Address [facility]/ZIP Co de Phone Number [facility] [place] [place] [address] * (ABNORMAL) CBC without differential (06/26/2025 8:07 PM CDT) WBC 11.89(H) 3.80 - 9.90 K/cumm Hgb 10.6(L) 11.9 - 15.5 g/dL [facility] Hct 34.4(L) 35.6 - 45.5 % [facility] Plt 321 150 - 400 K/cumm [facility] MPV 10.1 9.1 - 12.3 fL [facility] RBC 3.56(L) 3.90 - 5.20 M/cumm [facility] MCV 96.6(H) 81.3 - 96.4 fL [facility] MCH 29.8 27.1 - 33.3 pg [facility] MCHC 30.8(L) 32.3 - 35.7 g/dL [facility] RDW CV 17.0(H) 11.1 - 14.9 % [facility] RDW SD 57.7(H) 35.7 - 48.1 fL [facility] NRBC abs 0.00 0.00 - 0.01 K/cumm [facility] Blood 06/26/2025 8:07 PM CDT 06/26/2025 9:39 PM CDT us Maria Victoria Curtis CHEMICAL ETCH OPERATOR LAB BLOOD ORDERABLES Fin al Result Performing Organization Address City/[facility]/ZIP Co de Phone Number [facility] [place] [address] * Phosphorus (06/26/2025 8:07 PM CDT) Phosphorus, pl 4.2 2.3 - 4.5 mg/dL Blood 06/26/2025 8:07 PM CDT 06/26/2025 9:39 PM CDT us Jessi Jack CHEMICAL ETCH OPERATOR LAB BLOOD ORDERABLES Fi nal Result Performing Organization Address [facility] Co de Phone Number [facility] Department [place] [address] * (ABNORMAL) Basic metabolic panel (06/26/2025 8:07 PM CDT) Pathologist [facility] Sodium 139 135 - 145 mmol/L Potassium, pl 5.1(H) 3.3 - 4.9 mmol/L [facility] Chloride 102 97 - 110 mmol/L [facility] CO2 32 22 - 32 mmol/L [facility] Anion gap 5 2 - 15 mmol/L [facility] BUN 17 6 - 25 mg/dL [facility] Creatinine 0.57(L) 0.60 - 1.10 mg/dL [facility] Glucose 93 70 - 199 mg/dL [facility] Comment: Interpretive Data Fasting glucose >/= 126 mg/dl is diagnostic for diabetes. Fasting is defined as no caloric intake for at least 8 hours. Fasting glucose between 100 mg/dl to 125 mg/dl is diagnostic of prediabetes. In a patient with classic symptoms of hyperglycemia or hyperglycemic crisis, a random glucose >/= 200 mg/dl is diagnostic for diabetes. In the absence of unequivocal hyperglycemia, results should be confirmed by repeat testing. The classification and Diagnosis of Diabetes Diabetes Care 202; 46: S19-S40. Current interpretive data was last revised 2022. Calcium 8.0(L) 8.5 - 10.3 mg/dL [facility] Blood 06/26/2025 8:07 PM CDT 06/26/2025 9:39 PM CDT José Miranda MD LAB BLOOD ORDERABLES Final Resu lt [facility] [place] [address] * POCT glucose (06/26/2025 6:04 PM CDT) Glucose, POC 99 70 - 199 mg/dL Blood 06/26/2025 6:04 PM CDT 06/26/2025 6:04 PM CDT José Miranda MD LAB POCT ORDERABLES - DEVICE Fi nal Result Performing Organization Address [facility] [place] [address] * POCT glucose (06/26/2025 11:44 AM CDT) Glucose, POC 109 70 - 199 mg/dL Blood 06/26/2025 11:4 4 AM CDT 06/26/2025 11:44 AM CDT José Miranda MD LAB POCT ORDERABLES - DEVICE Fi nal Result Performing Organization Address [facility] Co de Phone Number [facility] [place] [address] * POCT glucose (06/26/2025 8:26 AM CDT) Glucose, POC 92 70 - 199 mg/dL Blood 06/26/2025 8:26 AM CDT 06/26/2025 8:26 AM CDT us José Miranda MD LAB POCT ORDERABLES - DEVICE Fi nal Result Performing Organization Address City/[facility]/ZIP Co de Phone Number [facility] [place] [address] * eGFR (06/25/2025 8:07 PM CDT) [facility] eGFR >90 >=60 mL/min/1. 73 m2 Comment: Interpretive Data Reference Interval Normal >/= 90 mL/min/1.73m2 Mildly decreased* 60 - 89 mL/min/1.73m2 Mildly to moderately decreased 45 - 59 mL/min/1.73m2 Moderately to severely decreased 30 - 44 mL/min/1.73m2 Severely decreased 15 - 29 mL/min/1.73m2 Kidney Failure < 15 mL/min/1.73m2 *Relative to young adult level Estimated glomerular filtration rate is determined by the 2020 CKD-EPI equation recommended by the National Kidney Foundation (A Unifying Approach to GFR Estimation: Recommendations of the NKF-ASK Task Force on Reassessing the Inclusion of Race in Diagnosing Kidney Disease, JASN 2020). The CKD-EPI equation should not be used for patients with unstable renal function and has not been validated in children and those over 70. Current interpretive data was last reviewed 2021. Blood 06/25/2025 8:07 PM CDT 06/25/2025 8:25 PM CDT us Kan Rocha MD LAB BLOOD ORDERABLES F inal Result [facility] Department [place] [address] * (ABNORMAL) CBC without differential (06/25/2025 8:07 PM CDT) [facility] WBC 10.19(H) 3.80 - 9.90 K/cumm Hgb 10.9(L) 11.9 - 15.5 g/dL [facility] Hct 34.0(L) 35.6 - 45.5 % [facility] Plt 328 150 - 400 K/cumm [facility] MPV 10.3 9.1 - 12.3 fL [facility] RBC 3.59(L) 3.90 - 5.20 M/cumm [facility] MCV 94.7 81.3 - 96.4 fL [facility] MCH 30.4 27.1 - 33.3 pg [facility] MCHC 32.1(L) 32.3 - 35.7 g/dL [facility] RDW CV 17.0(H) 11.1 - 14.9 % [facility] RDW SD 56.4(H) 35.7 - 48.1 fL [facility] NRBC abs 0.00 0.00 - 0.01 K/cumm [facility] Blood 06/25/2025 8:07 PM CDT 06/25/2025 8:26 PM CDT Maria Victoria Curtis CHEMICAL ETCH OPERATOR LAB BLOOD ORDERABLES Fin al Result [facility] Department [place] [address] * Phosphorus (06/25/2025 8:07 PM CDT) [facility] Phosphorus, pl 3.9 2.3 - 4.5 mg/dL Blood 06/25/2025 8:07 PM CDT 06/25/2025 8:25 PM CDT Jessi Jack CHEMICAL ETCH OPERATOR LAB BLOOD ORDERABLES Fi nal Result Performing Organization Address City/[facility]/ZIP Co de Phone Number [facility] Department [place] [address] * (ABNORMAL) Comprehensive metabolic panel (06/25/2025 8:07 PM CDT) [facility] Sodium 140 135 - 145 mmol/L Potassium, pl 4.5 3.3 - 4.9 mmol/L [facility] Chloride 102 97 - 110 mmol/L [facility] CO2 31 22 - 32 mmol/L [facility] Anion gap 7 2 - 15 mmol/L [facility] BUN 17 6 - 25 mg/dL [facility] Creatinine 0.61 0.60 - 1.10 mg/dL [facility] Glucose 115 70 - 199 mg/dL [facility] Comment: Interpretive Data Fasting glucose >/= 126 mg/dl is diagnostic for diabetes. Fasting is defined as no caloric intake for at least 8 hours. Fasting glucose between 100 mg/dl to 125 mg/dl is diagnostic of prediabetes. In a patient with classic symptoms of hyperglycemia or hyperglycemic crisis, a random glucose >/= 200 mg/dl is diagnostic for diabetes. In the absence of unequivocal hyperglycemia, results should be confirmed by repeat testing. The classification and Diagnosis of Diabetes Diabetes Care 2021; 46: S19-S40. Current interpretive data was last revised 2022. Calcium 7.7(L) 8.5 - 10.3 mg/dL [facility] Bilirubin, total <0.2 0.1 - 1.2 mg/dL [facility] Protein, pl 5.0(L) 6.5 - 8.5 g/dL [facility] Albumin 2.5(L) 3.5 - 5.0 g/dL [facility] Alk phos 146(H) 40 - 130 Units/L [facility] ALT 21 7 - 45 Units/L [facility] AST 29 10 - 45 Units/L [facility] Blood 06/25/2025 8:07 PM CDT 06/25/2025 8:25 PM CDT Kan Rocha MD LAB BLOOD ORDERABLES F inal Result Performing Organization Address City/[facility]/ZIP Co de Phone Number [facility] [place] [place] [address] * POCT glucose (06/25/2025 8:03 PM CDT) [facility] Signature Glucose, POC 111 70 - 199 mg/dL Blood 06/25/2025 8:03 PM CDT 06/25/2025 8:03 PM CDT us José Miranda MD LAB POCT ORDERABLES - DEVICE Fi nal Result Performing Organization Address [facility]/ZIP Co de Phone Number [facility] Department [place] [address] * POCT glucose (06/25/2025 5:17 PM CDT) Glucose, POC 133 70 - 199 mg/dL Blood 06/25/2025 5:17 PM CDT 06/25/2025 5:17 PM CDT José Miranda MD LAB POCT ORDERABLES - DEVICE Fi nal Result Performing Organization Address City/[facility] Co de Phone Number [facility] [place] [address] * POCT glucose (06/25/2025 12:33 PM CDT) Glucose, POC 104 70 - 199 mg/dL Blood 06/25/2025 12:3 3 PM CDT 06/25/2025 12:33 PM CDT José Miranda MD LAB POCT ORDERABLES - DEVICE Fi nal Result Performing Organization Address [facility] Co de Phone Number [facility] [place] [address] * POCT glucose (06/25/2025 8:19 AM CDT) Glucose, POC 89 70 - 199 mg/dL Blood 06/25/2025 8:19 AM CDT 06/25/2025 8:19 AM CDT Result [facility] José Miranda MD LAB POCT ORDERABLES - DEVICE Fi nal Result Performing Organization Address City/[facility] Co de Phone Number [facility] [place] [address] * eGFR (06/24/2025 8:40 PM CDT) eGFR >90 >=60 mL/min/1. 73 m2 Comment: Interpretive Data Reference Interval Normal >/= 90 mL/min/1.73m2 Mildly decreased* 60 - 89 mL/min/1.73m2 Mildly to moderately decreased 45 - 59 mL/min/1.73m2 Moderately to severely decreased 30 - 44 mL/min/1.73m2 Severely decreased 15 - 29 mL/min/1.73m2 Kidney Failure < 15 mL/min/1.73m2 *Relative to young adult level Estimated glomerular filtration rate is determined by the 2020 CKD-EPI equation recommended by the National [employer] (A Unifying Approach to GFR Estimation: Recommendations of the NKF-ASK Task Force on Reassessing the Inclusion of Race in Diagnosing Kidney Disease, JASN 2020). The CKD-EPI equation should not be used for patients with unstable renal function and has not been validated in children and those over 70. Current interpretive data was last reviewed 2021. Blood 06/24/2025 8:40 PM CDT 06/24/2025 8:54 PM CDT us José Miranda MD LAB BLOOD ORDERABLES Final Resu lt [facility] Department [place] [address] * (ABNORMAL) CBC without differential (06/24/2025 8:40 PM CDT) WBC 11.69(H) 3.80 - 9.90 K/cumm Hgb 10.4(L) 11.9 - 15.5 g/dL [facility] Hct 32.4(L) 35.6 - 45.5 % [facility] Plt 290 150 - 400 K/cumm [facility] MPV 10.4 9.1 - 12.3 fL [facility] RBC 3.47(L) 3.90 - 5.20 M/cumm [facility] MCV 93.4 81.3 - 96.4 fL [facility] MCH 30.0 27.1 - 33.3 pg [facility] MCHC 32.1(L) 32.3 - 35.7 g/dL [facility] RDW CV 16.9(H) 11.1 - 14.9 % [facility] RDW SD 55.1(H) 35.7 - 48.1 fL [facility] NRBC abs 0.00 0.00 - 0.01 K/cumm [facility] Blood 06/24/2025 8:40 PM CDT 06/24/2025 8:54 PM CDT Maria Victoria Curtis CHEMICAL ETCH OPERATOR LAB BLOOD ORDERABLES Fin al Result Performing Organization Address City/[facility]/ZIP Co de Phone Number [facility] Department [place] [address] * Phosphorus (06/24/2025 8:40 PM CDT) [facility] Phosphorus, pl 4.0 2.3 - 4.5 mg/dL Blood 06/24/2025 8:40 PM CDT 06/24/2025 8:54 PM CDT Jessi Jack CHEMICAL ETCH OPERATOR LAB BLOOD ORDERABLES Fi nal Result Performing Organization Address [facility] de Phone Number [facility] [place] [address] * (ABNORMAL) Basic metabolic panel (06/24/2025 8:40 PM CDT) [facility] Sodium 138 135 - 145 mmol/L Potassium, pl 4.7 3.3 - 4.9 mmol/L [facility] Chloride 103 97 - 110 mmol/L [facility] CO2 31 22 - 32 mmol/L [facility] Anion gap 4 2 - 15 mmol/L [facility] BUN 19 6 - 25 mg/dL [facility] Creatinine 0.51(L) 0.60 - 1.10 mg/dL [facility] Glucose 126 70 - 199 mg/dL [facility] Comment: Interpretive Data Fasting glucose >/= 126 mg/dl is diagnostic for diabetes. Fasting is defined as no caloric intake for at least 8 hours. Fasting glucose between 100 mg/dl to 125 mg/dl is diagnostic of prediabetes. In a patient with classic symptoms of hyperglycemia or hyperglycemic crisis, a random glucose >/= 200 mg/dl is diagnostic for diabetes. In the absence of unequivocal hyperglycemia, results should be confirmed by repeat testing. The classification and Diagnosis of Diabetes Diabetes Care 2021; 46: S19-S40. Current interpretive data was last revised 2022. Calcium 8.2(L) 8.5 - 10.3 mg/dL [facility] Blood 06/24/2025 8:40 PM CDT 06/24/2025 8:54 PM CDT José Miranda MD LAB BLOOD ORDERABLES Final Resu lt Performing Organization Address City/[facility]/ZIP Co de Phone Number [facility] [place] [address] * POCT glucose (06/24/2025 8:24 PM CDT) Glucose, POC 128 70 - 199 mg/dL Blood 06/24/2025 8:24 PM CDT 06/24/2025 8:24 PM CDT José Miranda MD LAB POCT ORDERABLES - DEVICE Fi nal Result Performing Organization Address [facility] Co de Phone Number [facility] [place] [address] * POCT glucose (06/24/2025 5:38 PM CDT) Glucose, POC 118 70 - 199 mg/dL Blood 06/24/2025 5:38 PM CDT 06/24/2025 5:38 PM CDT José Miranda MD LAB POCT ORDERABLES - DEVICE Fi nal Result Performing Organization Address City/[facility] Co de Phone Number [facility] [place] [place] [address] * POCT glucose (06/24/2025 12:28 PM CDT) Glucose, POC 123 70 - 199 mg/dL Blood 06/24/2025 12:2 8 PM CDT 06/24/2025 12:28 PM CDT José Miranda MD LAB POCT ORDERABLES - DEVICE Fi nal Result Performing Organization Address City/[facility] Co de Phone Number [facility] Department [place] [address] * POCT glucose (06/24/2025 8:22 AM CDT) Glucose, POC 95 70 - 199 mg/dL Blood 06/24/2025 8:22 AM CDT 06/24/2025 8:22 AM CDT José Miranda MD LAB POCT ORDERABLES - DEVICE Fi nal Result Performing Organization Address City/[facility] de Phone Number [facility] Department [place] [address] * eGFR (06/23/2025 8:50 PM CDT) Pathologist [facility] [place] eGFR >90 >=60 mL/min/1. 73 m2 Comment: Interpretive Data Reference Interval Normal >/= 90 mL/min/1.73m2 Mildly decreased* 60 - 89 mL/min/1.73m2 Mildly to moderately decreased 45 - 59 mL/min/1.73m2 Moderately to severely decreased 30 - 44 mL/min/1.73m2 Severely decreased 15 - 29 mL/min/1.73m2 Kidney Failure < 15 mL/min/1.73m2 *Relative to young adult level Estimated glomerular filtration rate is determined by the 2020 CKD-EPI equation recommended by the National Kidney [employer] (A Unifying Approach to GFR Estimation: Recommendations of the NKF-ASK Task Force on Reassessing the Inclusion of Race in Diagnosing Kidney Disease, JASN 2020). The CKD-EPI equation should not be used for patients with unstable renal function and has not been validated in children and those over 70. Current interpretive data was last reviewed 2021. Blood 06/23/2025 8:50 PM CDT 06/23/2025 9:28 PM CDT us José Miranda MD LAB BLOOD ORDERABLES Final Resu lt Performing Organization Address [facility] Co de Phone Number [facility] [place] [address] * (ABNORMAL) CBC without differential (06/23/2025 8:50 PM CDT) WBC 11.06(H) 3.80 - 9.90 K/cumm Hgb 10.9(L) 11.9 - 15.5 g/dL [facility] Hct 33.3(L) 35.6 - 45.5 % [facility] Plt 272 150 - 400 K/cumm [facility] MPV 10.4 9.1 - 12.3 fL [facility] RBC 3.61(L) 3.90 - 5.20 M/cumm [facility] MCV 92.2 81.3 - 96.4 fL [facility] MCH 30.2 27.1 - 33.3 pg [facility] MCHC 32.7 32.3 - 35.7 g/dL [facility] RDW CV 16.4(H) 11.1 - 14.9 % [facility] RDW SD 52.8(H) 35.7 - 48.1 fL [facility] NRBC abs 0.00 0.00 - 0.01 K/cumm [facility] Blood 06/23/2025 8:50 PM CDT 06/23/2025 9:28 PM CDT us Maria Victoria Curtis CHEMICAL ETCH OPERATOR LAB BLOOD ORDERABLES Fin al Result Performing Organization Address [facility]/ZIP Co de Phone Number [facility] [place] [place] [address] * Phosphorus (06/23/2025 8:50 PM CDT) Pathologist [facility] [place] Phosphorus, pl 3.5 2.3 - 4.5 mg/dL Blood 06/23/2025 8:50 PM CDT 06/23/2025 9:28 PM CDT us Jessi Jack CHEMICAL ETCH OPERATOR LAB BLOOD ORDERABLES Fi nal Result [facility] Department [place] [address] * (ABNORMAL) Basic metabolic panel (06/23/2025 8:50 PM CDT) [facility] Sodium 139 135 - 145 mmol/L Potassium, pl 4.8 3.3 - 4.9 mmol/L [facility] Chloride 102 97 - 110 mmol/L [facility] CO2 32 22 - 32 mmol/L [facility] Anion gap 5 2 - 15 mmol/L [facility] BUN 17 6 - 25 mg/dL [facility] Creatinine 0.44(L) 0.60 - 1.10 mg/dL [facility] Glucose 122 70 - 199 mg/dL [facility] Comment: Interpretive Data Fasting glucose >/= 126 mg/dl is diagnostic for diabetes. Fasting is defined as no caloric intake for at least 8 hours. Fasting glucose between 100 mg/dl to 125 mg/dl is diagnostic of prediabetes. In a patient with classic symptoms of hyperglycemia or hyperglycemic crisis, a random glucose >/= 200 mg/dl is diagnostic for diabetes. In the absence of unequivocal hyperglycemia, results should be confirmed by repeat testing. The classification and Diagnosis of Diabetes Diabetes Care 2021; 46: S19-S40. Current interpretive data was last revised 2022. Calcium 8.2(L) 8.5 - 10.3 mg/dL [facility] Blood 06/23/2025 8:50 PM CDT 06/23/2025 9:28 PM CDT us José Miranda MD LAB BLOOD ORDERABLES Final Resu lt [facility] [place] [address] * POCT glucose (06/23/2025 8:43 PM CDT) Glucose, POC 168 70 - 199 mg/dL Blood 06/23/2025 8:43 PM CDT 06/23/2025 8:43 PM CDT José Miranda MD LAB POCT ORDERABLES - DEVICE Fi nal Result Performing Organization Address [facility] [place] [address] * POCT glucose (06/23/2025 5:00 PM CDT) Glucose, POC 89 70 - 199 mg/dL Blood 06/23/2025 5:00 PM CDT 06/23/2025 5:00 PM CDT José Miranda MD LAB POCT ORDERABLES - DEVICE Fi nal Result Performing Organization Address [facility] [place] [address] * XR Scoliosis Ap and Lateral (06/23/2025 3:44 PM CDT) Anatomical Region Laterality Modality Spine N/A Computed Radiogr aphy 06/23/2025 4:46 PM CDT Impressions 06/23/2025 5:08 PM CDT Interval revision of posterior spinal fusion which now extends from T3 to pelvis. Unchanged anterior interbody fusion from L3-L5. There are also findings of pedicle subtraction osteotomy at T11 and L4. Dictated by: Matt Myles MD The radiology attending physician has personally reviewed this study, and had reviewed and/or edited this written report and agrees with it. Electronically signed by: Tera Giang M.D. Narrative 06/23/2025 5:08 PM CDT EXAMINATION: XR SCOLIOSIS AP AND LATERAL HISTORY: Postop COMPARISON: 01/25/2025 FINDINGS: Interval revision of the posterior spinal fusion which now extends from T3 to pelvis. There are also findings of interval pedicle subtraction osteotomy at T11 and L4. There is combined anterior interbody fusion at L3-L4 and L4-L5. Instrumentation is intact. Surgical drains are present within the soft tissues of the back. There is no significant residual scoliosis. There is no coronal imbalance. There is no significant sagittal imbalance. There is no pelvic obliquity. Exaggerated thoracic kyphosis, improved compared to prior. Previously seen straightening of the lumbar lordosis is also improved. There is a right internal jugular central venous catheter with tip obscured by spinal hardware. There is a left subclavian approach pacemaker with right shoulder right ventricular leads. Procedure Note Tera Giang MD - 06/23/2025 EXAMINATION: XR SCOLIOSIS AP AND LATERAL HISTORY: Postop COMPARISON: 01/25/2025 FINDINGS: Interval revision of the posterior spinal fusion which now extends from T3 to pelvis. There are also findings of interval pedicle subtraction osteotomy at T11 and L4. There is combined anterior interbody fusion at L3-L4 and L4-L5. Instrumentation is intact. Surgical drains are present within the soft tissues of the back. There is no significant residual scoliosis. There is no coronal imbalance. There is no significant sagittal imbalance. There is no pelvic obliquity. Exaggerated thoracic kyphosis, improved compared to prior. Previously seen straightening of the lumbar lordosis is also improved. There is a right internal jugular central venous catheter with tip obscured by spinal hardware. There is a left subclavian approach pacemaker with right shoulder right ventricular leads. IMPRESSION: Interval revision of posterior spinal fusion which now extends from T3 to pelvis. Unchanged anterior interbody fusion from L3-L5. There are also findings of pedicle subtraction osteotomy at T11 and L4. Dictated by: Matt Myles MD The radiology attending physician has personally reviewed this study, and had reviewed and/or edited this written report and agrees with it. Electronically signed by: Tera Giang M.D. José Miranda MD IMG XR PROCEDURES Final Result * POCT glucose (06/23/2025 1:13 PM CDT) Glucose, POC 184 70 - 199 mg/dL Blood 06/23/2025 1:13 PM CDT 06/23/2025 1:13 PM CDT José Miranda MD LAB POCT ORDERABLES - DEVICE Fi nal Result Performing Organization Address City/[facility] Co de Phone Number [facility] Department [place] [address] * POCT glucose (06/23/2025 8:33 AM CDT) Glucose, POC 75 70 - 199 mg/dL Blood 06/23/2025 8:33 AM CDT 06/23/2025 8:33 AM CDT José Miranda MD LAB POCT ORDERABLES - DEVICE Fi nal Result Performing Organization Address [facility] de Phone Number [facility] Department [place] [address] * eGFR (06/22/2025 11:49 PM CDT) Pathologist [facility] [place] eGFR >90 >=60 mL/min/1. 73 m2 Comment: Interpretive Data Reference Interval Normal >/= 90 mL/min/1.73m2 Mildly decreased* 60 - 89 mL/min/1.73m2 Mildly to moderately decreased 45 - 59 mL/min/1.73m2 Moderately to severely decreased 30 - 44 mL/min/1.73m2 Severely decreased 15 - 29 mL/min/1.73m2 Kidney Failure < 15 mL/min/1.73m2 *Relative to young adult level Estimated glomerular filtration rate is determined by the 2020 CKD-EPI equation recommended by the National Kidney [employer] (A Unifying Approach to GFR Estimation: Recommendations of the NKF-ASK Task Force on Reassessing the Inclusion of Race in Diagnosing Kidney Disease, JASN 2020). The CKD-EPI equation should not be used for patients with unstable renal function and has not been validated in children and those over 70. Current interpretive data was last reviewed 2021. Blood 06/22/2025 11:4 9 PM CDT 06/23/2025 12:01 AM CDT us José Miranda MD LAB BLOOD ORDERABLES Final Resu lt Performing Organization Address [facility]/ZIP Co de Phone Number [facility] [place] [address] * (ABNORMAL) CBC without differential (06/22/2025 11:49 PM CDT) WBC 10.00(H) 3.80 - 9.90 K/cumm Hgb 11.3(L) 11.9 - 15.5 g/dL [facility] Hct 35.9 35.6 - 45.5 % [facility] Plt 246 150 - 400 K/cumm [facility] MPV 10.3 9.1 - 12.3 fL [facility] RBC 3.81(L) 3.90 - 5.20 M/cumm [facility] MCV 94.2 81.3 - 96.4 fL [facility] MCH 29.7 27.1 - 33.3 pg [facility] MCHC 31.5(L) 32.3 - 35.7 g/dL [facility] RDW CV 16.6(H) 11.1 - 14.9 % [facility] RDW SD 54.8(H) 35.7 - 48.1 fL [facility] NRBC abs 0.00 0.00 - 0.01 K/cumm [facility] Blood 06/22/2025 11:4 9 PM CDT 06/23/2025 12:01 AM CDT us Maria Victoria Curtis CHEMICAL ETCH OPERATOR LAB BLOOD ORDERABLES Fin al Result Performing Organization Address [facility]/ZIP Co de Phone Number [facility] [place] [address] * Phosphorus (06/22/2025 11:49 PM CDT) Phosphorus, pl 3.9 2.3 - 4.5 mg/dL Blood 06/22/2025 11:4 9 PM CDT 06/23/2025 12:01 AM CDT us Jessi Jack CHEMICAL ETCH OPERATOR LAB BLOOD ORDERABLES Fi nal Result [facility] Department [place] [address] * (ABNORMAL) Basic metabolic panel (06/22/2025 11:49 PM CDT) Pathologist [facility] [place] Sodium 140 135 - 145 mmol/L Potassium, pl 4.7 3.3 - 4.9 mmol/L [facility] Chloride 102 97 - 110 mmol/L [facility] CO2 34(H) 22 - 32 mmol/L [facility] Anion gap 4 2 - 15 mmol/L [facility] BUN 16 6 - 25 mg/dL [facility] Creatinine 0.49(L) 0.60 - 1.10 mg/dL [facility] Glucose 106 70 - 199 mg/dL [facility] Comment: Interpretive Data Fasting glucose >/= 126 mg/dl is diagnostic for diabetes. Fasting is defined as no caloric intake for at least 8 hours. Fasting glucose between 100 mg/dl to 125 mg/dl is diagnostic of prediabetes. In a patient with classic symptoms of hyperglycemia or hyperglycemic crisis, a random glucose >/= 200 mg/dl is diagnostic for diabetes. In the absence of unequivocal hyperglycemia, results should be confirmed by repeat testing. The classification and Diagnosis of Diabetes Diabetes Care 202; 46: S19-S40. Current interpretive data was last revised 2022. Calcium 7.6(L) 8.5 - 10.3 mg/dL [facility] Blood 06/22/2025 11:4 9 PM CDT 06/23/2025 12:01 AM CDT us José Miranda MD LAB BLOOD ORDERABLES Final Resu lt [facility] [place] [address] * POCT glucose (06/22/2025 8:32 PM CDT) Glucose, POC 153 70 - 199 mg/dL Blood 06/22/2025 8:32 PM CDT 06/22/2025 8:32 PM CDT José Miranda MD LAB POCT ORDERABLES - DEVICE Fi nal Result Performing Organization Address [facility] [place] [address] * POCT glucose (06/22/2025 5:43 PM CDT) Glucose, POC 79 70 - 199 mg/dL Blood 06/22/2025 5:43 PM CDT 06/22/2025 5:43 PM CDT José Miranda MD LAB POCT ORDERABLES - DEVICE Fi nal Result Performing Organization Address [facility] de Phone Number [facility] [place] [address] * CT Abdomen Pelvis W Contrast (06/22/2025 1:53 PM CDT) Anatomical Region Laterality Modality Body N/A Computed Tomogra phy 06/22/2025 3:32 PM CDT Impressions 06/22/2025 5:07 PM CDT 1. No evidence of small bowel obstruction. Large colonic stool burden. 2. Mild stranding surrounding the right kidney could be related to fluid overload, however ascending urinary tract infection could have a similar appearance. Correlate with urinalysis. 3. Changes of posterior instrumented spinal fusion with stranding and minimal nonorganized fluid along the incision, and no organized fluid collection. 4. Evidence of fluid overload with new small bilateral pleural effusions, mild presacral and body wall edema. 5. Unchanged pelvic floor prolapse. Dictated by: Osman Garcia MD The radiology attending physician has personally reviewed this study, and had reviewed and/or edited this written report and agrees with it. Electronically signed by: Katherin De Los Santos M.D. Narrative 06/22/2025 5:07 PM CDT EXAMINATION: Computed tomography of the abdomen and pelvis with intravenous contrast HISTORY: 75-year-old female with history of multiple spinal surgeries post stage I T3-pelvis posterior instrumented fusion with infected hardware. Constipation and pelvic floor prolapse. TECHNIQUE: Transaxial computed tomographic images of the abdomen and pelvis were obtained with intravenous contrast according to the standard protocol after the administration of 92 mL Opti-Ray 350 intravenous contrast. COMPARISON: CT 04/24/2025 FINDINGS: Normal heart size. No pericardial effusion. Partially imaged pacemaker leads terminating in the right atrium and right ventricle. Small bilateral pleural effusions with associated atelectasis. There is some pleural calcification which appears similar to 04/24/2025 on the left. No suspicious liver lesions. Mild central intrahepatic and common bile duct dilation likely related to reservoir effect from prior cholecystectomy. The portal splenic and superior mesenteric veins are patent. The pancreas is mildly atrophic, but otherwise appears normal. Normal spleen minimal thickening of the left adrenal gland without discrete nodule. This is unchanged from 202. The left kidney is extremely atrophic and calcified. There are multiple right parapelvic renal cysts. An low-density right interpolar renal lesion is slightly increased in size from 202, likely represents a hemorrhagic or proteinaceous cyst. 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 The urinary bladder is decompressed by Mahmood catheter. Surgical changes noted of the uterus. No suspicious adnexal mass. Normal course and caliber of large bowel. Large colonic stool burden. No evidence small bowel obstruction. The appendix is not identified. Normal caliber abdominal aorta with mild atherosclerotic calcification. No abdominal or pelvic lymphadenopathy. There is mild stranding around the right kidney. No omental or peritoneal nodularity. There is mild body wall edema. Surgical drains terminating over the midline lumbar spine. Partially imaged changes of posterior instrumented spinal fusion with intact appearing instrumentation. There is decompression from L2-L5 with morselized bone graft. No drainable fluid collection. There is pelvic floor laxity, similar to prior exam. Soft tissue nodularity in the anterior abdominal wall may be related to prior injection. Procedure Note Katherin De Los Santos MD - 06/22/2025 EXAMINATION: Computed tomography of the abdomen and pelvis with intravenous contrast HISTORY: 75-year-old female with history of multiple spinal surgeries post stage I T3-pelvis posterior instrumented fusion with infected hardware. Constipation and pelvic floor prolapse. TECHNIQUE: Transaxial computed tomographic images of the abdomen and pelvis were obtained with intravenous contrast according to the standard protocol after the administration of 92 mL Opti-Ray 350 intravenous contrast. COMPARISON: CT 04/24/2025 FINDINGS: Normal heart size. No pericardial effusion. Partially imaged pacemaker leads terminating in the right atrium and right ventricle. Small bilateral pleural effusions with associated atelectasis. There is some pleural calcification which appears similar to 04/24/2025 on the left. No suspicious liver lesions. Mild central intrahepatic and common bile duct dilation likely related to reservoir effect from prior cholecystectomy. The portal splenic and superior mesenteric veins are patent. The pancreas is mildly atrophic, but otherwise appears normal. Normal spleen minimal thickening of the left adrenal gland without discrete nodule. This is unchanged from 202. The left kidney is extremely atrophic and calcified. There are multiple right parapelvic renal cysts. An low-density right interpolar renal lesion is slightly increased in size from 202, likely represents a hemorrhagic or proteinaceous cyst. 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 The urinary bladder is decompressed by Mahmood catheter. Surgical changes noted of the uterus. No suspicious adnexal mass. Normal course and caliber of large bowel. Large colonic stool burden. No evidence small bowel obstruction. The appendix is not identified. Normal caliber abdominal aorta with mild atherosclerotic calcification. No abdominal or pelvic lymphadenopathy. There is mild stranding around the right kidney. No omental or peritoneal nodularity. There is mild body wall edema. Surgical drains terminating over the midline lumbar spine. Partially imaged changes of posterior instrumented spinal fusion with intact appearing instrumentation. There is decompression from L2-L5 with morselized bone graft. No drainable fluid collection. There is pelvic floor laxity, similar to prior exam. Soft tissue nodularity in the anterior abdominal wall may be related to prior injection. IMPRESSION: 1. No evidence of small bowel obstruction. Large colonic stool burden. 2. Mild stranding surrounding the right kidney could be related to fluid overload, however ascending urinary tract infection could have a similar appearance. Correlate with urinalysis. 3. Changes of posterior instrumented spinal fusion with stranding and minimal nonorganized fluid along the incision, and no organized fluid collection. 4. Evidence of fluid overload with new small bilateral pleural effusions, mild presacral and body wall edema. 5. Unchanged pelvic floor prolapse. Dictated by: Osman Garcia MD The radiology attending physician has personally reviewed this study, and had reviewed and/or edited this written report and agrees with it. Electronically signed by: Katherin De Los Santos M.D. us Delaney Trammell CHEMICAL ETCH OPERATOR IMG CT PROCEDURES Final Result * POCT glucose (06/22/2025 12:08 PM CDT) Glucose, POC 111 70 - 199 mg/dL Blood 06/22/2025 12:0 8 PM CDT 06/22/2025 12:08 PM CDT us José Miranda MD LAB POCT ORDERABLES - DEVICE Fi nal Result YANIQUE [facility] Department [place] [address] * US Vein Duplex Lower Extremity Bilateral Complete (06/22/2025 11:24 AM CDT) Anatomical Region Laterality Modality Vascular Bilateral Ultrasound 06/22/2025 10:0 8 AM CDT Narrative 06/23/2025 10:56 AM CDT [employer] [facility] - Department of Vascular Surgery, Vascular Laboratory [address] [place] [id number] Lower Extremity Venous Ultrasound Report Patient Name: AMA BROOKS A : 1950 (75y 2m) Study Date: 06/22/2025 10:08:10 AM Sex: F Tech: Location: [id number] Ref Provider: DELANEY TRAMMELL Quality: Adequate Order Provider: DELANEY TRAMMELL PROCEDURES: Vascular Report: Venous Duplex imaging was performed bilaterally in the lower extremities. The common femoral, femoral, popliteal, posterior tibial, peroneal veins were evaluated for patency, spontaneity and phasicity with Doppler, compression and augmentation maneuvers. Great saphenous vein proximal at the junction was evaluated with compression maneuvers. INDICATIONS: Localized Edema; Swelling, Lower Extremity, Bilateral - FINDINGS: Performing Weigh Tank Operator: Jenny Christensen RVT. Bilateral: Venous Doppler signals in the bilateral lower extremity are within normal limits for spontaneity and phasicity and respond normally to augmentation maneuvers. No evidence of deep vein thrombus by duplex, proximal to the calf. Comments: Technically difficult and limited study due to patient body habitus and depth of vessels. Unable to visualize deep calf veins secondary to depth of vessels and edema. CONCLUSIONS: 1. There is no evidence of acute deep vein thrombosis in the lower extremities bilaterally. Noninvasive venous studies cannot rule out isolated calf vein obstruction. HISTORY: CAD, spinal cord compression, thrombocytopenia, localized edema, HTN. PREVIOUS STUDIES: No previous studies for comparison. DISCLAIMER: The study images and the final report will be retained in the patient chart by the Vascular Laboratory for the legally required time period. This chart constitutes the legal record of any testing performed. ATTESTATION: I have reviewed and interpreted the pertinent images and measurements of this study. I attest to the conclusions in the final report that is provided above. Electronically Signed By: Tera Fisher MD [facility] [phone] 06/23/2025 9:52:40 AM CDT Procedure Note Tera Fisher MD - 06/23/2025 [facility] - Department of Vascular Surgery,Vascular Laboratory [address] [place] [address] Lower Extremity Venous Ultrasound Report Patient Name: AMA BROOKS A : 1950 (75y 2m) Study Date: 06/22/2025 10:08:10 AM Sex: F Tech: Location: [id number] Ref Provider: DELANEY TRAMMELL Quality: Adequate Order Provider: DELANEY TRAMMELL PROCEDURES: Vascular Report: Venous Duplex imaging was performed bilaterally in the lower extremities.The common femoral, femoral, popliteal, posterior tibial, peroneal veins wereevaluated for patency, spontaneity and phasicity with Doppler, compression and augmentationmaneuvers. Great saphenous vein proximal at the junction was evaluated with compressionmaneuvers. INDICATIONS: Localized Edema; Swelling, Lower Extremity, Bilateral - FINDINGS: Performing Weigh Tank Operator: Jenny Christensen RVT. Bilateral: Venous Doppler signals in the bilateral lower extremity are within normallimits for spontaneity and phasicity and respond normally to augmentation maneuvers.No evidence of deep vein thrombus by duplex, proximal to the calf. Comments: Technically difficult and limited study due to patient body habitus anddepth of vessels. Unable to visualize deep calf veins secondary to depth of vessels andedema. CONCLUSIONS: 1. There is no evidence of acute deep vein thrombosis in the lowerextremities bilaterally. Noninvasive venous studies cannot rule out isolated calf veinobstruction. HISTORY: CAD, spinal cord compression, thrombocytopenia, localized edema, HTN. PREVIOUS STUDIES: No previous studies for comparison. DISCLAIMER: The study images and the final report will be retained in the patientchart by the Vascular Laboratory for the legally required time period. This chartconstitutes the legal record of any testing performed. ATTESTATION: I have reviewed and interpreted the pertinent images and measurements ofthis study. I attest to the conclusions in the final report that is provided above. Electronically Signed By: Tera Fisher MD [facility] [phone] 06/23/2025 9:52:40 AM CDT us Delaney Trammell CHEMICAL ETCH OPERATOR IMG US PROCEDURES Final Result * POCT glucose (06/22/2025 7:33 AM CDT) Glucose, POC 116 70 - 199 mg/dL Blood 06/22/2025 7:33 AM CDT 06/22/2025 7:33 AM CDT us José Miranda MD LAB POCT ORDERABLES - DEVICE Fi nal Result [facility] Department [place] [address] * eGFR (06/21/2025 8:29 PM CDT) eGFR >90 >=60 mL/min/1. 73 m2 Comment: Interpretive Data Reference Interval Normal >/= 90 mL/min/1.73m2 Mildly decreased* 60 - 89 mL/min/1.73m2 Mildly to moderately decreased 45 - 59 mL/min/1.73m2 Moderately to severely decreased 30 - 44 mL/min/1.73m2 Severely decreased 15 - 29 mL/min/1.73m2 Kidney Failure < 15 mL/min/1.73m2 *Relative to young adult level Estimated glomerular filtration rate is determined by the 2020 CKD-EPI equation recommended by the National Kidney Foundation (A Unifying Approach to GFR Estimation: Recommendations of the NKF-ASK Task Force on Reassessing the Inclusion of Race in Diagnosing Kidney Disease, JASN 202). The CKD-EPI equation should not be used for patients with unstable renal function and has not been validated in children and those over 70. Current interpretive data was last reviewed 2021. Blood 06/21/2025 8:29 PM CDT 06/21/2025 8:57 PM CDT us José Miranda MD LAB BLOOD ORDERABLES Final Resu lt [facility] Department [place] [address] * (ABNORMAL) CBC without differential (06/21/2025 8:29 PM CDT) WBC 9.36 3.80 - 9.90 K/cumm Hgb 11.5(L) 11.9 - 15.5 g/dL [facility] Hct 35.7 35.6 - 45.5 % [facility] Plt 203 150 - 400 K/cumm [facility] MPV 10.3 9.1 - 12.3 fL [facility] RBC 3.81(L) 3.90 - 5.20 M/cumm [facility] MCV 93.7 81.3 - 96.4 fL [facility] MCH 30.2 27.1 - 33.3 pg [facility] MCHC 32.2(L) 32.3 - 35.7 g/dL [facility] RDW CV 16.3(H) 11.1 - 14.9 % [facility] RDW SD 54.2(H) 35.7 - 48.1 fL [facility] NRBC abs 0.00 0.00 - 0.01 K/cumm [facility] Blood 06/21/2025 8:29 PM CDT 06/21/2025 8:57 PM CDT Maria Victoria Curtis CHEMICAL ETCH OPERATOR LAB BLOOD ORDERABLES Fin al Result [facility] Department [place] [address] * Phosphorus (06/21/2025 8:29 PM CDT) Pathologist [facility] Phosphorus, pl 3.7 2.3 - 4.5 mg/dL Blood 06/21/2025 8:29 PM CDT 06/21/2025 8:57 PM CDT Jessi Jack CHEMICAL ETCH OPERATOR LAB BLOOD ORDERABLES Fi nal Result Performing Organization Address [facility] Co de Phone Number [facility] Department [place] [address] * (ABNORMAL) Basic metabolic panel (06/21/2025 8:29 PM CDT) [facility] Sodium 139 135 - 145 mmol/L Potassium, pl 4.8 3.3 - 4.9 mmol/L [facility] Chloride 102 97 - 110 mmol/L [facility] CO2 31 22 - 32 mmol/L [facility] Anion gap 6 2 - 15 mmol/L [facility] BUN 19 6 - 25 mg/dL [facility] Creatinine 0.49(L) 0.60 - 1.10 mg/dL [facility] Glucose 113 70 - 199 mg/dL [facility] Comment: Interpretive Data Fasting glucose >/= 126 mg/dl is diagnostic for diabetes. Fasting is defined as no caloric intake for at least 8 hours. Fasting glucose between 100 mg/dl to 125 mg/dl is diagnostic of prediabetes. In a patient with classic symptoms of hyperglycemia or hyperglycemic crisis, a random glucose >/= 200 mg/dl is diagnostic for diabetes. In the absence of unequivocal hyperglycemia, results should be confirmed by repeat testing. The classification and Diagnosis of Diabetes Diabetes Care 202; 46: S19-S40. Current interpretive data was last revised 2022. Calcium 7.6(L) 8.5 - 10.3 mg/dL [facility] Blood 06/21/2025 8:29 PM CDT 06/21/2025 8:57 PM CDT José Miranda MD LAB BLOOD ORDERABLES Final Resu lt Performing Organization Address City/[facility]/ZIP Co de Phone Number [facility] [place] [place] [address] * POCT glucose (06/21/2025 8:18 PM CDT) Glucose, POC 129 70 - 199 mg/dL Blood 06/21/2025 8:18 PM CDT 06/21/2025 8:18 PM CDT José Miranda MD LAB POCT ORDERABLES - DEVICE Fi nal Result Performing Organization Address [facility] Co de Phone Number [facility] [place] [address] * POCT glucose (06/21/2025 4:57 PM CDT) Glucose, POC 147 70 - 199 mg/dL Blood 06/21/2025 4:57 PM CDT 06/21/2025 4:57 PM CDT José Miranda MD LAB POCT ORDERABLES - DEVICE Fi nal Result Performing Organization Address City/[facility] Co de Phone Number [facility] [place] [address] * POCT glucose (06/21/2025 11:40 AM CDT) Glucose, POC 84 70 - 199 mg/dL Blood 06/21/2025 11:4 0 AM CDT 06/21/2025 11:40 AM CDT José Miranda MD LAB POCT ORDERABLES - DEVICE Fi nal Result Performing Organization Address City/[facility] Co de Phone Number [facility] [place] [address] * POCT glucose (06/21/2025 7:55 AM CDT) Glucose, POC 75 70 - 199 mg/dL Blood 06/21/2025 7:55 AM CDT 06/21/2025 7:55 AM CDT José Miranda MD LAB POCT ORDERABLES - DEVICE Fi nal Result Performing Organization Address [facility] de Phone Number [facility] [place] [address] * POCT glucose (06/20/2025 9:21 PM CDT) Glucose, POC 173 70 - 199 mg/dL Blood 06/20/2025 9:21 PM CDT 06/20/2025 9:21 PM CDT José Miranda MD LAB POCT ORDERABLES - DEVICE Fi nal Result Performing Organization Address [facility] de Phone Number [facility] [place] [address] * eGFR (06/20/2025 9:16 PM CDT) eGFR >90 >=60 mL/min/1. 73 m2 Comment: Interpretive Data Reference Interval Normal >/= 90 mL/min/1.73m2 Mildly decreased* 60 - 89 mL/min/1.73m2 Mildly to moderately decreased 45 - 59 mL/min/1.73m2 Moderately to severely decreased 30 - 44 mL/min/1.73m2 Severely decreased 15 - 29 mL/min/1.73m2 Kidney Failure < 15 mL/min/1.73m2 *Relative to young adult level Estimated glomerular filtration rate is determined by the 2020 CKD-EPI equation recommended by the National Kidney Foundation (A Unifying Approach to GFR Estimation: Recommendations of the NKF-ASK Task Force on Reassessing the Inclusion of Race in Diagnosing Kidney Disease, JASN 2020). The CKD-EPI equation should not be used for patients with unstable renal function and has not been validated in children and those over 70. Current interpretive data was last reviewed 2021. Blood 06/20/2025 9:16 PM CDT 06/20/2025 9:33 PM CDT us José Miranda MD LAB BLOOD ORDERABLES Final Resu lt [facility] Department [place] [address] * (ABNORMAL) CBC without differential (06/20/2025 9:16 PM CDT) WBC 11.11(H) 3.80 - 9.90 K/cumm Hgb 11.2(L) 11.9 - 15.5 g/dL [facility] Hct 35.3(L) 35.6 - 45.5 % [facility] Plt 193 150 - 400 K/cumm [facility] MPV 10.6 9.1 - 12.3 fL [facility] RBC 3.81(L) 3.90 - 5.20 M/cumm [facility] MCV 92.7 81.3 - 96.4 fL [facility] MCH 29.4 27.1 - 33.3 pg [facility] MCHC 31.7(L) 32.3 - 35.7 g/dL [facility] RDW CV 16.1(H) 11.1 - 14.9 % [facility] RDW SD 53.6(H) 35.7 - 48.1 fL [facility] NRBC abs 0.00 0.00 - 0.01 K/cumm [facility] Blood 06/20/2025 9:16 PM CDT 06/20/2025 9:33 PM CDT Maria Victoria Curtis CHEMICAL ETCH OPERATOR LAB BLOOD ORDERABLES Fin al Result Performing Organization Address City/[facility]/ZIP Co de Phone Number [facility] Department [place] [address] * Phosphorus (06/20/2025 9:16 PM CDT) Pathologist [facility] Phosphorus, pl 3.3 2.3 - 4.5 mg/dL Blood 06/20/2025 9:16 PM CDT 06/20/2025 9:33 PM CDT Jessi Jack CHEMICAL ETCH OPERATOR LAB BLOOD ORDERABLES Fi nal Result Performing Organization Address [facility] de Phone Number [facility] Department [place] [address] * (ABNORMAL) Basic metabolic panel (06/20/2025 9:16 PM CDT) [facility] Sodium 141 135 - 145 mmol/L Potassium, pl 4.5 3.3 - 4.9 mmol/L [facility] Chloride 107 97 - 110 mmol/L [facility] CO2 33(H) 22 - 32 mmol/L [facility] Anion gap 1(L) 2 - 15 mmol/L [facility] BUN 15 6 - 25 mg/dL [facility] Creatinine 0.48(L) 0.60 - 1.10 mg/dL [facility] Glucose 129 70 - 199 mg/dL [facility] Comment: Interpretive Data Fasting glucose >/= 126 mg/dl is diagnostic for diabetes. Fasting is defined as no caloric intake for at least 8 hours. Fasting glucose between 100 mg/dl to 125 mg/dl is diagnostic of prediabetes. In a patient with classic symptoms of hyperglycemia or hyperglycemic crisis, a random glucose >/= 200 mg/dl is diagnostic for diabetes. In the absence of unequivocal hyperglycemia, results should be confirmed by repeat testing. The classification and Diagnosis of Diabetes Diabetes Care 2021; 46: S19-S40. Current interpretive data was last revised 2022. Calcium 7.0(L) 8.5 - 10.3 mg/dL [facility] Blood 06/20/2025 9:16 PM CDT 06/20/2025 9:33 PM CDT José Miranda MD LAB BLOOD ORDERABLES Final Resu lt Performing Organization Address [facility] Co de Phone Number [facility] [place] [place] [address] * POCT glucose (06/20/2025 6:13 PM CDT) Glucose, POC 146 70 - 199 mg/dL Blood 06/20/2025 6:13 PM CDT 06/20/2025 6:13 PM CDT José Miranda MD LAB POCT ORDERABLES - DEVICE Fi nal Result Performing Organization Address [facility] de Phone Number [facility] Department [place] [address] * XR Abdomen Ap 1 Vw (06/20/2025 1:13 PM CDT) Anatomical Region Laterality Modality Body, Abdomen N/A Computed Radiogr aphy 06/20/2025 2:13 PM CDT Impressions 06/20/2025 2:22 PM CDT There is instrumented spinal fusion. Surgical drains project over the abdomen and pelvis. Partially imaged cardiac defibrillator leads. There is normal bowel gas pattern. Dictated by: Alvarado Salamanca M.D. The radiology attending physician has personally reviewed this study, and had reviewed and/or edited this written report and agrees with it. Electronically signed by: Bony Quintana M.D. Narrative 06/20/2025 2:22 PM CDT EXAMINATION: Abdomen, one view. HISTORY: Ileus COMPARISON: 06/14/2025 Procedure Note Bony Quintana MD - 06/20/2025 EXAMINATION: Abdomen, one view. HISTORY: Ileus COMPARISON: 06/14/2025 IMPRESSION: There is instrumented spinal fusion. Surgical drains project over the abdomen and pelvis. Partially imaged cardiac defibrillator leads. There is normal bowel gas pattern. Dictated by: Alvarado Salamanca M.D. The radiology attending physician has personally reviewed this study, and had reviewed and/or edited this written report and agrees with it. Electronically signed by: Bony Quintana M.D. us Eli Power CHEMICAL ETCH OPERATOR IMG XR PROCEDURES Final R esult * POCT glucose (06/20/2025 12:17 PM CDT) Glucose, POC 71 70 - 199 mg/dL Blood 06/20/2025 12:1 7 PM CDT 06/20/2025 12:17 PM CDT us José Miranda MD LAB POCT ORDERABLES - DEVICE Fi nal Result [facility] Department [place] [address] * IR Central Line Placement > 5 Years (06/20/2025 10:27 AM CDT) Anatomical Region Laterality Modality Body N/A X-Ray Angiograph y 06/20/2025 11:2 7 AM CDT Impressions 06/20/2025 11:29 AM CDT 1. Successful nontunneled catheter placement. 2. Successful removal of right subclavian catheter. PLAN: The catheter is ready for immediate use. When treatment is completed, this catheter can be removed at the bedside according to standard hospital protocol. Dictated by: Abimael Mann M.D. The radiology attending physician has personally reviewed this study, and had reviewed and/or edited this written report and agrees with it. Electronically signed by: Myrna Olivo M.D. Narrative 06/20/2025 11:29 AM CDT EXAMINATION: NONTUNNELED CENTRAL VENOUS CATHETER PLACEMENT (STD) HISTORY: 75-year-old with history of multiple prior spinal surgeries s/p hardware removal and complex revision for chronic spinal infection. She requires skilled nursing IV antibiotics necessitating CVC placement. ATTENDING PRESENCE: Myrna Olivo M.D., the attending radiologist was present from the beginning to the end of the procedure. SEDATION: Local anesthesia and IV fentanyl only. TECHNIQUE: The risks, benefits and alternatives were discussed and informed consent was obtained. Prior to beginning the procedure, [place] Protocol was used to confirm the patient's identity and planned procedure. Fluoroscopy time has been recorded in the electronic medical record. Maximum sterile barriers including cap, mask, hand hygiene, sterile gloves, sterile gown, large sterile drape and 2% chlorhexidine for cutaneous antisepsis were used. The existing right subclavian catheter was removed. The skin over the right internal jugular was sterilely prepped, draped and infiltrated with 1% buffered lidocaine. Prior to the procedure, the target vessel was evaluated by ultrasound, an image of the patent vessel recorded, and this image placed in the patient's chart. After sterile prep, this vessel was accessed using realtime ultrasound guidance. A guidewire and catheter were then passed centrally using fluoroscopic guidance. The intravascular length from the access site to the right atrium was assessed. After dilating the tract, a dual lumen alayna trimmed to the appropriate intravascular length was inserted over the guidewire. The catheter was flushed with 100U/ml heparin and secured in place. A sterile dressing was applied. ESTIMATED BLOOD LOSS: Minimal. CONDITION: Stable DISCHARGED TO: patient care division. FINDINGS: The final fluoroscopic image demonstrates the catheter with its tip at the cavoatrial junction. No complications are seen. Procedure Note Myrna Olivo MD - 06/20/2025 EXAMINATION: NONTUNNELED CENTRAL VENOUS CATHETER PLACEMENT (STD) HISTORY: 75-year-old with history of multiple prior spinal surgeries s/p hardware removal and complex revision for chronic spinal infection. She requires skilled nursing IV antibiotics necessitating CVC placement. ATTENDING PRESENCE: Myrna Olivo M.D., the attending radiologist was present from the beginning to the end of the procedure. SEDATION: Local anesthesia and IV fentanyl only. TECHNIQUE: The risks, benefits and alternatives were discussed and informed consent was obtained. Prior to beginning the procedure, [place] Protocol was used to confirm the patient's identity and planned procedure. Fluoroscopy time has been recorded in the electronic medical record. Maximum sterile barriers including cap, mask, hand hygiene, sterile gloves, sterile gown, large sterile drape and 2% chlorhexidine for cutaneous antisepsis were used. The existing right subclavian catheter was removed. The skin over the right internal jugular was sterilely prepped, draped and infiltrated with 1% buffered lidocaine. Prior to the procedure, the target vessel was evaluated by ultrasound, an image of the patent vessel recorded, and this image placed in the patient's chart. After sterile prep, this vessel was accessed using realtime ultrasound guidance. A guidewire and catheter were then passed centrally using fluoroscopic guidance. The intravascular length from the access site to the right atrium was assessed. After dilating the tract, a dual lumen alayna trimmed to the appropriate intravascular length was inserted over the guidewire. The catheter was flushed with 100U/ml heparin and secured in place. A sterile dressing was applied. ESTIMATED BLOOD LOSS: Minimal. CONDITION: Stable DISCHARGED TO: patient care division. FINDINGS: The final fluoroscopic image demonstrates the catheter with its tip at the cavoatrial junction. No complications are seen. IMPRESSION: 1. Successful nontunneled catheter placement. 2. Successful removal of right subclavian catheter. PLAN: The catheter is ready for immediate use. When treatment is completed, this catheter can be removed at the bedside according to standard hospital protocol. Dictated by: Abimael Mann M.D. The radiology attending physician has personally reviewed this study, and had reviewed and/or edited this written report and agrees with it. Electronically signed by: Myrna Olivo M.D. Jaison Carvajal NP IMG IR PROCEDURES Final Resu lt * POCT glucose (06/20/2025 7:50 AM CDT) Glucose, POC 95 70 - 199 mg/dL Blood 06/20/2025 7:50 AM CDT 06/20/2025 7:50 AM CDT José Miranda MD LAB POCT ORDERABLES - DEVICE Fi nal Result Performing Organization Address [facility] Co de Phone Number YANIQUE [facility] Department [place] [address] * eGFR (06/19/2025 9:16 PM CDT) eGFR >90 >=60 mL/min/1. 73 m2 Comment: Interpretive Data Reference Interval Normal >/= 90 mL/min/1.73m2 Mildly decreased* 60 - 89 mL/min/1.73m2 Mildly to moderately decreased 45 - 59 mL/min/1.73m2 Moderately to severely decreased 30 - 44 mL/min/1.73m2 Severely decreased 15 - 29 mL/min/1.73m2 Kidney Failure < 15 mL/min/1.73m2 *Relative to young adult level Estimated glomerular filtration rate is determined by the 2020 CKD-EPI equation recommended by the National Kidney Foundation (A Unifying Approach to GFR Estimation: Recommendations of the NKF-ASK Task Force on Reassessing the Inclusion of Race in Diagnosing Kidney Disease, JASN 2020). The CKD-EPI equation should not be used for patients with unstable renal function and has not been validated in children and those over 70. Current interpretive data was last reviewed 2021. Blood 06/19/2025 9:16 PM CDT 06/19/2025 9:34 PM CDT José Miranda MD LAB BLOOD ORDERABLES Final Resu lt Performing Organization Address City/[facility]/ZIP Co de Phone Number YANIQUE [facility] Department [place] [address] * (ABNORMAL) CBC without differential (06/19/2025 9:16 PM CDT) WBC 8.08 3.80 - 9.90 K/cumm Hgb 11.2(L) 11.9 - 15.5 g/dL [facility] Hct 34.3(L) 35.6 - 45.5 % [facility] Plt 163 150 - 400 K/cumm [facility] MPV 10.8 9.1 - 12.3 fL [facility] RBC 3.74(L) 3.90 - 5.20 M/cumm [facility] MCV 91.7 81.3 - 96.4 fL [facility] MCH 29.9 27.1 - 33.3 pg [facility] MCHC 32.7 32.3 - 35.7 g/dL [facility] RDW CV 15.9(H) 11.1 - 14.9 % [facility] RDW SD 51.1(H) 35.7 - 48.1 fL [facility] NRBC abs 0.00 0.00 - 0.01 K/cumm [facility] Blood 06/19/2025 9:16 PM CDT 06/19/2025 9:35 PM CDT Maria Victoria Curtis CHEMICAL ETCH OPERATOR LAB BLOOD ORDERABLES Fin al Result [facility] Department [place] [address] * Phosphorus (06/19/2025 9:16 PM CDT) [facility] Phosphorus, pl 3.2 2.3 - 4.5 mg/dL Blood 06/19/2025 9:16 PM CDT 06/19/2025 9:34 PM CDT us Jessi Jack CHEMICAL ETCH OPERATOR LAB BLOOD ORDERABLES Fi nal Result [facility] Department [place] [address] * Magnesium (06/19/2025 9:16 PM CDT) Pathologist [facility] [place] Magnesium 1.9 1.4 - 2.5 mg/dL Blood 06/19/2025 9:16 PM CDT 06/19/2025 9:34 PM CDT us Jessi Jack CHEMICAL ETCH OPERATOR LAB BLOOD ORDERABLES Fi nal Result Performing Organization Address City/[facility]/ZIP Co de Phone Number [facility] Department [place] [address] * (ABNORMAL) Basic metabolic panel (06/19/2025 9:16 PM CDT) Pathologist [facility] Sodium 140 135 - 145 mmol/L Potassium, pl 4.1 3.3 - 4.9 mmol/L [facility] Chloride 104 97 - 110 mmol/L [facility] CO2 32 22 - 32 mmol/L [facility] Anion gap 4 2 - 15 mmol/L [facility] BUN 13 6 - 25 mg/dL [facility] Creatinine 0.50(L) 0.60 - 1.10 mg/dL [facility] Glucose 147 70 - 199 mg/dL [facility] Comment: Interpretive Data Fasting glucose >/= 126 mg/dl is diagnostic for diabetes. Fasting is defined as no caloric intake for at least 8 hours. Fasting glucose between 100 mg/dl to 125 mg/dl is diagnostic of prediabetes. In a patient with classic symptoms of hyperglycemia or hyperglycemic crisis, a random glucose >/= 200 mg/dl is diagnostic for diabetes. In the absence of unequivocal hyperglycemia, results should be confirmed by repeat testing. The classification and Diagnosis of Diabetes Diabetes Care 202; 46: S19-S40. Current interpretive data was last revised 2022. Calcium 7.2(L) 8.5 - 10.3 mg/dL [facility] Blood 06/19/2025 9:16 PM CDT 06/19/2025 9:34 PM CDT us José Miranda MD LAB BLOOD ORDERABLES Final Resu lt Performing Organization Address City/[facility]/ZIP Co de Phone Number [facility] Department [place] [address] * POCT glucose (06/19/2025 8:18 PM CDT) Glucose, POC 122 70 - 199 mg/dL Blood 06/19/2025 8:18 PM CDT 06/19/2025 8:18 PM CDT us José Miranda MD LAB POCT ORDERABLES - DEVICE Fi nal Result Performing Organization Address [facility] de Phone Number [facility] [place] [address] * POCT glucose (06/19/2025 5:24 PM CDT) Glucose, POC 144 70 - 199 mg/dL Blood 06/19/2025 5:24 PM CDT 06/19/2025 5:24 PM CDT us José Miranda MD LAB POCT ORDERABLES - DEVICE Fi nal Result Performing Organization Address [facility] de Phone Number [facility] [place] [address] * POCT glucose (06/19/2025 11:25 AM CDT) Glucose, POC 91 70 - 199 mg/dL Blood 06/19/2025 11:2 5 AM CDT 06/19/2025 11:25 AM CDT us José Miranda MD LAB POCT ORDERABLES - DEVICE Fi nal Result Performing Organization Address [facility] de Phone Number [facility] [place] [address] * POCT glucose (06/19/2025 7:30 AM CDT) Glucose, POC 132 70 - 199 mg/dL Blood 06/19/2025 7:30 AM CDT 06/19/2025 7:30 AM CDT us José Miranda MD LAB POCT ORDERABLES - DEVICE Fi nal Result Performing Organization Address [facility] Co de Phone Number [facility] [place] [address] * eGFR (06/19/2025 12:21 AM CDT) Pathologist [facility] [place] eGFR >90 >=60 mL/min/1. 73 m2 Comment: Interpretive Data Reference Interval Normal >/= 90 mL/min/1.73m2 Mildly decreased* 60 - 89 mL/min/1.73m2 Mildly to moderately decreased 45 - 59 mL/min/1.73m2 Moderately to severely decreased 30 - 44 mL/min/1.73m2 Severely decreased 15 - 29 mL/min/1.73m2 Kidney Failure < 15 mL/min/1.73m2 *Relative to young adult level Estimated glomerular filtration rate is determined by the 2020 CKD-EPI equation recommended by the National Kidney Foundation (A Unifying Approach to GFR Estimation: Recommendations of the NKF-ASK Task Force on Reassessing the Inclusion of Race in Diagnosing Kidney Disease, JASN 2020). The CKD-EPI equation should not be used for patients with unstable renal function and has not been validated in children and those over 70. Current interpretive data was last reviewed 2021. Blood 06/19/2025 12:2 1 AM CDT 06/19/2025 12:46 AM CDT José Miranda MD LAB BLOOD ORDERABLES Final Resu lt Performing Organization Address City/[facility]/ZIP Co de Phone Number YANIQUE [facility] Department [place] [address] * (ABNORMAL) CBC without differential (06/19/2025 12:21 AM CDT) Pathologist [facility] [place] WBC 9.61 3.80 - 9.90 K/cumm Hgb 11.7(L) 11.9 - 15.5 g/dL [facility] Hct 35.1(L) 35.6 - 45.5 % [facility] Plt 140(L) 150 - 400 K/cumm [facility] MPV 10.8 9.1 - 12.3 fL [facility] RBC 3.85(L) 3.90 - 5.20 M/cumm [facility] MCV 91.2 81.3 - 96.4 fL [facility] MCH 30.4 27.1 - 33.3 pg [facility] MCHC 33.3 32.3 - 35.7 g/dL [facility] RDW CV 15.8(H) 11.1 - 14.9 % [facility] RDW SD 51.5(H) 35.7 - 48.1 fL [facility] NRBC abs 0.00 0.00 - 0.01 K/cumm [facility] Blood 06/19/2025 12:2 1 AM CDT 06/19/2025 12:45 AM CDT Maria Victoria Curtis CHEMICAL ETCH OPERATOR LAB BLOOD ORDERABLES Fin al Result Performing Organization Address City/[facility]/ZIP Co de Phone Number [facility] Department [place] [address] * Phosphorus (06/19/2025 12:21 AM CDT) Pathologist [facility] [place] Phosphorus, pl 2.4 2.3 - 4.5 mg/dL Blood 06/19/2025 12:2 1 AM CDT 06/19/2025 12:33 AM CDT us Jessi Jack CHEMICAL ETCH OPERATOR LAB BLOOD ORDERABLES Fi nal Result [facility] [place] [address] * Magnesium (06/19/2025 12:21 AM CDT) Pathologist [facility] [place] Magnesium 1.9 1.4 - 2.5 mg/dL Blood 06/19/2025 12:2 1 AM CDT 06/19/2025 12:33 AM CDT us Jessi Jack NP LAB BLOOD ORDERABLES Fi nal Result Performing Organization Address City/[facility]/ZIP Co de Phone Number [facility] Department [place] [address] * (ABNORMAL) Vancomycin level trough (06/19/2025 12:21 AM CDT) Vancomycin trough 8.8(L) 10.0 - 20.0 mcg/mL Blood 06/19/2025 12:2 1 AM CDT 06/19/2025 12:33 AM CDT José Miranda MD LAB BLOOD ORDERABLES Final Resu lt Performing Organization Address [facility] Co de Phone Number [facility] Department [place] [address] * (ABNORMAL) Comprehensive metabolic panel (06/19/2025 12:21 AM CDT) Pathologist [facility] [place] Sodium 140 135 - 145 mmol/L Potassium, pl 4.1 3.3 - 4.9 mmol/L [facility] Chloride 106 97 - 110 mmol/L [facility] CO2 31 22 - 32 mmol/L [facility] Anion gap 3 2 - 15 mmol/L [facility] BUN 10 6 - 25 mg/dL [facility] Creatinine 0.45(L) 0.60 - 1.10 mg/dL [facility] Glucose 106 70 - 199 mg/dL [facility] Comment: Interpretive Data Fasting glucose >/= 126 mg/dl is diagnostic for diabetes. Fasting is defined as no caloric intake for at least 8 hours. Fasting glucose between 100 mg/dl to 125 mg/dl is diagnostic of prediabetes. In a patient with classic symptoms of hyperglycemia or hyperglycemic crisis, a random glucose >/= 200 mg/dl is diagnostic for diabetes. In the absence of unequivocal hyperglycemia, results should be confirmed by repeat testing. The classification and Diagnosis of Diabetes Diabetes Care 2021; 46: S19-S40. Current interpretive data was last revised 2022. Calcium 7.0(L) 8.5 - 10.3 mg/dL [facility] Bilirubin, total 0.3 0.1 - 1.2 mg/dL [facility] Protein, pl 4.8(L) 6.5 - 8.5 g/dL [facility] Albumin 2.5(L) 3.5 - 5.0 g/dL [facility] Alk phos 159(H) 40 - 130 Units/L [facility] ALT 27 7 - 45 Units/L [facility] AST 44 10 - 45 Units/L [facility] Blood 06/19/2025 12:2 1 AM CDT 06/19/2025 12:33 AM CDT José Miranda MD LAB BLOOD ORDERABLES Final Resu lt Performing Organization Address City/[facility]/ZIP Co de Phone Number [facility] Department [place] [address] * POCT glucose (06/18/2025 9:22 PM CDT) Pathologist [facility] [place] Glucose, POC 86 70 - 199 mg/dL Blood 06/18/2025 9:22 PM CDT 06/18/2025 9:22 PM CDT José Miranda MD LAB POCT ORDERABLES - DEVICE Fi nal Result Performing Organization Address City/[facility]/ZIP Co de Phone Number [facility] Department [place] [address] * (ABNORMAL) Troponin I high-sensitivity 6-hour (06/18/2025 6:34 PM CDT) Trop I hs 56(H) <=17 ng/L Comment: Interpretive Data For further hscTnI resources including the diagnostic algorithm and an aid in interpretation, copy and paste this link: https://bjhlab.testcatalog.org/show/[email or web address] Current Interpretive Data last revised 2020. Trop I hs delta -5 ng/L [facility] Trop I hs interp Equivocal [facility] Blood 06/18/2025 6:34 PM CDT 06/18/2025 7:00 PM CDT [facility] Neema Lackey CHEMICAL ETCH OPERATOR LAB BLOOD ORDERABLES Meghan l Result Performing Organization Address [facility] de Phone Number [facility] [place] [address] * POCT glucose (06/18/2025 6:23 PM CDT) Glucose, POC 108 70 - 199 mg/dL Blood 06/18/2025 6:23 PM CDT 06/18/2025 6:23 PM CDT Result [facility] José Miranda MD LAB POCT ORDERABLES - DEVICE Fi nal Result Performing Organization Address [facility] Phone Number [facility] [place] [address] * (ABNORMAL) Troponin I high-sensitivity 4-hour (06/18/2025 4:31 PM CDT) Trop I hs 60(H) <=17 ng/L Comment: Interpretive Data For further hscTnI resources including the diagnostic algorithm and an aid in interpretation, copy and paste this link: https://bjhlab.testcatalog.org/show/hsTrop-[email or web address] Current Interpretive Data last revised 2020. Trop I hs delta -1 ng/L [facility] Trop I hs interp Insignificant [facility] Blood 06/18/2025 4:31 PM CDT 06/18/2025 4:49 PM CDT [facility] Darya CHEMICAL ETCH OPERATOR LAB BLOOD ORDERABLES Meghan l Result Performing Organization Address [facility] Co de Phone Number [facility] [place] [address] * (ABNORMAL) Calcium, ionized (06/18/2025 2:51 PM CDT) Pathologist [facility] Calcium, Ionized 4.05(L) 4.50 - 5.10 mg/dL Blood 06/18/2025 2:51 PM CDT 06/18/2025 3:25 PM CDT [facility] LAB BLOOD ORDERABLES Meghan l Result Performing Organization Address [facility] de Phone Number [facility] Department [place] [address] * (ABNORMAL) Troponin I high-sensitivity 2-hour (06/18/2025 2:26 PM CDT) [facility] Trop I hs 60(H) <=17 ng/L Comment: Interpretive Data For further hscTnI resources including the diagnostic algorithm and an aid in interpretation, copy and paste this link: https://bjhlab.testcatalog.org/show/[email or web address] Current Interpretive Data last revised 2020. Trop I hs delta -1 ng/L [facility] Trop I hs interp Insignificant [facility] Blood 06/18/2025 2:26 PM CDT 06/18/2025 2:49 PM CDT Result [facility] LAB BLOOD ORDERABLES Mgehan l Result Performing Organization Address [facility] de Phone Number [facility] [place] [address] * XR Chest 1 View (06/18/2025 1:30 PM CDT) Anatomical Region Laterality Modality Body, Chest N/A Computed Radiogr aphy 06/18/2025 2:27 PM CDT Impressions 06/18/2025 2:27 PM CDT Comparison 06/18/2025. Spinal instrumentation again noted. 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 Right subclavian intravenous catheter remains in place but the tip is obscured. Mild bibasilar atelectasis left greater than right again seen. No pneumothorax or pleural effusion seen. Cardiomediastinal silhouette stable. Electronically signed by: Berlin Curry M.D. Narrative 06/18/2025 2:27 PM CDT EXAMINATION: 1 view chest radiograph Procedure Note Berlin Curry MD - 06/18/2025 EXAMINATION: 1 view chest radiograph IMPRESSION: Comparison 06/18/2025. Spinal instrumentation again noted. 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 Right subclavian intravenous catheter remains in place but the tip is obscured. Mild bibasilar atelectasis left greater than right again seen. No pneumothorax or pleural effusion seen. Cardiomediastinal silhouette stable. Electronically signed by: Berlin Curry M.D. Josephine Lackey CHEMICAL ETCH OPERATOR IMG XR PROCEDURES Final R esult * POCT glucose (06/18/2025 1:02 PM CDT) Glucose, POC 109 70 - 199 mg/dL Blood 06/18/2025 1:02 PM CDT 06/18/2025 1:02 PM CDT José Miranda MD LAB POCT ORDERABLES - DEVICE Fi nal Result [facility] Department [place] [address] * Lactate (06/18/2025 12:44 PM CDT) Lactate 1.0 0.7 - 2.0 mmol/L Blood 06/18/2025 12:4 4 PM CDT 06/18/2025 1:12 PM CDT Josephine Neema [place] CHEMICAL ETCH OPERATOR LAB BLOOD ORDERABLES Meghan l Result Performing Organization Address [facility] Co de Phone Number [facility] [place] [address] * eGFR (06/18/2025 12:44 PM CDT) eGFR >90 >=60 mL/min/1. 73 m2 Comment: Interpretive Data Reference Interval Normal >/= 90 mL/min/1.73m2 Mildly decreased* 60 - 89 mL/min/1.73m2 Mildly to moderately decreased 45 - 59 mL/min/1.73m2 Moderately to severely decreased 30 - 44 mL/min/1.73m2 Severely decreased 15 - 29 mL/min/1.73m2 Kidney Failure < 15 mL/min/1.73m2 *Relative to young adult level Estimated glomerular filtration rate is determined by the 2020 CKD-EPI equation recommended by the National Kidney Foundation (A Unifying Approach to GFR Estimation: Recommendations of the NKF-ASK Task Force on Reassessing the Inclusion of Race in Diagnosing Kidney Disease, JASN 2020). The CKD-EPI equation should not be used for patients with unstable renal function and has not been validated in children and those over 70. Current interpretive data was last reviewed 2021. Blood 06/18/2025 12:4 4 PM CDT 06/18/2025 1:11 PM CDT Josephine Lackey LAB BLOOD ORDERABLES Meghan l Result Performing Organization Address [facility] Co de Phone Number [facility] [place] [address] * aPTT (06/18/2025 12:44 PM CDT) aPTT 29 26 - 38 sec Comment: Interpretive Data Heparin therapeutic range: 66.0 - 100.0 seconds. Range based on correlation with therapeutic heparin activity range of 0.3 - 0.7 Units/mL. Current interpretive data was last revised on 2023. Blood 06/18/2025 12:4 4 PM CDT 06/18/2025 1:14 PM CDT Josephine Lackey CHEMICAL ETCH OPERATOR LAB BLOOD ORDERABLES Meghan isabel Result Performing Organization Address [facility] Co de Phone Number [facility] Department [place] [address] * (ABNORMAL) CBC without differential (06/18/2025 12:44 PM CDT) Pathologist [facility] WBC 9.51 3.80 - 9.90 K/cumm Hgb 11.6(L) 11.9 - 15.5 g/dL [facility] Hct 36.5 35.6 - 45.5 % [facility] Plt 134(L) 150 - 400 K/cumm [facility] MPV 11.0 9.1 - 12.3 fL [facility] RBC 3.95 3.90 - 5.20 M/cumm [facility] MCV 92.4 81.3 - 96.4 fL [facility] MCH 29.4 27.1 - 33.3 pg [facility] MCHC 31.8(L) 32.3 - 35.7 g/dL [facility] RDW CV 15.8(H) 11.1 - 14.9 % [facility] RDW SD 52.0(H) 35.7 - 48.1 fL [facility] NRBC abs 0.00 0.00 - 0.01 K/cumm [facility] Blood 06/18/2025 12:4 4 PM CDT 06/18/2025 1:12 PM CDT Josephine Lackey CHEMICAL ETCH OPERATOR LAB BLOOD ORDERABLES Meghan l Result Performing Organization Address City/[facility]/ZIP Co de Phone Number [facility] Department [place] [address] * (ABNORMAL) Comprehensive metabolic panel (06/18/2025 12:44 PM CDT) Pathologist [facility] [place] Sodium 139 135 - 145 mmol/L Potassium, pl 3.9 3.3 - 4.9 mmol/L [facility] Chloride 103 97 - 110 mmol/L [facility] CO2 29 22 - 32 mmol/L [facility] Anion gap 7 2 - 15 mmol/L [facility] BUN 11 6 - 25 mg/dL [facility] Creatinine 0.46(L) 0.60 - 1.10 mg/dL [facility] Glucose 126 70 - 199 mg/dL [facility] Comment: Interpretive Data Fasting glucose >/= 126 mg/dl is diagnostic for diabetes. Fasting is defined as no caloric intake for at least 8 hours. Fasting glucose between 100 mg/dl to 125 mg/dl is diagnostic of prediabetes. In a patient with classic symptoms of hyperglycemia or hyperglycemic crisis, a random glucose >/= 200 mg/dl is diagnostic for diabetes. In the absence of unequivocal hyperglycemia, results should be confirmed by repeat testing. The classification and Diagnosis of Diabetes Diabetes Care 2021; 46: S19-S40. Current interpretive data was last revised 2022. Calcium 6.8(L) 8.5 - 10.3 mg/dL [facility] Bilirubin, total 0.2 0.1 - 1.2 mg/dL [facility] Protein, pl 4.7(L) 6.5 - 8.5 g/dL [facility] Albumin 2.7(L) 3.5 - 5.0 g/dL [facility] Alk phos 100 40 - 130 Units/L [facility] ALT 23 7 - 45 Units/L [facility] AST 32 10 - 45 Units/L [facility] Blood 06/18/2025 12:4 4 PM CDT 06/18/2025 1:11 PM CDT Josephine Lackey NP LAB BLOOD ORDERABLES Meghan isabel Result [facility] Department [place] [address] * (ABNORMAL) Troponin I high-sensitivity series (baseline, 2hr, 4hr, 6hr) (06/18/2025 12:34 PM CDT) Trop I hs 61(H) <=17 ng/L Comment: Interpretive Data For further hscTnI resources including the diagnostic algorithm and an aid in interpretation, copy and paste this link: https://bjhlab.testcatalog.org/show/hsTrop-[email or web address] Current Interpretive Data last revised 2020. Blood 06/18/2025 12:3 4 PM CDT 06/18/2025 12:54 PM CDT Josephine Lackey CHEMICAL ETCH OPERATOR LAB BLOOD ORDERABLES Meghan l Result Performing Organization Address City/[facility]/ZIP Co de Phone Number [facility] [place] [address] * POCT glucose (06/18/2025 9:30 AM CDT) Pathologist [facility] Glucose, POC 76 70 - 199 mg/dL Blood 06/18/2025 9:30 AM CDT 06/18/2025 9:30 AM CDT José Miranda MD LAB POCT ORDERABLES - DEVICE Fi nal Result Performing Organization Address [facility] Co de Phone Number [facility] [place] [address] * (ABNORMAL) Calcium, ionized (06/18/2025 6:41 AM CDT) Pathologist [facility] Calcium, Ionized 3.94(L) 4.50 - 5.10 mg/dL Blood 06/18/2025 6:41 AM CDT 06/18/2025 7:26 AM CDT Eli Power CHEMICAL ETCH OPERATOR LAB BLOOD ORDERABLES Meghan l Result Performing Organization Address City/[facility]/ZIP Co de Phone Number [facility] [place] [address] * eGFR (06/18/2025 12:01 AM CDT) [facility] eGFR >90 >=60 mL/min/1. 73 m2 Comment: Interpretive Data Reference Interval Normal >/= 90 mL/min/1.73m2 Mildly decreased* 60 - 89 mL/min/1.73m2 Mildly to moderately decreased 45 - 59 mL/min/1.73m2 Moderately to severely decreased 30 - 44 mL/min/1.73m2 Severely decreased 15 - 29 mL/min/1.73m2 Kidney Failure < 15 mL/min/1.73m2 *Relative to young adult level Estimated glomerular filtration rate is determined by the 2020 CKD-EPI equation recommended by the National Kidney Foundation (A Unifying Approach to GFR Estimation: Recommendations of the NKF-ASK Task Force on Reassessing the Inclusion of Race in Diagnosing Kidney Disease, JASN 2020). The CKD-EPI equation should not be used for patients with unstable renal function and has not been validated in children and those over 70. Current interpretive data was last reviewed 2021. Blood 06/18/2025 12:0 1 AM CDT 06/18/2025 1:30 AM CDT us José Miranda MD LAB BLOOD ORDERABLES Final Resu lt [facility] Department [place] [address] * (ABNORMAL) CBC without differential (06/18/2025 12:01 AM CDT) [facility] WBC 8.95 3.80 - 9.90 K/cumm Hgb 11.3(L) 11.9 - 15.5 g/dL [facility] Hct 34.4(L) 35.6 - 45.5 % [facility] Plt 137(L) 150 - 400 K/cumm [facility] MPV 11.1 9.1 - 12.3 fL [facility] RBC 3.80(L) 3.90 - 5.20 M/cumm [facility] MCV 90.5 81.3 - 96.4 fL [facility] MCH 29.7 27.1 - 33.3 pg [facility] MCHC 32.8 32.3 - 35.7 g/dL [facility] RDW CV 15.7(H) 11.1 - 14.9 % [facility] RDW SD 50.5(H) 35.7 - 48.1 fL [facility] NRBC abs 0.00 0.00 - 0.01 K/cumm [facility] Blood 06/18/2025 12:0 1 AM CDT 06/18/2025 1:30 AM CDT us Maria Victoria Curtis CHEMICAL ETCH OPERATOR LAB BLOOD ORDERABLES Fin al Result [facility] [place] [address] * (ABNORMAL) Phosphorus (06/18/2025 12:01 AM CDT) Phosphorus, pl 1.3(L) 2.3 - 4.5 mg/dL Blood 06/18/2025 12:0 1 AM CDT 06/18/2025 1:30 AM CDT us Jessi Jack CHEMICAL ETCH OPERATOR LAB BLOOD ORDERABLES Fi nal Result Performing Organization Address [facility] Co de Phone Number [facility] [place] [address] * Magnesium (06/18/2025 12:01 AM CDT) Magnesium 1.9 1.4 - 2.5 mg/dL Blood 06/18/2025 12:0 1 AM CDT 06/18/2025 1:30 AM CDT Jessi Jack CHEMICAL ETCH OPERATOR LAB BLOOD ORDERABLES Fi nal Result Performing Organization Address City/[facility]/ZIP Co de Phone Number [facility] [place] [address] * (ABNORMAL) Basic metabolic panel (06/18/2025 12:01 AM CDT) Sodium 141 135 - 145 mmol/L Potassium, pl 3.7 3.3 - 4.9 mmol/L [facility] Chloride 106 97 - 110 mmol/L [facility] CO2 30 22 - 32 mmol/L [facility] Anion gap 5 2 - 15 mmol/L [facility] BUN 10 6 - 25 mg/dL [facility] Creatinine 0.43(L) 0.60 - 1.10 mg/dL [facility] Glucose 106 70 - 199 mg/dL [facility] Comment: Interpretive Data Fasting glucose >/= 126 mg/dl is diagnostic for diabetes. Fasting is defined as no caloric intake for at least 8 hours. Fasting glucose between 100 mg/dl to 125 mg/dl is diagnostic of prediabetes. In a patient with classic symptoms of hyperglycemia or hyperglycemic crisis, a random glucose >/= 200 mg/dl is diagnostic for diabetes. In the absence of unequivocal hyperglycemia, results should be confirmed by repeat testing. The classification and Diagnosis of Diabetes Diabetes Care 2021; 46: S19-S40. Current interpretive data was last revised 2022. Calcium 6.9(L) 8.5 - 10.3 mg/dL [facility] Blood 06/18/2025 12:0 1 AM CDT 06/18/2025 1:30 AM CDT José Miranda MD LAB BLOOD ORDERABLES Final Resu lt [facility] Department [place] [address] * POCT glucose (06/17/2025 10:42 PM CDT) Glucose, POC 140 70 - 199 mg/dL Blood 06/17/2025 10:4 2 PM CDT 06/17/2025 10:42 PM CDT José Miranda MD LAB POCT ORDERABLES - DEVICE Fi nal Result [facility] [place] [address] * POCT glucose (06/17/2025 5:23 PM CDT) Glucose, POC 104 70 - 199 mg/dL Blood 06/17/2025 5:23 PM CDT 06/17/2025 5:23 PM CDT oJsé Miranda MD LAB POCT ORDERABLES - DEVICE Fi nal Result Performing Organization Address City/[facility] [place] [address] * POCT glucose (06/17/2025 11:41 AM CDT) Glucose, POC 74 70 - 199 mg/dL Blood 06/17/2025 11:4 1 AM CDT 06/17/2025 11:41 AM CDT José Miranda MD LAB POCT ORDERABLES - DEVICE Fi nal Result Performing Organization Address City/[facility] [place] [address] * POCT glucose (06/17/2025 8:16 AM CDT) Glucose, POC 100 70 - 199 mg/dL Blood 06/17/2025 8:16 AM CDT 06/17/2025 8:16 AM CDT us José Miranda MD LAB POCT ORDERABLES - DEVICE Fi nal Result Performing Organization Address City/[facility] Co de Phone Number [facility] [place] [address] * eGFR (06/16/2025 11:10 PM CDT) Pathologist [facility] [place] eGFR >90 >=60 mL/min/1. 73 m2 Comment: Interpretive Data Reference Interval Normal >/= 90 mL/min/1.73m2 Mildly decreased* 60 - 89 mL/min/1.73m2 Mildly to moderately decreased 45 - 59 mL/min/1.73m2 Moderately to severely decreased 30 - 44 mL/min/1.73m2 Severely decreased 15 - 29 mL/min/1.73m2 Kidney Failure < 15 mL/min/1.73m2 *Relative to young adult level Estimated glomerular filtration rate is determined by the 2020 CKD-EPI equation recommended by the National Kidney Foundation (A Unifying Approach to GFR Estimation: Recommendations of the NKF-ASK Task Force on Reassessing the Inclusion of Race in Diagnosing Kidney Disease, JASN 2020). The CKD-EPI equation should not be used for patients with unstable renal function and has not been validated in children and those over 70. Current interpretive data was last reviewed 2021. Blood 06/16/2025 11:1 0 PM CDT 06/17/2025 12:31 AM CDT us José Miranda MD LAB BLOOD ORDERABLES Final Resu lt [facility] Department [place] [address] * (ABNORMAL) CBC without differential (06/16/2025 11:10 PM CDT) [facility] WBC 11.93(H) 3.80 - 9.90 K/cumm Hgb 11.7(L) 11.9 - 15.5 g/dL [facility] Hct 34.8(L) 35.6 - 45.5 % [facility] Plt 111(L) 150 - 400 K/cumm [facility] MPV 10.9 9.1 - 12.3 fL [facility] RBC 3.87(L) 3.90 - 5.20 M/cumm [facility] MCV 89.9 81.3 - 96.4 fL [facility] MCH 30.2 27.1 - 33.3 pg [facility] MCHC 33.6 32.3 - 35.7 g/dL [facility] RDW CV 15.6(H) 11.1 - 14.9 % [facility] RDW SD 50.3(H) 35.7 - 48.1 fL [facility] NRBC abs 0.00 0.00 - 0.01 K/cumm [facility] Blood 06/16/2025 11:1 0 PM CDT 06/17/2025 12:31 AM CDT us Maria Victoria Curtis CHEMICAL ETCH OPERATOR LAB BLOOD ORDERABLES Fin al Result [facility] [place] [address] * (ABNORMAL) Phosphorus (06/16/2025 11:10 PM CDT) Phosphorus, pl 1.7(L) 2.3 - 4.5 mg/dL Blood 06/16/2025 11:1 0 PM CDT 06/17/2025 12:31 AM CDT us Jessi Jack CHEMICAL ETCH OPERATOR LAB BLOOD ORDERABLES Fi nal Result Performing Organization Address [facility] Co de Phone Number [facility] [place] [place] [address] * Magnesium (06/16/2025 11:10 PM CDT) Magnesium 2.0 1.4 - 2.5 mg/dL Blood 06/16/2025 11:1 0 PM CDT 06/17/2025 12:31 AM CDT Jessi Jack CHEMICAL ETCH OPERATOR LAB BLOOD ORDERABLES Fi nal Result Performing Organization Address City/[facility] Co de Phone Number [facility] Department [place] [address] * (ABNORMAL) Basic metabolic panel (06/16/2025 11:10 PM CDT) Sodium 143 135 - 145 mmol/L Potassium, pl 3.9 3.3 - 4.9 mmol/L [facility] Chloride 110 97 - 110 mmol/L [facility] CO2 28 22 - 32 mmol/L [facility] Anion gap 5 2 - 15 mmol/L [facility] BUN 19 6 - 25 mg/dL [facility] Creatinine 0.59(L) 0.60 - 1.10 mg/dL [facility] Glucose 105 70 - 199 mg/dL [facility] Comment: Interpretive Data Fasting glucose >/= 126 mg/dl is diagnostic for diabetes. Fasting is defined as no caloric intake for at least 8 hours. Fasting glucose between 100 mg/dl to 125 mg/dl is diagnostic of prediabetes. In a patient with classic symptoms of hyperglycemia or hyperglycemic crisis, a random glucose >/= 200 mg/dl is diagnostic for diabetes. In the absence of unequivocal hyperglycemia, results should be confirmed by repeat testing. The classification and Diagnosis of Diabetes Diabetes Care 2021; 46: S19-S40. Current interpretive data was last revised 2022. Calcium 7.6(L) 8.5 - 10.3 mg/dL [facility] Blood 06/16/2025 11:1 0 PM CDT 06/17/2025 12:31 AM CDT José Miranda MD LAB BLOOD ORDERABLES Final Resu lt [facility] Department [place] [address] * POCT glucose (06/16/2025 8:25 PM CDT) Glucose, POC 96 70 - 199 mg/dL Blood 06/16/2025 8:25 PM CDT 06/16/2025 8:25 PM CDT José Miranda MD LAB POCT ORDERABLES - DEVICE Fi nal Result [facility] [place] [address] * POCT glucose (06/16/2025 5:26 PM CDT) Glucose, POC 88 70 - 199 mg/dL Blood 06/16/2025 5:26 PM CDT 06/16/2025 5:26 PM CDT José Miranda MD LAB POCT ORDERABLES - DEVICE Fi nal Result Performing Organization Address City/[facility] [place] [address] * POCT glucose (06/16/2025 4:09 PM CDT) Glucose, POC 99 70 - 199 mg/dL Blood 06/16/2025 4:09 PM CDT 06/16/2025 4:09 PM CDT José Miranda MD LAB POCT ORDERABLES - DEVICE Fi nal Result Performing Organization Address City/[facility] Co de Phone Number [facility] [place] [address] * POCT glucose (06/16/2025 11:14 AM CDT) Glucose, POC 174 70 - 199 mg/dL Blood 06/16/2025 11:1 4 AM CDT 06/16/2025 11:14 AM CDT José Miranda MD LAB POCT ORDERABLES - DEVICE Fi nal Result Performing Organization Address City/[facility] Co de Phone Number [facility] [place] [address] * (ABNORMAL) POCT glucose (06/16/2025 9:50 AM CDT) Glucose, POC 286(H) 70 - 199 mg/dL Blood 06/16/2025 9:50 AM CDT 06/16/2025 9:50 AM CDT José Miranda MD LAB POCT ORDERABLES - DEVICE Fi nal Result Performing Organization Address City/[facility] de Phone Number [facility] [place] [address] * POCT glucose (06/16/2025 9:15 AM CDT) Glucose, POC 104 70 - 199 mg/dL Blood 06/16/2025 9:15 AM CDT 06/16/2025 9:15 AM CDT José Miranda MD LAB POCT ORDERABLES - DEVICE Fi nal Result Performing Organization Address [facility] de Phone Number [facility] [place] [address] * POCT glucose (06/16/2025 9:01 AM CDT) Glucose, POC 79 70 - 199 mg/dL Blood 06/16/2025 9:01 AM CDT 06/16/2025 9:01 AM CDT José Miranda MD LAB POCT ORDERABLES - DEVICE Fi nal Result Performing Organization Address City/[facility] [place] [address] * POCT glucose (06/16/2025 8:38 AM CDT) Glucose, POC 71 70 - 199 mg/dL Blood 06/16/2025 8:38 AM CDT 06/16/2025 8:38 AM CDT José Mirnada MD LAB POCT ORDERABLES - DEVICE Fi nal Result Performing Organization Address City/[facility] Co de Phone Number [facility] [place] [address] * (ABNORMAL) POCT glucose (06/16/2025 7:40 AM CDT) [facility] Glucose, POC 65(L) 70 - 199 mg/dL Comment:Glu2: RN/MD Notified Glucose comment 1 Glu2: RN/MD Notified [facility] Blood 06/16/2025 7:40 AM CDT 06/16/2025 7:40 AM CDT José Miranda MD LAB POCT ORDERABLES - DEVICE Fi nal Result Performing Organization Address [facility] de Phone Number [facility] Department [place] [address] * (ABNORMAL) CBC without differential (06/16/2025 2:46 AM CDT) [facility] WBC 15.68(H) 3.80 - 9.90 K/cumm Hgb 10.7(L) 11.9 - 15.5 g/dL [facility] Hct 32.1(L) 35.6 - 45.5 % [facility] Plt 120(L) 150 - 400 K/cumm [facility] MPV 10.8 9.1 - 12.3 fL [facility] RBC 3.58(L) 3.90 - 5.20 M/cumm [facility] MCV 89.7 81.3 - 96.4 fL [facility] MCH 29.9 27.1 - 33.3 pg [facility] MCHC 33.3 32.3 - 35.7 g/dL [facility] RDW CV 15.2(H) 11.1 - 14.9 % [facility] RDW SD 49.8(H) 35.7 - 48.1 fL [facility] NRBC abs 0.00 0.00 - 0.01 K/cumm [facility] Blood 06/16/2025 2:46 AM CDT 06/16/2025 3:12 AM CDT Zach Damon NP LAB BLOOD ORDERABLES Fin al Result Performing Organization Address [facility] Co de Phone Number [facility] [place] [address] * Transfuse platelets (06/16/2025 2:03 AM CDT) Blood José Miranda MD BLOOD TRANSFUSION ORDERABLES Fi nal Result Performing Organization Address [facility] de Phone Number [facility] [place] [address] * Transfuse RBC (06/16/2025 1:09 AM CDT) Blood José Miranda MD BLOOD TRANSFUSION ORDERABLES Fi nal Result Performing Organization Address [facility] de Phone Number [facility] [place] [address] * (ABNORMAL) Vancomycin level trough Draw before the 3rd dose (06/16/2025 12:11 AM CDT) Vancomycin trough 9.0(L) 10.0 - 20.0 mcg/mL Blood 06/16/2025 12:1 1 AM CDT 06/16/2025 12:51 AM CDT Narrative [facility] - 06/16/2025 1:19 AM CDT Draw before the 3rd dose Maria M Parrish NP LAB BLOOD ORDERABLES Final Result Performing Organization Address [facility] Co de Phone Number [facility] [place] [address] * Prepare platelets: 1 Units (06/15/2025 11:11 PM CDT) Product code [id number] Unit Number [id number] [facility] Product Blood Type OPOS [facility] Dispense Status PRESUMED TRANSFUSED [facility] Blood Venous blood specimen / Unknown 06/15/2025 11:11 PM CDT 06/15/2025 11:12 PM CDT Narrative [facility] - 06/16/2025 4:01 PM CDT Are special requirements needed? (all products are leukoreduced)->No Date required:-20250615 PLT # of Units:-1-Units Reasons:-Prior to neurosurgery, plt < 100 K/cumm} José Miranda MD BLOOD BANK PRODUCT ORDERABLES F inal Result [facility] Department [place] [address] * eGFR (06/15/2025 8:09 PM CDT) eGFR >90 >=60 mL/min/1. 73 m2 Comment: Interpretive Data Reference Interval Normal >/= 90 mL/min/1.73m2 Mildly decreased* 60 - 89 mL/min/1.73m2 Mildly to moderately decreased 45 - 59 mL/min/1.73m2 Moderately to severely decreased 30 - 44 mL/min/1.73m2 Severely decreased 15 - 29 mL/min/1.73m2 Kidney Failure < 15 mL/min/1.73m2 *Relative to young adult level Estimated glomerular filtration rate is determined by the 2020 CKD-EPI equation recommended by the National Kidney Foundation (A Unifying Approach to GFR Estimation: Recommendations of the NKF-ASK Task Force on Reassessing the Inclusion of Race in Diagnosing Kidney Disease, JASN 2020). The CKD-EPI equation should not be used for patients with unstable renal function and has not been validated in children and those over 70. Current interpretive data was last reviewed 2021. Blood 06/15/2025 8:09 PM CDT 06/15/2025 8:25 PM CDT us José Miranda MD LAB BLOOD ORDERABLES Final Resu lt [facility] Department [place] [address] * (ABNORMAL) CBC without differential (06/15/2025 8:09 PM CDT) WBC 14.41(H) 3.80 - 9.90 K/cumm Hgb 9.8(L) 11.9 - 15.5 g/dL [facility] Hct 29.0(L) 35.6 - 45.5 % [facility] Plt 91(L) 150 - 400 K/cumm [facility] MPV 10.9 9.1 - 12.3 fL [facility] RBC 3.29(L) 3.90 - 5.20 M/cumm [facility] MCV 88.1 81.3 - 96.4 fL [facility] MCH 29.8 27.1 - 33.3 pg [facility] MCHC 33.8 32.3 - 35.7 g/dL [facility] RDW CV 15.3(H) 11.1 - 14.9 % [facility] RDW SD 49.6(H) 35.7 - 48.1 fL [facility] NRBC abs 0.00 0.00 - 0.01 K/cumm [facility] Blood 06/15/2025 8:09 PM CDT 06/15/2025 8:25 PM CDT us Maria M Parrish NP LAB BLOOD ORDERABLES Final Result [facility] Department [place] [address] * Phosphorus (06/15/2025 8:09 PM CDT) Phosphorus, pl 2.5 2.3 - 4.5 mg/dL Blood 06/15/2025 8:09 PM CDT 06/15/2025 8:25 PM CDT Jessi Jack CHEMICAL ETCH OPERATOR LAB BLOOD ORDERABLES Fi nal Result Performing Organization Address [facility] de Phone Number [facility] [place] [address] * Magnesium (06/15/2025 8:09 PM CDT) [facility] Magnesium 2.0 1.4 - 2.5 mg/dL Blood 06/15/2025 8:09 PM CDT 06/15/2025 8:25 PM CDT Jessi Jack CHEMICAL ETCH OPERATOR LAB BLOOD ORDERABLES Fi nal Result Performing Organization Address [facility] de Phone Number [facility] [place] [address] * (ABNORMAL) Creatine kinase (CK), total (06/15/2025 8:09 PM CDT) [facility] CK 1,017(H) 30 - 200 Units/L Blood 06/15/2025 8:09 PM CDT 06/15/2025 8:25 PM CDT Maria M Parrish CHEMICAL ETCH OPERATOR LAB BLOOD ORDERABLES Final Result Performing Organization Address [facility] [place] [address] * (ABNORMAL) Hepatic function panel (06/15/2025 8:09 PM CDT) [facility] Bilirubin, total 0.4 0.1 - 1.2 mg/dL Bilirubin, direct <0.2 0.1 - 0.3 mg/dL [facility] Protein, pl 4.9(L) 6.5 - 8.5 g/dL [facility] Albumin 2.6(L) 3.5 - 5.0 g/dL [facility] Alk phos 53 40 - 130 Units/L [facility] ALT 17 7 - 45 Units/L [facility] AST 50(H) 10 - 45 Units/L [facility] Blood 06/15/2025 8:09 PM CDT 06/15/2025 8:25 PM CDT José Miranda MD LAB BLOOD ORDERABLES Final Resu lt [facility] Department [place] [address] * (ABNORMAL) Basic metabolic panel (06/15/2025 8:09 PM CDT) Sodium 142 135 - 145 mmol/L Potassium, pl 4.0 3.3 - 4.9 mmol/L [facility] Chloride 111(H) 97 - 110 mmol/L [facility] CO2 26 22 - 32 mmol/L [facility] Anion gap 5 2 - 15 mmol/L [facility] BUN 22 6 - 25 mg/dL [facility] Creatinine 0.62 0.60 - 1.10 mg/dL [facility] Glucose 97 70 - 199 mg/dL [facility] Comment: Interpretive Data Fasting glucose >/= 126 mg/dl is diagnostic for diabetes. Fasting is defined as no caloric intake for at least 8 hours. Fasting glucose between 100 mg/dl to 125 mg/dl is diagnostic of prediabetes. In a patient with classic symptoms of hyperglycemia or hyperglycemic crisis, a random glucose >/= 200 mg/dl is diagnostic for diabetes. In the absence of unequivocal hyperglycemia, results should be confirmed by repeat testing. The classification and Diagnosis of Diabetes Diabetes Care 2021; 46: S19-S40. Current interpretive data was last revised 2022. Calcium 7.5(L) 8.5 - 10.3 mg/dL [facility] Blood 06/15/2025 8:09 PM CDT 06/15/2025 8:25 PM CDT José Miranda MD LAB BLOOD ORDERABLES Final Resu lt Performing Organization Address [facility]/[place] [address] * POCT glucose (06/15/2025 8:07 PM CDT) [facility] Glucose, POC 106 70 - 199 mg/dL Blood 06/15/2025 8:07 PM CDT 06/15/2025 8:07 PM CDT José Miranda MD LAB POCT ORDERABLES - DEVICE Fi nal Result Performing Organization Address [facility] Co de Phone Number [facility] [place] [address] * Transfuse RBC (06/15/2025 7:38 PM CDT) Blood Maria Victoria Curtis NP BLOOD TRANSFUSION ORDERA BLES Final Result Performing Organization Address [facility] [place] [address] * Prepare RBC: 1 Units (06/15/2025 4:16 PM CDT) [facility] Product code [id number] Unit Number [id number] [facility] Product Blood Type OPOS [facility] Dispense Status RETURNED [facility] Blood 06/15/2025 4:16 PM CDT 06/15/2025 4:16 PM CDT Narrative [facility] - 06/19/2025 12:16 AM CDT Other indication->Hgb < 10, post op spine Are special requirements needed? (All products are leukoreduced and CMV- safe)- >No Date required:-20250615 LRRBC # of [id number] Reasons:-Other (specify)} Maria Victoria Curtis NP BLOOD BANK PRODUCT ORDER BALDEV Final Result [facility] [place] [address] * POCT glucose (06/15/2025 4:03 PM CDT) Glucose, POC 104 70 - 199 mg/dL Blood 06/15/2025 4:03 PM CDT 06/15/2025 4:03 PM CDT José Miranda MD LAB POCT ORDERABLES - DEVICE Fi nal Result Performing Organization Address City/[facility] Co de Phone Number [facility] [place] [address] * Transfuse platelets (06/15/2025 12:28 PM CDT) Blood José Miranda MD BLOOD TRANSFUSION ORDERABLES Fi nal Result Performing Organization Address City/[facility]/ZIP Co de Phone Number [facility] [place] [address] * POCT glucose (06/15/2025 11:25 AM CDT) Glucose, POC 96 70 - 199 mg/dL Blood 06/15/2025 11:2 5 AM CDT 06/15/2025 11:25 AM CDT José Miranda MD LAB POCT ORDERABLES - DEVICE Fi nal Result Performing Organization Address City/[facility] [place] [address] * (ABNORMAL) CBC without differential (06/15/2025 11:09 AM CDT) WBC 18.86(H) 3.80 - 9.90 K/cumm Hgb 9.0(L) 11.9 - 15.5 g/dL [facility] Hct 26.2(L) 35.6 - 45.5 % [facility] Plt 105(L) 150 - 400 K/cumm [facility] MPV 10.7 9.1 - 12.3 fL [facility] RBC 3.01(L) 3.90 - 5.20 M/cumm [facility] MCV 87.0 81.3 - 96.4 fL [facility] MCH 29.9 27.1 - 33.3 pg [facility] MCHC 34.4 32.3 - 35.7 g/dL [facility] RDW CV 14.9 11.1 - 14.9 % [facility] RDW SD 47.4 35.7 - 48.1 fL [facility] NRBC abs 0.00 0.00 - 0.01 K/cumm [facility] Blood 06/15/2025 11:0 9 AM CDT 06/15/2025 11:26 AM CDT Maria M Parrish NP LAB BLOOD ORDERABLES Final Result [facility] Department [place] [address] * ECG 12 lead (06/15/2025 8:14 AM CDT) Ventricular Rate EKG/Min [address] [facility] Atrial Rate 62 BPM [facility] QRS-Interval (MSEC) 120 ms [facility] QT-Interval (MSEC) 326 ms [facility] QTc 447 ms [facility] R [place] -13 degrees [facility] T [place] 130 degrees [facility] Diagnosis Left bundle branch block with occasional Premature ventricular complexes Normal sinus rhythm Inferior infarct , age undetermined Anteroseptal infarct , age undetermined ST & T wave abnormality, consider lateral ischemia Abnormal ECG When compared with ECG of 14-JUN-2025 18:07, (unconfirmed) Wide QRS rhythm has replaced Sinus rhythm Confirmed by TANA GOMEZ M.D ([id number]) on 06/20/2025 11:27:02 AM [facility] 06/15/2025 8:14 AM CDT 06/20/2025 11:27 AM CDT us Zach Damon CHEMICAL ETCH OPERATOR ECG ORDERABLES Final Re sult Performing Organization Address City/[facility]/ZIP Co de Phone Number [facility] * POCT glucose (06/15/2025 8:10 AM CDT) Pathologist [facility] [place] Glucose, POC 116 70 - 199 mg/dL Blood 06/15/2025 8:10 AM CDT 06/15/2025 8:10 AM CDT José Miranda MD LAB POCT ORDERABLES - DEVICE Fi nal Result Performing Organization Address [facility] de Phone Number [facility] Department [place] [address] * (ABNORMAL) Troponin I high-sensitivity series (baseline, 2hr, 4hr, 6hr) (06/15/2025 8:08 AM CDT) [facility] Trop I hs 262(C) <=17 ng/L Comment: Previous critical value noted within 48 hours ago. Interpretive Data For further hscTnI resources including the diagnostic algorithm and an aid in interpretation, copy and paste this link: [email or web address] Current Interpretive Data last revised 2020. Blood 06/15/2025 8:08 AM CDT 06/15/2025 8:18 AM CDT Maria Victoria Curtis NP LAB BLOOD ORDERABLES Fin al Result Performing Organization Address City/[facility]/ZIP Co de Phone Number [facility] Department [place] [address] * Prepare RBC: 1 Units (06/15/2025 5:00 AM CDT) [facility] Product code [id number] Unit Number [id number] [facility] Product Blood Type OPOS [facility] Dispense Status PRESUMED TRANSFUSED [facility] Blood 06/15/2025 5:00 AM CDT 06/15/2025 5:00 AM CDT Narrative YANIQUE URRUTIA - 06/16/2025 8:00 AM CDT Other indication->Hgb >10 goal per NSGY Are special requirements needed? (All products are leukoreduced and CMV- safe)- >No Date required:-20250615 LRRBC # of [id number] Reasons:-Other (specify)} José Miranda MD BLOOD BANK PRODUCT ORDERABLES F inal Result Performing Organization Address [facility] de Phone Number [facility] [place] [address] * Prepare platelets: 1 Units (06/15/2025 4:35 AM CDT) Pathologist [facility] [place] Product code [id number] Unit Number [id number] [facility] Product Blood Type OPOS [facility] Dispense Status PRESUMED TRANSFUSED [facility] Blood Venous blood specimen / Unknown 06/15/2025 4:35 AM CDT 06/15/2025 4:35 AM CDT Narrative [facility] - 06/15/2025 8:01 PM CDT Are special requirements needed? (all products are leukoreduced)->No Date required:-20250615 PLT # of Units:-1-Units Reasons:-Prior to neurosurgery, plt < 100 K/cumm} José Miranda MD BLOOD BANK PRODUCT ORDERABLES F inal Result Performing Organization Address [facility] Co de Phone Number [facility] [place] [address] * (ABNORMAL) Differential, auto (06/15/2025 4:20 AM CDT) Neutrophil abs 18.44(H) 1.50 - 6.50 K/cumm Imm gran abs 0.14(H) 0.00 - 0.10 K/cumm [facility] Lymphocyte abs 0.56(L) 0.80 - 3.30 K/cumm [facility] Monocyte abs 1.62(H) 0.20 - 0.80 K/cumm [facility] Eosinophil abs 0.00 0.00 - 0.50 K/cumm [facility] Basophil abs 0.02 0.00 - 0.10 K/cumm [facility] Neutrophil pct 88.7 % [facility] Comment: Interpretive Data Percent cell count reference ranges are not reported, since discordance with absolute values may lead to misinterpretation of CBC data. Current Interpretive Data was last revised on 2017. Imm gran pct 0.7 % [facility] Comment: Interpretive Data Percent cell count reference ranges are not reported, since discordance with absolute values may lead to misinterpretation of CBC data. Current Interpretive Data was last revised on 2017. Lymphocyte pct 2.7 % [facility] Comment: Interpretive Data Percent cell count reference ranges are not reported, since discordance with absolute values may lead to misinterpretation of CBC data. Current Interpretive Data was last revised on 2017. Monocyte pct 7.8 % [facility] Comment: Interpretive Data Percent cell count reference ranges are not reported, since discordance with absolute values may lead to misinterpretation of CBC data. Current Interpretive Data was last revised on 2017. Eosinophil pct 0.0 % [facility] Comment: Interpretive Data Percent cell count reference ranges are not reported, since discordance with absolute values may lead to misinterpretation of CBC data. Current Interpretive Data was last revised on 2017. Basophil pct 0.1 % [facility] Comment: Interpretive Data Percent cell count reference ranges are not reported, since discordance with absolute values may lead to misinterpretation of CBC data. Current Interpretive Data was last revised on 2017. Blood 06/15/2025 4:20 AM CDT 06/15/2025 4:40 AM CDT us Mary Yusuf NP LAB BLOOD ORDERABLES Final Result [facility] Department [place] [address] * (ABNORMAL) CBC with auto differential (06/15/2025 4:20 AM CDT) WBC 20.35(H) 3.80 - 9.90 K/cumm Hgb 8.9(L) 11.9 - 15.5 g/dL [facility] Hct 25.4(L) 35.6 - 45.5 % [facility] Plt 98(L) 150 - 400 K/cumm [facility] MPV 10.9 9.1 - 12.3 fL [facility] RBC 2.95(L) 3.90 - 5.20 M/cumm [facility] MCV 86.1 81.3 - 96.4 fL [facility] MCH 30.2 27.1 - 33.3 pg [facility] MCHC 35.0 32.3 - 35.7 g/dL [facility] RDW CV 14.9 11.1 - 14.9 % [facility] RDW SD 46.8 35.7 - 48.1 fL [facility] NRBC abs 0.00 0.00 - 0.01 K/cumm [facility] Blood 06/15/2025 4:20 AM CDT 06/15/2025 4:40 AM CDT us Mary Yusuf NP LAB BLOOD ORDERABLES Edite d Result - Final [facility] [place] [address] * (ABNORMAL) CBC without differential (06/15/2025 4:20 AM CDT) WBC 20.35(H) 3.80 - 9.90 K/cumm Hgb 8.9(L) 11.9 - 15.5 g/dL [facility] Hct 25.4(L) 35.6 - 45.5 % [facility] Plt 98(L) 150 - 400 K/cumm [facility] MPV 10.9 9.1 - 12.3 fL [facility] RBC 2.95(L) 3.90 - 5.20 M/cumm [facility] MCV 86.1 81.3 - 96.4 fL [facility] MCH 30.2 27.1 - 33.3 pg [facility] MCHC 35.0 32.3 - 35.7 g/dL [facility] RDW CV 14.9 11.1 - 14.9 % [facility] RDW SD 46.8 35.7 - 48.1 fL [facility] NRBC abs 0.00 0.00 - 0.01 K/cumm [facility] Blood 06/15/2025 4:20 AM CDT 06/15/2025 4:35 AM CDT Zach Damon NP LAB BLOOD ORDERABLES Jose David octavio Result - Final Performing Organization Address City/[facility]/ZIP Co de Phone Number [facility] [place] [address] * POCT glucose (06/15/2025 4:19 AM CDT) Glucose, POC 126 70 - 199 mg/dL Blood 06/15/2025 4:19 AM CDT 06/15/2025 4:19 AM CDT José Miranda MD LAB POCT ORDERABLES - DEVICE Fi nal Result [facility] [place] [address] * Antibody identification (06/15/2025 3:43 AM CDT) Antibody ID 1 Anti-S Blood 06/15/2025 3:43 AM CDT 06/15/2025 3:43 AM CDT José Miranda MD LAB BLOOD BANK TEST ORDERABLES Final Result Performing Organization Address City/[facility] Co de Phone Number [place], [place] [id number] * Transfuse platelets (06/15/2025 3:12 AM CDT) Blood José Miranda MD BLOOD TRANSFUSION ORDERABLES Fi nal Result Performing Organization Address [facility] Co de Phone Number [facility] [place] [address] * (ABNORMAL) Type and screen (06/15/2025 2:29 AM CDT) ABO Rh O Positive Carlene, indirect Positive(A) [facility] Blood 06/15/2025 2:29 AM CDT 06/15/2025 2:44 AM CDT Narrative [facility] - 06/15/2025 3:43 AM CDT Has the patient had Daratumumab or Isatuximab in the past 6 months?->Unknown José Miranda MD LAB BLOOD BANK TEST ORDERABLES Final Result Performing Organization Address [facility] Co de Phone Number [facility] [place] [address] * Transfuse RBC (06/15/2025 1:32 AM CDT) Blood José Miranda MD BLOOD TRANSFUSION ORDERABLES Fi nal Result Performing Organization Address [facility] [place] [address] * (ABNORMAL) Calcium, ionized (06/15/2025 12:37 AM CDT) Calcium, Ionized 4.32(L) 4.50 - 5.10 mg/dL Blood 06/15/2025 12:3 7 AM CDT 06/15/2025 1:24 AM CDT José Miranda MD LAB BLOOD ORDERABLES Final Resu lt Performing Organization Address [facility] de Phone Number [facility] [place] [address] * POCT glucose (06/14/2025 11:42 PM CDT) Glucose, POC 156 70 - 199 mg/dL Blood 06/14/2025 11:4 2 PM CDT 06/14/2025 11:42 PM CDT José Miranda MD LAB POCT ORDERABLES - DEVICE Fi nal Result Performing Organization Address [facility] [place] [address] * (ABNORMAL) Troponin I high-sensitivity (06/14/2025 11:39 PM CDT) Pathologist [facility] [place] Trop I hs 326(C) <=17 ng/L Comment: Previous critical value noted within 48 hours ago. Interpretive Data For further hscTnI resources including the diagnostic algorithm and an aid in interpretation, copy and paste this link: [email or web address] Current Interpretive Data last revised 2020. Blood 06/14/2025 11:3 9 PM CDT 06/15/2025 12:00 AM CDT Maria M Parrish NP LAB BLOOD ORDERABLES Final Result Performing Organization Address [facility] de Phone Number [facility] [place] [address] * (ABNORMAL) aPTT (06/14/2025 11:39 PM CDT) [facility] aPTT 24(L) 26 - 38 sec Comment: Interpretive Data Heparin therapeutic range: 66.0 - 100.0 seconds. Range based on correlation with therapeutic heparin activity range of 0.3 - 0.7 Units/mL. Current interpretive data was last revised on 2023. Blood 06/14/2025 11:3 9 PM CDT 06/15/2025 12:00 AM CDT José Miranda MD LAB BLOOD ORDERABLES Final Resu lt Performing Organization Address [facility] de Phone Number [facility] [place] [address] * Protime-INR (06/14/2025 11:39 PM CDT) PT 12.7 10.2 - 13.5 sec INR 1.13 0.90 - 1.20 [facility] Comment: Interpretive data Oral anticoagulant therapeutic ranges: Venous thromboembolism prophylaxis or treatment: 2.0-3.0 CARDIOLOGY Standard range: 2.0-3.0 High-intensity range: 2.5-3.5 Refer to indication-specific guidelines for appropriate target ranges for prosthetic heart valve replacement. Current interpretive data was last revised on 2019. Blood 06/14/2025 11:3 9 PM CDT 06/15/2025 12:00 AM CDT José Miranda MD LAB BLOOD ORDERABLES Final Resu lt Performing Organization Address [facility] Co de Phone Number [facility] [place] [address] * Prepare platelets: 1 Units (06/14/2025 10:51 PM CDT) Product code [id number] Unit Number [id number] [facility] Product Blood Type OPOS [facility] Dispense Status PRESUMED TRANSFUSED [facility] Blood Venous blood specimen / Unknown 06/14/2025 10:51 PM CDT 06/14/2025 10:50 PM CDT Narrative [facility] - 06/15/2025 4:01 PM CDT Are special requirements needed? (all products are leukoreduced)->No Date required:-20250614 PLT # of Units:-1-Units Reasons:-Prior to neurosurgery, plt < 100 K/cumm} José Miranda MD BLOOD BANK PRODUCT ORDERABLES F inal Result Performing Organization Address [facility] Co de Phone Number [facility] Department [place] [address] * Prepare RBC: 1 Units (06/14/2025 10:50 PM CDT) Pathologist [facility] Product code [id number] Unit Number [id number] [facility] Product Blood Type OPOS [facility] Dispense Status RETURNED [facility] Blood 06/14/2025 10:5 0 PM CDT 06/14/2025 10:50 PM CDT Narrative [facility] - 06/16/2025 12:10 AM CDT Other indication->Hgb >10 Are special requirements needed? (All products are leukoreduced and CMV- safe)- >No Donor Source->Allogeneic Date required:-20250614 LRRBC # of [id number] Reasons:-Other (specify)} José Miranda MD BLOOD BANK PRODUCT ORDERABLES F inal Result Performing Organization Address [facility] Co de Phone Number [facility] Department [place] [address] * eGFR (06/14/2025 8:22 PM CDT) Pathologist [facility] eGFR 74 >=60 mL/min/1. 73 m2 Comment: Interpretive Data Reference Interval Normal >/= 90 mL/min/1.73m2 Mildly decreased* 60 - 89 mL/min/1.73m2 Mildly to moderately decreased 45 - 59 mL/min/1.73m2 Moderately to severely decreased 30 - 44 mL/min/1.73m2 Severely decreased 15 - 29 mL/min/1.73m2 Kidney Failure < 15 mL/min/1.73m2 *Relative to young adult level Estimated glomerular filtration rate is determined by the 2020 CKD-EPI equation recommended by the National Kidney Foundation (A Unifying Approach to GFR Estimation: Recommendations of the NKF-ASK Task Force on Reassessing the Inclusion of Race in Diagnosing Kidney Disease, JASN 202). The CKD-EPI equation should not be used for patients with unstable renal function and has not been validated in children and those over 70. Current interpretive data was last reviewed 2021. Blood 06/14/2025 8:22 PM CDT 06/14/2025 9:14 PM CDT us José Miranda MD LAB BLOOD ORDERABLES Final Resu lt [facility] [place] [address] * (ABNORMAL) CBC without differential (06/14/2025 8:22 PM CDT) WBC 18.43(H) 3.80 - 9.90 K/cumm Hgb 8.1(L) 11.9 - 15.5 g/dL [facility] Hct 24.0(L) 35.6 - 45.5 % [facility] Plt 88(L) 150 - 400 K/cumm [facility] MPV 11.2 9.1 - 12.3 fL [facility] RBC 2.78(L) 3.90 - 5.20 M/cumm [facility] MCV 86.3 81.3 - 96.4 fL [facility] MCH 29.1 27.1 - 33.3 pg [facility] MCHC 33.8 32.3 - 35.7 g/dL [facility] RDW CV 15.2(H) 11.1 - 14.9 % [facility] RDW SD 47.5 35.7 - 48.1 fL [facility] NRBC abs 0.00 0.00 - 0.01 K/cumm [facility] Blood 06/14/2025 8:22 PM CDT 06/14/2025 9:15 PM CDT Maria M Parrish CHEMICAL ETCH OPERATOR LAB BLOOD ORDERABLES Final Result Performing Organization Address [facility] de Phone Number [facility] [place] [address] * (ABNORMAL) Phosphorus (06/14/2025 8:22 PM CDT) Phosphorus, pl 4.9(H) 2.3 - 4.5 mg/dL Blood 06/14/2025 8:22 PM CDT 06/14/2025 9:14 PM CDT Jessi Jack CHEMICAL ETCH OPERATOR LAB BLOOD ORDERABLES Fi nal Result Performing Organization Address [facility] de Phone Number [facility] [place] [address] * Magnesium (06/14/2025 8:22 PM CDT) Magnesium 2.2 1.4 - 2.5 mg/dL Blood 06/14/2025 8:22 PM CDT 06/14/2025 9:14 PM CDT Jessi Jack CHEMICAL ETCH OPERATOR LAB BLOOD ORDERABLES Fi nal Result Performing Organization Address [facility] de Phone Number [facility] [place] [address] * (ABNORMAL) Creatine kinase (CK), total (06/14/2025 8:22 PM CDT) CK 1,434(H) 30 - 200 Units/L Blood 06/14/2025 8:22 PM CDT 06/14/2025 9:14 PM CDT Maria M Parrish NP LAB BLOOD ORDERABLES Final Result [facility] [place] [address] * (ABNORMAL) Basic metabolic panel (06/14/2025 8:22 PM CDT) Sodium 147(H) 135 - 145 mmol/L Potassium, pl 4.2 3.3 - 4.9 mmol/L [facility] Chloride 112(H) 97 - 110 mmol/L [facility] CO2 27 22 - 32 mmol/L [facility] Anion gap 8 2 - 15 mmol/L [facility] BUN 23 6 - 25 mg/dL [facility] Creatinine 0.82 0.60 - 1.10 mg/dL [facility] Glucose 151 70 - 199 mg/dL [facility] Comment: Interpretive Data Fasting glucose >/= 126 mg/dl is diagnostic for diabetes. Fasting is defined as no caloric intake for at least 8 hours. Fasting glucose between 100 mg/dl to 125 mg/dl is diagnostic of prediabetes. In a patient with classic symptoms of hyperglycemia or hyperglycemic crisis, a random glucose >/= 200 mg/dl is diagnostic for diabetes. In the absence of unequivocal hyperglycemia, results should be confirmed by repeat testing. The classification and Diagnosis of Diabetes Diabetes Care 2021; 46: S19-S40. Current interpretive data was last revised 2022. Calcium 7.2(L) 8.5 - 10.3 mg/dL [facility] Blood 06/14/2025 8:22 PM CDT 06/14/2025 9:14 PM CDT us José Miranda MD LAB BLOOD ORDERABLES Final Resu lt [facility] [place] [address] * POCT glucose (06/14/2025 8:21 PM CDT) Glucose, POC 158 70 - 199 mg/dL Blood 06/14/2025 8:21 PM CDT 06/14/2025 8:21 PM CDT us José Miranda MD LAB POCT ORDERABLES - DEVICE Fi nal Result Performing Organization Address City/[facility]/ZIP Co de Phone Number YANIQUE [facility] Department [place] [address] * ECG 12 lead (06/14/2025 6:07 PM CDT) Pathologist [facility] [place] Ventricular Rate EKG/Min [address] [facility] Atrial Rate 93 BPM [facility] VT-Interval (MSEC) 160 ms [facility] QRS-Interval (MSEC) 122 ms [facility] QT-Interval (MSEC) 406 ms [facility] QTc 504 ms [facility] P [place] 68 degrees [facility] R [place] -18 degrees [facility] T [place] 103 degrees [facility] Diagnosis Normal sinus rhythm Inferior infarct , age undetermined Anteroseptal infarct , age undetermined T wave abnormality, consider lateral ischemia Abnormal ECG When compared with ECG of 14-JUN-2025 12:47, (unconfirmed) Aberrant conduction is no longer Present Left bundle branch block is no longer Present Anteroseptal infarct is now Present Inferior infarct is now Present Confirmed by TANA GOMEZ M.D ([id number]) on 06/15/2025 10:40:04 AM [facility] 06/14/2025 6:07 PM CDT 06/15/2025 10:40 AM CDT us Jessi Jack CHEMICAL ETCH OPERATOR ECG ORDERABLES Final R esult Performing Organization Address City/[facility]/ZIP Co de Phone Number [facility] * (ABNORMAL) Troponin I high-sensitivity (06/14/2025 5:46 PM CDT) Pathologist [facility] Trop I hs 394(C) <=17 ng/L Comment: Previous critical value noted within 48 hours ago. Interpretive Data For further hscTnI resources including the diagnostic algorithm and an aid in interpretation, copy and paste this link: [email or web address] Current Interpretive Data last revised 2020. Blood 06/14/2025 5:46 PM CDT 06/14/2025 6:11 PM CDT Maria M Parrish NP LAB BLOOD ORDERABLES Final Result Performing Organization Address [facility] Co de Phone Number [facility] [place] [address] * POCT glucose (06/14/2025 3:54 PM CDT) Glucose, POC 139 70 - 199 mg/dL Blood 06/14/2025 3:54 PM CDT 06/14/2025 3:54 PM CDT Result [facility] José Miranda MD LAB POCT ORDERABLES - DEVICE Fi nal Result Performing Organization Address [facility] Phone Number [facility] [place] [address] * (ABNORMAL) Troponin I high-sensitivity (06/14/2025 12:52 PM CDT) [facility] Trop I hs 535(C) <=17 ng/L Comment: Previous critical value noted within 48 hours ago. Repeated and verified. Interpretive Data For further [facility] resources including the diagnostic algorithm and an aid in interpretation, copy and paste this link: [email or web address] Current Interpretive Data last revised 2020. Blood 06/14/2025 12:5 2 PM CDT 06/14/2025 1:06 PM CDT Maria M Parrish NP LAB BLOOD ORDERABLES Final Result Performing Organization Address [facility] Co de Phone Number [facility] [place] [address] * POCT glucose (06/14/2025 12:51 PM CDT) Glucose, POC 155 70 - 199 mg/dL Blood 06/14/2025 12:5 1 PM CDT 06/14/2025 12:51 PM CDT José Miranda MD LAB POCT ORDERABLES - DEVICE Fi nal Result Performing Organization Address City/[facility]/ZIP Co de Phone Number YANIQUE [facility] Department [place] [address] * ECG 12 lead (06/14/2025 12:47 PM CDT) Ventricular Rate EKG/Min [address] [facility] Atrial Rate [address] [facility] VT-Interval (MSEC) [address] [facility] QRS-Interval (MSEC) [address] [facility] QT-Interval (MSEC) [address] [facility] QTc [address] [facility] P [place] [address] [facility] R [place] -[address] [facility] T [place] 113 degrees [facility] Diagnosis Sinus rhythm with Premature atrial complexes with Aberrant conduction Left bundle branch block Abnormal ECG Confirmed by Lebron SAGASTUME, [facility] ([id number]) on 06/15/2025 7:58:23 AM [facility] 06/14/2025 12:4 7 PM CDT 06/15/2025 7:58 AM CDT Maria M Parrish CHEMICAL ETCH OPERATOR ECG ORDERABLES Final Resul t Performing Organization Address [facility]/ZIP Co de Phone Number [facility] * POCT glucose (06/14/2025 11:52 AM CDT) Glucose, POC 155 70 - 199 mg/dL Blood 06/14/2025 11:5 2 AM CDT 06/14/2025 11:52 AM CDT José Miranda MD LAB POCT ORDERABLES - DEVICE Fi nal Result Performing Organization Address City/[facility]/ZIP Co de Phone Number YANIQUE [facility] [place] [address] * (ABNORMAL) Troponin I high-sensitivity (06/14/2025 8:35 AM CDT) [facility] Trop I hs 505(C) <=17 ng/L Comment: Previous critical value noted within 48 hours ago. Interpretive Data For further hscTnI resources including the diagnostic algorithm and an aid in interpretation, copy and paste this link: [email or web address] Current Interpretive Data last revised 2020. Blood 06/14/2025 8:35 AM CDT 06/14/2025 8:49 AM CDT us Jessi Jack NP LAB BLOOD ORDERABLES Fi nal Result Performing Organization Address [facility] de Phone Number [facility] [facility] [place] [address] * POCT glucose (06/14/2025 7:36 AM CDT) [facility] Glucose, POC 160 70 - 199 mg/dL Blood 06/14/2025 7:36 AM CDT 06/14/2025 7:36 AM CDT José Miranda MD LAB POCT ORDERABLES - DEVICE Fi nal Result Performing Organization Address [facility] de Phone Number YANIQUE [facility] [place] [address] * ECG 12 lead (06/14/2025 6:36 AM CDT) [facility] Ventricular Rate EKG/Min 113 BPM [facility] Atrial Rate [address] [facility] VT-Interval (MSEC) [address] [facility] QRS-Interval (MSEC) [address] [facility] QT-Interval (MSEC) [address] [facility] QTc [address] [facility] P [place] 83 degrees [facility] R [place] -6 degrees [facility] T [place] 122 degrees [facility] Diagnosis Sinus tachycardia with Premature supraventricular complexes and with occasional Premature ventricular complexes Anteroseptal infarct (cited on or before 14-JUN-2025) ST & T wave abnormality, consider lateral ischemia Abnormal ECG When compared with ECG of 14-JUN-2025 04:20, (unconfirmed) Sinus rhythm has replaced Junctional rhythm Confirmed by TANA GOMEZ M.D ([id number]) on 06/14/2025 4:31:26 PM [facility] 06/14/2025 6:36 AM CDT 06/14/2025 4:31 PM CDT us Zach Damon CHEMICAL ETCH OPERATOR ECG ORDERABLES Final Re sult [facility] [place] * eGFR (06/14/2025 5:03 AM CDT) eGFR 65 >=60 mL/min/1. 73 m2 Comment: Interpretive Data Reference Interval Normal >/= 90 mL/min/1.73m2 Mildly decreased* 60 - 89 mL/min/1.73m2 Mildly to moderately decreased 45 - 59 mL/min/1.73m2 Moderately to severely decreased 30 - 44 mL/min/1.73m2 Severely decreased 15 - 29 mL/min/1.73m2 Kidney Failure < 15 mL/min/1.73m2 *Relative to young adult level Estimated glomerular filtration rate is determined by the 2020 CKD-EPI equation recommended by the National Kidney [employer] (A Unifying Approach to GFR Estimation: Recommendations of the NKF-ASK Task Force on Reassessing the Inclusion of Race in Diagnosing Kidney Disease, JASN 2020). The CKD-EPI equation should not be used for patients with unstable renal function and has not been validated in children and those over 70. Current interpretive data was last reviewed 2021. Blood 06/14/2025 5:03 AM CDT 06/14/2025 6:04 AM CDT us Kan Rocha MD LAB BLOOD ORDERABLES F inal Result Performing Organization Address City/[facility] de Phone Number [facility] [place] [address] * (ABNORMAL) CBC without differential (06/14/2025 5:03 AM CDT) WBC 23.81(H) 3.80 - 9.90 K/cumm Hgb 10.3(L) 11.9 - 15.5 g/dL [facility] Hct 28.7(L) 35.6 - 45.5 % [facility] Plt 119(L) 150 - 400 K/cumm [facility] MPV 10.4 9.1 - 12.3 fL [facility] RBC 3.46(L) 3.90 - 5.20 M/cumm [facility] MCV 82.9 81.3 - 96.4 fL [facility] MCH 29.8 27.1 - 33.3 pg [facility] MCHC 35.9(H) 32.3 - 35.7 g/dL [facility] RDW CV 14.6 11.1 - 14.9 % [facility] RDW SD 43.8 35.7 - 48.1 fL [facility] NRBC abs 0.02(H) 0.00 - 0.01 K/cumm [facility] Blood 06/14/2025 5:03 AM CDT 06/14/2025 5:17 AM CDT Zach Damon CHEMICAL ETCH OPERATOR LAB BLOOD ORDERABLES Fin al Result Performing Organization Address [facility] Co de Phone Number [facility] [place] [address] * (ABNORMAL) Creatine kinase (CK), total (06/14/2025 5:03 AM CDT) CK 1,758(H) 30 - 200 Units/L Blood 06/14/2025 5:03 AM CDT 06/14/2025 6:04 AM CDT José Miranda MD LAB BLOOD ORDERABLES Final Resu lt [facility] [place] [address] * (ABNORMAL) Basic metabolic panel (06/14/2025 5:03 AM CDT) [facility] Sodium 147(H) 135 - 145 mmol/L Potassium, pl 3.9 3.3 - 4.9 mmol/L [facility] Chloride 108 97 - 110 mmol/L [facility] CO2 25 22 - 32 mmol/L [facility] Anion gap 14 2 - 15 mmol/L [facility] BUN 17 6 - 25 mg/dL [facility] Creatinine 0.92 0.60 - 1.10 mg/dL [facility] Glucose 152 70 - 199 mg/dL [facility] Comment: Interpretive Data Fasting glucose >/= 126 mg/dl is diagnostic for diabetes. Fasting is defined as no caloric intake for at least 8 hours. Fasting glucose between 100 mg/dl to 125 mg/dl is diagnostic of prediabetes. In a patient with classic symptoms of hyperglycemia or hyperglycemic crisis, a random glucose >/= 200 mg/dl is diagnostic for diabetes. In the absence of unequivocal hyperglycemia, results should be confirmed by repeat testing. The classification and Diagnosis of Diabetes Diabetes Care 2021; 46: S19-S40. Current interpretive data was last revised 2022. Calcium 8.6 8.5 - 10.3 mg/dL [facility] Blood 06/14/2025 5:03 AM CDT 06/14/2025 6:04 AM CDT Kan Rocha MD LAB BLOOD ORDERABLES F inal Result [facility] [place] [address] * (ABNORMAL) Troponin I high-sensitivity 6-hour (06/14/2025 4:38 AM CDT) Trop I hs 311(C) <=17 ng/L Comment: Previous critical value noted within 48 hours ago. Interpretive Data For further hscTnI resources including the diagnostic algorithm and an aid in interpretation, copy and paste this link: https://bjhlab.testcatalog.org/show/hsTrop-[email or web address] Current Interpretive Data last revised 2020. Trop I hs delta 245(C) ng/L [facility] Comment:Previous critical va lue noted within 48 hours ago. Trop I hs interp Significa nt(C) [facility] Comment:Previous critical va lue noted within 48 hours ago. Blood 06/14/2025 4:38 AM CDT 06/14/2025 5:12 AM CDT Zach Damon CHEMICAL ETCH OPERATOR LAB BLOOD ORDERABLES Fin al Result Performing Organization Address [facility] Co de Phone Number [facility] [place] [address] * POCT glucose (06/14/2025 4:31 AM CDT) [facility] Glucose, POC 157 70 - 199 mg/dL Blood 06/14/2025 4:31 AM CDT 06/14/2025 4:31 AM CDT José Miranda MD LAB POCT ORDERABLES - DEVICE Fi nal Result Performing Organization Address [facility] de Phone Number [facility] [place] [address] * ECG 12 lead (06/14/2025 4:20 AM CDT) Ventricular Rate EKG/Min [address] [facility] Atrial Rate [address] [facility] QRS-Interval (MSEC) [address] [facility] QT-Interval (MSEC) [address] [facility] QTc [address] [facility] R [place] -[address] [facility] T [place] [address] [facility] Diagnosis Sinus tachycardia with occasional Premature ventricular complexes Inferior infarct , age undetermined Anteroseptal infarct , age undetermined T wave abnormality, consider lateral ischemia Abnormal ECG When compared with ECG of 13-JUN-2025 23:14, (unconfirmed) Incomplete right bundle branch block is no longer Present Anteroseptal infarct is now Present Confirmed by TANA GOMEZ M.D ([id number]) on 06/14/2025 4:24:[address] [facility] [employer] 06/14/2025 4:20 AM CDT 06/14/2025 4:24 PM CDT us Zach Damon CHEMICAL ETCH OPERATOR ECG ORDERABLES Final Re sult [facility] [employer] [facility] * XR Abdomen 1 View AP (06/14/2025 4:06 AM CDT) Anatomical Region Laterality Modality Body, Abdomen N/A Digital Radiogra phy 06/14/2025 8:14 AM CDT Impressions 06/14/2025 8:14 AM CDT Study performed 06/14/2025 at 3:06 AM demonstrates feeding tube tip and side-port in the left upper quadrant under the eventrated hemidiaphragm, likely within the gastric body. Thoracolumbar spine hardware and pacer are noted. Study performed on 06/14/2025 at 3:49 AM demonstrates feeding tube tip and side-port again in the left upper quadrant, likely within the gastric body under the eventrated left hemidiaphragm. Electronically signed by: Carolina Houston M.D. Narrative 06/14/2025 8:14 AM CDT EXAMINATION: Abdomen, one view. Abdomen, one view. HISTORY: Check tube placement. COMPARISON: Correlation with CT performed on 04/24/2025 Procedure Note Carolina Houston MD - 06/14/2025 EXAMINATION: Abdomen, one view. Abdomen, one view. HISTORY: Check tube placement. COMPARISON: Correlation with CT performed on 04/24/2025 IMPRESSION: Study performed 06/14/2025 at 3:06 AM demonstrates feeding tube tip and side-port in the left upper quadrant under the eventrated hemidiaphragm, likely within the gastric body. Thoracolumbar spine hardware and pacer are noted. Study performed on 06/14/2025 at 3:49 AM demonstrates feeding tube tip and side-port again in the left upper quadrant, likely within the gastric body under the eventrated left hemidiaphragm. Electronically signed by: Carolina Houston M.D. Zach Damon CHEMICAL ETCH OPERATOR IMG XR PROCEDURES Final Result * Transfuse platelets (06/14/2025 3:53 AM CDT) Blood Zach Damon CHEMICAL ETCH OPERATOR BLOOD TRANSFUSION ORDERA BLES Final Result YANIQUE [facility] [place] [address] * XR Abdomen 1 View AP (06/14/2025 3:09 AM CDT) Anatomical Region Laterality Modality Body, Abdomen N/A Digital Radiogra phy 06/14/2025 8:14 AM CDT Impressions 06/14/2025 8:14 AM CDT Study performed 06/14/2025 at 3:06 AM demonstrates feeding tube tip and side-port in the left upper quadrant under the eventrated hemidiaphragm, likely within the gastric body. Thoracolumbar spine hardware and pacer are noted. Study performed on 06/14/2025 at 3:49 AM demonstrates feeding tube tip and side-port again in the left upper quadrant, likely within the gastric body under the eventrated left hemidiaphragm. Electronically signed by: Carolina Houston M.D. Narrative 06/14/2025 8:14 AM CDT EXAMINATION: Abdomen, one view. Abdomen, one view. HISTORY: Check tube placement. COMPARISON: Correlation with CT performed on 04/24/2025 Procedure Note Carolina Houston MD - 06/14/2025 EXAMINATION: Abdomen, one view. Abdomen, one view. HISTORY: Check tube placement. COMPARISON: Correlation with CT performed on 04/24/2025 IMPRESSION: Study performed 06/14/2025 at 3:06 AM demonstrates feeding tube tip and side-port in the left upper quadrant under the eventrated hemidiaphragm, likely within the gastric body. Thoracolumbar spine hardware and pacer are noted. Study performed on 06/14/2025 at 3:49 AM demonstrates feeding tube tip and side-port again in the left upper quadrant, likely within the gastric body under the eventrated left hemidiaphragm. Electronically signed by: Carolina Houston M.D. Zach Damon NP IMG XR PROCEDURES Final Result * (ABNORMAL) Troponin I high-sensitivity 4-hour (06/14/2025 2:44 AM CDT) Trop I hs 228(C) <=17 ng/L Comment: Interpretive Data For further hscTnI resources including the diagnostic algorithm and an aid in interpretation, copy and paste this link: https://bjhlab.testcatalog.org/show/hsTrop-[email or web address] Current Interpretive Data last revised 2020. Previous critical value noted within 48 hours ago. Trop I hs delta 162(C) ng/L [facility] Comment:Previous critical va lue noted within 48 hours ago. Trop I hs interp Significa nt(C) [facility] Comment:Previous critical va lue noted within 48 hours ago. Blood 06/14/2025 2:44 AM CDT 06/14/2025 3:01 AM CDT José Miranda MD LAB BLOOD ORDERABLES Edited Res ult - Final [facility] [place] [place] [address] * Transfuse platelets (06/14/2025 2:34 AM CDT) Blood Zach Damon NP BLOOD TRANSFUSION ORDERA BLES Final Result [facility] [place] [address] * Blood culture Blood (06/14/2025 1:52 AM CDT) Report Final Report: No growth Blood 06/14/2025 1:52 AM CDT 06/14/2025 2:03 AM CDT Narrative YANIQUE URRUTIA - 06/18/2025 7:00 AM CDT Collection->Peripheral 1. Blood cultures are incubated for 4 days on a continuously monitored blood culture system. The first report of a negative culture is issued within 24 hours of receipt of the specimen in the laboratory. 2. Positive culture results are reported as soon as they are detected. 3. The most important factor for detection of microbes in the setting of bloodstream infection is the volume of blood submitted for culture. Failure to collect an optimal blood volume can result in false negative blood cultures. 4. For pediatric patients, the recommended blood volume to collect follows a weight based strategy. See the electronic test catalog for collection instructions. 5. For positive blood cultures, a rapid molecular test may be performed for organism identification using the meli ePlex blood culture identification panel for gram positive (BCID-GP) and gram negative (BCID-GN) organisms. This nucleic acid amplification test detects microbial DNA in positive blood culture broth. This assay has been cleared by the [place] Food and Drug Administration and its performance characteristics have been verified by the [facility] Microbiology Laboratory. For questions about this culture, contact the Microbiology Laboratory at [phone]. Interpretive data was last revised on 24. Zach Damon CHEMICAL ETCH OPERATOR LAB MICROBIOLOGY - [facility] AL ORDERABLES Final Result YANIQUE URRUTIA [facility] [place] [address] * Blood culture Blood (06/14/2025 1:52 AM CDT) Report Final Report: No growth Blood 06/14/2025 1:52 AM CDT 06/14/2025 2:03 AM CDT Narrative YANIQUE URRUTIA - 06/18/2025 7:00 AM CDT Collection->Peripheral 1. Blood cultures are incubated for 4 days on a continuously monitored blood culture system. The first report of a negative culture is issued within 24 hours of receipt of the specimen in the laboratory. 2. Positive culture results are reported as soon as they are detected. 3. The most important factor for detection of microbes in the setting of bloodstream infection is the volume of blood submitted for culture. Failure to collect an optimal blood volume can result in false negative blood cultures. 4. For pediatric patients, the recommended blood volume to collect follows a weight based strategy. See the electronic test catalog for collection instructions. 5. For positive blood cultures, a rapid molecular test may be performed for organism identification using the meli ePlex blood culture identification panel for gram positive (BCID-GP) and gram negative (BCID-GN) organisms. This nucleic acid amplification test detects microbial DNA in positive blood culture broth. This assay has been cleared by the [place] Food and Drug Administration and its performance characteristics have been verified by the [facility] Microbiology Laboratory. For questions about this culture, contact the Microbiology Laboratory at [phone]. Interpretive data was last revised on 24. Zach Damon NP LAB MICROBIOLOGY - [facility] AL ORDERABLES Final Result [facility] Department [place] [address] * Urinalysis reflex to microscopic and culture Urine (06/14/2025 1:30 AM CDT) Color, ur Straw Yellow Clarity, ur Clear Clear [facility] Specific gravity, ur 1.013 1.003 - 1.030 [facility] pH, urine 6.0 [facility] Comment: Interpretive Data U rine pH is affected by diet, medications, systemic acid-base disturbances, and renal tubular function. pH may affect urinary stone formation. For example, urine pH below 6.0 may help reduce the tendency for calcium phosphate stones and pH greater than 6.0 may reduce the tendency for uric acid stone formation. Source: [facility] [employer] Current Interpretive Data was last revised on 2017 Protein, ur ql Negative Negative [facility] Glucose, ur ql Negative Negative [facility] Ketones, ur Negative Negative [facility] Bilirubin, ur Negative Negative [facility] Blood, ur Negative Negative [facility] Urobilinogen, ur <2.0 <2.0 mg/dL [facility] Nitrite, ur Negative Negative [facility] Leukocyte esterase, ur Negative Negative [facility] UA reflex comment Reflex conditions for microscopic UA and culture not met. [facility] Urine 06/14/2025 1:3 0 AM CDT 06/14/2025 1:37 AM CDT Zach Damon CHEMICAL ETCH OPERATOR LAB MICROBIOLOGY - GENER AL ORDERABLES Final Result Performing Organization Address City/[facility] Co de Phone Number [facility] [place] [address] * Lactate, whole blood (06/14/2025 1:30 AM CDT) Lactate, bld 1.5 0.7 - 2.0 mmol/L Blood 06/14/2025 1:30 AM CDT 06/14/2025 1:37 AM CDT Zach Damon CHEMICAL ETCH OPERATOR LAB BLOOD ORDERABLES Fin al Result Performing Organization Address [facility] Co de Phone Number [facility] [place] [place] [address] * (ABNORMAL) Creatine kinase (CK), total (06/14/2025 1:30 AM CDT) CK 1,376(H) 30 - 200 Units/L Blood 06/14/2025 1:30 AM CDT 06/14/2025 1:41 AM CDT Zach Damon CHEMICAL ETCH OPERATOR LAB BLOOD ORDERABLES Fin al Result Performing Organization Address City/[facility] Co de Phone Number [facility] [place] [address] * (ABNORMAL) Troponin I high-sensitivity 2-hour (06/14/2025 12:38 AM CDT) Trop I hs 151(H) <=17 ng/L Comment: Reviewed Interpretive Data For further hscTnI resources including the diagnostic algorithm and an aid in interpretation, copy and paste this link: https://bjhlab.testcatalog.org/show/hsTrop-[email or web address] Current Interpretive Data last revised 2020. Trop I hs delta 85(C) ng/L [facility] Comment:Reviewed Trop I hs interp Significa nt(C) [facility] Comment:Reviewed Blood 06/14/2025 12:3 8 AM CDT 06/14/2025 1:45 AM CDT Zach Damon CHEMICAL ETCH OPERATOR LAB BLOOD ORDERABLES Fin al Result Performing Organization Address City/[facility]/ZIP Co de Phone Number [facility] Department [place] [address] * Critical result callback Cardio chemistry (06/14/2025 12:38 AM CDT) Date Notified [id number] Time Notified 229 [facility] Test name Trop I hs 2hr d YANIQUE [facility] Called/Read Back Eloy [facility] Credentials ANA [facility] Called By ADALGISA [facility] Blood 06/14/2025 12:3 8 AM CDT 06/14/2025 1:50 AM CDT Zach Damon CHEMICAL ETCH OPERATOR LAB BLOOD ORDERABLES Fin al Result [facility] [place] [address] * Transfuse RBC (06/14/2025 12:20 AM CDT) Blood Zach Damon CHEMICAL ETCH OPERATOR BLOOD TRANSFUSION ORDERA BLES Final Result [facility] [place] [address] * POCT glucose (06/14/2025 12:17 AM CDT) Glucose, POC 121 70 - 199 mg/dL Blood 06/14/2025 12:1 7 AM CDT 06/14/2025 12:17 AM CDT us José Miranda MD LAB POCT ORDERABLES - DEVICE Fi nal Result Performing Organization Address [facility] Co de Phone Number [facility] [place] [address] * Prepare platelets: 2 Units (06/13/2025 11:45 PM CDT) Pathologist [facility] Product code [id number] [facility] Unit Number [id number] [facility] Product Blood Type OPOS [facility] Dispense Status PRESUMED TRANSFUSED [facility] Product code [id number] Unit Number [id number] [facility] Product Blood Type APOS [facility] Dispense Status PRESUMED TRANSFUSED [facility] Blood Venous blood specimen / Unknown 06/13/2025 11:45 PM CDT 06/13/2025 11:45 PM CDT Narrative [facility] - 06/14/2025 4:02 PM CDT Are special requirements needed? (all products are leukoreduced)->No Date required:-[id number] PLT # of Units:-2-Units Reasons:-Prior to neurosurgery, plt < 100 K/cumm} us Zach Damon NP BLOOD BANK PRODUCT ORDER BALDEV Final Result Performing Organization Address City/[facility]/ZIP Co de Phone Number [facility] [place] [address] * ECG 12 lead (06/13/2025 11:14 PM CDT) Ventricular Rate EKG/Min 79 BPM [facility] Atrial Rate 79 BPM [facility] VT-Interval (MSEC) 110 ms [facility] QRS-Interval (MSEC) 98 ms [facility] QT-Interval (MSEC) 398 ms [facility] QTc 456 ms [facility] P [place] 63 degrees [facility] R [place] -37 degrees [facility] T [place] 22 degrees [facility] Diagnosis Sinus rhythm with sinus arrhythmia with short VT Left axis deviation Incomplete right bundle branch block Abnormal ECG When compared with ECG of 25-MAY-2025 11:59, Criteria for Septal infarct are no longer Present ST now depressed in Inferior leads Confirmed by TANA GOMEZ M.D ([id number]) on 06/14/2025 4:14:18 PM [facility] 06/13/2025 11:1 4 PM CDT 06/14/2025 4:14 PM CDT Kan Rocha MD ECG ORDERABLES Final Result [facility] * XR chest 1 view (Portable) (06/13/2025 11:01 PM CDT) Anatomical Region Laterality Modality Body, Chest N/A Digital Radiogra phy 06/14/2025 9:54 AM CDT Impressions 06/14/2025 12:33 PM CDT The current study is compared with the prior radiograph dated 06/12/2025. Patient is status post fusion of the spine with instrumentation noted. Right subclavian approach intravenous catheter tip is obscured. Endotracheal tube tip is also obscured. Cardiac pacer leads overlie the expected positions of the right atrium and ventricle. The cardiomediastinal silhouette is within normal limits. Small lung volumes with worsening bibasilar atelectasis. No pneumothorax. Dictated by: Jasson Thibodeaux M.D. The radiology attending physician has personally reviewed this study, and had reviewed and/or edited this written report and agrees with it. Electronically signed by: Lenin Jimenez M.D. Narrative 06/14/2025 12:33 PM CDT EXAMINATION: 1 view chest radiograph Procedure Note Lenin Jimenez MD - 06/14/2025 EXAMINATION: 1 view chest radiograph IMPRESSION: The current study is compared with the prior radiograph dated 06/12/2025. Patient is status post fusion of the spine with instrumentation noted. Right subclavian approach intravenous catheter tip is obscured. Endotracheal tube tip is also obscured. Cardiac pacer leads overlie the expected positions of the right atrium and ventricle. The cardiomediastinal silhouette is within normal limits. Small lung volumes with worsening bibasilar atelectasis. No pneumothorax. Dictated by: Jasson Thibodeaux M.D. The radiology attending physician has personally reviewed this study, and had reviewed and/or edited this written report and agrees with it. Electronically signed by: Lenin Jimenez M.D. Kan Rocha MD IMG XR PROCEDURES Meghan l Result * Oxyhemoglobin, central venous (06/13/2025 10:58 PM CDT) Oxyhemoglobin, CV 49.1 % Comment: Interpretive Data No reference range established. Current interpretive data was last revised 2019. Blood 06/13/2025 10:5 8 PM CDT 06/13/2025 11:06 PM CDT us Zach Damon CHEMICAL ETCH OPERATOR LAB BLOOD ORDERABLES Fin al Result [facility] Department [place] [address] * eGFR (06/13/2025 10:41 PM CDT) eGFR 64 >=60 mL/min/1. 73 m2 Comment: Interpretive Data Reference Interval Normal >/= 90 mL/min/1.73m2 Mildly decreased* 60 - 89 mL/min/1.73m2 Mildly to moderately decreased 45 - 59 mL/min/1.73m2 Moderately to severely decreased 30 - 44 mL/min/1.73m2 Severely decreased 15 - 29 mL/min/1.73m2 Kidney Failure < 15 mL/min/1.73m2 *Relative to young adult level Estimated glomerular filtration rate is determined by the 2020 CKD-EPI equation recommended by the National Kidney Foundation (A Unifying Approach to GFR Estimation: Recommendations of the NKF-ASK Task Force on Reassessing the Inclusion of Race in Diagnosing Kidney Disease, JASN 202). The CKD-EPI equation should not be used for patients with unstable renal function and has not been validated in children and those over 70. Current interpretive data was last reviewed 2021. Blood 06/13/2025 10:4 1 PM CDT 06/13/2025 10:56 PM CDT us Kan Rocha MD LAB BLOOD ORDERABLES F inal Result [facility] Department [place] [address] * (ABNORMAL) CBC without differential (06/13/2025 10:41 PM CDT) [facility] WBC 15.39(H) 3.80 - 9.90 K/cumm Hgb 10.0(L) 11.9 - 15.5 g/dL [facility] Hct 28.1(L) 35.6 - 45.5 % [facility] Plt 79(L) 150 - 400 K/cumm [facility] Comment:No clot detected in sample. MPV 10.0 9.1 - 12.3 fL [facility] RBC 3.37(L) 3.90 - 5.20 M/cumm [facility] MCV 83.4 81.3 - 96.4 fL [facility] MCH 29.7 27.1 - 33.3 pg [facility] MCHC 35.6 32.3 - 35.7 g/dL [facility] RDW CV 14.6 11.1 - 14.9 % [facility] RDW SD 44.5 35.7 - 48.1 fL [facility] NRBC abs 0.00 0.00 - 0.01 K/cumm [facility] Blood 06/13/2025 10:4 1 PM CDT 06/13/2025 10:56 PM CDT Mavis Ward NP LAB BLOOD ORDERABLES Final Re sult Performing Organization Address [facility] Co de Phone Number [facility] [place] [address] * (ABNORMAL) Phosphorus (06/13/2025 10:41 PM CDT) Pathologist [facility] Phosphorus, pl 5.3(H) 2.3 - 4.5 mg/dL Blood 06/13/2025 10:4 1 PM CDT 06/13/2025 10:56 PM CDT Kan Rocha MD LAB BLOOD ORDERABLES F inal Result Performing Organization Address [facility] de Phone Number [facility] Department [place] [address] * Magnesium (06/13/2025 10:41 PM CDT) [facility] Magnesium 1.7 1.4 - 2.5 mg/dL Blood 06/13/2025 10:4 1 PM CDT 06/13/2025 10:56 PM CDT Kan Rocha MD LAB BLOOD ORDERABLES F inal Result Performing Organization Address [facility] de Phone Number [facility] [place] [address] * (ABNORMAL) Comprehensive metabolic panel (06/13/2025 10:41 PM CDT) [facility] Sodium 144 135 - 145 mmol/L Potassium, pl 4.4 3.3 - 4.9 mmol/L [facility] Chloride 110 97 - 110 mmol/L [facility] CO2 24 22 - 32 mmol/L [facility] Anion gap 10 2 - 15 mmol/L [facility] BUN 14 6 - 25 mg/dL [facility] Creatinine 0.93 0.60 - 1.10 mg/dL [facility] Glucose 113 70 - 199 mg/dL [facility] Comment: Interpretive Data Fasting glucose >/= 126 mg/dl is diagnostic for diabetes. Fasting is defined as no caloric intake for at least 8 hours. Fasting glucose between 100 mg/dl to 125 mg/dl is diagnostic of prediabetes. In a patient with classic symptoms of hyperglycemia or hyperglycemic crisis, a random glucose >/= 200 mg/dl is diagnostic for diabetes. In the absence of unequivocal hyperglycemia, results should be confirmed by repeat testing. The classification and Diagnosis of Diabetes Diabetes Care 202; 46: S19-S40. Current interpretive data was last revised 2022. Calcium 9.2 8.5 - 10.3 mg/dL [facility] Bilirubin, total 0.6 0.1 - 1.2 mg/dL [facility] Protein, pl 5.1(L) 6.5 - 8.5 g/dL [facility] Albumin 3.1(L) 3.5 - 5.0 g/dL [facility] Alk phos 54 40 - 130 Units/L [facility] ALT 32 7 - 45 Units/L [facility] AST 56(H) 10 - 45 Units/L [facility] Blood 06/13/2025 10:4 1 PM CDT 06/13/2025 10:56 PM CDT Kan Rocha MD LAB BLOOD ORDERABLES F inal Result [facility] Department [place] [address] * (ABNORMAL) Thromboelastometry Panel - Heparin (06/13/2025 10:38 PM CDT) Pathologist [facility] HEPTEM-CT 130(L) 141 - 215 sec HEPTEM-A5 30(L) 33 - 51 mm [facility] HEPTEM-A10 40(L) 44 - 61 mm [facility] HEPTEM-A20 48(L) 52 - 67 mm [facility] HEPTEM-MCF 51(L) 54 - [address] [facility] Blood 06/13/2025 10:3 8 PM CDT 06/13/2025 11:19 PM CDT Zach Damon NP LAB BLOOD ORDERABLES Jose David octavio Result - Final [facility] Department [place] [address] * (ABNORMAL) Thromboelastometry Panel - Intrinsic (06/13/2025 10:38 PM CDT) INTEM-CT 133(L) 139 - 205 sec INTEM-A5 32(L) 36 - 54 mm [facility] INTEM-A10 42(L) 46 - 63 mm [facility] INTEM-A20 50(L) 53 - 68 mm [facility] INTEM-MCF 52(L) 55 - 70 mm [facility] INTEM-LI60 100 93 - 100 % [facility] INTEM-ML 1 0 - 7 % [facility] Comment: Interpretive Data Rotational Thromboelastometry (LORENZO) Sigma is a type of viscoelastic testing (VET). LORENZO can rapidly assess hemostasis and guide blood product transfusion in cardiac surgery, liver transplantation, and other bleeding situations. It is not a replacement for conventional coagulation testing (such as PT INR, aPTT and fibrinogen). While anticoagulation medications can impact LORENZO results, LORENZO should not be used to monitor or manage anticoagulation. Standard VET is insensitive to the pharmacological effects of aspirin, thienopyridines, P2Y12 inhibitors and flow-dependent platelet function defects. Literature References 1. Syd Camacho. Sensitivity of Viscoelastic Tests to Platelet Function. J Clin Med. 2019Sep 23 9(3) 778. 2. Cass O, Faye CM, Joseline N, Vineet EE, Vineet HB, Beba HC, Ari SAGASTUME, Anna Marie Yo MD, Warren SS, Sherly G, Thomas EUGENE, Jesus ML, Car AV, Car SG, Carlie L, Mat CrisostomoZ, Hailey M, Trent P, Stephanie D, Tan MM. Viscoelastic Hemostatic Assays A Primer on Legacy and New Generation Devices. J Clin Med. 2021Oct 21 11(2) 321. 3. LORENZO Operating Manual. Jennifer Montelongo MA. Panfilo 13-15. D- [id number] [facility], [facility]. Blood 06/13/2025 10:3 8 PM CDT 06/13/2025 11:19 PM CDT Zach Damon LAB BLOOD ORDERABLES Jose David octavio Result - Final Performing Organization Address City/[facility]/ZIP Co de Phone Number [facility] [place] [address] * Thromboelastometry Panel - Fibrinogen (06/13/2025 10:38 PM CDT) FIBTEM-A5 10 5 - 16 mm FIBTEM-A10 12 6 - [address] [facility] FIBTEM-A20 13 6 - [address] [facility] FIBTEM-MCF 13 9 - [address] [facility] Blood 06/13/2025 10:3 8 PM CDT 06/13/2025 11:19 PM CDT Zach Damon CHEMICAL ETCH OPERATOR LAB BLOOD ORDERABLES Jose David octavio Result - Final Performing Organization Address City/[facility]/ZIP Co de Phone Number [facility] [place] [address] * (ABNORMAL) Thromboelastometry Panel - Extrinsic (06/13/2025 10:38 PM CDT) EXTEM-CT 67 51 - 73 sec EXTEM-A5 34 33 - 52 mm [facility] EXTEM-A10 44(L) 45 - 62 mm [facility] EXTEM-A20 51(L) 54 - [address] [facility] EXTEM-MCF 54(L) 57 - [address] [facility] EXTEM-LI60 99 94 - 100 % [facility] EXTEM-ML 3 0 - 6 % [facility] Blood 06/13/2025 10:3 8 PM CDT 06/13/2025 11:19 PM CDT Zach Damon CHEMICAL ETCH OPERATOR LAB BLOOD ORDERABLES Jose David octavio Result - Final Performing Organization Address [facility] Co de Phone Number [facility] [place] [address] * (ABNORMAL) Troponin I high-sensitivity series (baseline, 2hr, 4hr, 6hr) (06/13/2025 10:38 PM CDT) Pathologist [facility] Trop I hs 66(H) <=17 ng/L Comment: Interpretive Data For further hscTnI resources including the diagnostic algorithm and an aid in interpretation, copy and paste this link: [email or web address] Current Interpretive Data last revised 2020. Blood 06/13/2025 10:3 8 PM CDT 06/13/2025 11:12 PM CDT Zach Damon CHEMICAL ETCH OPERATOR LAB BLOOD ORDERABLES Fin al Result Performing Organization Address [facility] Co de Phone Number [facility] [place] [place] [address] * Calcium, ionized (06/13/2025 10:38 PM CDT) Calcium, Ionized 4.79 4.50 - 5.10 mg/dL Blood 06/13/2025 10:3 8 PM CDT 06/13/2025 10:57 PM CDT Zach Damon CHEMICAL ETCH OPERATOR LAB BLOOD ORDERABLES Fin al Result Performing Organization Address City/[facility] Co de Phone Number [facility] [place] [address] * (ABNORMAL) Lactate, whole blood (06/13/2025 10:38 PM CDT) Pathologist [facility] Lactate, bld 2.3(H) 0.7 - 2.0 mmol/L Blood 06/13/2025 10:3 8 PM CDT 06/13/2025 10:57 PM CDT Zach Damon CHEMICAL ETCH OPERATOR LAB BLOOD ORDERABLES Fin al Result Performing Organization Address [facility] de Phone Number [facility] [place] [address] * (ABNORMAL) Blood gas, arterial (06/13/2025 10:38 PM CDT) [facility] pH, Art 7.45 7.35 - 7.45 PCO2, Arterial 33(L) 35 - 45 mmHg [facility] PO2, Arterial 118(H) 83 - 108 mmHg [facility] HCO3 Art (Calculated) 23 20 - 30 mmol/L [facility] BE, art 0 mmol/L [facility] Comment: Interpretive Data No Reference Range Established Current Interpretive Data was last revised on 2017 O2 Sat Art (Measured) 99(H) 90 - 95 % [facility] Blood 06/13/2025 10:3 8 PM CDT 06/13/2025 10:57 PM CDT Zach Damon CHEMICAL ETCH OPERATOR LAB BLOOD ORDERABLES Fin al Result Performing Organization Address [facility] Co de Phone Number [facility] [place] [address] * (ABNORMAL) Creatine kinase (CK), total (06/13/2025 10:38 PM CDT) [facility] CK 1,052(H) 30 - 200 Units/L Blood 06/13/2025 10:3 8 PM CDT 06/13/2025 11:11 PM CDT Zach Damon NP LAB BLOOD ORDERABLES Fin al Result Performing Organization Address [facility] Co de Phone Number [facility] [place] [address] * POCT glucose (06/13/2025 10:19 PM CDT) [facility] Glucose, POC 93 70 - 199 mg/dL Blood 06/13/2025 10:1 9 PM CDT 06/13/2025 10:19 PM CDT José Miranda MD LAB POCT ORDERABLES - DEVICE Fi nal Result Performing Organization Address [facility] de Phone Number [facility] [place] [address] * (ABNORMAL) aPTT (06/13/2025 8:46 PM CDT) [facility] aPTT 22(L) 26 - 38 sec Comment: Interpretive Data Heparin therapeutic range: 66.0 - 100.0 seconds. Range based on correlation with therapeutic heparin activity range of 0.3 - 0.7 Units/mL. Current interpretive data was last revised on 2023. Blood 06/13/2025 8:46 PM CDT 06/13/2025 11:46 PM CDT Kan Rocha MD LAB BLOOD ORDERABLES F inal Result Performing Organization Address [facility] Co de Phone Number [facility] [place] [address] * Protime-INR (06/13/2025 8:46 PM CDT) PT 12.2 10.2 - 13.5 sec INR 1.08 0.90 - 1.20 [facility] Comment: Interpretive data Oral anticoagulant therapeutic ranges: Venous thromboembolism prophylaxis or treatment: 2.0-3.0 CARDIOLOGY Standard range: 2.0-3.0 High-intensity range: 2.5-3.5 Refer to indication-specific guidelines for appropriate target ranges for prosthetic heart valve replacement. Current interpretive data was last revised on 2019. Blood 06/13/2025 8:46 PM CDT 06/13/2025 11:46 PM CDT Kan Rocha MD LAB BLOOD ORDERABLES F inal Result Performing Organization Address City/[facility]/ZIP Co de Phone Number [facility] [place] [address] * POCT Partial thromboplastin time (PTT) (06/13/2025 8:39 PM CDT) APTT, POC 32.7 32.5 - 46.1 sec Blood 06/13/2025 8:39 PM CDT 06/13/2025 8:39 PM CDT Result [facility] José Miranda MD LAB POCT ORDERABLES - DEVICE Fi nal Result Performing Organization Address City/[facility]/ZIP Co de Phone Number [facility] [place] [place] [address] * (ABNORMAL) POCT prothrombin time (06/13/2025 8:38 PM CDT) PT, POC 18.6(H) 11.7 - 16.6 sec INR, POC 1.4(H) 0.9 - 1.2 [facility] Blood 06/13/2025 8:38 PM CDT 06/13/2025 8:38 PM CDT José Miranda MD LAB POCT ORDERABLES - DEVICE Fi nal Result Performing Organization Address City/[facility]/ZIP Co de Phone Number [facility] Department [place] [address] * (ABNORMAL) POC Blood Gas and Chemistries, Arterial - (06/13/2025 8:37 PM CDT) pH, Art POC 7.38 7.35 - 7.45 pCO2, Art POC 37 35 - [address] [facility] pO2, Art POC 199(H) 83 - [address] [facility] Na, POC 143 135 - 145 mmol/L [facility] K POC 3.7 3.3 - 4.9 mmol/L [facility] Comment: Interpretive Data Not all point of care methods assess for hemolysis. Confirm with instrument and retest K+ if not consistent with clinical signs and symptoms. Current Interpretive Data was last revised on 2024. Cl, POC 112(H) 97 - 110 mmol/L [facility] Ionized Ca, POC 4.71 4.50 - 5.10 mg/dL [facility] Glucose, POC 171 70 - 199 mg/dL [facility] Lactate POC 2.2(H) 0.7 - 2.0 mmol/L [facility] SO2 (abimael) arterial 100(H) 90 - 95 % [facility] Base excess, POC -2.9 mmol/L [facility] Hct, POC 32.0(L) 36.3 - 45.3 % [facility] Total Hb, POC 10.7(L) 11.9 - 15.5 g/dL [facility] Blood 06/13/2025 8:37 PM CDT 06/13/2025 8:37 PM CDT us José Miranda MD LAB POCT ORDERABLES - DEVICE Fi nal Result [facility] Department [place] [address] * Transfuse plasma (06/13/2025 8:00 PM CDT) Blood Inna Russ DO BLOOD TRANSFUSION ORDE RABJOI Final Result [facility] [place] [address] * Transfuse RBC (06/13/2025 7:59 PM CDT) Blood Inna Russ DO BLOOD TRANSFUSION ORDE RABJOI Final Result YANIQUE [facility] Department [place] [address] * (ABNORMAL) POC Blood Gas and Chemistries, Arterial - (06/13/2025 7:56 PM CDT) pH, Art POC 7.39 7.35 - 7.45 pCO2, Art POC 35 35 - 45 mmHg [facility] pO2, Art POC 186(H) 83 - 108 mmHg [facility] Na, POC 143 135 - 145 mmol/L [facility] K POC 3.3 3.3 - 4.9 mmol/L [facility] Comment: Interpretive Data Not all point of care methods assess for hemolysis. Confirm with instrument and retest K+ if not consistent with clinical signs and symptoms. Current Interpretive Data was last revised on 2024. Cl, POC 113(H) 97 - 110 mmol/L [facility] Ionized Ca, POC 4.85 4.50 - 5.10 mg/dL [facility] Glucose, POC 163 70 - 199 mg/dL [facility] Lactate POC 2.1(H) 0.7 - 2.0 mmol/L [facility] SO2 (abimael) arterial 100(H) 90 - 95 % [facility] Base excess, POC -3.3 mmol/L [facility] Hct, POC 32.0(L) 36.3 - 45.3 % [facility] Total Hb, POC 10.5(L) 11.9 - 15.5 g/dL [facility] Blood 06/13/2025 7:56 PM CDT 06/13/2025 7:56 PM CDT José Miranda MD LAB POCT ORDERABLES - DEVICE Fi nal Result [facility] Department [place] [address] * Transfuse plasma (06/13/2025 7:24 PM CDT) Blood Inna Russ DO BLOOD TRANSFUSION ORDE RABLES Final Result Performing Organization Address [facility] Co de Phone Number [facility] Department [place] [address] * XR Scoliosis Ap and Lateral (06/13/2025 7:23 PM CDT) Anatomical Region Laterality Modality Spine N/A Computed Radiogr aphy 06/14/2025 7:0 9 AM CDT Impressions 06/14/2025 7:09 AM CDT 1. In progress revision posterior instrumented fusion extending from T3 through the pelvis. Electronically signed by: Raman Meadows MD Narrative 06/14/2025 7:09 AM CDT EXAMINATION: XR SCOLIOSIS AP AND LATERAL HISTORY: Back pain. FINDINGS: Comparison to same day radiographs taken at 12:51 AM. In progress revision posterior instrumented fusion now extending from T3/S1 with bilateral iliac screws. Unchanged anterior discectomy and interbody fusion from L4-S1 is better appreciated on prior imaging. Included hardware is intact. Mild long segment levoscoliosis of the thoracolumbar spine . Multiple support devices overlie the patient. Procedure Note Raman Meadows MD - 06/14/2025 EXAMINATION: XR SCOLIOSIS AP AND LATERAL HISTORY: Back pain. FINDINGS: Comparison to same day radiographs taken at 12:51 AM. In progress revision posterior instrumented fusion now extending from T3/S1 with bilateral iliac screws. Unchanged anterior discectomy and interbody fusion from L4-S1 is better appreciated on prior imaging. Included hardware is intact. Mild long segment levoscoliosis of the thoracolumbar spine . Multiple support devices overlie the patient. IMPRESSION: 1. In progress revision posterior instrumented fusion extending from T3 through the pelvis. Electronically signed by: Raman Meadows MD José Miranda MD IMG XR PROCEDURES Final Result * (ABNORMAL) POC Blood Gas and Chemistries, Arterial - (06/13/2025 7:08 PM CDT) pH, Art POC 7.40 7.35 - 7.45 pCO2, Art POC 36 35 - [address] [facility] [facility] pO2, Art POC 209(H) 83 - [address] [facility] Na, POC 142 135 - 145 mmol/L [facility] K POC 3.4 3.3 - 4.9 mmol/L [facility] Comment: Interpretive Data Not all point of care methods assess for hemolysis. Confirm with instrument and retest K+ if not consistent with clinical signs and symptoms. Current Interpretive Data was last revised on 2024. Cl, POC 112(H) 97 - 110 mmol/L [facility] Ionized Ca, POC 4.94 4.50 - 5.10 mg/dL [facility] Glucose, POC 167 70 - 199 mg/dL [facility] Lactate POC 2.0 0.7 - 2.0 mmol/L [facility] SO2 (abimael) arterial 100(H) 90 - 95 % [facility] Base excess, POC -2.1 mmol/L [facility] Hct, POC 34.0(L) 36.3 - 45.3 % [facility] Total Hb, POC 11.2(L) 11.9 - 15.5 g/dL [facility] Blood 06/13/2025 7:08 PM CDT 06/13/2025 7:08 PM CDT José Miranda MD LAB POCT ORDERABLES - DEVICE Fi nal Result [facility] Department [place] [address] * Prepare RBC: 4 Units (06/13/2025 6:53 PM CDT) Product code [id number] [facility] Unit Number [id number] [facility] Product Blood Type OPOS [facility] Dispense Status PRESUMED TRANSFUSED [facility] BJKimberley Product code [id number] [facility] Unit Number [id number] [facility] Product Blood Type OPOS [facility] Dispense Status RETURNED [facility] Product code [id number] [facility] Unit Number [id number] [facility] Product Blood Type OPOS [facility] Dispense Status PRESUMED TRANSFUSED CEREMILY BJKimberley Product code [id number] Unit Number [id number] [facility] Product Blood Type OPOS [facility] Dispense Status RETURNED [facility] Blood 06/13/2025 6:53 PM CDT 06/13/2025 6:54 PM CDT Narrative YANIQUE MORRIS - 06/16/2025 12:59 AM CDT Are special requirements needed? (All products are leukoreduced and CMV- safe)- >No Date required:-[id number] LRRBC # of [id number] Reasons:-Intra-op transfusion} us Vahid Dubois MD BLOOD BANK PRODUCT OR DERABLES Final Result Performing Organization Address City/[facility]/ZIP Co de Phone Number [facility] [place] [address] * Transfuse plasma (06/13/2025 6:29 PM CDT) Blood us Inna Russ DO BLOOD TRANSFUSION ORDE RABLES Final Result [facility] [place] [address] * Transfuse RBC (06/13/2025 6:28 PM CDT) Blood us Inna Russ DO BLOOD TRANSFUSION YONG FOWLER Final Result [facility] Department [place] [address] * (ABNORMAL) POC Blood Gas and Chemistries, Arterial - (06/13/2025 5:40 PM CDT) pH, Art POC 7.43 7.35 - 7.45 pCO2, Art POC 37 35 - [address] [facility] pO2, Art POC 197(H) 83 - [address] [facility] [facility] Na, POC 143 135 - 145 mmol/L [facility] K POC 3.7 3.3 - 4.9 mmol/L [facility] Comment: Interpretive Data Not all point of care methods assess for hemolysis. Confirm with instrument and retest K+ if not consistent with clinical signs and symptoms. Current Interpretive Data was last revised on 2024. Cl, POC 111(H) 97 - 110 mmol/L [facility] Ionized Ca, POC 5.71(H) 4.50 - 5.10 mg/dL [facility] Glucose, POC 184 70 - 199 mg/dL [facility] Lactate POC 2.2(H) 0.7 - 2.0 mmol/L [facility] SO2 (abimael) arterial 100(H) 90 - 95 % [facility] Base excess, POC 0.4 mmol/L [facility] HCO3, Art POC 25 20 - 30 mmol/L [facility] Hct, POC 34.0(L) 36.3 - 45.3 % [facility] Total Hb, POC 11.4(L) 11.9 - 15.5 g/dL [facility] Blood 06/13/2025 5:40 PM CDT 06/13/2025 5:40 PM CDT us José Miranda MD LAB POCT ORDERABLES - DEVICE Fi nal Result [facility] [place] [address] * Transfuse RBC (06/13/2025 5:40 PM CDT) Blood Inna Russ DO BLOOD TRANSFUSION ORDBraeden FOWLER Edited Result - Final Performing Organization Address [facility] [facility] Co de Phone Number [facility] [place] [address] * (ABNORMAL) POCT prothrombin time (06/13/2025 5:38 PM CDT) PT, POC 18.6(H) 11.7 - 16.6 sec INR, POC 1.4(H) 0.9 - 1.2 [facility] Blood 06/13/2025 5:38 PM CDT 06/13/2025 5:38 PM CDT Result [facility] José Miranda MD LAB POCT ORDERABLES - DEVICE Fi nal Result Performing Organization Address [facility] Co de Phone Number [facility] [place] [address] * (ABNORMAL) POCT Partial thromboplastin time (PTT) (06/13/2025 5:38 PM CDT) APTT, POC 24.9(L) 32.5 - 46.1 sec Blood 06/13/2025 5:38 PM CDT 06/13/2025 5:38 PM CDT Result [facility] José Miranda MD LAB POCT ORDERABLES - DEVICE Fi nal Result Performing Organization Address [facility] [place] [address] * (ABNORMAL) POCT hemoglobin, hematocrit and platelet count (06/13/2025 5:36 PM CDT) Hgb, POC 10.8(L) 11.9 - 15.5 g/dL Hematocrit POC 32.4(L) 35.6 - 45.5 % [facility] Platelet POC 154 150 - 400 K/cumm [facility] Blood 06/13/2025 5:36 PM CDT 06/13/2025 5:36 PM CDT José Miranda MD LAB POCT ORDERABLES - DEVICE Fi nal Result Performing Organization Address [facility] Co de Phone Number [facility] [place] [address] * Transfuse cryoprecipitate (pooled units) (06/13/2025 5:11 PM CDT) Blood Inna Russ DO BLOOD TRANSFUSION ORDE RABLES Final Result Performing Organization Address [facility] de Phone Number [facility] Department [place] [address] * Prepare cryoprecipitate (pooled units): 1 Units (06/13/2025 4:45 PM CDT) [facility] Signature Product code [id number] Unit Number [id number]- Y [facility] Product Blood Type OPOS [facility] Dispense Status PRESUMED TRANSFUSED [facility] Blood Venous blood specimen / Unknown 06/13/2025 4:45 PM CDT 06/13/2025 4:46 PM CDT Narrative [facility] - 06/14/2025 8:00 AM CDT Other indication->hemorrage intraop with substantial transfusion Cryo # of [id number] Reasons:-Other (Specify)} Inna Russ DO BLOOD BANK PRODUCT ORD ERABLES Final Result Performing Organization Address [facility] Co de Phone Number [facility] [place] [address] * Transfuse RBC (06/13/2025 4:43 PM CDT) Blood Inna Josef Russ DO BLOOD TRANSFUSION ORDE RABJOI Edited Result - Final Performing Organization Address City/[facility]/ZIP Co de Phone Number [facility] Department [place] [address] * Transfuse plasma (06/13/2025 4:41 PM CDT) Blood Inna Russ DO BLOOD TRANSFUSION ORDE JANETH Edited Result - Final Performing Organization Address City/[facility]/ZIP Co de Phone Number [facility] [place] [address] * Transfuse RBC (06/13/2025 4:39 PM CDT) Blood Result [facility] Inna Russ BLOOD TRANSFUSION ORDE RABJOI Edited Result - Final Performing Organization Address City/[facility] Co de Phone Number [facility] [place] [address] * (ABNORMAL) POC Blood Gas and Chemistries, Arterial - (06/13/2025 4:30 PM CDT) pH, Art POC 7.46(H) 7.35 - 7.45 pCO2, Art POC 37 35 - 45 mmHg [facility] pO2, Art POC 227(H) 83 - 108 mmHg [facility] Na, POC 142 135 - 145 mmol/L [facility] K POC 3.4 3.3 - 4.9 mmol/L [facility] Comment: Interpretive Data Not all point of care methods assess for hemolysis. Confirm with instrument and retest K+ if not consistent with clinical signs and symptoms. Current Interpretive Data was last revised on 2024. Cl, POC 112(H) 97 - 110 mmol/L [facility] Ionized Ca, POC 5.00 4.50 - 5.10 mg/dL [facility] Glucose, POC 164 70 - 199 mg/dL [facility] Lactate POC 1.9 0.7 - 2.0 mmol/L [facility] SO2 (abimael) arterial 100(H) 90 - 95 % [facility] Base excess, POC 2.4 mmol/L [facility] Hct, POC 30.0(L) 36.3 - 45.3 % [facility] Total Hb, POC 9.9(L) 11.9 - 15.5 g/dL [facility] Blood 06/13/2025 4:30 PM CDT 06/13/2025 4:30 PM CDT José Miranda MD LAB POCT ORDERABLES - DEVICE Fi nal Result [facility] [place] [address] * Transfuse platelets (06/13/2025 4:10 PM CDT) Blood Inna Russ DO BLOOD TRANSFUSION ORDE JANETH Edited Result - Final Performing Organization Address City/[facility] Co de Phone Number [facility] [place] [address] * Transfuse RBC (06/13/2025 4:10 PM CDT) Blood Inna Russ DO BLOOD TRANSFUSION ORDE JANETH Edited Result - Final [facility] [place] [address] * Transfuse RBC (06/13/2025 4:10 PM CDT) Blood Inna Russ DO BLOOD TRANSFUSION ORDE JANETH Edited Result - Final [facility] Department [place] [address] * Transfuse plasma (06/13/2025 4:09 PM CDT) Blood Inna Russ DO BLOOD TRANSFUSION ORDE JANETH Edited Result - Final Performing Organization Address City/[facility]/ZIP Co de Phone Number [facility] Department [place] [address] * (ABNORMAL) POC Blood Gas and Chemistries, Arterial - (06/13/2025 3:12 PM CDT) pH, Art POC 7.41 7.35 - 7.45 pCO2, Art POC 41 35 - [address] [facility] pO2, Art POC 254(H) 83 - 108 mmHg [facility] Na, POC 141 135 - 145 mmol/L [facility] K POC 3.6 3.3 - 4.9 mmol/L [facility] Comment: Interpretive Data Not all point of care methods assess for hemolysis. Confirm with instrument and retest K+ if not consistent with clinical signs and symptoms. Current Interpretive Data was last revised on 2024. Cl, POC 112(H) 97 - 110 mmol/L [facility] Ionized Ca, POC 6.00(H) 4.50 - 5.10 mg/dL [facility] Glucose, POC 198 70 - 199 mg/dL [facility] Lactate POC 1.8 0.7 - 2.0 mmol/L [facility] SO2 (abimael) arterial 100(H) 90 - 95 % [facility] Base excess, POC 1.2 mmol/L [facility] HCO3, Art POC 26 20 - 30 mmol/L [facility] Hct, POC 34.0(L) 36.3 - 45.3 % [facility] Total Hb, POC 11.2(L) 11.9 - 15.5 g/dL [facility] Blood 06/13/2025 3:12 PM CDT 06/13/2025 3:12 PM CDT Result [facility] José Miranda MD LAB POCT ORDERABLES - DEVICE Fi nal Result Performing Organization Address [facility] de Phone Number [facility] [place] [address] * (ABNORMAL) POCT prothrombin time (06/13/2025 3:11 PM CDT) PT, POC 17.4(H) 11.7 - 16.6 sec INR, POC 1.3(H) 0.9 - 1.2 [facility] Blood 06/13/2025 3:11 PM CDT 06/13/2025 3:11 PM CDT Result [facility] José Miranda MD LAB POCT ORDERABLES - DEVICE Fi nal Result Performing Organization Address [facility] de Phone Number [facility] [place] [address] * POCT Partial thromboplastin time (PTT) (06/13/2025 3:11 PM CDT) [facility] APTT, POC 40.7 32.5 - 46.1 sec Blood 06/13/2025 3:11 PM CDT 06/13/2025 3:11 PM CDT Result [facility] José Miranda MD LAB POCT ORDERABLES - DEVICE Fi nal Result Performing Organization Address [facility] Co de Phone Number [facility] [place] [address] * (ABNORMAL) POCT hemoglobin, hematocrit and platelet count (06/13/2025 3:08 PM CDT) Hgb, POC 10.9(L) 11.9 - 15.5 g/dL Hematocrit POC 32.7(L) 35.6 - 45.5 % [facility] Platelet POC 138(L) 150 - 400 K/cumm [facility] Blood 06/13/2025 3:08 PM CDT 06/13/2025 3:08 PM CDT José Miranda MD LAB POCT ORDERABLES - DEVICE Fi nal Result [facility] Department [place] [address] * (ABNORMAL) POC Blood Gas and Chemistries, Arterial - (06/13/2025 2:16 PM CDT) pH, Art POC 7.45 7.35 - 7.45 pCO2, Art POC 36 35 - 45 mmHg [facility] pO2, Art POC 244(H) 83 - 108 mmHg [facility] Na, POC 140 135 - 145 mmol/L [facility] K POC 3.5 3.3 - 4.9 mmol/L [facility] Comment: Interpretive Data Not all point of care methods assess for hemolysis. Confirm with instrument and retest K+ if not consistent with clinical signs and symptoms. Current Interpretive Data was last revised on 2024. Cl, POC 108 97 - 110 mmol/L [facility] Ionized Ca, POC 4.88 4.50 - 5.10 mg/dL [facility] Glucose, POC 208(H) 70 - 199 mg/dL [facility] Lactate POC 1.7 0.7 - 2.0 mmol/L [facility] SO2 (abimael) arterial 99(H) 90 - 95 % [facility] Base excess, POC 1.1 mmol/L [facility] Hct, POC 31.0(L) 36.3 - 45.3 % [facility] Total Hb, POC 10.4(L) 11.9 - 15.5 g/dL [facility] Blood 06/13/2025 2:16 PM CDT 06/13/2025 2:16 PM CDT José Miranda MD LAB POCT ORDERABLES - DEVICE Fi nal Result [facility] Department [place] [address] * Transfuse RBC (06/13/2025 1:39 PM CDT) Blood Inna Russ DO BLOOD TRANSFUSION ORDE RABLES Edited Result - Final Performing Organization Address City/[facility]/ZIP Co de Phone Number [facility] [place] [address] * Prepare plasma: 4 Units (06/13/2025 1:23 PM CDT) [facility] Product code [id number] [facility] Unit Number [id number] [facility] Product Blood Type OPOS [facility] Dispense Status PRESUMED TRANSFUSED [facility] Product code [id number] [facility] Unit Number [id number] 2 [facility] Product Blood Type OPOS [facility] Dispense Status PRESUMED TRANSFUSED [facility] Product code [id number] Unit Number [id number] [facility] Product Blood Type OPOS [facility] Dispense Status PRESUMED TRANSFUSED [facility] Product code [id number] [facility] Unit Number [id number] [facility] Product Blood Type OPOS [facility] Dispense Status PRESUMED TRANSFUSED [facility] Blood Venous blood specimen / Unknown 06/13/2025 1:23 PM CDT 06/13/2025 1:[address] [facility] - 06/14/2025 4:00 AM CDT Date required:-[id number] FFP # of Units:-4-Units Reasons:-Immediate need for surgical intervention us Inna Russ DO BLOOD BANK PRODUCT [place] [address] * Prepare RBC: 4 Units (06/13/2025 1:21 PM CDT) Product code [id number] [facility] Unit Number [id number] [facility] Product Blood Type OPOS [facility] Dispense Status PRESUMED TRANSFUSED [facility] Product code [id number] [facility] Unit Number [id number]- R [facility] Product Blood Type OPOS [facility] Dispense Status RETURNED [facility] Product code [id number] [facility] Unit Number [id number]- Y [facility] Product Blood Type OPOS [facility] Dispense Status RETURNED [facility] Product code [id number] Unit Number [id number]- U [facility] Product Blood Type OPOS [facility] Dispense Status RETURNED [facility] Blood 06/13/2025 1:21 PM CDT 06/13/2025 1:[address] [facility] - 06/14/2025 8:00 AM CDT Are special requirements needed? (All products are leukoreduced and CMV- safe)- >No Date required:-[id number] LRRBC # of [id number] Reasons:-Intra-op transfusion} us Inna Russ DO BLOOD BANK PRODUCT ORD ERABLES Final Result Performing Organization Address City/[facility]/ZIP Co de Phone Number [facility] [place] [address] * Transfuse plasma (06/13/2025 1:19 PM CDT) Blood Inna Russ DO BLOOD TRANSFUSION ORDE RABLES Edited Result - Final [facility] [place] [address] * Transfuse cryoprecipitate (pooled units) (06/13/2025 12:47 PM CDT) Blood us Inna Russ DO BLOOD TRANSFUSION ORDE RABJOI Final Result Performing Organization Address [facility] de Phone Number [facility] [place] [address] * Transfuse plasma (06/13/2025 12:42 PM CDT) Blood us Inna Russ DO BLOOD TRANSFUSION ORDE RABJOI Edited Result - Final Performing Organization Address [facility] [place] [address] * Transfuse plasma (06/13/2025 12:40 PM CDT) Blood Inna Russ DO BLOOD TRANSFUSION ORDE RABJOI Edited Result - Final Performing Organization Address [facility] [place] [address] * Transfuse RBC (06/13/2025 12:37 PM CDT) Blood Inna Russ DO BLOOD TRANSFUSION ORDE RABJOI Edited Result - Final Performing Organization Address [facility] [place] [address] * [place] AN PROCEDURE PLACEHOLDER (06/13/2025 12:26 PM CDT) Narrative Celeste Puga CRNA - 06/13/2025 12:26 PM CDT Celeste Puga, MATT 06/13/2025 12:26 PM Peripheral IV Catheter Patient location: OR Staff: Placed by: Anesthesiologist: Inna Russ DO Preprocedure prep: Prep solution: alcohol PPE: gloves Skin infiltrated with lidocaine 1%: yes PIV line: Laterality: right Site: antecubital Catheter size: 18 g Technique: anatomical landmarks, direct visualization and palpatation Procedure details: good blood return and occlusive dressing applied Number of attempts: 1 Assessment: Events: patient tolerated procedure well with no complications Additional comments: Atraumatic insertion. US assist Inna Russ DO ANESTHESIA ORDERABLES Final Result * VT AN PROCEDURE PLACEHOLDER (06/13/2025 12:24 PM CDT) Narrative Celeste Puga [place], [employer]PER[employer] - 06/13/2025 12:24 PM CDT Celeste Puga [place], [employer]PER[employer] 06/13/2025 12:25 PM Peripheral IV Catheter Patient location: OR Staff: Placed by: Anesthesiologist: Inna Russ DO Preprocedure prep: Prep solution: alcohol PPE: gloves Skin infiltrated with lidocaine 1%: yes PIV line: Laterality: left Site: antecubital Catheter size: 16 g Technique: anatomical landmarks, direct visualization and palpatation Procedure details: good blood return and occlusive dressing applied Number of attempts: 1 Assessment: Events: patient tolerated procedure well with no complications Additional comments: Atraumatic insertion. US assist Inna Russ DO ANESTHESIA ORDERABLES Final Result * VT AN PROCEDURE PLACEHOLDER (06/13/2025 12:23 PM CDT) Narrative Celeste [place], [employer] SUPERVISOR - 06/13/2025 12:23 PM CDT Celeste Puga, [employer]PER[employer] 06/13/2025 12:24 PM Arterial Line Patient location: pre-op holding Indication: continuous blood pressure monitoring Staff: Placed by: Anesthesiologist: Inna Russ DO Procedure prep: Prep solution: chlorhexadine/alcohol Skin infiltrated with lidocaine 1%: yes Arterial line: Catheter size: 20 gauge Catheter length: 1 and 3/4 inch Catheter type: wire-guided catheter Seldinger technique: yes Laterality: left Site: radial artery Line secured: tape and Tegaderm Results: good blood return and good waveform Number of attempts: 1 Assessment: Events: patient tolerated procedure well with no complications Additional comments: US assist Inna Russ DO ANESTHESIA ORDERABLES Final Result * Transfuse RBC (06/13/2025 12:22 PM CDT) Blood us Inna Russ DO BLOOD TRANSFUSION ORDE JANETH Final Result [facility] Department [place] [address] * (ABNORMAL) POC Blood Gas and Chemistries, Arterial - (06/13/2025 12:19 PM CDT) pH, Art POC 7.38 7.35 - 7.45 pCO2, Art POC 39 35 - 45 mmHg [facility] pO2, Art POC 232(H) 83 - [address] [facility] [facility] Na, POC 140 135 - 145 mmol/L [facility] K POC 3.8 3.3 - 4.9 mmol/L [facility] Comment: Interpretive Data Not all point of care methods assess for hemolysis. Confirm with instrument and retest K+ if not consistent with clinical signs and symptoms. Current Interpretive Data was last revised on 2024. Cl, POC 109 97 - 110 mmol/L [facility] Ionized Ca, POC 5.05 4.50 - 5.10 mg/dL [facility] Glucose, POC 167 70 - 199 mg/dL [facility] Lactate POC 1.5 0.7 - 2.0 mmol/L [facility] SO2 (abimael) arterial 99(H) 90 - 95 % [facility] Base excess, POC -1.8 mmol/L [facility] HCO3, Art POC 24 20 - 30 mmol/L [facility] Hct, POC 32.0(L) 36.3 - 45.3 % [facility] Total Hb, POC 10.7(L) 11.9 - 15.5 g/dL [facility] Blood 06/13/2025 12:1 9 PM CDT 06/13/2025 12:19 PM CDT us José Miranda MD LAB POCT ORDERABLES - DEVICE Fi nal Result [facility] [place] [address] * (ABNORMAL) POCT prothrombin time (06/13/2025 12:17 PM CDT) PT, POC 18.6(H) 11.7 - 16.6 sec INR, POC 1.4(H) 0.9 - 1.2 [facility] Blood 06/13/2025 12:1 7 PM CDT 06/13/2025 12:17 PM CDT us José Miranda MD LAB POCT ORDERABLES - DEVICE Fi nal Result Performing Organization Address [facility] Co de Phone Number [facility] [place] [address] * POCT Partial thromboplastin time (PTT) (06/13/2025 12:14 PM CDT) [facility] APTT, POC 36.0 32.5 - 46.1 sec Blood 06/13/2025 12:1 4 PM CDT 06/13/2025 12:14 PM CDT us José Miranda MD LAB POCT ORDERABLES - DEVICE Fi nal Result Performing Organization Address City/[facility] Co de Phone Number [facility] [place] [address] * (ABNORMAL) POCT hemoglobin, hematocrit and platelet count (06/13/2025 12:12 PM CDT) Hgb, POC 9.2(L) 11.9 - 15.5 g/dL Hematocrit POC 30.0(L) 35.6 - 45.5 % [facility] Blood 06/13/2025 12:1 2 PM CDT 06/13/2025 12:12 PM CDT us José Miranda MD LAB POCT ORDERABLES - DEVICE Fi nal Result Performing Organization Address City/[facility]/ZIP Co de Phone Number [facility] [place] [address] * VT AN ELECTIVE ENDOTRACHEAL AIRWAY, VT AN PROCEDURE PLACEHOLDER (06/13/2025 11:36 AM CDT) Narrative Celeste Puga CRNA - 06/13/2025 11:36 AM CDT Celeste Puga CRNA 06/13/2025 11:36 AM Airway Patient location: OR Urgency: elective Indications for airway management: anesthesia and airway protection Difficult airway: no Staff: Placed by: [employer] SUPERVISOR: Celeste Puga CRNA Emergent airway documentation: Risks and benefits discussed: yes Consent obtained: yes Consent given by: patient Airway prep: Preoxygenated: yes Patient position: sniffing MILS maintained throughout: yes Mask difficulty assessment: 1 - vent by mask Sedation level during airway: GA Final airway details: Final airway type: endotracheal airway Tube type: ETT ETT size: 7.5 mm Cuffed: yes Technique used for successful ETT placement: video laryngoscopy Insertion site: oral Blade type: Almita Video blade type: Macias Blade size: 3 Cormack-Lehane (video): grade I - full view of glottis Cuff volume: 7 mL Cuff inflated with: air Placement verified by: auscultation and CO2 detection Airway secured with: silk tape Number of attempts: 1 Additional comments: Atraumatic insertion. Dentition as pre-op. Continue to assess Inna Russ DO ANESTHESIA ORDERABLES Final Result * Transfuse RBC (06/13/2025 11:34 AM CDT) Blood Inna Russ DO BLOOD TRANSFUSION ORDE JANETH Edited Result - Final [facility] Department [place] [address] * Prepare RBC: 4 Units (06/13/2025 11:30 AM CDT) Product code [id number] [facility] Unit Number [id number] [facility] Product Blood Type OPOS [facility] Dispense Status PRESUMED TRANSFUSED [facility] Product code [id number] [facility] Unit Number [id number] [facility] Product Blood Type OPOS [facility] Dispense Status PRESUMED TRANSFUSED [facility] Product code I0614K67 Unit Number [id number]- [id number] [facility] Product Blood Type OPOS [facility] Dispense Status PRESUMED TRANSFUSED [facility] Product code [id number] [facility] Unit Number [id number]- [id number] [facility] Product Blood Type OPOS [facility] Dispense Status PRESUMED TRANSFUSED [facility] Blood 06/13/2025 11:3 0 AM CDT 06/13/2025 11:30 AM CDT Narrative [facility] - 06/14/2025 4:00 AM CDT Are special requirements needed? (All products are leukoreduced and CMV- safe)- >No Date required:-[id number] LRRBC # of [id number] Reasons:-Intra-op transfusion} Inna Russ DO BLOOD BANK PRODUCT ORD ERABLES Final Result [facility] Department [place] [address] * (ABNORMAL) POC Blood Gas and Chemistries, Arterial - (06/13/2025 10:47 AM CDT) pH, Art POC 7.41 7.35 - 7.45 pCO2, Art POC 37 35 - 45 mmHg [facility] pO2, Art POC 247(H) 83 - 108 mmHg [facility] Na, POC 139 135 - 145 mmol/L [facility] K POC 3.9 3.3 - 4.9 mmol/L [facility] Comment: Interpretive Data Not all point of care methods assess for hemolysis. Confirm with instrument and retest K+ if not consistent with clinical signs and symptoms. Current Interpretive Data was last revised on 2024. Cl, POC 106 97 - 110 mmol/L [facility] Ionized Ca, POC 4.00(L) 4.50 - 5.10 mg/dL [facility] Glucose, POC 154 70 - 199 mg/dL [facility] Lactate POC 1.5 0.7 - 2.0 mmol/L [facility] SO2 (abimael) arterial 99(H) 90 - 95 % [facility] Base excess, POC -0.9 mmol/L [facility] Hct, POC 33.0(L) 36.3 - 45.3 % [facility] Total Hb, POC 10.9(L) 11.9 - 15.5 g/dL [facility] Blood 06/13/2025 10:4 7 AM CDT 06/13/2025 10:47 AM CDT José Miranda MD LAB POCT ORDERABLES - DEVICE Fi nal Result [facility] Department [place] [address] * Transfuse plasma (06/13/2025 10:44 AM CDT) Blood Inna Russ DO [facility] Edited Result - Final [facility] [place] [address] * Prepare plasma: 4 Units (06/13/2025 10:36 AM CDT) Product code [id number] [facility] Unit Number [id number] [facility] Product Blood Type OPOS [facility] Dispense Status PRESUMED TRANSFUSED [facility] Product code [id number] [facility] Unit Number [id number] [facility] Product Blood Type OPOS [facility] Dispense Status PRESUMED TRANSFUSED [facility] Product code [id number] Unit Number [id number] J [facility] Product Blood Type OPOS [facility] Dispense Status PRESUMED TRANSFUSED [facility]QUE [facility] Product code [id number] [facility] Unit Number [id number] [facility] Product Blood Type OPOS [facility] Dispense Status PRESUMED TRANSFUSED [facility] Blood Venous blood specimen / Unknown 06/13/2025 10:36 AM CDT 06/13/2025 10:43 AM CDT N[address] [facility] - 06/14/2025 12:56 AM CDT Date required: FFP # of Units:-4-Units Reasons:-Immediate need for surgical intervention us Inna Russ DO BLOOD BANK PRODUCT ORD ERABLES Final Result Performing Organization Address [facility] Co de Phone Number [facility] Department [place] [address] * Transfuse cryoprecipitate (pooled units) (06/13/2025 10:30 AM CDT) Blood us Inna Russ DO BLOOD TRANSFUSION ORDE RABJOI Edited Result - Final Performing Organization Address [facility] Co de Phone Number [facility] Department [place] [address] * Mycology (fungal) culture Wound Sacral (06/13/2025 10:03 AM CDT) Report Final Report: No growth of fungus Wound (Sacral) 06/13/2025 10 :03 AM CDT 06/13/2025 10:40 AM CDT [facility] - 07/11/2025 7:47 AM CDT SACRAL WOUND Testing performed by [facility] ([phone]). us José Miranda MD LAB MICROBIOLOGY - GENERAL ORDE RABLES Final Result Performing Organization Address City/[facility] Co de Phone Number [facility] Department [place] [address] * (ABNORMAL) Aerobic and anaerobic culture and gram stain Wound Sacral (06/13/2025 10:03 AM CDT) Direct Specimen Exam Stain: Few polymorphonuclear leukocytes seen. No organisms seen. Report Final Report: Rare Proteus mirabilis (.) [facility] Organism PROTEUS MIRABILIS [facility] Wound (Sacral) 06/13/2025 10 :03 AM CDT 06/13/2025 10:40 AM CDT Narrative [facility] - 06/19/2025 1:50 PM CDT SACRAL WOUND Testing performed by [facility] ([phone]) Specimens submitted from normally sterile body sites will have all bacterial morphotypes identified. Specimens that contain grossly mixed rich and/or are from body sites that are not normally sterile will be examined for Staphylococcus aureus, Pseudomonas aeruginosa, beta-hemolytic strep, vancomycin-resistant Enterococcus, Bacteroides, Parabacteroides, Clostridium perfringens and fungus. If any of these are isolated, the organism will be reported. Current interpretive data was last revised on 2019. Organism Antibiotic Method Susceptibility Proteus mirabilis Ampicillin INTERPRETATION Susceptible Proteus mirabilis Cefazolin INTERPRETATION Intermediate Proteus mirabilis Gentamicin INTERPRETATION Susceptible Proteus mirabilis Ampicillin with Sulbactam INTERPRETA TION Susceptible Proteus mirabilis Trimethoprim with Sulfamethoxazole I NTERPRETATION Susceptible Proteus mirabilis Meropenem INTERPRETATION Susceptible Proteus mirabilis Cefepime INTERPRETATION Susceptible Proteus mirabilis Ciprofloxacin INTERPRETATION Susceptible Proteus mirabilis Ceftazidime INTERPRETATION Susceptible Proteus mirabilis Ceftriaxone INTERPRETATION Susceptible Proteus mirabilis Piperacillin/Tazobactam INTERPRETATI ON Susceptible José Miranda MD LAB MICROBIOLOGY - GENERAL YONG FOWLER Final Result [facility] Department [place] [address] * Transfuse plasma (06/13/2025 9:57 AM CDT) Blood Inna Russ DO BLOOD TRANSFUSION ORDE JANETH Edited Result - Final Performing Organization Address [facility] Co de Phone Number [facility] [place] [address] * Transfuse RBC (06/13/2025 9:56 AM CDT) Blood Inna Russ DO BLOOD TRANSFUSION ORDE JANETH Edited Result - Final Performing Organization Address [facility] Co de Phone Number [facility] [place] [address] * Mycology (fungal) culture Wound Back, upper (06/13/2025 9:50 AM CDT) Report Final Report: No growth of fungus Wound (Back, upper) 06/13/2025 9:50 AM CDT 06/13/2025 10:42 AM [address]T [address] [facility] - 07/11/2025 7:47 AM CDT FLUID T-12 Testing performed by [facility] ([phone]). José Miranda MD LAB MICROBIOLOGY - GENERAL YONG FOWLER Final Result Performing Organization Address [facility] Co de Phone Number [facility] [place] [address] * Aerobic and anaerobic culture and gram stain Wound Back, upper (06/13/2025 9:50 AM CDT) Direct Specimen Exam Stain: No polymorphonuclear leukocytes seen. No organisms seen. Report Final Report: No growth [facility] Wound (Back, upper) 06/13/2025 9:50 AM CDT 06/13/2025 10:41 AM CDT Narrative [facility] - 06/16/2025 1:17 PM CDT FLUID T-12 Testing performed by [facility] ([phone]) Specimens submitted from normally sterile body sites will have all bacterial morphotypes identified. Specimens that contain grossly mixed rich and/or are from body sites that are not normally sterile will be examined for Staphylococcus aureus, Pseudomonas aeruginosa, beta-hemolytic strep, vancomycin-resistant Enterococcus, Bacteroides, Parabacteroides, Clostridium perfringens and fungus. If any of these are isolated, the organism will be reported. Current interpretive data was last revised on 2019. José Miranda MD LAB [facility]BIOLOGY - [facility]AL [facility] Final Result Performing Organization Address [facility]/ZIP Co de Phone Number [facility] Department [place] [address] * Transfuse RBC (06/13/2025 9:38 AM CDT) Blood Inna Russ DO BLOOD [facility]ION [facility] Edited Result - Final Performing Organization Address [facility] Co de Phone Number [facility] Department [place] [address] * (ABNORMAL) POC Blood Gas and Chemistries, Arterial - (06/13/2025 8:16 AM CDT) pH, Art POC 7.31(L) 7.35 - 7.45 pCO2, Art POC 63(H) 35 - 45 mmHg [facility] pO2, Art POC 133(H) 83 - 108 mmHg [facility] Na, POC 140 135 - 145 mmol/L [facility] K POC 4.5 3.3 - 4.9 mmol/L [facility] Comment: Interpretive Data Not all point of care methods assess for hemolysis. Confirm with instrument and retest K+ if not consistent with clinical signs and symptoms. Current Interpretive Data was last revised on 2024. Cl, POC 109 97 - 110 mmol/L [facility] Ionized Ca, POC 4.58 4.50 - 5.10 mg/dL [facility] Glucose, POC 123 70 - 199 mg/dL [facility] Lactate POC 1.2 0.7 - 2.0 mmol/L [facility] SO2 (abimael) arterial 98(H) 90 - 95 % [facility] Base excess, POC 4.3 mmol/L [facility] HCO3, Art POC 28 20 - 30 mmol/L [facility] Hct, POC 29.0(L) 36.3 - 45.3 % [facility] Total Hb, POC 9.6(L) 11.9 - 15.5 g/dL [facility] Blood 06/13/2025 8:16 AM CDT 06/13/2025 8:16 AM CDT José Miranda MD LAB POCT ORDERABLES - DEVICE Fi nal Result Performing Organization Address City/[facility] Co de Phone Number [facility] Department [place] [address] * POCT prothrombin time (06/13/2025 8:14 AM CDT) PT, POC 16.2 11.7 - 16.6 sec INR, POC 1.2 0.9 - 1.2 [facility] Blood 06/13/2025 8:14 AM CDT 06/13/2025 8:14 AM CDT José Miranda MD LAB POCT ORDERABLES - DEVICE Fi nal Result Performing Organization Address City/[facility]/ZIP Co de Phone Number [facility] Department [place] [address] * POCT Partial thromboplastin time (PTT) (06/13/2025 8:14 AM CDT) APTT, POC 33.4 32.5 - 46.1 sec Blood 06/13/2025 8:14 AM CDT 06/13/2025 8:14 AM CDT José Miranda MD LAB POCT ORDERABLES - DEVICE Fi nal Result Performing Organization Address [facility] [place] [address] * (ABNORMAL) POCT hemoglobin, hematocrit and platelet count (06/13/2025 8:13 AM CDT) Pathologist [facility] Hgb, POC 9.0(L) 11.9 - 15.5 g/dL Hematocrit POC 31.4(L) 35.6 - 45.5 % [facility] Platelet POC 228 150 - 400 K/cumm [facility] Blood 06/13/2025 8:13 AM CDT 06/13/2025 8:13 AM CDT José Miranda MD LAB POCT ORDERABLES - DEVICE Fi nal Result Performing Organization Address [facility] [place] [address] * Prepare platelets: 1 Units (06/13/2025 7:17 AM CDT) [facility] Product code [id number] Unit Number [id number] [facility] Product Blood Type APOS [facility] Dispense Status PRESUMED TRANSFUSED [facility] Blood Venous blood specimen / Unknown 06/13/2025 7:17 AM CDT 06/13/2025 7:18 AM CDT Narrative [facility] - 06/14/2025 4:00 AM CDT Other indication->s Are special requirements needed? (all products are leukoreduced)->No Date required:-[id number] PLT # of Units:-1-Units Reasons:-Other (Specify)} José Miranda MD BLOOD BANK PRODUCT ORDERABLES F inal Result Performing Organization Address [facility] Co de Phone Number [facility] [place] [address] * Prepare cryoprecipitate (pooled units): 2 Units (06/13/2025 7:17 AM CDT) Product code [id number] [facility] Unit Number [id number]- [facility] Product Blood Type OPOS [facility] Dispense Status PRESUMED TRANSFUSED [facility] Product code [id number] Unit Number [id number]- T [facility] Product Blood Type APOS [facility] Dispense Status PRESUMED TRANSFUSED [facility] Blood Venous blood specimen / Unknown 06/13/2025 7:17 AM CDT 06/13/2025 7:18 [address] [facility] - 06/14/2025 12:57 AM CDT Other indication->m Cryo # of [id number] Reasons:-Other (Specify)} José Miranda MD BLOOD BANK PRODUCT ORDERABLES F inal Result [facility] Department [place] [address] * Prepare plasma: 2 Units (06/13/2025 7:15 AM CDT) Product code [id number] Unit Number [id number]- S [facility] Product Blood Type OPOS [facility] Dispense Status PRESUMED TRANSFUSED [facility] Product code [id number] [facility] Unit Number [id number] K [facility] Product Blood Type OPOS [facility] Dispense Status PRESUMED TRANSFUSED [facility] Blood Venous blood specimen / Unknown 06/13/2025 7:15 AM CDT 06/13/2025 7:18 AM [address] [facility] - 06/14/2025 12:57 AM CDT Date required:-[id number] FFP # of Units:-2-Units Reasons:-Immediate need for surgical intervention José Miranda MD BLOOD BANK PRODUCT ORDERABLES F inal Result Performing Organization Address [facility] Co de Phone Number [facility] [place] [address] * Prepare RBC: 4 Units (06/13/2025 7:15 AM CDT) Product code [id number] Unit Number [id number]- [id number] [facility] Product Blood Type OPOS [facility] Dispense Status PRESUMED TRANSFUSED [facility] Product code [id number] [facility] Unit Number [id number]- A [facility] Product Blood Type OPOS [facility] Dispense Status PRESUMED TRANSFUSED [facility] Product code [id number] [facility] Unit Number [id number]- J [facility] Product Blood Type OPOS [facility] Dispense Status PRESUMED TRANSFUSED [facility] Product code [id number] [facility] Unit Number [id number]- J [facility] Product Blood Type OPOS [facility] Dispense Status PRESUMED TRANSFUSED [facility] Blood 06/13/2025 7:15 AM CDT 06/13/2025 7:18 [address] [facility] - 06/16/2025 4:01 PM CDT Are special requirements needed? (All products are leukoreduced and CMV- safe)- >No Date required:-[id number] LRRBC # of [id number] Reasons:-Intra-op transfusion} José Miranda MD BLOOD BANK PRODUCT ORDERABLES F inal Result Performing Organization Address [facility] Co de Phone Number [facility] [place] [place] [address] * XR Scoliosis Ap and Lateral (06/13/2025 1:07 AM CDT) Anatomical Region Laterality Modality Spine N/A Computed Radiogr aphy 06/13/2025 6:42 AM CDT Impressions 06/13/2025 6:42 AM CDT 1. Unchanged posterior instrumented fusion from T10 through the pelvis, combined anterior from L3-S1. 2. 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 Hardware is intact. Minimal lucencies are noted about the T10 and left T11 pedicle screws. There is progressive focal kyphosis centered at T9-T10 with severe anterior sagittal imbalance. No coronal imbalance.. No acute compression fracture. Multilevel degenerative disc disease noted throughout the unfused spine. A left-sided pacemaker device is noted. Procedure Note Amaury Recinos MD - 06/13/2025 EXAMINATION: XR SCOLIOSIS AP AND LATERAL HISTORY: Scoliosis COMPARISON: 01/25/2025 FINDINGS: Posterior instrumented fusion from T10 through the pelvis, combined anterior from L3-S1. Hardware is intact. Minimal lucencies are noted about the T10 and left T11 pedicle screws. There is progressive focal kyphosis centered at T9-T10 with severe anterior sagittal imbalance. No coronal imbalance.. No acute compression fracture. Multilevel degenerative disc disease noted throughout the unfused spine. A left-sided pacemaker device is noted. IMPRESSION: 1. Unchanged posterior instrumented fusion from T10 through the pelvis, combined anterior from L3-S1. 2. 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 Specific gravity, ur 1.011 1.003 - 1.030 [facility] pH, urine 7.5 [facility] Comment: Interpretive Data U rine pH is affected by diet, medications, systemic acid-base disturbances, and renal tubular function. pH may affect urinary stone formation. For example, urine pH below 6.0 may help reduce the tendency for calcium phosphate stones and pH greater than 6.0 may reduce the tendency for uric acid stone formation. Source: [facility] Current Interpretive Data was last revised on 2017 Protein, ur ql Negative Negative [facility] Glucose, ur ql Negative Negative [facility] Ketones, ur Negative Negative [facility] Bilirubin, ur Negative Negative [facility] Blood, ur Negative Negative [facility] Urobilinogen, ur <2.0 <2.0 mg/dL [facility] Nitrite, ur Negative Negative [facility] Leukocyte esterase, ur Negative Negative [facility] UA reflex comment Reflex conditions for microscopic UA and culture not met. [facility] Urine, clean voided 06/12/2025 11:24 PM CDT 06/12/2025 11:44 PM CDT us Mavis Ward NP LAB MICROBIOLOGY - GENERAL OR DERABLES Final Result Performing Organization Address City/State/[facility] Co de Phone Number [facility] Department [place] [address] * XR chest 1 view (Portable) (06/12/2025 8:49 PM CDT) Anatomical Region Laterality Modality Body, Chest N/A Computed Radiogr aphy 06/13/2025 11:0 3 AM CDT Impressions 06/13/2025 8:41 PM CDT The current study is compared with the prior radiograph dated 03/18/2020 5:19 PM Cardiac pacer leads overly the expected positions at the right atrium and ventricle. There is a new right upper extremity approach peripherally inserted central venous catheter with tip terminating at the superior cavoatrial junction. Partially imaged posterior instrumented fusion. The heart size is normal and unchanged. No pleural effusion or pneumothorax. Small volumes. Dictated by: Winston Mao M.D. The radiology attending physician has personally reviewed this study, and had reviewed and/or edited this written report and agrees with it. Electronically signed by: Zach Mckay M.D. Narrative 06/13/2025 8:41 PM CDT EXAMINATION: 1 view chest radiograph Procedure Note Zach Mckay MD PhD - 06/13/2025 EXAMINATION: 1 view chest radiograph IMPRESSION: The current study is compared with the prior radiograph dated 03/18/2020 5:19 PM Cardiac pacer leads overly the expected positions at the right atrium and ventricle. There is a new right upper extremity approach peripherally inserted central venous catheter with tip terminating at the superior cavoatrial junction. Partially imaged posterior instrumented fusion. The heart size is normal and unchanged. No pleural effusion or pneumothorax. Small volumes. Dictated by: Winston Mao M.D. The radiology attending physician has personally reviewed this study, and had reviewed and/or edited this written report and agrees with it. Electronically signed by: Zach Mckay M.D. us Mavis Ward CHEMICAL ETCH OPERATOR IMG XR PROCEDURES Final Resul t * Antibody identification (06/12/2025 8:37 PM CDT) Antibody ID 1 Anti-S Blood 06/12/2025 8:37 PM CDT 06/12/2025 8:37 PM CDT us Barbara Ryan NP LAB BLOOD BANK TEST O RDERABLES Final Result [facility] Department [place] [address] * eGFR (06/12/2025 8:32 PM CDT) eGFR 88 >=60 mL/min/1. 73 m2 Comment: Interpretive Data Reference Interval Normal >/= 90 mL/min/1.73m2 Mildly decreased* 60 - 89 mL/min/1.73m2 Mildly to moderately decreased 45 - 59 mL/min/1.73m2 Moderately to severely decreased 30 - 44 mL/min/1.73m2 Severely decreased 15 - 29 mL/min/1.73m2 Kidney Failure < 15 mL/min/1.73m2 *Relative to young adult level Estimated glomerular filtration rate is determined by the 2020 CKD-EPI equation recommended by the National Kidney [employer] (A Unifying Approach to GFR Estimation: Recommendations of the NKF-ASK Task Force on Reassessing the Inclusion of Race in Diagnosing Kidney Disease, JASN 2020). The CKD-EPI equation should not be used for patients with unstable renal function and has not been validated in children and those over 70. Current interpretive data was last reviewed 2021. Blood 06/12/2025 8:32 PM CDT 06/12/2025 9:46 PM CDT Mavis Ward CHEMICAL ETCH OPERATOR LAB BLOOD ORDERABLES Final Re sult Performing Organization Address [facility] Co de Phone Number [facility] [place] [address] * aPTT (06/12/2025 8:32 PM CDT) aPTT 29 26 - 38 sec Comment: Interpretive Data Heparin therapeutic range: 66.0 - 100.0 seconds. Range based on correlation with therapeutic heparin activity range of 0.3 - 0.7 Units/mL. Current interpretive data was last revised on 2023. Blood 06/12/2025 8:32 PM CDT 06/12/2025 9:46 PM CDT Mavis Ward CHEMICAL ETCH OPERATOR LAB BLOOD ORDERABLES Final Re sult Performing Organization Address [facility] Co de Phone Number [facility] [place] [address] * Protime-INR (06/12/2025 8:32 PM CDT) PT 11.3 10.2 - 13.5 sec INR 1.00 0.90 - 1.20 [facility] Comment: Interpretive data Oral anticoagulant therapeutic ranges: Venous thromboembolism prophylaxis or treatment: 2.0-3.0 CARDIOLOGY Standard range: 2.0-3.0 High-intensity range: 2.5-3.5 Refer to indication-specific guidelines for appropriate target ranges for prosthetic heart valve replacement. Current interpretive data was last revised on 2019. Blood 06/12/2025 8:32 PM CDT 06/12/2025 9:46 PM CDT Mavis Ward NP LAB BLOOD ORDERABLES Final Re sult Performing Organization Address City/[facility]/ZIP Co de Phone Number [facility] [place] [place] [address] * (ABNORMAL) CBC without differential (06/12/2025 8:32 PM CDT) WBC 6.97 3.80 - 9.90 K/cumm Hgb 9.3(L) 11.9 - 15.5 g/dL [facility] Hct 31.6(L) 35.6 - 45.5 % [facility] Plt 248 150 - 400 K/cumm [facility] MPV 10.3 9.1 - 12.3 fL [facility] RBC 3.92 3.90 - 5.20 M/cumm [facility] MCV 80.6(L) 81.3 - 96.4 fL [facility] MCH 23.7(L) 27.1 - 33.3 pg [facility] MCHC 29.4(L) 32.3 - 35.7 g/dL [facility] RDW CV 16.5(H) 11.1 - 14.9 % [facility] RDW SD 47.7 35.7 - 48.1 fL [facility] NRBC abs 0.00 0.00 - 0.01 K/cumm [facility] Blood 06/12/2025 8:32 PM CDT 06/12/2025 9:51 PM CDT Mavis Ward NP LAB BLOOD ORDERABLES Final Re sult Performing Organization Address City/[facility]/ZIP Co de Phone Number [facility] [place] [place] [address] * Phosphorus (06/12/2025 8:32 PM CDT) [facility] Phosphorus, pl 3.6 2.3 - 4.5 mg/dL Blood 06/12/2025 8:32 PM CDT 06/12/2025 9:46 PM CDT us Mavis Ward CHEMICAL ETCH OPERATOR LAB BLOOD ORDERABLES Final Re sult Performing Organization Address [facility]/ZIP Co de Phone Number [facility] Department [place] [address] * Magnesium (06/12/2025 8:32 PM CDT) [facility] Magnesium 2.0 1.4 - 2.5 mg/dL Blood 06/12/2025 8:32 PM CDT 06/12/2025 9:46 PM CDT us José Miranda MD LAB BLOOD ORDERABLES Final Resu lt Performing Organization Address [facility] Co de Phone Number [facility] [place] [address] * (ABNORMAL) Comprehensive metabolic panel (06/12/2025 8:32 PM CDT) [facility] Sodium 144 135 - 145 mmol/L Potassium, pl 4.5 3.3 - 4.9 mmol/L [facility] Comment:Hemolyzed; Potassium value may be falsely elevated by as much as 0.3-0.5 mmol/L. Suggest redraw and reanalysis. Chloride 107 97 - 110 mmol/L [facility] CO2 26 22 - 32 mmol/L [facility] Anion gap 11 2 - 15 mmol/L [facility] BUN 16 6 - 25 mg/dL [facility] Creatinine 0.71 0.60 - 1.10 mg/dL [facility] Glucose 114 70 - 199 mg/dL [facility] Comment: Interpretive Data Fasting glucose >/= 126 mg/dl is diagnostic for diabetes. Fasting is defined as no caloric intake for at least 8 hours. Fasting glucose between 100 mg/dl to 125 mg/dl is diagnostic of prediabetes. In a patient with classic symptoms of hyperglycemia or hyperglycemic crisis, a random glucose >/= 200 mg/dl is diagnostic for diabetes. In the absence of unequivocal hyperglycemia, results should be confirmed by repeat testing. The classification and Diagnosis of Diabetes Diabetes Care 2021; 46: S19-S40. Current interpretive data was last revised 2022. Calcium 8.4(L) 8.5 - 10.3 mg/dL [facility] Bilirubin, total 0.3 0.1 - 1.2 mg/dL [facility] Protein, pl 6.7 6.5 - 8.5 g/dL [facility] Albumin 3.6 3.5 - 5.0 g/dL [facility] Alk phos 91 40 - 130 Units/L [facility] ALT 16 7 - 45 Units/L [facility] AST 34 10 - 45 Units/L [facility] Comment:Hemolyzed; result ma y be falsely elevated Blood 06/12/2025 8:32 PM CDT 06/12/2025 9:46 PM CDT us Mavis Ward CHEMICAL ETCH OPERATOR LAB BLOOD ORDERABLES Final Re sult Performing Organization Address City/[facility]/ZIP Co de Phone Number [facility] Department [place] [address] * (ABNORMAL) Type and screen (06/12/2025 7:02 PM CDT) Carlene, indirect Positive(A) ABO Rh O Positive [facility] Blood 06/12/2025 7:02 PM CDT 06/12/2025 7:31 PM CDT Narrative [facility] - 06/12/2025 8:37 PM CDT Has the patient had Daratumumab or Isatuximab in the past 6 months?->Unknown us Barbara Ryan CHEMICAL ETCH OPERATOR LAB BLOOD BANK TEST O RDERABLES Final Result Performing Organization Address City/[facility]/ZIP Co de Phone Number [facility] Department [place] [address] * Prepare RBC: 2 Units (06/12/2025 6:43 PM CDT) Product code [id number] Unit Number [id number] 0-F [facility] Product Blood Type OPOS [facility] Dispense Status RETURNED YANIQUE [facility] Product code [id number] [facility] Unit Number [id number] 4-H [facility]EMILY [facility] Product Blood Type [facility] Status [facility]ED [facility] Blood 06/12/2025 6:43 PM CDT 06/12/2025 6:42 [address] [facility] - 06/16/2025 12:10 AM CDT Specify Procedure:->posterior spinal fusion T3-Pelvis Are special requirements needed? (All products are leukoreduced and CMV- safe)- >No Date required:-[id number] LRRBC # of [id number] Reasons:-Hold for procedure (specify procedure)} Barbara Ryan NP BLOOD BANK PRODUCT OR DERABLES Final Result [facility] Department [place] [address] * IR Central Line Placement > 5 Years (06/12/2025 12:37 PM CDT) Anatomical Region Laterality Modality Body N/A Radio Fluoroscop y 06/12/2025 2:21 PM CDT Impressions 06/12/2025 2:21 PM CDT Successful nontunneled catheter placement. PLAN: The catheter is ready for immediate use. When treatment is completed, this catheter can be removed at the bedside according to standard hospital protocol. Electronically signed by: Khadijah Moreno PA-C Narrative 06/12/2025 2:21 PM CDT EXAMINATION: NONTUNNELED CENTRAL VENOUS CATHETER PLACEMENT (STD) HISTORY: 75-year-old female with kyphosis, planned for spine surgery tomorrow, presenting for pre-op central venous catheter placement. PROVIDER PRESENCE: Khadijah Moreno PA-C, was present from the beginning to the end of the procedure. SEDATION: Conscious sedation was used for the procedure. TECHNIQUE: The risks, benefits and alternatives were discussed and informed consent was obtained. Prior to beginning the procedure, [place] Protocol was used to confirm the patient's identity and planned procedure. Fluoroscopy time has been recorded in the electronic medical record. Maximum sterile barriers including cap, mask, hand hygiene, sterile gloves, sterile gown, large sterile drape and 2% chlorhexidine for cutaneous antisepsis were used. The skin over the right subclavian vein was sterilely prepped, draped and infiltrated with 1% buffered lidocaine. Prior to the procedure, the target vessel was evaluated by ultrasound, an image of the patent vessel recorded, and this image placed in the patient's chart. After sterile prep, this vessel was accessed using realtime ultrasound guidance. A guidewire and catheter were then passed centrally using fluoroscopic guidance. The intravascular length from the access site to the right atrium was assessed. After dilating the tract, a triple-lumen arrow catheter was inserted over the guidewire. The catheter was flushed with 100U/ml heparin and secured in place with 2 sutures. A sterile dressing was applied. ESTIMATED BLOOD LOSS: Minimal. CONDITION: Stable DISCHARGED TO: outpatient recovery. FINDINGS: The final fluoroscopic image demonstrates the catheter with its tip at the cavoatrial junction. No complications are seen. Procedure Note Khadijah Moreno PA - 06/12/2025 EXAMINATION: NONTUNNELED CENTRAL VENOUS CATHETER PLACEMENT (STD) HISTORY: 75-year-old female with kyphosis, planned for spine surgery tomorrow, presenting for pre-op central venous catheter placement. PROVIDER PRESENCE: Khadijah Moreno PA-C, was present from the beginning to the end of the procedure. SEDATION: Conscious sedation was used for the procedure. TECHNIQUE: The risks, benefits and alternatives were discussed and informed consent was obtained. Prior to beginning the procedure, [place] Protocol was used to confirm the patient's identity and planned procedure. Fluoroscopy time has been recorded in the electronic medical record. Maximum sterile barriers including cap, mask, hand hygiene, sterile gloves, sterile gown, large sterile drape and 2% chlorhexidine for cutaneous antisepsis were used. The skin over the right subclavian vein was sterilely prepped, draped and infiltrated with 1% buffered lidocaine. Prior to the procedure, the target vessel was evaluated by ultrasound, an image of the patent vessel recorded, and this image placed in the patient's chart. After sterile prep, this vessel was accessed using realtime ultrasound guidance. A guidewire and catheter were then passed centrally using fluoroscopic guidance. The intravascular length from the access site to the right atrium was assessed. After dilating the tract, a triple-lumen arrow catheter was inserted over the guidewire. The catheter was flushed with 100U/ml heparin and secured in place with 2 sutures. A sterile dressing was applied. ESTIMATED BLOOD LOSS: Minimal. CONDITION: Stable DISCHARGED TO: outpatient recovery. FINDINGS: The final fluoroscopic image demonstrates the catheter with its tip at the cavoatrial junction. No complications are seen. IMPRESSION: Successful nontunneled catheter placement. PLAN: The catheter is ready for immediate use. When treatment is completed, this catheter can be removed at the bedside according to standard hospital protocol. Electronically signed by: Khadijah Moreno PA-C José Miranda MD IMG IR PROCEDURES Final Result * Prepare RBC: 6 Units (06/05/2025 11:13 AM CDT) Product code [id number] Unit Number [id number] [facility]ER [facility] Product Blood Type OPOS [facility] Dispense Status PRESUMED TRANSFUSED [facility] Product code [id number] [facility] Unit Number [id number] [facility] Product Blood Type OPOS [facility] Dispense Status PRESUMED TRANSFUSED [facility] Product code [id number] [facility] Unit Number [id number] [facility] Product Blood Type OPOS [facility] Dispense Status PRESUMED TRANSFUSED [facility] Product code [id number] [facility] Unit Number [id number] [facility] Product Blood Type ONEG [facility] Dispense Status PRESUMED TRANSFUSED [facility] Product code [id number] [facility] Unit Number [id number] [facility] Product Blood Type OPOS [facility] Dispense Status PRESUMED TRANSFUSED [facility] Product code [id number] [facility] Unit Number [id number] [facility] Product Blood Type OPOS [facility] Dispense Status PRESUMED TRANSFUSED [facility] Blood 06/05/2025 11:1 3 AM CDT 06/05/2025 11:12 AM CDT Narrative [facility] - 06/14/2025 12:56 AM CDT Specify Procedure:->t3-Pelvis fusion Are special requirements needed? (All products are leukoreduced and CMV- safe)- >No Date required:-[id number] LRRBC # of [id number] Reasons:-Hold for procedure (specify procedure)} Michael Youngblood CHEMICAL ETCH OPERATOR BLOOD BANK PRODUCT ORDERAB LES Final Result Performing Organization Address [facility]/ZIP Co de Phone Number [facility] [place] [place] [address] * Antibody identification (06/02/2025 1:43 PM CDT) Antibody ID 1 Anti-S Blood 06/02/2025 1:43 PM CDT 06/02/2025 1:43 PM CDT Michael Youngblood CHEMICAL ETCH OPERATOR LAB BLOOD BANK TEST ORDERA BLES Final Result Performing Organization Address [facility] de Phone Number [facility] [place] [place] [address] * (ABNORMAL) TYPE AND SCREEN 14 DAY (06/02/2025 11:25 AM CDT) Carlene, indirect Positive(A) ABO Rh O Positive [facility] Blood 06/02/2025 11:2 5 AM CDT 06/02/2025 12:42 PM CDT Narrative [facility] - 06/02/2025 1:43 PM CDT Has the patient had Daratumumab or Isatuximab in the past 6 months?->No Is this test being ordered in advance for a procedure?->Yes Expected date of procedure:->06/13/25 Has the patient been transfused in the past 3 months?->No Has the patient been in the past 3 months?->No Michael Youngblood CHEMICAL ETCH OPERATOR LAB BLOOD BANK TEST ORDERA BLES Final Result Performing Organization Address [facility] Co de Phone Number [facility] [place] [address] * Antibody identification (05/25/2025 3:43 PM CDT) Pathologist [facility] [place] Antibody ID 1 Anti-S Blood 05/25/2025 3:43 PM CDT 05/25/2025 3:43 PM CDT Barbara Ryan NP LAB BLOOD BANK TEST O RDERABLES Final Result Performing Organization Address [facility] de Phone Number [facility] [place] [address] * (ABNORMAL) TYPE AND SCREEN 14 DAY (05/25/2025 1:33 PM CDT) Pathologist [facility] [place] Carlene, indirect Positive(A) ABO Rh O Positive [facility] Blood 05/25/2025 1:33 PM CDT 05/25/2025 2:37 PM CDT Narrative [facility] - 05/25/2025 3:43 PM CDT Has the patient had Daratumumab or Isatuximab in the past 6 months?->Unknown Is this test being ordered in advance for a procedure?->Yes Expected date of procedure:->06/13/25 Has the patient been transfused in the past 3 months?->No Has the patient been in the past 3 months?->No Barbara Ryan CHEMICAL ETCH OPERATOR LAB BLOOD BANK TEST O RDERABLES Final Result Performing Organization Address [facility] de Phone Number [facility] [place] [address] * eGFR (05/25/2025 1:33 PM CDT) Pathologist [facility] eGFR >90 >=60 mL/min/1. 73 m2 Comment: Interpretive Data Reference Interval Normal >/= 90 mL/min/1.73m2 Mildly decreased* 60 - 89 mL/min/1.73m2 Mildly to moderately decreased 45 - 59 mL/min/1.73m2 Moderately to severely decreased 30 - 44 mL/min/1.73m2 Severely decreased 15 - 29 mL/min/1.73m2 Kidney Failure < 15 mL/min/1.73m2 *Relative to young adult level Estimated glomerular filtration rate is determined by the 2020 CKD-EPI equation recommended by the National Kid[employer] (A Unifying Approach to GFR Estimation: Recommendations of the NKF-ASK Task Force on Reassessing the Inclusion of Race in Diagnosing Kidney Disease, JASN 2020). The CKD-EPI equation should not be used for patients with unstable renal function and has not been validated in children and those over 70. Current interpretive data was last reviewed 2021. Blood 05/25/2025 1:33 PM CDT 05/25/2025 2:34 PM CDT us José Miranda MD LAB BLOOD ORDERABLES Final Resu lt [facility] Department [place] [address] * Differential, auto (05/25/2025 1:33 PM CDT) Pathologist [facility] Neutrophil abs 4.61 1.50 - 6.50 K/cumm Imm gran abs 0.01 0.00 - 0.10 K/cumm [facility] Lymphocyte abs 0.80 0.80 - 3.30 K/cumm [facility] Monocyte abs 0.50 0.20 - 0.80 K/cumm [facility] Eosinophil abs 0.05 0.00 - 0.50 K/cumm [facility] Basophil abs 0.02 0.00 - 0.10 K/cumm [facility] Neutrophil pct 77.0 % [facility] Comment: Interpretive Data Percent cell count reference ranges are not reported, since discordance with absolute values may lead to misinterpretation of CBC data. Current Interpretive Data was last revised on 2017. Imm gran pct 0.2 % [facility] Comment: Interpretive Data Percent cell count reference ranges are not reported, since discordance with absolute values may lead to misinterpretation of CBC data. Current Interpretive Data was last revised on 2017. Lymphocyte pct 13.4 % [facility] Comment: Interpretive Data Percent cell count reference ranges are not reported, since discordance with absolute values may lead to misinterpretation of CBC data. Current Interpretive Data was last revised on 2017. Monocyte pct 8.3 % [facility] Comment: Interpretive Data Percent cell count reference ranges are not reported, since discordance with absolute values may lead to misinterpretation of CBC data. Current Interpretive Data was last revised on 2017. Eosinophil pct 0.8 % [facility] Comment: Interpretive Data Percent cell count reference ranges are not reported, since discordance with absolute values may lead to misinterpretation of CBC data. Current Interpretive Data was last revised on 2017. Basophil pct 0.3 % [facility] Comment: Interpretive Data Percent cell count reference ranges are not reported, since discordance with absolute values may lead to misinterpretation of CBC data. Current Interpretive Data was last revised on 2017. Blood 05/25/2025 1:33 PM CDT 05/25/2025 2:34 PM CDT us José Miranda MD LAB BLOOD ORDERABLES Final Resu lt [facility] Department [place] [address] * CPAP aPTT algorithm (05/25/2025 1:33 PM CDT) aPTT 29 26 - 38 sec Comment: Interpretive Data Heparin therapeutic range: 66.0 - 100.0 seconds. Range based on correlation with therapeutic heparin activity range of 0.3 - 0.7 Units/mL. Current interpretive data was last revised on 2023. Blood 05/25/2025 1:33 PM CDT 05/25/2025 2:31 PM CDT us Barbara Ryan CHEMICAL ETCH OPERATOR LAB BLOOD ORDERABLES Final Result [facility] [place] [address] * Urinalysis reflex to microscopic and culture Urine, clean voided (05/25/2025 1:33 PM CDT) Color, ur Straw Yellow Clarity, ur Clear Clear [facility] Specific gravity, ur 1.010 1.003 - 1.030 [facility] pH, urine 8.0 [facility] Comment: Interpretive Data U rine pH is affected by diet, medications, systemic acid-base disturbances, and renal tubular function. pH may affect urinary stone formation. For example, urine pH below 6.0 may help reduce the tendency for calcium phosphate stones and pH greater than 6.0 may reduce the tendency for uric acid stone formation. Source: [facility] Current Interpretive Data was last revised on 2017 Protein, ur ql Negative Negative [facility] Glucose, ur ql Negative Negative [facility] Ketones, ur Negative Negative [facility] Bilirubin, ur Negative Negative [facility] Blood, ur Negative Negative [facility] Urobilinogen, ur <2.0 <2.0 mg/dL [facility] Nitrite, ur Negative Negative [facility] Leukocyte esterase, ur Negative Negative [facility] UA reflex comment Reflex conditions for microscopic UA and culture not met. [facility] Urine, clean voided 05/25/2025 1:33 PM CDT 05/25/2025 2:28 PM CDT us José Miranda MD LAB MICROBIOLOGY - GENERAL YONG FOWLER Final Result [facility] [place] [address] * (ABNORMAL) CBC with auto differential (05/25/2025 1:33 PM CDT) [facility] WBC 5.99 3.80 - 9.90 K/cumm Hgb 10.4(L) 11.9 - 15.5 g/dL [facility] Hct 35.2(L) 35.6 - 45.5 % [facility] Plt 236 150 - 400 K/cumm [facility] MPV 10.6 9.1 - 12.3 fL [facility] RBC 4.28 3.90 - 5.20 M/cumm [facility] MCV 82.2 81.3 - 96.4 fL [facility] MCH 24.3(L) 27.1 - 33.3 pg [facility] MCHC 29.5(L) 32.3 - 35.7 g/dL [facility] RDW CV 16.1(H) 11.1 - 14.9 % [facility] RDW SD 48.1 35.7 - 48.1 fL [facility] NRBC abs 0.00 0.00 - 0.01 K/cumm [facility] Blood 05/25/2025 1:33 PM CDT 05/25/2025 2:34 PM CDT José Miranda MD LAB BLOOD ORDERABLES Final Resu lt Performing Organization Address City/[facility]/ZIP Co de Phone Number [facility] [place] [address] * Vitamin D 25 hydroxy (05/25/2025 1:33 PM CDT) [facility] Vitamin D 25-OH 51 30 - 80 ng/mL Blood 05/25/2025 1:33 PM CDT 05/25/2025 2:34 PM CDT José Miranda MD LAB BLOOD ORDERABLES Final Resu lt [facility] [place] [address] * Protime-INR (05/25/2025 1:33 PM CDT) PT 11.8 10.2 - 13.5 sec INR 1.05 0.90 - 1.20 [facility] Comment: Interpretive data Oral anticoagulant therapeutic ranges: Venous thromboembolism prophylaxis or treatment: 2.0-3.0 CARDIOLOGY Standard range: 2.0-3.0 High-intensity range: 2.5-3.5 Refer to indication-specific guidelines for appropriate target ranges for prosthetic heart valve replacement. Current interpretive data was last revised on 2019. Blood 05/25/2025 1:33 PM CDT 05/25/2025 2:31 PM CDT José Miranda MD LAB BLOOD ORDERABLES Final Resu lt [facility] Department [place] [address] * Basic metabolic panel (05/25/2025 1:33 PM CDT) Sodium 141 135 - 145 mmol/L Potassium, pl 4.0 3.3 - 4.9 mmol/L [facility] Chloride 102 97 - 110 mmol/L [facility] CO2 29 22 - 32 mmol/L [facility] Anion gap 10 2 - 15 mmol/L [facility] BUN 15 6 - 25 mg/dL [facility] Creatinine 0.67 0.60 - 1.10 mg/dL [facility] Glucose 81 70 - 199 mg/dL [facility] Comment: Interpretive Data Fasting glucose >/= 126 mg/dl is diagnostic for diabetes. Fasting is defined as no caloric intake for at least 8 hours. Fasting glucose between 100 mg/dl to 125 mg/dl is diagnostic of prediabetes. In a patient with classic symptoms of hyperglycemia or hyperglycemic crisis, a random glucose >/= 200 mg/dl is diagnostic for diabetes. In the absence of unequivocal hyperglycemia, results should be confirmed by repeat testing. The classification and Diagnosis of Diabetes Diabetes Care 202; 46: S19-S40. Current interpretive data was last revised 2022. Calcium 9.2 8.5 - 10.3 mg/dL [facility] Blood 05/25/2025 1:33 PM CDT 05/25/2025 2:34 PM CDT us José Miranda MD LAB BLOOD ORDERABLES Final Resu lt [facility] [place] [address] * ECG 12 lead (05/25/2025 11:59 AM CDT) Ventricular Rate EKG/Min [address] [facility] Atrial Rate 85 BPM [facility] VT-Interval (MSEC) 134 ms [facility] QRS-Interval (MSEC) 110 ms [facility] QT-Interval (MSEC) 378 ms [facility] QTc 449 ms [facility] P [place] 46 degrees [facility] R [place] -45 degrees [facility] T [place] 47 degrees [facility] Diagnosis Normal sinus rhythm Incomplete right bundle branch block Left anterior fascicular block Moderate voltage criteria for LVH, may be normal variant ( R in aVL , Alvin product ) Septal infarct , age undetermined Abnormal ECG When compared with ECG of 21-DEC-2024 17:30, PREVIOUS ECG IS PRESENT Confirmed by Lebron SAGASTUME, [facility] ([id number]) on 05/26/2025 8:52:40 AM [facility] 05/25/2025 11:5 9 AM CDT 05/26/2025 8:52 AM CDT us Barbara Ryan CHEMICAL ETCH OPERATOR ECG ORDERABLES Final Result [facility] * Screening Mammogram Bilateral W Robb (05/23/2025 4:40 PM CDT) Anatomical Region Laterality Modality Breast Bilateral Mammography Impressions 05/26/2025 12:05 PM CDT Bilateral No evidence of malignancy in either breast. OVERALL BI-RADS FINAL ASSESSMENT: 2 - Benign RECOMMENDATION: Recommend bilateral annual screening mammography. Narrative 05/26/2025 12:05 PM CDT EXAMINATION: Screening Mammogram Bilateral W Robb: 05/23/2025 COMPARISON: Relevant prior outside studies available at the time of interpretation were reviewed, including the most recent mammogram on: 11/26/2023. TECHNIQUE: Mammography was performed with 2D and 3D digital breast tomosynthesis (DBT) images. CAD was utilized. BREAST PARENCHYMAL COMPOSITION: The breasts are almost entirely fatty. FINDINGS: Suboptimal examination secondary to difficulty with patient positioning related to the patient's physical condition. Cardiac pacemaker generator again partially obscures the upper left breast and left axilla on the MLO view. There are benign calcifications in both breasts. No suspicious mass, calcification, or architectural distortion is seen in either breast. There has been no suspicious interval change. us Alvina Posey NP IMG MAMMO PROCEDURES Final Res ult * Dexa Axial Skeleton Bone Density 1 or 2 Site (12/28/2024 8:54 AM CDT) Anatomical Region Laterality Modality Body N/A Digital Radiogra phy 12/28/2024 9:25 AM CDT Impressions 12/28/2024 9:44 AM CDT 1. The bone mineral density of the left femoral neck is normal. 2. The bone mineral density of the left total hip is normal. 3. Overall, the above findings are normal by WHO criteria. 4. Calculation of fracture risk using the FRAX model is not appropriate in certain settings. It was not performed in this patient because the patient met the following condition(s): normal bone density. General comments regarding interpretation of bone density measurements: A) In children, premenopausal woman and males under age 50 not at increased risk for fractures only Z-scores, not T-scores are used to indicate risk. A Z-score above -2.0 is defined as within the expected range for age and Z-score at or less than -2.0 is below the expected range for age. A Z-score below the expected range for age in a patient with recent fractures and/or chronic corticosteroid treatment is consistent with a diagnosis of osteoporosis. B) In post menopausal women and males over 50, comparison of the measured bone mineral density with the average value in young normal subjects (the T-score) has been found to be useful in assessing fracture risk. Fracture risk approximately doubles for each 1.0 standard deviation (SD) in individual's hip or spine bone mineral density is below the average value of young normal subjects. The World Health Organization (WHO) has defined T-scores of -1.0 to -2.5 as diagnostic of low bone mass (OSTEOPENIA), and T-scores of -2.5 or lower to be diagnostic of OSTEOPOROSIS, based on the site of lowest bone density. Note that there will be a change in reporting format and reference databases as patients move from the younger population (group A) to the older population (group B) The National Osteoporosis Foundation (www.nof.org) recommends adequate intake of calcium and vitamin D and regular weight-bearing exercise in all patients. They recommend pharmacologic treatment in postmenopausal women and men age 50 and older presenting with any of the followin) Osteoporosis, after appropriate evaluation to exclude secondary causes. 2) A hip or vertebral (clinical or radiographic) fracture, regardless of the bone density. 3) Low bone mass (Osteopenia) and one or more of: other prior fractures, secondary causes associated with high risk of fracture (such as glucocorticoid use or total immobilization), or computed high risk of fracture (10-yr probability of hip fracture >= 3% or a 10-yr probability of any major osteoporosis-related fracture >= 20% based on the [place].-adapted WHO algorithm), available at http://www.shef.ac.uk/FRAX). The radiology attending physician has personally reviewed this study, and had reviewed and/or edited this written report and agrees with it. Electronically signed by: Andres Vogt M.D. Narrative 12/28/2024 9:44 AM CDT BONE DENSITOMETRY OF THE HIP DATE OF STUDY: 12/28/2024 HISTORY: 74-year-old postmenopausal woman undergoing evaluation for osteopenia. She is being treated with calcium and vitamin D supplementation. Evaluate bone mineral density. Additional risk factors for fracture: Prior fracture, early menopause. The bone mineral density could not be assessed in the spine due to presence of metallic instrumentation. The bone mineral density could not be assessed in the forearm due to technical issues with patient positioning. FINDINGS (FEMORAL NECK): The bone mineral density of the left femoral neck was assessed by dual-energy x-ray absorptiometry. The average bone mineral density within the femoral neck region is 0.962 gm/sq-cm. This is 3.1 standard deviations above the mean of the average bone mineral density for age- and gender-matched subjects (the Z-score). It is 1.0 standard deviations above the mean peak bone mineral density in young adults (the T-score). FINDINGS (TOTAL HIP): The bone mineral density of the left hip was assessed by dual-energy x-ray absorptiometry. The average bone mineral density within the total hip region is 0.974 gm/sq-cm. This is 2.1 standard deviations above the mean of the average bone mineral density for age- and gender-matched subjects (the Z-score). It is 0.3 standard deviations above the mean peak bone mineral density in young adults (the T-score). SUMMARY OF CURRENT RESULTS: Region BMD T-score Z-score Femoral Neck (Left) 0.962 1.0 3.1 Total Hip (Left) 0.974 0.3 2.1 Procedure Note Andres Vogt MD - 12/28/2024 BONE DENSITOMETRY OF THE HIP DATE OF STUDY: 12/28/2024 HISTORY: 74-year-old postmenopausal woman undergoing evaluation for osteopenia. She is being treated with calcium and vitamin D supplementation. Evaluate bone mineral density. Additional risk factors for fracture: Prior fracture, early menopause. The bone mineral density could not be assessed in the spine due to presence of metallic instrumentation. The bone mineral density could not be assessed in the forearm due to technical issues with patient positioning. FINDINGS (FEMORAL NECK): The bone mineral density of the left femoral neck was assessed by dual-energy x-ray absorptiometry. The average bone mineral density within the femoral neck region is 0.962 gm/sq-cm. This is 3.1 standard deviations above the mean of the average bone mineral density for age- and gender-matched subjects (the Z-score). It is 1.0 standard deviations above the mean peak bone mineral density in young adults (the T-score). FINDINGS (TOTAL HIP): The bone mineral density of the left hip was assessed by dual-energy x-ray absorptiometry. The average bone mineral density within the total hip region is 0.974 gm/sq-cm. This is 2.1 standard deviations above the mean of the average bone mineral density for age- and gender-matched subjects (the Z-score). It is 0.3 standard deviations above the mean peak bone mineral density in young adults (the T-score). SUMMARY OF CURRENT RESULTS: Region BMD T-score Z-score Femoral Neck (Left) 0.962 1.0 3.1 Total Hip (Left) 0.974 0.3 2.1 IMPRESSION: 1. The bone mineral density of the left femoral neck is normal. 2. The bone mineral density of the left total hip is normal. 3. Overall, the above findings are normal by WHO criteria. 4. Calculation of fracture risk using the FRAX model is not appropriate in certain settings. It was not performed in this patient because the patient met the following condition(s): normal bone density. General comments regarding interpretation of bone density measurements: A) In children, premenopausal woman and males under age 50 not at increased risk for fractures only Z-scores, not T-scores are used to indicate risk. A Z-score above -2.0 is defined as within the expected range for age and Z-score at or less than -2.0 is below the expected range for age. A Z-score below the expected range for age in a patient with recent fractures and/or chronic corticosteroid treatment is consistent with a diagnosis of osteoporosis. B) In post menopausal women and males over 50, comparison of the measured bone mineral density with the average value in young normal subjects (the T-score) has been found to be useful in assessing fracture risk. Fracture risk approximately doubles for each 1.0 standard deviation (SD) in individual's hip or spine bone mineral density is below the average value of young normal subjects. The World Health Organization (WHO) has defined T-scores of -1.0 to -2.5 as diagnostic of low bone mass (OSTEOPENIA), and T-scores of -2.5 or lower to be diagnostic of OSTEOPOROSIS, based on the site of lowest bone density. Note that there will be a change in reporting format and reference databases as patients move from the younger population (group A) to the older population (group B) The National Osteoporosis Foundation (www.nof.org) recommends adequate intake of calcium and vitamin D and regular weight-bearing exercise in all patients. They recommend pharmacologic treatment in postmenopausal women and men age 50 and older presenting with any of the followin) Osteoporosis, after appropriate evaluation to exclude secondary causes. 2) A hip or vertebral (clinical or radiographic) fracture, regardless of the bone density. 3) Low bone mass (Osteopenia) and one or more of: other prior fractures, secondary causes associated with high risk of fracture (such as glucocorticoid use or total immobilization), or computed high risk of fracture (10-yr probability of hip fracture >= 3% or a 10-yr probability of any major osteoporosis-related fracture >= 20% based on the [place].-adapted WHO algorithm), available at http://www.shef.ac.uk/FRAX). The radiology attending physician has personally reviewed this study, and had reviewed and/or edited this written report and agrees with it. Electronically signed by: Andres Vogt M.D. Kaila Kirkland NP IMG DXA PROCEDURES Meghan l Result * Colonoscopy (10/14/2018 12:40 PM HE[facility]TER) Anatomical Region Laterality Modality Other Historical Provider MD ENDOSCOPY PROCEDURES Meghan l Result from Last 3 Months or Most Recently Relevant to Health Maintenance Insurance [facility] MEDICARE MEDICARE COMMERCIAL GENERIC Member Subscriber Plan / Payer (Ef fective 2018-Present) Name:Ama Brooks Relation to Subscriber:Self Name:Ama Brooks Payer ID:[id number] Group ID:[id number] Type:COMMERCIAL Address: [address] MEDICARE [facility] Advance Directives For more information, please contact: [phone] Documents on File Type Date Recorded Patient Pouncer Machine Expl anation ADVANCE DIRECTIVE 06/16/2025 1:43 PM POWER OF MAJOR CASE DETECTIVE-MEDICAL * Full Code (Latest Code Status on File) Date Activated Date Inactivated Comments 06/13/2025 8:45 PM 06/30/2025 1:34 PM * Full Code Date Activated Date Inactivated Comments 06/12/2025 7:30 PM 06/13/2025 8:45 PM * Full Code Date Activated Date Inactivated Comments 06/12/2025 10:45 AM 06/12/2025 5:12 PM * Full Code Date Activated Date Inactivated Comments 12/26/2024 12:23 AM 01/02/2025 6:18 PM * Full Code Date Activated Date Inactivated Comments 12/19/2024 10:24 PM 12/25/2024 11:58 PM Healthcare Agents on File Name Relationship Healthcare Agent Relationship Communication Cheryl Hummel Sister Health Care Agent Rosio Miller Cousin First Alternate Health Care Agent Lexis Mccracken Friend Second Alternate Health Care Agent Care Teams Supervisor Cell Room Relationship Specialty Start Date End Date Alvina Posey NP [address] [place] [id number] PCP - General Family Medicine 01/25/25 Drea Rodríguez MD [address] [place] [address] [address] [place], [place] [id number] Referring Physician Neurology 05/06/21 Mely Martinez DPT [address] [place] [address] Physical Therapist Physical Therapy 08/10/23 Park Morel MD [address] [place] [address] [address] [place] [address] Cardiology 11/30/23 Shaquille Feliciano DO [address] [place] [id number] Referring Physician Internal Medicine 02/17/25
--- OUTSIDE RECORDS SUMMARY | 2025-07-27 11:06 | XMS_ITS | Encounter Summary ---
Author Organization [facility] Address [address] [place] [address] Phone Care Team Providers Care Carpet Tile Layer Name Role Phone Drea Rodríguez MD Unavailable [phone] Mely Martinez DPT Unavailable [phone] Park Morel MD Unavailable [phone] Alvina Posey PAINT SPRAYER SANDBLASTER Primary Care Provider [phone] Shaqiulle Feliciano DO Unavailable [phone] Encounter Details Date Type Department Care Team (Late st Contact Info) Description 07/17/2025 Telephone [facility] Medicine Infectious Diseases [address] [place] [id number] Niesha Yusuf RMA Social History Tobacco [...] often do you attend chur ch or religion services? Never 01/03/2025 Do you belong to any clubs o r organizations such as moravian groups, unions, fraternal or athletic groups, or [...] place to sleep or slept in a fci (including now)? No 11/30/2023 PHQ-9 Answer Date [...] any time in the past 12 m [facility], were you homeless or living in a fci (including now)? No 01/03/2025 Social Connection and Isolation Panel Answer Date Recorded In a typical week, how many times do you talk on the phone with family, friends, or neighbors? More than three times a week 06/15/2025 How often do you get togethe r with friends or relatives? More than three times a week 06/15/2025 How often do you attend chur ch or religion services? Never 06/15/2025 Do you belong to any clubs o r organizations such as moravian groups, unions, fraternal or athletic groups, or [...] any time in the past 12 m [facility], were you homeless or living in a fci (including now)? No 06/15/2025 [facility] Utilities Answer Date Recorded In the past 12 months has th [employer], gas, oil, or water company threatened to [...] on file Legal Sex Female 8:06 PM DIE FORGER Gender Identity Not on file Sexual Orientation Not on file documented as of this encounter Miscellaneous Notes * Telephone Encounter - Niesha Yusuf RMA - 07/17/2025 2:20 PM CST Ama is currently in the hosp. for an infection, and would like to reschedule her upcoming appt on 07/19. Please call [phone] FORGER documented in this encounter Plan of Treatment Not on file documented as of this encounter Visit Diagnoses Not on filedocumented in this encounter Care Teams Carpet Tile Layer Relationship Specialty Start Date End Date Alvina Posey NP [address] [place] [id number] PCP - General Family Medicine 01/25/25 Drea Rodríguez MD [address] [place] [address] [address] [place] [address] Referring Physician Neurology 05/06/21 Mely Martinez DPT [address] [place] [address] Physical Therapist Physical Therapy 08/10/23 Park Morel MD [address] [facility] [address] [place] [address] Cardiology 11/30/23 Shaquille Feliciano DO [address] [facility] [address] [place] [address] Referring Physician Internal Medicine 02/17/25 documented as of this encounter
--- NOTE | 2025-07-27 11:24 | ED.GENADULT ---
HPI - General Adult General Chief complaint: Chest Pain Stated complaint: nausea & CP Time Seen by Provider: 07/27/25 08:17 History of Present Illness HPI narrative: Patient is a 75-year-old female who presents to the ER with left-sided chest pain. Aching in lateral and anterior. Worse with physical movement and breathing. Has had similar symptoms in the past and was seen in last week for the same thing. She has history of spinal surgery with chronic osteomyelitis and receives IV ceftriaxone. She is currently bed-bound. No cough. She has history of a paralyzed diaphragm. She wears as needed oxygen at night. Related Data Home Medications ?Medication ?Instructions ?Recorded ?Confirmed ?Last Taken ?Type acetaminophen 500 mg capsule 500 mg PO Q4-6H PRN chronic pain 07/16/25 07/16/25 07/16/25 06:30 History 500 mg amlodipine 5 mg tablet 5 mg PO DAILY 07/16/25 07/16/25 07/16/25 09:00 History 5 mg aspirin 81 mg capsule 81 mg PO DAILY 07/16/25 07/16/25 07/16/25 08:30 History Held on 07/20/25. 81 mg Instructions: Resume when okay with [facility] spine surgery calcitriol 0.25 mcg capsule 0.75 mcg PO DAILY 07/16/25 07/16/25 07/16/25 08:30 History 0.25 mcg calcium 600 mg (as See Rx Instructions PO DAILY 07/16/25 07/16/25 07/16/25 08:30 History carbonate)-vitamin D3 10 mcg (400 1 tablet unit) tablet (Calcium with Vitamin D) Held on 07/20/25. Instructions: Review with custodial clinician clopidogrel 75 mg tablet 75 mg PO DAILY 07/16/25 07/16/25 07/16/25 08:30 History Held on 07/20/25. 75 mg Instructions: Resume when okay with [facility] spine surgery enoxaparin 40 mg/0.4 mL 40 mg subcut DAILY 07/16/25 07/16/25 07/15/25 13:46 History subcutaneous syringe 40 mg escitalopram oxalate 10 mg tablet 10 mg PO DAILY 07/16/25 07/16/25 07/16/25 08:30 History 10 mg gabapentin 300 mg capsule 300 mg PO TID 07/16/25 07/16/25 07/16/25 04:15 History 300 mg heparin (porcine) 10,000 unit/mL 10,000 unit subcut Q12H 07/16/25 07/16/25 07/15/25 10:00 History injection solution 10,000 units Held on 07/20/25. Instructions: Review with custodial clinician and Tyrese lactulose 10 gram/15 mL oral 10 g PO DAILY PRN constipation 07/16/25 07/16/25 07/15/25 16:30 History solution 10 grams levothyroxine 137 mcg capsule 137 mcg PO DAILY 07/16/25 07/16/25 07/16/25 04:00 History 137 mcg lidocaine 5 % topical patch 2 patch topical DAILY PRN pain 07/16/25 07/16/25 Unknown History methocarbamol 750 mg tablet 1,000 mg PO QID 07/16/25 07/16/25 07/16/25 08:30 History 1,125 mg ondansetron 4 mg disintegrating 4 mg PO PRN PRN nausea and vomiting 07/16/25 07/16/25 07/12/25 12:15 History tablet 4 mg rosuvastatin 10 mg tablet 10 mg PO EVERY OTHER DAY 07/16/25 07/16/25 07/14/25 20:50 History 10 mg senna-docusate sodium tablet 2 tablet PO BID 07/16/25 07/16/25 07/16/25 08:30 History 2 tabs oxycodone 15 mg tablet 15 mg PO Q4H 07/18/25 07/18/25 07/16/25 History Allergies Allergy/AdvReac Type Severity Reaction Status Date / Time adhesive tape Allergy Mild Rash Verified 07/16/25 18:43 belladonna alkaloids Allergy Mild Unknown Verified 07/16/25 18:43 cefprozil Allergy Mild Unknown Verified 07/16/25 18:43 clindamycin Allergy Mild Unknown Verified 07/16/25 18:43 clobetasol Allergy Mild Unknown Verified 07/16/25 18:43 diltiazem Allergy Mild Unknown Verified 07/16/25 18:43 doxycycline Allergy Mild Unknown Verified 07/16/25 18:43 ergotamine (From Bellergal-S) Allergy Mild Rash Verified 07/16/25 18:43 erythromycin base Allergy Mild Unknown Verified 07/16/25 18:43 fosfomycin Allergy Mild Unknown Verified 07/16/25 18:43 hydralazine Allergy Mild Unknown Verified 07/16/25 18:43 levofloxacin Allergy Mild Unknown Verified 07/16/25 18:43 nitrofurantoin Allergy Mild Unknown Verified 07/16/25 18:43 phenobarbital (From Allergy Mild Rash Verified 07/16/25 18:43 Bellergal-S) Sulfa (Sulfonamide Allergy Unknown Verified 07/16/25 18:43 Antibiotics) ticagrelor Allergy Unknown Verified 07/16/25 18:43 Review of Systems Review of Systems: All systems reviewed & are unremarkable except as noted in HPI and below Constitutional: Constitutional: Reports no additional constitutional complaints ENT: Reports system reviewed and no additional complaints, except as documented Cardiovascular: Cardiovascular: Reports no additional cardiovascular complaints Respiratory: Respiratory: Reports no additional respiratory complaints Gastrointestinal: Gastrointestinal: Reports no additional gastrointestinal complaints [facility] Past Medical History Medical History (Updated 07/27/25 @ 14:04 by Checo Carson MD) Chronic osteomyelitis Atrial fibrillation CAD (coronary artery disease) CHF (congestive heart failure) Surgical History Surgical History (Updated 07/27/25 @ 13:55 by Checo Carson MD) History of back surgery Social History Social History Smoking packs per day: 1 Smoking cigarettes per day: 20.0 Years smoked: 14 Smoking pack-years: 14.00 Smoking status: Former smoker Tobacco type: cigarettes Alcohol intake: never Substance use: never Lack of Transportation: YES Lack of Food: Never True Current Housing: I Have Housing Concerned About Future Housing: YES Difficulty Paying Gas/Electric Bills: YES Difficulty Paying for Meds: No Currently Unemployed: No Education: Associate Degree Difficulty w/ Childcare or Family Care: No Spiritual care concerns: No Exam Narrative: GENERAL: Well-appearing, well-nourished, and in no acute distress. HEAD: Normocephalic, atraumatic. ENT: Mucous membranes moist. CHEST: Clear to auscultation. No respiratory distress. tender to palpation with mild pressure to left anterior and lateral chest wall. HEART: Regular rate and rhythm. Normal peripheral pulses. ABDOMEN: Soft, nontender, nondistended. EXTREMITIES: No deformity of the upper lower extremities. No edema. SKIN: Warm, dry, no rash. NEURO: Alert and oriented x3. PSYCH: Normal mood and affect. Course Course Emergency Course: Patient does require some oxygen supplementation while awake. Workup reveals no PE or pneumonia or pulmonary edema. Suspect between her pain control with opiates and her paralyzed diaphragm she is not getting is good of a deep breath. Will give IS teaching and discharge with recommendation of scheduled oxygen. Vital Signs Vital signs: Vital Signs Pulse Rate 90 07/27/25 08:06 Respiratory Rate 12 07/27/25 08:06 Blood Pressure 121/69 07/27/25 08:06 Pulse Oximetry 85 L 07/27/25 08:06 Oxygen Delivery Room Air 07/27/25 08:06 Temperature 97.8 F 07/27/25 08:21 Pulse Rate 80 07/27/25 14:00 Respiratory Rate 17 07/27/25 14:00 Blood Pressure 132/64 07/27/25 14:00 Pulse Oximetry 96 07/27/25 14:00 Oxygen Delivery Nasal Cannula 07/27/25 08:20 Oxygen Flow Rate 3 07/27/25 08:20 Medical Decision Making Medical Records Medical records reviewed: Yes I reviewed the external patient's medical records. Vital Signs Vital Signs: Vital Signs Pulse Rate 90 07/27/25 08:06 Respiratory Rate 12 07/27/25 08:06 Blood Pressure 121/69 07/27/25 08:06 Pulse Oximetry 85 L 07/27/25 08:06 Oxygen Delivery Room Air 07/27/25 08:06 Temperature 97.8 F 07/27/25 08:21 Pulse Rate 80 07/27/25 14:00 Respiratory Rate 17 07/27/25 14:00 Blood Pressure 132/64 07/27/25 14:00 Pulse Oximetry 96 07/27/25 14:00 Oxygen Delivery Nasal Cannula 07/27/25 08:20 Oxygen Flow Rate 3 07/27/25 08:20 Lab Data Lab results reviewed: Yes I reviewed the patient's lab results. 07/27/25 09:57 07/27/25 09:57 Labs: Lab Results 07/27/25 07/27/25 Range/Units 09:57 12:55 WBC 5.8 (4.5-10.0) K/mm3 RBC 3.23 L (4.2-5.4) M/mm3 Hgb 9.6 L (12.0-15.0) g/dL Hct 32.0 L (37.0-47.0) % MCV 99.1 (80-100) fl MCH 29.7 (26-34) pg MCHC 30.0 L (32-36) g/dl RDW 15.7 H (11.5-14.5) % Plt Count 202 (150-375) k/mm3 MPV 9.6 (7.4-10.4) fl Immature Gran % (Auto) 0.3 (0-0.5) % Neut % (Auto) 76.6 H (45.5-73.1) % Lymph % (Auto) 11.4 L (18.3-44.2) % [place] % (Auto) 8.4 (2.6-8.5) % Eos % (Auto) 2.8 (0-4.4) % Baso % (Auto) 0.5 (0.2-1.2) % Lymph # (Auto) 0.66 L (0.9-3.2) K/mm3 [place] # (Auto) 0.5 (0.1-0.6) K/mm3 Eos # (Auto) 0.2 (0-0.3) K/mm3 Baso # (Auto) 0.0 (0.0-0.1) K/mm3 Abs Immat Gran (auto) 0.02 (0.00-0.031) K/mm3 Absolute Neuts (auto) 4.5 (1.3-6.7) K/mm3 Absolute Nucleated RBC 0.000 (0.0-0.012) K/mm3 Nucleated RBC % 0.0 (0.0-0.2) % PT 13.9 (11.1-14.7) Seconds INR 1.1 APTT 28.9 (22.3-36.8) Seconds Sodium 137 (137-145) mmol/L Potassium 4.1 (3.4-5.0) mmol/L Chloride 102 (98-107) mmol/L Carbon Dioxide 34 H (22-30) mmol/L Anion Gap 1 L (4-12) mmol/L BUN 11 (7-17) mg/dL Creatinine 0.52 L (0.7-1.0) mg/dL Estim Creat Clear Calc 85 ml/min Estimated GFR > 60 (59 - ) Glucose 104 (65-110) mg/dL Calcium 8.0 L (8.4-10.2) mg/dL Total Bilirubin 0.3 (0.2-1.3) mg/dL AST 23 (14-36) U/L ALT 24 (6-35) U/L Alkaline Phosphatase 133 H (38-126) U/L Troponin I < 0.012 < 0.012 (0.000-0.034) ng/mL NT-Pro-B Natriuret Pep 429 H (19.9-100) pg/mL Total Protein 5.7 L (6.3-8.2) g/dL Albumin 3.2 L (3.5-5.1) g/dL Lipase 20 L (23-300) U/L Imaging Data Attestation: I personally reviewed and interpreted this imaging study as follows: Radiologist's impression: ITS Impressions Chest X-Ray 07/27/25 09:38 Impression: Mild CHF Chest CTA 07/27/25 10:57 IMPRESSION: 1. No pulmonary emboli. 2. Several chronic appearing findings with no gross acute interval change compared to July 16 exam. ECG Data EKG #1: ECG completion date: 07/27/25 ECG completion time: 13:15 EKG Interpretation: normal rate, sinus rhythm, non-specific ST changes, normal QRS and left axis Discharge Plan Discharge Clinical Impression: Chest pain, musculoskeletal, Hypoxia Patient Disposition: Home Condition: Stable Instructions: Antibiotic Form Additional Instructions: Please return to the emergency department if you develop severe and persistent chest pain, difficulty breathing, dizziness, leg swelling or if you are coughing up blood as these can be signs of a medical emergency. Please call your doctor for a follow up appointment to determine the need for further testing. Your taught have do incentive spirometry while in ER. Additionally your oxygen was found to be a little bit low and it is felt you likely need to use your oxygen 24 hours a day instead of only at night. Patient Language: Mohawk Prescriptions: No Action amlodipine 5 mg tablet 5 mg PO DAILY calcitriol 0.25 mcg capsule 0.75 mcg PO DAILY aspirin 81 mg capsule 81 mg PO DAILY acetaminophen 500 mg capsule 500 mg PO Q4-6H PRN (Reason: chronic pain) clopidogrel 75 mg tablet 75 mg PO DAILY escitalopram oxalate 10 mg tablet 10 mg PO DAILY calcium carbonate-vitamin D3 [Calcium with Vitamin D] 600 mg-10 mcg (400 unit) tablet See Rx Instructions PO DAILY Rx Instructions: orally daily X 1 tab. orally QHS X 3 tabs enoxaparin 40 mg/0.4 mL syringe 40 mg subcut DAILY gabapentin 300 mg capsule 300 mg PO TID heparin (porcine) 10,000 unit/mL solution 10,000 unit subcut Q12H lactulose 10 gram/15 mL solution 10 g PO DAILY PRN (Reason: constipation) rosuvastatin 10 mg tablet 10 mg PO EVERY OTHER DAY ondansetron 4 mg tablet,disintegrating 4 mg PO PRN PRN (Reason: nausea and vomiting) senna-docusate sodium Tablet 2 tablet PO BID lidocaine 5 % adhesive patch,medicated 2 patch topical DAILY PRN (Reason: pain) Rx Instructions: leave on most painful area for up to 12 hrs levothyroxine 137 mcg capsule 137 mcg PO DAILY methocarbamol 750 mg tablet 1,000 mg PO QID oxycodone 15 mg tablet 15 mg PO Q4H ceftriaxone 2 gram recon soln 2 g IV DAILY alum-mag hydroxide-simeth [Mag-Al Plus] 200-200-20 mg/5 mL Suspension 30 ml PO Q6H PRN (Reason: Indigestion) Qty: 3000 0RF polyethylene glycol 3350 [Miralax] 17 gram Powder In Packet 17 g PO Q8HR PRN (Reason: constipation) Qty: 30 0RF pantoprazole 40 mg Tablet,Delayed Release (Dr/Ec) 40 mg PO QAM Qty: 30 0RF Follow-up/Referrals: Kalpesh,Alvina Spangler SOCIAL MEDIA DEVELOPER [Primary Care Provider, Family Practice] - 1 Week
[2025-07-27 12:38] LABS: NT Pro B Type Natriuretic Pept 429 pg/mL (19.9-100)
--- NOTE | 2025-07-27 12:51 | ECG_ITS ---
Test Date: 2025-07-27 13:15:56 Measurements Intervals Melvin Rate: 76 P: 50 IL: 143 QRS: -31 QRSD: 118 T: 73 QT: 392 QTc: 442 Interpretive Statements SINUS RHYTHM LEFT AXIS DEVIATION [QRS AXIS < -30] POSSIBLE SEPTAL MYOCARDIAL INFARCTION , OF INDETERMINATE AGE [30 ms Q WAVE IN V1/V2] Compared to ECG 07/27/2025 08:15:17 Left-axis deviation now present Myocardial infarct finding now present Ventricular premature complex(es) no longer present Electronically Signed On 07-27-2025 13:57:47 [employer] O[employer] by Zack Frank M.D.
[2025-07-27 13:29] LABS: Troponin I < 0.012 ng/mL (0.000-0.034)
[2025-07-27 14:00] VITALS: BP 132/64; PULSE 80; PULSE 81; RESP 17; O2SAT 96
== END 2025-07-27 16:40 ==
PROVIDERS: Emergency Provider Emergency Medicine; PCP Nurse Practitioner
DX: R07.89 Other chest pain (principal); I48.91 Unspecified atrial fibrillation; I25.10 Atherosclerotic heart disease of native coronary artery without angina pectoris; I50.9 Heart failure, unspecified; M86.68 Other chronic osteomyelitis, other site; Z87.891 Personal history of nicotine dependence; R09.02 Hypoxemia; Z79.82 Long term (current) use of aspirin; Z79.02 Long term (current) use of antithrombotics/antiplatelets; Z79.899 Other long term (current) drug therapy; Z79.2 Long term (current) use of antibiotics; Z79.01 Long term (current) use of anticoagulants; R94.31 Abnormal electrocardiogram [ECG] [EKG]
CPT/HCPCS: 36415; 71045; 71275; 80053; 83690; 83880; 84484; 85025; 85610; 85730; 93005; 99284; Q9967